=== PATIENT | female | born 1985 | race Caucasian/White ===

== ENCOUNTER 2019-12-20 06:33 | Day surgery (SDC) | payer MEDICARE, SELFPAY ==
[2019-12-19 08:55] LABS: OR HCG Qualitative Urine Negative (Negative)
--- NOTE | 2019-12-19 09:28 | ANES.PREANES ---
Pre-Anesthetic Assessment Pre-Anesthetic Assessment: Height/Weight: Height 1.63 m Weight 94.347 kg Preop Diagnosis: Menorrhagia Proposed Procedure: Operation Date: 12/20/19 08:00 Proposed Procedures p Hysteroscopy w/ Ablation w/ Novasure 31907 n92.1(Not Applicable) - Edward Rojo MD Familial anesthetic complications: No trouble Social: Social History: Tobacco and No alcohol Packs per day: 1 ppd Exam: Pre-Anes Outpt Exam: alert, oriented x 3, clear to auscultation bilaterally and regular rate & rhythm Airway: Cervical ROM: WNL MP: 2 Additional comments: multiple missing teeth Pulmonary: Pulmonary: None reported CV/HEM: CV/HEM: Angina (Stable) Comments: tachycardia (placed on metoprolol), syncope (last time several months ago), dizzy spells happen everyday. Has worn holter. : : None reported Hepatic: Hepatic: None reported GI: GI: GERD Metabolic: Metabolic: Morbid obesity Musc/skel: Musc/skel: Fibromyalgia, OA/DJD and Scoliosis Comments: spina bifida OCCULTA (LATEX allergy) - spondylolisthesis (can't lay completely flat without symptoms/severe pain). has done lithotomy positioning with her first born. Neuropsych: Neuropsych: Neuropathy Anesthetic Plan: ASA status: III Anesthesia: General PFSH Anesthesia PFSH: Social History (Updated 12/19/19 @ 08:30 by Esme Pastor RN) Smoking and tobacco status: current every day smoker cigarettes Packs smoked per day: 1 Years cigarettes smoked: 12 [ Other cigarette details: 1/2-1 ppd. Started smoking age 15 ] Alcohol intake: never Substance/Drug Use: never Additional social history: poorly balanced diet Female Reproductive History: Date of last menstrual period: 12/19/19 Data Anesthesia Other Labs: Laboratory Results - last 48 hr 12/19/19 08:23 Urine HCG, Qual Negative Cardiac Studies: No Data to Display
[2019-12-19 09:38] LABS: Basophils # 0.1 10^3/uL (0.0-0.1); Basophils % 0.6 %; Eosinophils # 0.3 10^3/uL (0.0-0.8); Eosinophils % 3.1 %; Hematocrit 43.3 % (37.0-47.0); Hemoglobin 14.3 g/dL (11.5-15.3); Lymphocytes # 2.6 10^3/uL (0.8-4.8); Lymphocytes % 31.1 %; Mean Corpuscular Hemoglobin 29.7 pg (28.0-34.0); Mean Platelet Volume 11.1 fL (7.4-10.4); Monocytes # 0.7 10^3/uL (0.2-0.9); Neutrophils # 4.8 10^3/uL (1.8-7.7); Nucleated Red Blood Cells % 0 %; Platelet Count 329 10^3/cmm (130-400); Red Blood Count 4.81 10^6/uL (4.1-5.3); Red Cell Distribution Width 13.2 % (12.1-15.1); White Blood Count 8.3 10^3/uL (4.0-10.0)
[2019-12-20 06:41] VITALS: BP 108/69; PULSE 70; RESP 18; O2SAT 98
--- NOTE | 2019-12-20 06:56 | P.HPUD_ITS ---
H&P update H&P Update: DATE OF SURGERY/PROCEDURE: 12/20/19 DATE H&P PERFORMED: H&P UPDATE INFORMATION: H&P completed within last 30 days, No changes to prior documentation and H&P is in [facility] on date indicated PREOP DIAGNOSIS: Menorrhagia with irregular cycles PLANNED PROCEDURE: Operation Date: 12/20/19 08:00 Proposed Procedures p Hysteroscopy w/ Ablation w/ Novasure 32635 n92.1(Not Applicable) - Edward Rojo MD Full H&P Perinent History: Medical/Surgical History: Medical History (Updated 12/18/19 @ 20:38 by Edward Rojo MD) Anxiety and depression (Acute) Dyspareunia, female (Acute) 08/23/2018: Patient is reporting pain with sex that has been present for years, but worsened since her section in 2016. Based upon her description, I am suspicious for adhesions from her possibly being a cause or at least contributing to some of her pain. Her fibromyalgia may also be contributing to her pain. She is being started on Elavil and an attempt to treat her fibromyalgia and we will see if this helps with her pain with sex. Fibromyalgia (Acute) Gastroesophageal reflux (Acute) Migraine headache (Acute) Worse with systemic hormonal control Palpitations (Acute) Controlled with metoprolol. Followed by Dr. Auguste at [facility] Pelvic pain in female (Acute) 08/23/2018: Patient is reporting having pain in her pelvic region similar to the pain she has when she has sex. This is unrelated to her menstrual cycles. Potential causes for pain in the pelvic area was discussed including gynecologic, urologic, gastrointestinal, musculoskeletal, and neurologic causes. Based upon description, I am suspicious for adhesions to be at least a part of her pain problems. The fibromyalgia may also be contributing to her pain. I am starting her on Elavil and attempt to treat her pain. She also wished proceed to a laparoscopic evaluation of her pain as well as to have her tubes tied at the same time. 09/23/2018: Reports overall improvement in her generalized pain with amitriptyline, but no significant improvement with the pelvic pain. 09/28/2018: Laparoscopy with lysis of adhesions and sterilization. Small area of omental adhesions found. No evidence of endometriosis seen. Family History: Family History (Updated 01/26/20 @ 20:25 by Edward Rojo MD) Father Hypertension Stroke Family/Other Colon cancer paternal aunt Grandfather Diabetes Maternal Grandmother Diabetes Paternal Stroke Paternal Social History: Social History Smoking and tobacco status: current every day smoker cigarettes Packs smoked per day: 1 Years cigarettes smoked: 12 [ Other cigarette details: 11/24- ppd. Started smoking age 15 ] Alcohol intake: never Substance/Drug Use: never Additional social history: poorly balanced diet
[2019-12-20] MEDS: ketorolac 30 mg/mL INJ IVP (07:25)
[2019-12-20] MEDS: sodium chloride 0.9% 1,000 ML 30 ML IV (07:26)
--- NOTE | 2019-12-20 09:10 | P.OP_ITS ---
Operative Report Date of procedure: 12/20/19 Pre-op Diagnosis: Menorrhagia with irregular cycles Post-op diagnosis: same Procedure Done: Hysteroscopy with endometrial ablation with NovaSure, Paracervical block Pathology: none sent Surgeon: Edward Rojo Anesthesia: MAC Estimated blood loss (mL): 1 IV fluids (mL): 250 Complications: None Condition: stable Disposition: other (Home) Brief History: Patient is a 34-year-old white female 2, para 2-0-0-2 with an LMP of 11/24/2019 with status post tubal ligation. She had presented to the office on 09/21/2019 with a complaint of approximately 1 year history of abnormal uterine bleeding. Her cycles have been heavy and lasting longer with more cramping. She would typically bleed for 7 to 8 days at the time with passage of up to golf ball size clots. She was having to change a pad about every 3-4 hours. Cramping would start 2 to 3 days before the onset of her menses and continue to approximately 1 to 2 days after the bleeding had stopped. She had been treated with hormonal control which did not help with the bleeding but did help with the cramping. However, she developed worsening migraines while on the control and has now decided proceed to an endometrial ablation. Procedure: The patient was taken to the operating room where IV sedation was obtained. She was prepped and draped in the usual sterile fashion in the dorsal supine position with legs in Emmanuel style stirrups. Sequential compression boots had been placed prior to starting the case. Patient had voided just before coming to the operating room. Exam under anesthesia was performed and the patient was noted to have first to second-degree uterine prolapse with first-degree cystocele and rectocele. A we ighted speculum was placed in the vagina and the cervix was grasped with a single-tooth tenaculum. A paracervical block was performed with a total of 11 mL of 2% lidocaine with epinephrine used. The uterus was sounded to a total length of 6-1/2 cm. The cervix was serially dilated until a operative hysteroscope could be passed. Crystalloid solution was used as a distention media. The endometrial cavity was inspected and appeared normal. No masses or polyps were noted. She did have a small endometrial cavity noted. Using the NovaSure sound, endometrial cavity length was measured at 4 cm. The NovaSure device was inserted and device was deployed. The device was moved up and down and left and right until no further with adjustment occurred. Uterine width was measured at 2.6 cm. Settings were entered in the NovaSure machine and wattage was set at 57 [place]. Cavity integrity check was performed and integrity confirmed. Device was then activated. Total treatment time was 52 seconds. Device was removed. The tenaculum was removed and there was minimal bleeding from the tenaculum site. Patient tolerated the procedure well. Sponge and needle counts were correct. FINDINGS: Small uterus with a first to second-degree prolapse and first-degree cystocele and rectocele. Normal-appearing endometrial cavity. POSTOPERATIVE STATUS: The patient was transferred to the recovery room in satisfactory condition DISPOSITION: Discharge to home when criteria was met. FOLLOWUP APPOINTMENT: Followup appointment had been scheduled on 01/05/2020 in my office. MEDICATIONS: She received prescriptions for: Ibuprofen 800 mg, 3 times a day as needed for pain, #30, 0 refills Tramadol 50 mg, 1 to 2 tablets every 6 hours as needed for pain, #10, 0 refills
[2019-12-20] MEDS: ondansetron 2 mg/ML SDV 2 mL 4 MG IVP (09:48)
[2019-12-20 11:11] VITALS: BP 110/68; PULSE 90; RESP 18; TEMP 36.2; O2SAT 98
[2019-12-20 11:25] VITALS: BP 105/67; PULSE 59; RESP 18; O2SAT 99
== END 2019-12-20 10:45 | disposition home or self-care (01) ==
PROVIDERS: Family Provider Family Medicine; PCP Family Medicine; Visit Provider Obstetrics & Gynecology
PROC: 0U598ZZ Destruction of Uterus, Via Natural or Artificial Opening Endoscopic (ICD-10-PCS; CPT 58563; principal; 2019-12-20 08:00)
DX: N92.0 Excessive and frequent menstruation with regular cycle (principal); M79.7 Fibromyalgia; K21.9 Gastro-esophageal reflux disease without esophagitis; Z82.49 Family history of ischemic heart disease and other diseases of the circulatory system; Z83.3 Family history of diabetes mellitus; F17.210 Nicotine dependence, cigarettes, uncomplicated; E66.01 Morbid (severe) obesity due to excess calories; Z68.35 Body mass index [BMI] 35.0-35.9, adult; M19.90 Unspecified osteoarthritis, unspecified site
CPT/HCPCS: 58563; 12345; 81025; 84703; 85025; 96365; 96374; J1885; J2001; J2250; J2405; J2704; J7030

== ENCOUNTER 2020-02-14 09:51 | Outpatient (CLI) | payer MEDICARE, SELFPAY ==
--- NOTE | 2020-02-14 09:57 | MM_ITS ---
WS: [id number] DIAGNOSTIC BILATERAL DIGITAL MAMMOGRAM WITH CAD Bilateral breast ultrasound, limited HISTORY: LT BREAST CONTOUR DIFFERENCE COMPARISON: None available. Technique: CC, MLO and ML views. Spot compression RIGHT and LEFT CC. Breast composition: The breasts are heterogeneously dense, which may obscure small masses. No signif icant change in the contour of the LEFT breast along the inferior aspect. Dense fibroglandular tissue upper outer quadrants with no mass or distortion. Bilateral breast ultrasound. RIGHT breast: No suspicious mass, cyst or distortion. LEFT breast: No suspicious mass or distortion. No cystic changes. No skin thickening in the area of d istortion. MM/[place] [id number] IMPRESSION: BI-RADS: 2-Benign FOLLOW UP: Age 42 LACK OF RADIOGRAPHIC EVIDENCE OF MALIGNANCY SHOULD NOT DELAY BIOPSY IF A CLINIC ALLY SUSPICIOUS MASS OR CONTOUR ABNORMALITY IS PRESENT.
== END 2020-02-14 09:52 | disposition home or self-care (01) ==
LOC: RADSHAW 09:51
PROVIDERS: Family Provider Family Medicine; PCP Family Medicine; Visit Provider Family Medicine
DX: N63.21 Unspecified lump in the left breast, upper outer quadrant (principal)
CPT/HCPCS: 76642; 77066

== ENCOUNTER 2020-07-12 21:21 | Emergency (ER) | payer MEDICARE, SELFPAY ==
[2020-07-12 21:26] VITALS: BP 120/68; PULSE 132; RESP 25; TEMP 37.4; O2SAT 97; BMI 37.2
--- NOTE | 2020-07-12 21:40 | XR_ITS ---
WS: [id number] EXAM: AP CHEST: PORTABLE UPRIGHT DATE OF EXAM: 07/12/2020, 2156 hour COMPARISON: Chest x-ray from 07/01/2019 HISTORY: Patient is 34 years old with fever and dizziness. Assess for viral pneumonia.. FINDINGS: The cardiac silhouette is normal in size. The mediastinal contours are normal. The pulmonary vas cularity is normal. The lungs are clear of infiltrate. There is no effusion or pneumothorax. No ac [place] bony abnormality is seen. Ornamental jewelry over both breasts. XR/XR chest 1V portable [id number] IMPRESSION: No acute pulmonary disease.
--- NOTE | 2020-07-12 21:44 | ED_ITS ---
HPI - General Adult General: Chief complaint: General Medical Stated complaint: covid symptoms Time Seen by Provider: 07/12/20 21:34 Source: patient Mode of arrival: ambulatory Limitations: no limitations History of Present Illness: HPI narrative: 34-year-old female states over the last 2 days she is been feeling ill. States she had generalized body aches along with abdominal pain vomiting and diarrhea. States she is also had some shortness of breath along with fevers. Patient denies any worsening or improving factors. She denies any blood in her stools. Associated symptoms: Reports nausea and vomiting; Deny chest pain, dyspnea, headache(s) or rash Review of Systems Const: Reports: fever(s) Eyes: Denies: blurry vision or eye discomfort ENMT: Denies: throat pain or dental pain Card: Denies: chest pain Resp: Denies: dyspnea GI: Reports: abdominal pain, nausea, vomiting and diarrhea : Denies: dysuria Musc: Denies: neck pain or back pain Skin/Breast: Denies: rash Neuro: Denies: headache(s) Psych: Denies: depression [place]/Lymph: Denies: easy bruising All/Imm: Denies: urticaria PFSH ED PFSH: Medical History Anxiety and depression Dyspareunia, female 08/23/2018: Patient is reporting pain with sex that has been present for years, but worsened since her section in 2017. Based upon her description, I am suspicious for adhesions from her possibly being a cause or at least contributing to some of her pain. Her fibromyalgia may also be contributing to her pain. She is being started on Elavil and an attempt to treat her fibromyalgia and we will see if this helps with her pain with sex. Fibromyalgia Gastroesophageal reflux Migraine headache Worse with systemic hormonal control Palpitations Controlled with metoprolol. Followed by Dr. Auguste at [facility] Pelvic pain in female 08/23/2018: Patient is reporting having pain in her pelvic region similar to the pain she has when she has sex. This is unrelated to her menstrual cycles. Potential causes for pain in the pelvic area was discussed including gynecologic, urologic, gastrointestinal, musculoskeletal, and neurologic causes. Based upon description, I am suspicious for adhesions to be at least a part of her pain problems. The fibromyalgia may also be contributing to her pain. I am starting her on Elavil and attempt to treat her pain. She also wished proceed to a laparoscopic evaluation of her pain as well as to have her tubes tied at the same time. 09/23/2018: Reports overall improvement in her generalized pain with amitriptyline, but no significant improvement with the pelvic pain. 09/28/2018: Laparoscopy with lysis of adhesions and sterilization. Small area of omental adhesions found. No evidence of endometriosis seen. Smoking Surgical History History of endometrial ablation (12/20/19) Hysteroscopy with NovaSure ablation. Performed by Dr. Rojo at [facility] [place]. S/P section (06/05/17) Low transverse section. Diagnosis: Cephalopelvic disproportion with normal size fetus. Performed by Dr. Edward Rojo at [facility] in [place], [place]. Patient had a low transverse incision with a 2 layer closure of the uterus. S/P cholecystectomy (~2006) Laparoscopic. Performed by Dr Kumar in [place], [place] S/P laparoscopic procedure (09/16/11) Diagnostic. Diag: Pelvic pain, Dyspareunia, Left lower quadrant pain. Performed by Dr. Edward Rojo at [facility] in [place], [place]. --- Operative report reviewed-no signs of endometriosis or adhesions identified. S/P tubal ligation (09/28/18) Laparoscopic complete salpingectomy for sterilization and lysis of adhesions. Diagnosis undesired fertility and chronic pelvic pain. Performed by Dr. Edward Rojo at [facility] in [place], [place]. Findings: Small area of omental adhesions. No evidence of endometriosis seen. Family History Father Hypertension Stroke Family/Other Colon cancer paternal aunt Grandfather Diabetes Maternal Grandmother Diabetes Paternal Stroke Paternal Social History Smoking and tobacco status: current every day smoker cigarettes Packs smoked per day: 1 Years cigarettes smoked: 12 [ Other cigarette details: /2-1 ppd. Started smoking age 15 ] Alcohol intake: never Additional social history: poorly balanced diet Female Reproductive History: Date of last menstrual period: 12/20/19 Physical Exam Const: COMMON NORMALS: patient oriented x3 and healthy appearing GENERAL APPEARANCE: ill appearing HENMT: COMMON NORMALS: normocephalic and atraumatic HEAD & SCALP: normocephalic and atraumatic Eye: COMMON NORMALS: Equal, round and reactive pupils present and EOMs intact bilaterally PUPIL: Yes Equal, round and reactive pupils present Neck/C-Spine: COMMON NORMALS: full ROM and supple Chest: COMMONS NORMALS: normal inspection of the chest and normal palpation of entire chest wall Resp: COMMON NORMALS: normal respiratory effort, No retractions, No use of accessory muscles and clear to auscultation bilaterally AUSCULTATION: clear to auscultation bilaterally Cardio: COMMON NORMALS: regular rhythm and No murmurs present (Cardio) RATE: bradycardic RHYTHM: regular rhythm GI: COMMON NORMALS: Normal to inspection, nondistended, normoactive bowel sounds present, Soft to palpation, non-tender and no masses PALPATION: Yes Soft to palpation Extremity: COMMON NORMALS: normal to inspection and full ROM Neuro: COMMON NORMALS: patient oriented x3, moves all extremities and no focal motor deficits Psych: COMMON NORMALS: mental status grossly normal, Normal thought process present and cooperative THOUGHT PROCESS: Normal thought process present Skin: COMMON NORMALS: no rashes or lesions noted and no wounds GENERAL SKIN EXAM: no rashes or lesions noted Course Vital Signs: Vital signs: Vital Signs Temperature 99.4 F 07/12/20 21:26 Pulse Rate 83 07/13/20 00:17 Respiratory Rate 16 07/13/20 00:17 Blood Pressure 123/87 07/13/20 00:17 Pulse Oximetry 97 07/13/20 00:17 MDM - General Adult MDM Narrative: Medical decision making narrative: Patient presents here with fever along diarrhea. Patient does have colitis. We will start her on Flagyl. Patient has no signs of septic shock. She feels much improved here. Patient is to follow-up PCP in 3 to 5 days return if worsening. She understands and agrees to plan. Lab Data: Labs: Lab Results 07/12/20 07/12/20 07/12/20 Range/Units 22:12 22:12 22:12 WBC 22.8 H (4.0-10.0) 10^3/ uL RBC 5.16 (4.1-5.3) 10^6/u L Hgb 15.9 H (11.5-15.3) g/dL Hct 46.8 (37.0-47.0) % MCV 90.7 (81-99) fL MCH 30.8 (28.0-34.0) pg MCHC 34.0 (30.0-36.0) g/dL RDW 14.5 (12.1-15.1) % Plt Count 366 (130-400) 10^3/c mm MPV 11.0 H (7.4-10.4) fL Neut % (Auto) 90.0 % Lymph % (Auto) 3.1 % [place] % (Auto) 6.0 % Eos % (Auto) 0.0 % Baso % (Auto) 0.3 % Neut # (Auto) 20.54 H (1.8-7.7) 10^3/u L Lymph # (Auto) 0.7 L (0.8-4.8) 10^3/u L [place] # (Auto) 1.4 H (0.2-0.9) 10^3/u L Eos # (Auto) 0.0 (0.0-0.8) 10^3/u L Baso # (Auto) 0.1 (0.0-0.1) 10^3/u L Nucleated RBC % (a uto) 0 % Nucleated RBCs # 0.0 /100WBC Sodium 131 L (136-145) mmol/L Potassium 3.3 L (3.5-5.1) mmol/L Chloride 97 L (98-107) mmol/L Carbon Dioxide 18 L (22-29) mmol/L Anion Gap 19.3 H (5-19) BUN 7 (6-20) mg/dL Creatinine 1.1 H (0.5-0.9) mg/dL GFR Calculation 57.6 L (90-130) mL/min Glucose 122 H (65-115) mg/dL Calculated Osmolal ity 269 L (285-295) mOsm/k g Lactate (0.5-2.2) mmol/L Calcium 9.5 (8.5-10.5) mg/dL Total Bilirubin 0.5 (0.15-1.2) mg/dL AST 46 H (0-32) U/L ALT 62 H (0-33) U/L Alkaline Phosphata se 105 (35-105) IU/L Total Protein 8.0 (6.6-8.7) g/dL Albumin 4.3 (3.5-5.2) g/dL Globulin 3.7 (1.3-4.6) g/dL Lipase 10 L (13-60) U/L HCG, Qual (Negative) Urine Color (Yellow) Urine Appearance (CLEAR) Urine pH (5-7) Ur Specific Gravit y (1.005-1.030) Urine Protein (Negative) Urine Glucose (UA) (Normal) Urine Ketones (Negative) Urine Blood (Negative) Urine Nitrate (Negative) Urine Bilirubin (NEGATIVE) Urine Urobilinogen (Negative) mg/dL Ur Leukocyte Tamara ase (Negative) Urine RBC (0-2) /hpf Urine WBC (0-5) /hpf Ur Squamous Epith Cells (0-5) Amorphous Sediment Urine Bacteria (NONE) Urine Mucus SARS-CoV-2 Ag (Rap id) Negative (Negative) 07/12/20 07/12/20 07/12/20 Range/Units 22:12 22:12 22:12 WBC (4.0-10.0) 10^3/ uL RBC (4.1-5.3) 10^6/u L Hgb (11.5-15.3) g/dL Hct (37.0-47.0) % MCV (81-99) fL MCH (28.0-34.0) pg MCHC (30.0-36.0) g/dL RDW (12.1-15.1) % Plt Count (130-400) 10^3/c mm MPV (7.4-10.4) fL Neut % (Auto) % Lymph % (Auto) % [place] % (Auto) % Eos % (Auto) % Baso % (Auto) % Neut # (Auto) (1.8-7.7) 10^3/u L Lymph # (Auto) (0.8-4.8) 10^3/u L [place] # (Auto) (0.2-0.9) 10^3/u L Eos # (Auto) (0.0-0.8) 10^3/u L Baso # (Auto) (0.0-0.1) 10^3/u L Nucleated RBC % (a uto) % Nucleated RBCs # /100WBC Sodium (136-145) mmol/L Potassium (3.5-5.1) mmol/L Chloride (98-107) mmol/L Carbon Dioxide (22-29) mmol/L Anion Gap (5-19) BUN (6-20) mg/dL Creatinine (0.5-0.9) mg/dL GFR Calculation (90-130) mL/min Glucose (65-115) mg/dL Calculated Osmolal ity (285-295) mOsm/k g Lactate 2.6 H (0.5-2.2) mmol/L Calcium (8.5-10.5) mg/dL Total Bilirubin (0.15-1.2) mg/dL AST (0-32) U/L ALT (0-33) U/L Alkaline Phosphata se (35-105) IU/L Total Protein (6.6-8.7) g/dL Albumin (3.5-5.2) g/dL Globulin (1.3-4.6) g/dL Lipase (13-60) U/L HCG, Qual Negative (Negative) Urine Color Dark yellow (Yellow) Urine Appearance Cloudy (CLEAR) Urine pH 5 (5-7) Ur Specific Gravit y 1.025 (1.005-1.030) Urine Protein 2+ H (Negative) Urine Glucose (UA) Norm (Normal) Urine Ketones 1+ H (Negative) Urine Blood Neg (Negative) Urine Nitrate Negative (Negative) Urine Bilirubin 1+ H (NEGATIVE) Urine Urobilinogen 1 H (Negative) mg/dL Ur Leukocyte Tamara ase Negative (Negative) Urine RBC 0-4 H (0-2) /hpf Urine WBC 10-15 H (0-5) /hpf Ur Squamous Epith Cells 10-15 H (0-5) Amorphous Sediment Not Reportable Urine Bacteria 1+ H (NONE) Urine Mucus 1+ SARS-CoV-2 Ag (Rap id) (Negative) Imaging Data^: CXR: My impression: no acute abnormality CT Abd/Pel: Radiologist's impression: [address] [address] [address] Scan Report Signed Patient: Caitlin Watkins Unit #: [id number] : 1985 Age/Sex: 34 / F ADM Date: 07/12/20 Loc: ER Room/Bed: Attending Dr: Ordering Provider/Ordering MD: Cruz Meyers MD Date of Service: 07/12/20 Procedure(s): CT angio chest w abd pel w con Accession Number(s): [id number] Report Number: [id number] PROCEDURE INFORMATION: Exam: CT Angiography Chest With Contrast Exam date and time: 07/12/2020 11:18 PM Age: 34 years old Clinical indication: Nausea and vomiting; Abdominal pain; Generalized; Cough and shortness of breath; Chest pain; Type not specified; Prior surgery; Surgery type: Gb, fallopian tubes, ; Additional info: SOB, abd pain TECHNIQUE: Imaging protocol: Computed tomographic angiography of the chest with intravenous contrast. 3D rendering (Not supervised by radiologist): MIP and/or 3D reconstructed images were created by the technologist. Radiation optimization: All CT scans at this facility use at least one of these dose optimization techniques: automated exposure control; mA and/or kV adjustment per patient size (includes targeted exams where dose is matched to clinical indication); or iterative reconstruction. Contrast material: VISI; Contrast volume: 95 ml; Contrast route: INTRAVENOUS (IV); Other contrast: Oral, redicat, 450 ml; COMPARISON: CTA Chest-Pulmonary Emb [id number] 07/01/2019 8:50 PM RADIATION DOSE METRICS: Total DLP (mGy-cm): 1869.01 FINDINGS: Pulmonary arteries: Normal. No pulmonary emboli. Aorta: Unremarkable. No aortic aneurysm. No aortic dissection. Lungs: Unremarkable. No consolidation. No masses. Pleural space: Unremarkable. No pneumothorax. No pleural effusion. Heart: Unremarkable. No cardiomegaly. No pericardial effusion. Lymph nodes: Unremarkable. No enlarged lymph nodes. Bones/joints: Unremarkable. No acute fracture. Soft tissues: Unremarkable. IMPRESSION: Negative for pulmonary embolus or airspace infiltrate. PROCEDURE INFORMATION: Exam: CT Abdomen And Pelvis With Contrast Exam date and time: 07/12/2020 11:18 PM Age: 34 years old Clinical indication: Nausea and vomiting; Abdominal pain; Generalized; Cough and shortness of breath; Chest pain; Type not specified; Prior surgery; Surgery type: Gb, fallopian tubes, ; Additional info: SOB, abd pain TECHNIQUE: Imaging protocol: Computed tomography of the abdomen and pelvis with intravenous contrast. Radiation optimization: All CT scans at this facility use at least one of these dose optimization techniques: automated exposure control; mA and/or kV adjustment per patient size (includes targeted exams where dose is matched to clinical indication); or iterative reconstruction. Contrast material: VISI; Contrast volume: 95 ml; Contrast route: INTRAVENOUS (IV); Other contrast: Oral, redicat, 450 ml; COMPARISON: CTA Chest-Pulmonary Emb [id number] 07/01/2019 8:50 PM RADIATION DOSE METRICS: Total DLP (mGy-cm): 1869.01 FINDINGS: Liver: Normal. No mass. Gallbladder and bile ducts: Cholecystectomy. Pancreas: Normal. No ductal dilation. Spleen: Normal. No splenomegaly. Adrenals: Normal. No mass. Kidneys and ureters: Normal. No hydronephrosis. Stomach and bowel: Prominent fluid in the small bowel and colon along with some suspected colonic wall thickening suggestive of an enterocolitis. Appendix: No evidence of appendicitis. Intraperitoneal space: Unremarkable. No free air. No significant fluid collection. Vasculature: Unremarkable. No abdominal aortic aneurysm. Lymph nodes: Unremarkable. No enlarged lymph nodes. Bladder: Unremarkable as visualized. Reproductive: Left ovary 14 mm peripherally enhancing structure suggestive of a partially collapsed follicle. Bones/joints: Unremarkable. No acute fracture. Soft tissues: Unremarkable. CT/CT angio chest w abd pel w con IMPRESSION: 1. Prominent fluid in the small bowel and colon along with some suspected colonic wall thickening suggestive of an enterocolitis. 2. Left ovary 14 mm peripherally enhancing structure suggestive of a partially collapsed follicle. 3. Cholecystectomy. Discharge Plan Discharge Patient Disposition: Home Clinical Impression: Colitis Condition: Stable Prescriptions: New ondansetron 4 mg tablet,disintegrating 4 mg PO Q6H PRN (Reason: nausea and vomiting) Qty: 14 RF: 0 Flagyl 500 mg tablet 500 mg PO Q8H 7 Days Qty: 21 RF: 0 No Action omeprazole 20 mg capsule,delayed release(DR/EC) 20 mg PO BID RF: 0 multivitamin Tablet 1 tab PO QDAY RF: 0 povidone-iodine [Betadine Swabsticks] 10 % swab 1 applic TOPICAL ONCE Qty: 1 RF: 0 escitalopram oxalate 20 mg tablet 20 mg PO DAILY RF: 0 buspirone 5 mg tablet 5 mg PO TID PRN (Reason: panic attacks) Qty: 90 RF: 0 trazodone 50 mg tablet See Rx Instructions PO DAILY Qty: 60 RF: 0 Referrals: Jose Pryor MD [Primary Care Provider] - Coding Level of Care Code ED Ems Coordinator for Chg Fwd Exam Comprehensive
[2020-07-12] MEDS: ondansetron 2 mg/ML SDV 2 mL 4 MG IVP (21:51)
[2020-07-12] MEDS: acetaminophen 325 mg Tablet 650 MG PO (21:51)
[2020-07-12] MEDS: sodium chloride 0.9% 1,000 ML 999 ML IV ×2 (21:51→22:36)
[2020-07-12 22:23] VITALS: BP 117/71; PULSE 103; RESP 20; O2SAT 95
[2020-07-12 22:38] LABS: Basophils # 0.1 10^3/uL (0.0-0.1); Basophils % 0.3 %; Hematocrit 46.8 % (37.0-47.0); Hemoglobin 15.9 g/dL (11.5-15.3); Lymphocytes # 0.7 10^3/uL (0.8-4.8); Lymphocytes % 3.1 %; Mean Corpuscular Hemoglobin 30.8 pg (28.0-34.0); Mean Corpuscular Volume 90.7 fL (81-99); Monocytes # 1.4 10^3/uL (0.2-0.9); Neutrophils # 20.54 10^3/uL (1.8-7.7); Nucleated Red Blood Cells % 0 %; Platelet Count 366 10^3/cmm (130-400); Red Blood Count 5.16 10^6/uL (4.1-5.3); Red Cell Distribution Width 14.5 % (12.1-15.1); White Blood Count 22.8 10^3/uL (4.0-10.0)
[2020-07-12 22:46] LABS: HCG, Serum Qual Negative (Negative)
[2020-07-12 22:49] VITALS: PULSE 88; RESP 16; O2SAT 99
[2020-07-12 22:50] LABS: Alanine Aminotransferase 62 U/L (0-33); Albumin Level 4.3 g/dL (3.5-5.2); Alkaline Phosphatase 105 IU/L (35-105); Anion Gap 19.3 (5-19); Aspartate Amino Transferase 46 U/L (0-32); Blood Urea Nitrogen 7 mg/dL (6-20); Calcium 9.5 mg/dL (8.5-10.5); Carbon Dioxide 18 mmol/L (22-29); Chloride 97 mmol/L (98-107); Globulin 3.7 g/dL (1.3-4.6); Glomerular Filtration Rate 57.6 mL/min (90-130); Glucose 122 mg/dL (65-115); Lipase 10 U/L (13-60); Osmolality Calculated 269 mOsm/kg (285-295); Potassium 3.3 mmol/L (3.5-5.1); Sodium 131 mmol/L (136-145); Total Bilirubin 0.5 mg/dL (0.15-1.2)
[2020-07-12 22:55] LABS: Add Urine Microscopic? YES; Bilirubin Urine 1+ (NEGATIVE); Blood Urine Neg (Negative); Glucose Urine UA Norm (Normal); Ketones Urine 1+ (Negative); Leukocyte Esterase Urine Negative (Negative); Nitrate Urine Negative (Negative); Protein Urine 2+ (Negative); Specific Gravity, Urine 1.025 (1.005-1.030); Urine Appearance Cloudy (CLEAR); Urine Color Dark Yellow (Yellow); Urobilinogen Urine 1 mg/dL (Negative); pH Urine 5 (5-7)
[2020-07-12 22:56] LABS: Bacteria Urine 1+; Mucus Urine 1+; RBC Urine 0-4 /hpf (0-2)
[2020-07-12 23:04] LABS: Lactate (Lactic Acid level) 2.6 mmol/L (0.5-2.2)
[2020-07-12 23:06] LABS: SARS Covid-2 Antigen Negative (Negative)
--- NOTE | 2020-07-12 23:16 | CTR_ITS ---
PROCEDURE INFORMATION: Exam: CT Angiography Chest With Contrast Exam date and time: 07/12/2020 11:18 PM Age: 34 years old Clinical indication: Nausea and vomiting; Abdominal pain; Generalized; Cough and shortness of breath; Chest pain; Type not specified; Prior surgery; Surgery type: Gb, fallopian tubes, ; Additional info: SOB, abd pain TECHNIQUE: Imaging protocol: Computed tomographic angiography of the chest with intravenous contrast. 3D rendering (Not supervised by radiologist): MIP and/or 3D reconstructed images were created by the technologist. Radiation optimization: All CT scans at this facility use at least one of these dose optimization techniques: automated exposure control; mA and/or kV adjustment per patient size (includes targeted exams where dose is matched to clinical indication); or iterative reconstruction. Contrast material: VISI; Contrast volume: 95 ml; Contrast route: INTRAVENOUS (IV); Other contrast: Oral, redicat, 450 ml; COMPARISON: CTA Chest-Pulmonary Emb [id number] 07/01/2019 8:50 PM RADIATION DOSE METRICS: Total DLP (mGy-cm): 1869.01 FINDINGS: Pulmonary arteries: Normal. No pulmonary emboli. Aorta: Unremarkable. No aortic aneurysm. No aortic dissection. Lungs: Unremarkable. No consolidation. No masses. Pleural space: Unremarkable. No pneumothorax. No pleural effusion. Heart: Unremarkable. No cardiomegaly. No pericardial effusion. Lymph nodes: Unremarkable. No enlarged lymph nodes. Bones/joints: Unremarkable. No acute fracture. Soft tissues: Unremarkable. IMPRESSION: Negative for pulmonary embolus or airspace infiltrate. PROCEDURE INFORMATION: Exam: CT Abdomen And Pelvis With Contrast Exam date and time: 07/12/2020 11:18 PM Age: 34 years old Clinical indication: Nausea and vomiting; Abdominal pain; Generalized; Cough and shortness of breath; Chest pain; Type not specified; Prior surgery; Surgery type: Gb, fallopian tubes, ; Additional info: SOB, abd pain TECHNIQUE: Imaging protocol: Computed tomography of the abdomen and pelvis with intravenous contrast. Radiation optimization: All CT scans at this facility use at least one of these dose optimization techniques: automated exposure control; mA and/or kV adjustment per patient size (includes targeted exams where dose is matched to clinical indication); or iterative reconstruction. Contrast material: VISI; Contrast volume: 95 ml; Contrast route: INTRAVENOUS (IV); Other contrast: Oral, redicat, 450 ml; COMPARISON: CTA Chest-Pulmonary Emb [id number] 07/01/2019 8:50 PM RADIATION DOSE METRICS: Total DLP (mGy-cm): 1869.01 FINDINGS: Liver: Normal. No mass. Gallbladder and bile ducts: Cholecystectomy. Pancreas: Normal. No ductal dilation. Spleen: Normal. No splenomegaly. Adrenals: Normal. No mass. Kidneys and ureters: Normal. No hydronephrosis. Stomach and bowel: Prominent fluid in the small bowel and colon along with some suspected colonic wall thickening suggestive of an enterocolitis. Appendix: No evidence of appendicitis. Intraperitoneal space: Unremarkable. No free air. No significant fluid collection. Vasculature: Unremarkable. No abdominal aortic aneurysm. Lymph nodes: Unremarkable. No enlarged lymph nodes. Bladder: Unremarkable as visualized. Reproductive: Left ovary 14 mm peripherally enhancing structure suggestive of a partially collapsed follicle. Bones/joints: Unremarkable. No acute fracture. Soft tissues: Unremarkable. CT/CT angio chest w abd pel w con IMPRESSION: 1. Prominent fluid in the small bowel and colon along with some suspected colonic wall thickening suggestive of an enterocolitis. 2. Left ovary 14 mm peripherally enhancing structure suggestive of a partially collapsed follicle. 3. Cholecystectomy. Radiation Dose CTDIVOL = (mGy): DLP = 1869.01~1869.01 (mGy-cm)
[2020-07-12] MEDS: iodixanol 320 mg/mL 100mL Btl IV (23:45)
[2020-07-12 23:54] VITALS: BP 118/87; PULSE 83; RESP 17; O2SAT 96
[2020-07-13 00:17] VITALS: BP 123/87; PULSE 83; RESP 16; O2SAT 97
[2020-07-13] MEDS: ondansetron 4 MG Tablet PO (00:27)
== END 2020-07-13 00:27 | disposition home or self-care (01) ==
PROVIDERS: Emergency Provider Emergency Medicine; PCP Family Medicine
DX: K52.9 Noninfective gastroenteritis and colitis, unspecified (principal); F17.210 Nicotine dependence, cigarettes, uncomplicated
CPT/HCPCS: 12345; 71045; 71275; 74177; 80053; 81001; 83605; 83690; 84703; 85025; 87040; 87205; 87426; 96361; 96374; 99282; 99284; J2405; J7030; Q0162; Q9967

== ENCOUNTER 2020-07-13 21:23 | Inpatient (IN) | payer MEDICARE, SELFPAY ==
[2020-07-13 21:35] VITALS: BP 110/93; PULSE 128; RESP 30; TEMP 37.5; O2SAT 98; BMI 37.2
--- NOTE | 2020-07-13 21:58 | XR_ITS ---
WS: [id number] EXAM: AP CHEST: PORTABLE UPRIGHT DATE OF EXAM: 07/13/2020, 2209 hours COMPARISON: Chest x-ray from 07/12/2020 HISTORY: Patient is 34 years old with cough and vomiting. FINDINGS: The cardiac silhouette is normal in size. The mediastinal contours are normal. The pulmonary vas cularity is congested. There are slight granular infiltrate changes demonstrated bilaterally. Whethe r this represents slight pulmonary edema or slight interstitial pneumonitis is uncertain. No consolid ating pneumonia. There is no effusion or pneumothorax. No acute bony abnormality is seen. Ornament al jewelry over both nipples. XR/XR chest 1V portable [id number] IMPRESSION: Slight granular interstitial infiltrate overlying both lungs suggesting a subtl e pneumonitis.
--- NOTE | 2020-07-13 21:58 | ECG_ITS ---
[facility] Test Date: 2020-07-13 Pat Name: Caitlin Watkins Department: Room: Gender: Female Hand Edger: : 1985 Requested By: Emily Milligan Order Number: [id number] Brown MD: Jesús Barkley M.D. Measurements Intervals Anderson Rate: 98 P: 140 MT: 144 QRS: 149 QRSD: 92 T: 195 QT: 305 QTc: 390 Interpretive Statements SINUS RHYTHM ARM LEADS REVERSED [INVERTED P AND QRS IN I] Compared to ECG 07/01/2019 21:22:52 No significant changes Electronically Signed On 07-14-2020 19:25:16 CDT by Jesús Barkley M.D. [id number]
[2020-07-13 22:25] LABS: ABG PH Result 7.55 (7.35-7.45); Alveolar-Arterial Oxygen Gradi 5.5 mmHg (5-10); Arterial Blood Gas Hematocrit 47.9 % (37-47); Blood Gas Allen Test Pos; Blood Gas Sample Site Brachial, right; Blood Gas Sample Type Arterial; Carboxyhemoglobin 1.4 %THgb (0.4-20.1); HCO3 ABG 17.6 mmol/L (22-26); HGB O2 Sat 95.7 % (95-100); Ionized Calcium Level - ABG 1.2 mmol/L (1.1-1.4); Methemoglobin 0.9 % (0.4-1.5); PO2 ABG 80.1 mmHg (80.0-100.0); Total Hemoglobin 15.6 g/dL (12-16)
[2020-07-13] MEDS: promethazine-cod syrup 6.25-10mg/5 mL UDC 10 ML PO (22:59)
[2020-07-13 23:19] VITALS: BP 107/58; PULSE 94; RESP 18; O2SAT 98
[2020-07-13] MEDS: dexamethasone 4 mg/mL INJ 8 MG IVP (23:27)
[2020-07-13 23:28] LABS: Basophils # 0.1 10^3/uL (0.0-0.1); Basophils % 0.5 %; Eosinophils % 0.2 %; Hematocrit 45.2 % (37.0-47.0); Hemoglobin 15.2 g/dL (11.5-15.3); Lymphocytes # 0.7 10^3/uL (0.8-4.8); Lymphocytes % 5.8 %; Mean Corpuscular HGB Conc 33.6 g/dL (30.0-36.0); Mean Corpuscular Hemoglobin 29.7 pg (28.0-34.0); Mean Corpuscular Volume 88.3 fL (81-99); Mean Platelet Volume 10.9 fL (7.4-10.4); Monocytes # 0.6 10^3/uL (0.2-0.9); Monocytes % 4.8 %; Neutrophils # 11.32 10^3/uL (1.8-7.7); Neutrophils % 88.5 %; Nucleated Red Blood Cells % 0 %; Platelet Count 307 10^3/cmm (130-400); Red Blood Count 5.12 10^6/uL (4.1-5.3); Red Cell Distribution Width 14.3 % (12.1-15.1); White Blood Count 12.8 10^3/uL (4.0-10.0)
--- NOTE | 2020-07-13 23:29 | W.ED.SOB ---
HPI - SOB/Dyspnea General: Chief Complaint: Shortness of Breath/Dyspnea Stated Complaint: was here last night/ feels worse Time Seen by Provider: 07/13/20 21:57 Source: patient Mode of arrival: ambulatory Limitations: no limitations History of Present Illness: HPI Narrative: Caitlin is a 34-year-old female who comes a complaint of cough, shortness of breath and posttussive emesis. States she is been sick for 2 to 3 days with the symptoms. Status fever as high as 102.8 at home. Patient's been tested for COVID twice and been negative twice. She states she just cannot seem to get over the symptoms. She denies any urinary symptoms. She denies any abdominal pain or flank pain. History is limited at this time as the patient is coughing forcefully and feels like she cannot stop. I will order some medicine for her cough. Associated symptoms: Reports fever(s); Deny abdominal pain, chest congestion, chest pain, diaphoresis, dizziness, extremity pain, hemoptysis, lightheadedness, nausea, orthopnea, palpitations, syncope or vomiting Review of Systems Const: Reports: fever(s), chills, body aches, fatigue and malaise; Denies: diaphoresis Eyes: Denies: change in vision, blurry vision, photophobia, eye discomfort, eye discharge or eye redness ENMT: Denies: throat pain, odynophagia, hoarseness, swelling of lips/tongue, ear or mastoid pain, ear discharge, change in hearing or nasal discharge Card: Denies: chest pain, palpitations, irregular heart rhythm, edema, lightheadedness, syncope, pre-syncope, dyspnea on exertion or orthopnea Resp: Reports: dyspnea and non-productive cough; Denies: wheezing, hemoptysis or chest congestion GI: Denies: abdominal pain, nausea, vomiting, hematemesis, coffee ground emesis, heartburn, diarrhea, constipation, GI cramping, hematochezia or melena : Denies: flank pain, dysuria, urinary frequency, urinary urgency or hematuria Musc: Denies: neck pain, back pain, extremity pain, extremity swelling, joint pain, joint swelling, joint redness, joint warmth or joint stiffness Skin/Breast: Denies: rash, pruritus, erythema or skin tenderness Neuro: Denies: headache(s), numbness in extremities, weakness in extremities, sensory changes, lack of coordination, difficulty walking, dizziness, vertigo, confusion, Slurred speech present or seizure-like activity Destin/Lymph: Denies: easy bruising, easy bleeding, petechiae, purpura or enlarged lymph nodes All/Imm: Denies: urticaria, throat swelling, tongue swelling, facial swelling or acute wheezing PFSH ED PFSH: Medical History Anxiety and depression Dyspareunia, female 08/23/2018: Patient is reporting pain with sex that has been present for years, but worsened since her section in 2016. Based upon her description, I am suspicious for adhesions from her possibly being a cause or at least contributing to some of her pain. Her fibromyalgia may also be contributing to her pain. She is being started on Elavil and an attempt to treat her fibromyalgia and we will see if this helps with her pain with sex. Fibromyalgia Gastroesophageal reflux Migraine headache Worse with systemic hormonal control Palpitations Controlled with metoprolol. Followed by Dr. Auguste at [facility] Pelvic pain in female 08/23/2018: Patient is reporting having pain in her pelvic region similar to the pain she has when she has sex. This is unrelated to her menstrual cycles. Potential causes for pain in the pelvic area was discussed including gynecologic, urologic, gastrointestinal, musculoskeletal, and neurologic causes. Based upon description, I am suspicious for adhesions to be at least a part of her pain problems. The fibromyalgia may also be contributing to her pain. I am starting her on Elavil and attempt to treat her pain. She also wished proceed to a laparoscopic evaluation of her pain as well as to have her tubes tied at the same time. 09/23/2018: Reports overall improvement in her generalized pain with amitriptyline, but no significant improvement with the pelvic pain. 09/28/2018: Laparoscopy with lysis of adhesions and sterilization. Small area of omental adhesions found. No evidence of endometriosis seen. Smoking Surgical History History of endometrial ablation (12/20/19) Hysteroscopy with NovaSure ablation. Performed by Dr. Rojo at [facility] [place]. S/P section (06/05/17) Low transverse section. Diagnosis: Cephalopelvic disproportion with normal size fetus. Performed by Dr. Edward Rojo at [facility] in [place], [place]. Patient had a low transverse incision with a 2 layer closure of the uterus. S/P cholecystectomy (~2006) Laparoscopic. Performed by Dr Kumar in [place], [place] S/P laparoscopic procedure (09/16/11) Diagnostic. Diag: Pelvic pain, Dyspareunia, Left lower quadrant pain. Performed by Dr. Edward Rojo at [facility] in [place], [place]. --- Operative report reviewed-no signs of endometriosis or adhesions identified. S/P tubal ligation (09/28/18) Laparoscopic complete salpingectomy for sterilization and lysis of adhesions. Diagnosis undesired fertility and chronic pelvic pain. Performed by Dr. Edward Rojo at [facility] in [place], [place]. Findings: Small area of omental adhesions. No evidence of endometriosis seen. Family History Father Hypertension Stroke Family/Other Colon cancer paternal aunt Grandfather Diabetes Maternal Grandmother Diabetes Paternal Stroke Paternal Social History Smoking and tobacco status: current every day smoker cigarettes Packs smoked per day: 1 Years cigarettes smoked: 12 [ Other cigarette details: 2-1 ppd. Started smoking age 15 ] Alcohol intake: never Additional social history: poorly balanced diet Female Reproductive History: Date of last menstrual period: 12/20/19 Physical Exam Const: COMMON NORMALS: no acute distress, patient oriented x3, no limitations, healthy appearing and well nourished GENERAL APPEARANCE: cooperative, well kempt and well developed HENMT: COMMON NORMALS: normocephalic, atraumatic, external ears normal, EAC's normal and Normal external nose present HEAD & SCALP: normal to inspection, normocephalic and atraumatic FACE & SINUS: normal facial exam and face symmetric NOSE: Normal external nose present and Normal nares present EXTERNAL EAR: Yes external ears normal EXTERNAL AUDITORY CANAL: EAC's normal MOUTH: Normal oral and palatal mucosa present, lip normal and tongue normal Eye: COMMON NORMALS: Equal, round and reactive pupils present and conjunctivae normal GENERAL EYE: appearance normal, both eyes and all related structures ALIGNMENT: Yes alignment normal PERIORBITAL: periorbital findings normal EYELID: eyelids normal CONJUNCTIVA: Yes conjunctivae normal SCLERA: sclerae normal PUPIL: Yes Equal, round and reactive pupils present Neck/C-Spine: COMMON NORMALS: full ROM, no lymphadenopathy, supple, no meningeal signs and no JVD GENERAL: Yes normal visual inspection and Yes trachea midline Chest: COMMONS NORMALS: normal inspection of the chest and normal palpation of entire chest wall Resp: COMMON NORMALS: normal respiratory effort, No retractions, No use of accessory muscles and clear to auscultation bilaterally EFFORT & INSPECTION: Yes able to speak in complete sentences and Yes symmetric chest movement AUSCULTATION: clear to auscultation bilaterally, no crackles, no rales, no rhonchi and no wheezes Cardio: COMMON NORMALS: no JVD, regular rate, regular rhythm, S1 normal heart sound present and S2 normal heart sound present RATE: regular rate RHYTHM: regular rhythm HEART SOUNDS: S1 normal heart sound present, S2 normal heart sound present, no click, no gallops, no murmurs, no rubs and abnormal split S2 GI: COMMON NORMALS: Soft to palpation and No hepatosplenomegaly present PALPATION: Yes Soft to palpation, No Tenderness to palpation present (GI), No Guarding due to palpation present (GI), No Rigid due to palpation, Yes No hepatosplenomegaly present, No Hernia present, No Palpable mass present and No Pulsatile mass present : COMMON NORMALS: Yes no CVA tenderness BLADDER/KIDNEY EXAM: Yes no CVA tenderness EXTERNAL FEMALE EXAM: No Hernia present Back/Pelvis: COMMON NORMALS: no CVA tenderness, thoracic and lumbar spine normal to inspection, no thoracic nor lumbar tenderness and thoraco-lumbar ROM normal Extremity: COMMON NORMALS: normal to inspection, full ROM, capillary refill normal, no joint enlargement, no clubbing, cyanosis or edema and no calf tenderness Neuro: COMMON NORMALS: patient oriented x3, CN's II-XII intact bilaterally, moves all extremities, no focal motor deficits and no sensory deficits noted MENINGEAL SIGNS: Yes no meningeal signs SPEECH: speech normal Psych: COMMON NORMALS: mental status grossly normal, Normal thought process present, cooperative, normal affect, speech normal and activity/motor behavior normal APPEARANCE: Yes well kempt SPEECH: Yes normal speech THOUGHT PROCESS: Normal thought process present Skin: COMMON NORMALS: no rashes or lesions noted, turgor normal, no jaundice, no petechiae and no mottling GENERAL SKIN EXAM: no rashes or lesions noted and turgor normal Course Vital Signs: Vital signs: Vital Signs Temperature 99.5 F 07/13/20 21:35 Pulse Rate 94 07/13/20 23:19 Respiratory Rate 18 07/13/20 23:19 Blood Pressure 107/58 07/13/20 23:19 Pulse Oximetry 98 07/13/20 23:19 MDM - SOB/Dyspnea Lab Data: Labs: Lab Results 07/13/20 07/13/20 Range/Units 22:18 23:18 WBC 12.8 H (4.0-10.0) 10^3/ uL RBC 5.12 (4.1-5.3) 10^6/u L Hgb 15.2 (11.5-15.3) g/dL Hct 45.2 (37.0-47.0) % MCV 88.3 (81-99) fL MCH 29.7 (28.0-34.0) pg MCHC 33.6 (30.0-36.0) g/dL RDW 14.3 (12.1-15.1) % Plt Count 307 (130-400) 10^3/c mm MPV 10.9 H (7.4-10.4) fL Neut % (Auto) 88.5 % Lymph % (Auto) 5.8 % [place] % (Auto) 4.8 % Eos % (Auto) 0.2 % Baso % (Auto) 0.5 % Neut # (Auto) 11.32 H (1.8-7.7) 10^3/u L Lymph # (Auto) 0.7 L (0.8-4.8) 10^3/u L [place] # (Auto) 0.6 (0.2-0.9) 10^3/u L Eos # (Auto) 0.0 (0.0-0.8) 10^3/u L Baso # (Auto) 0.1 (0.0-0.1) 10^3/u L Nucleated RBC % (a uto) 0 % Nucleated RBCs # 0.0 /100WBC Specimen Type Arterial Sample Site Brachial, right ABG pH 7.55 H (7.35-7.45) ABG pCO2 20.0 L (35-45) mmHg ABG pO2 80.1 (80.0-100.0) mmH g ABG HCO3 17.6 L (22-26) mmol/L ABG O2 Saturation 98.0 ABG Base Excess -2.0 (-2.0-2.0) mmol/ L Emmanuel Test Pos A-a O2 Gradient 5.5 (5-10) mmHg Hematocrit 47.9 H (37-47) % Hgb O2 Saturation 95.7 (95-100) % Carboxyhemoglobin 1.4 (0.4-20.1) %THgb Methemoglobin 0.9 (0.4-1.5) % Total Hemoglobin 15.6 (12-16) g/dL Sodium 132.0 (131-143) mmol/L Potassium 3.0 L (3.5-5.0) mmol/L Glucose 92.0 (70-115) mg/dL Ionized Calcium 1.2 (1.1-1.4) mmol/L O2 Delivery Device None FiO2 21.0 % Senior Vice President & General Counsel ID [id number] Imaging Data^: CXR: Attestation: I personally reviewed and interpreted this imaging study as follows: My impression: Possible interstitial infiltrates Discharge Plan Discharge Prescriptions: No Action omeprazole 20 mg capsule,delayed release(DR/EC) 20 mg PO BID RF: 0 multivitamin Tablet 1 tab PO QDAY RF: 0 povidone-iodine [Betadine Swabsticks] 10 % swab 1 applic TOPICAL ONCE Qty: 1 RF: 0 escitalopram oxalate 20 mg tablet 20 mg PO DAILY RF: 0 buspirone 5 mg tablet 5 mg PO TID PRN (Reason: panic attacks) Qty: 90 RF: 0 trazodone 50 mg tablet See Rx Instructions PO DAILY Qty: 60 RF: 0 ondansetron 4 mg tablet,disintegrating 4 mg PO Q6H PRN (Reason: nausea and vomiting) Qty: 14 RF: 0 Coding Level of Care Code ED Bereavement Counselor for Chg Fwd Exam Comprehensive
[2020-07-13 23:34] VITALS: BP 107/58; PULSE 102; RESP 22; TEMP 39.3; O2SAT 97
[2020-07-13 23:41] LABS: HCG, Serum Qual Negative (Negative)
[2020-07-13 23:43] LABS: INR 1.08 (0.8-1.2)
[2020-07-13 23:51] LABS: Lactic Sepsis W/Reflex 1.9 mmol/L (0.5-2.2)
[2020-07-13 23:52] LABS: Alanine Aminotransferase 48 U/L (0-33); Albumin Level 3.9 g/dL (3.5-5.2); Alkaline Phosphatase 112 IU/L (35-105); Aspartate Amino Transferase 37 U/L (0-32); Blood Urea Nitrogen 6 mg/dL (6-20); Calcium 9.6 mg/dL (8.5-10.5); Carbon Dioxide 18 mmol/L (22-29); Chloride 99 mmol/L (98-107); Creatine Phosphokinase 193 U/L (26-192); D Dimer 5.04 ug/mIFEU (0-0.59); Globulin 3.3 g/dL (1.3-4.6); Glomerular Filtration Rate 57.6 mL/min (90-130); Glucose 101 mg/dL (65-115); Magnesium 1.7 mg/dL (1.7-2.3); Osmolality Calculated 268 mOsm/kg (285-295); Sodium 131 mmol/L (136-145); Total Bilirubin 0.4 mg/dL (0.15-1.2); Total Protein 7.2 g/dL (6.6-8.7)
--- NOTE | 2020-07-13 23:57 | PC.NURSE ---
EKG done at 2355 and shown to ER doctor
[2020-07-13 23:59] LABS: Bilirubin Urine 1+ (NEGATIVE); Blood Urine Trace (Negative); Glucose Urine UA Norm (Normal); Ketones Urine 2+ (Negative); Leukocyte Esterase Urine 1+ (Negative); Nitrate Urine Positive (Negative); Protein Urine 1+ (Negative); Urine Color Yellow (Yellow); Urobilinogen Urine 1 mg/dL (Negative); pH Urine 5 (5-7)
[2020-07-14] VITALS (14 sets, daily range): BP systolic 100–112; BP diastolic 48–71; PULSE 49–108; RESP 16–22; TEMP 36.1–38.8; O2SAT 92–99
[2020-07-14] LABS: Add Urine Culture? No; Amorphous Sediment Urine 1+; Bacteria Urine 1+; Calcium Oxalate Crystals Urine 0-4 /hpf; Mucus Urine 2+; RBC Urine 0-4 /hpf (0-2); Squamous Epithelial Cell Urine 55-80 (0-5); WBC Urine 0-4 /hpf (0-5)
[2020-07-14 00:05] LABS: SARS Covid-2 Antigen Negative (Negative)
[2020-07-14 00:06] LABS: Influenza A by IFA Negative (Negative); Influenza B by IFA Negative (Negative)
[2020-07-14] MEDS: sodium chloride 0.9% 1,000 ML 999 ML IV (00:50)
[2020-07-14] MEDS: potassium chloride ER 10 mEq Tablet 40 MEQ PO (00:50)
[2020-07-14] MEDS: acetaminophen 500 mg Tablet 1000 MG PO (00:51)
[2020-07-14] MEDS: fentaNYL 50 mcg/mL INJ 2mL 100 MCG IVP (00:51)
--- NOTE | 2020-07-14 01:29 | PM.HP ---
Providers/Chief Complaint Primary Care Provider: Jose Pryor MD Chief Complaint: was here last night/ feels worse History of Present Illness Caitlin Watkins is a 34 year old female who came in for chief complaint abdominal pain. Patient is stating that her symptoms started on Thursday after she went to [facility]. Symptoms started with abdominal pain that she is describing as diffuse cramping pain which gradually got worse, she subsequently suffered from diarrhea (clear watery loose stools), has had more than 10 episodes so far, recurrent episodes of emesis. She is endorsing subjective fevers, denying recent use of antibiotics, blood in stool. She is stating that her children are suffering from similar symptoms as well, they have fever and diarrhea with abdominal pain. She has been tested for COVID which is negative. She is feeling very lethargic. She was seen in the ER yesterday and was discharged home with antibiotics for enterocolitis, came back today for worsening of her symptoms, her blood culture 1 out of 4 bottles is growing gram-positive cocci in clusters and chains, abnormal UA without symptoms of UTI She has been given fluid and broad-spectrum antibiotics Primaxin along vancomycin in the ER for sepsis In the ER she is febrile temperature 102, tachypneic, tachycardic, very lethargic, saturating well on room air. CTA was done yesterday which ruled out PE for high d-dimer. COVID antigen negative Patient is endorsing that she went to [facility] with her friends, her friend's is positive for COVID. Review of Systems Const: Reports: fever(s), chills, body aches, change in appetite and fatigue Eyes: Denies: change in vision ENMT: Denies: throat pain Card: Denies: chest pain Resp: Reports: dyspnea; Denies: productive cough or non-productive cough GI: Reports: abdominal pain, nausea, vomiting and diarrhea : Denies: flank pain Musc: Denies: neck pain Skin/Breast: Denies: rash Neuro: Denies: headache(s) Psych: Denies: anxiety Endo: Denies: polyuria Destin/Lymph: Denies: easy bruising All/Imm: Denies: urticaria Medications/Allergies Home Medications Medication Instructions Recorded Confirmed Last Taken Type multivitamin 1 tab PO QDAY 12/12/19 07/13/20 12/19/19 History omeprazole 20 mg capsule,delayed 20 mg PO BID 12/12/19 07/13/20 12/19/19 History release escitalopram oxalate 20 mg tablet 20 mg PO DAILY 05/28/20 07/13/20 Unknown History buspirone 5 mg tablet 5 mg PO TID PRN #90 tab 07/05/20 07/13/20 Unknown Rx trazodone 50 mg tablet See Rx Instructions PO DAILY #60 07/05/20 07/13/20 Unknown Rx tab ondansetron 4 mg PO Q6H PRN #14 tab 07/13/20 07/13/20 Unknown Rx Allergies Allergy/AdvReac Type Severity Reaction Status Date / Time cephalexin [From Keflex] Allergy Swelling, Verified 07/13/20 10:06 bright red face and felt like she was on fire hydrocodone Allergy Rash Verified 07/13/20 10:06 [From Panlor (hydrocodone-acetamin)] ibuprofen Allergy Rash, Verified 07/13/20 10:06 swelling, difficulty breathing latex Allergy Rash, Verified 07/13/20 10:06 bleeding levofloxacin [From Levaquin] Allergy Rash Verified 07/13/20 10:06 liraglutide [From Victoza] Allergy Dizziness, Verified 07/13/20 10:06 stomach pain metformin Allergy Stomach Verified 07/13/20 10:06 pain Penicillins Allergy Difficulty Verified 07/13/20 10:06 breathing band-aid Allergy Morgan skin Uncoded 07/13/20 10:06 PFSH Acute PFSH: Medical History Anxiety and depression Dyspareunia, female Fibromyalgia Gastroesophageal reflux Migraine headache Worse with systemic hormonal control Palpitations Controlled with metoprolol. Followed by Dr. Auguste at [facility] Pelvic pain in female 08/23/2018: Patient is reporting having pain in her pelvic region similar to the pain she has when she has sex. This is unrelated to her menstrual cycles. Potential causes for pain in the pelvic area was discussed including gynecologic, urologic, gastrointestinal, musculoskeletal, and neurologic causes. Based upon description, I am suspicious for adhesions to be at least a part of her pain problems. The fibromyalgia may also be contributing to her pain. I am starting her on Elavil and attempt to treat her pain. She also wished proceed to a laparoscopic evaluation of her pain as well as to have her tubes tied at the same time. 09/23/2018: Reports overall improvement in her generalized pain with amitriptyline, but no significant improvement with the pelvic pain. 09/28/2018: Laparoscopy with lysis of adhesions and sterilization. Small area of omental adhesions found. No evidence of endometriosis seen. Smoking Surgical History History of endometrial ablation (12/20/19) Hysteroscopy with NovaSure ablation. Performed by Dr. Rojo at [facility] [place]. S/P section (06/05/17) Low transverse section. Diagnosis: Cephalopelvic disproportion with normal size fetus. Performed by Dr. Edward Rojo at [facility] in [place], [place]. Patient had a low transverse incision with a 2 layer closure of the uterus. S/P cholecystectomy (~2006) Laparoscopic. Performed by Dr Kumar in [place], [place] S/P laparoscopic procedure (09/16/11) Diagnostic. Diag: Pelvic pain, Dyspareunia, Left lower quadrant pain. Performed by Dr. Edward Rojo at [facility] in [place], [place]. --- Operative report reviewed-no signs of endometriosis or adhesions identified. S/P tubal ligation (09/28/18) Laparoscopic complete salpingectomy for sterilization and lysis of adhesions. Diagnosis undesired fertility and chronic pelvic pain. Performed by Dr. Edward Rojo at [facility] in [place], [place]. Findings: Small area of omental adhesions. No evidence of endometriosis seen. Family History Father Hypertension Stroke Family/Other Colon cancer paternal aunt Grandfather Diabetes Maternal Grandmother Diabetes Paternal Stroke Paternal Social History Smoking and tobacco status: current every day smoker cigarettes Packs smoked per day: 1 Years cigarettes smoked: 12 [ Other cigarette details: /2-1 ppd. Started smoking age 15 ] Alcohol intake: never Additional social history: poorly balanced diet Female Reproductive History: Date of last menstrual period: 12/20/19 Vitals/I&O/Wt Last Vital Signs Temp 102 F H 07/14/20 00:56 Pulse 108 H 07/14/20 00:56 Resp 22 H 07/14/20 00:56 BP 102/48 07/14/20 00:56 Pulse Ox 97 07/14/20 00:56 Weight last 48 hrs Weight 95.254 kg Physical Exam Narrative: EXAM NARRATIVE: Patient sitting in her bed and very lethargic posture Able to give above-mentioned detail GCS 15 neurologically no neurological deficit S1, S2 no active sign of heart failure, Clinically dehydrated Abdomen soft, distended, tenderness on deep palpation periumbilical and hypogastric region Bowel sounds sluggish Lungs are clear to auscultation No skin rash Lethargic and tired No lower extremity edema gangrene ulcer Data : 07/13/20 23:18 07/13/20 23:18 Micro: Microbiology 07/13/20 23:10 Blood Culture - Preliminary Blood SPECIMEN COLLECTED 07/13/20 23:18 Blood Culture - Preliminary Blood SPECIMEN COLLECTED A&P Assessment and plan (1) Enterocolitis: Status: Acute (2) Sepsis: Status: Acute (3) Dehydration: Status: Acute (4) Hypokalemia: Status: Acute (5) Fever: Status: Acute (6) Vomiting: Status: Acute (7) Acute hyponatremia: Status: Acute Additional A&P Information Sepsis secondary to entercolitis Sepsis criteria met with leukocytosis, febrile, positive cultures, tachypnea Blood culture 1/4+ for gram-positive cocci in clusters and chains Abnormal UA without active symptoms Currently on broad-spectrum antibiotics, vancomycin, aztreonam and anaerobic coverage with metronidazole Blood culture obtained in the ER CTA negative for PE No other source of infection identified COVID antigen negative, her children are suffering from fever and diarrhea as well, considering her sepsis criteria and high fever antibiotics have been initiated Dehydration with hypokalemia IV fluid resuscitation and potassium supplementation High d-dimer: This is probably due to severe sepsis CTA rule out PE COVID antigen negative However there is an exposure to the person who was positive for COVID in her [facility] 2 tests have been done in last 48 hours which are negative Hyponatremia Hypokalemia secondary to dehydration Anticipating improvement with fluid resuscitation Abnormal UA with not a good sample squamous epithelial cells 55-80, patient denying symptoms Full code DVT prophylaxis Lovenox N.p.o. dIet Attestations Medical Necessity Statement*: Anticipating stay in the hospital cross more than 2 midnights continued IV antibiotics for sepsis secondary to enterocolitis Time Spent in Patient Care: (>than 50% of time spent in counselling and/or direct pt care on unit). 40-minute Coding Level of Care Code Acute Stud Master/Mistress for Chg Fwd Diagnoses Enterocolitis K52.9 Sepsis A41.9 Dehydration E86.0 Hypokalemia E87.6 Fever R50.9 Vomiting R11.10 Acute hyponatremia E87.1
[2020-07-14] MEDS: vancomycin 1,000 MG in sodium chloride 0.9% 250 ML 250 MG IV (02:05)
[2020-07-14] MEDS: benzonatate 100 mg Capsule PO (03:17)
[2020-07-14] MEDS: sodium chlor 0.9% + KCl 20 mEq 20 MEQ/1,000 ML BAG 75 MEQ IV ×2 (03:20→18:53)
[2020-07-14] MEDS: enoxaparin 40 mg/0.4 mL Syringe SUBCUT (03:20)
--- NOTE | 2020-07-14 03:24 | PC.PHAR ---
Vancomycin is dosed at 1500mg IVPB every 18 hours to produce a predicted trough level of 13.70. A trough level has been ordered from the lab to be obtained before the fourth dose to confirm and adjust if needed.
[2020-07-14] MEDS: morphine 4 mg/mL SDV 1 mL 2 MG IVP ×4 (03:38→22:39)
[2020-07-14] MEDS: aztreonam 1,000 MG in sodium chloride 0.9% (plus) 50 ML 100 MG IV (03:40)
[2020-07-14] MEDS: metroNIDAZOLE IV 500 MG/100 ML PREMIX 100 MG IV (05:29)
[2020-07-14 05:49] LABS: Basophils % 0.3 %; Hematocrit 43.6 % (37.0-47.0); Hemoglobin 14.4 g/dL (11.5-15.3); Lymphocytes # 0.6 10^3/uL (0.8-4.8); Lymphocytes % 5.4 %; Mean Corpuscular Hemoglobin 29.9 pg (28.0-34.0); Mean Corpuscular Volume 90.5 fL (81-99); Mean Platelet Volume 10.8 fL (7.4-10.4); Monocytes # 0.2 10^3/uL (0.2-0.9); Monocytes % 1.6 %; Neutrophils # 10.82 10^3/uL (1.8-7.7); Neutrophils % 92.4 %; Nucleated Red Blood Cells % 0 %; Platelet Count 281 10^3/cmm (130-400); Red Blood Count 4.82 10^6/uL (4.1-5.3); Red Cell Distribution Width 14.4 % (12.1-15.1); White Blood Count 11.7 10^3/uL (4.0-10.0)
[2020-07-14 06:10] LABS: Alanine Aminotransferase 41 U/L (0-33); Albumin Level 3.8 g/dL (3.5-5.2); Alkaline Phosphatase 95 IU/L (35-105); Anion Gap 16.8 (5-19); Aspartate Amino Transferase 28 U/L (0-32); Blood Urea Nitrogen 7 mg/dL (6-20); Calcium 8.4 mg/dL (8.5-10.5); Carbon Dioxide 19 mmol/L (22-29); Chloride 106 mmol/L (98-107); Globulin 3.4 g/dL (1.3-4.6); Glomerular Filtration Rate 64.3 mL/min (90-130); Glucose 147 mg/dL (65-115); Osmolality Calculated 285 mOsm/kg (285-295); Potassium 3.8 mmol/L (3.5-5.1); Sodium 138 mmol/L (136-145); Total Bilirubin 0.2 mg/dL (0.15-1.2); Total Protein 7.2 g/dL (6.6-8.7)
[2020-07-14] MEDS: ondansetron 2 mg/ML SDV 2 mL 4 MG IVP (13:41)
[2020-07-14] MEDS: azithromycin 250 mg Tablet 500 MG PO (15:27)
--- NOTE | 2020-07-14 15:28 | PC.CHAP ---
Pastoral Care Encounter/Spiritual Assessment Type of Contact [] Declined hot metal car operator visit [] Patient/Family/Request visit [] Outpatient visit [] Follow-up visit [] Physician referral [] Code/Alert [X] Routine visit [] Staff referral [] Actively dying [] Patient sleeping [] Family support [] [] Out of room [] Palliative care [] [] Receiving care in room [] Pre-surgical visit [] Trauma [] Long length of stay [] ICU visit [] Other: Relational/Emotional Strength [X] Patient feels connected with others/family/visitors/staff [] Distress [] Loneliness/isolation [] Abandonment Spirituality of Patient [X] Person of Dagmar [X] Attends Adventist of their [place] [X] Believes in Prayer [X] Reads Bible or Church materials [] There are Spiritual issues to be addressed Distance Education Director Interventions [X] Prayer [X] Active listening [X] Non-anxious presence [] Spiritual/emotional support [] Crisis/trauma care [] Spiritual counseling [] Bereavement support [] Provided bereavement packet [X] Provided Bible/devotional materials [] Provided toy/stuffed animal, coloring book to patient or family member [] Provided Communion [] Anointing/[place] [] Salvation [X] Completed spiritual assessment [] Other: Impact on Illness or Injury [] Angry [] Fearful [] Anxious [] Often cries [] Exhaustion [] Unable to work [] Unable to attend spiritism [] Unable to walk/stand [] Unable to read [] Unable to drive [] Unable to eat/drink [] Unable to sleep [] Unable to be with family [] Patient intubated [] Other: Summary: Mother of 5 children with youngest being 3 years old. She is concerned that two kids are exhibiting similar symptoms that she has. Her children and family bring her jaime, and she is connected to her yazidism family. She wants to be home but is appreciating the respite here, as well. Provided her with an issue of Daily Bread. Time spent with patient: 30 mins
--- NOTE | 2020-07-14 16:24 | P.PN_ITS ---
Subjective Subjective: Interval history: Patient presents with signs and symptoms of acute gastroenteritis. Reports that her both children similarly ill but less severe. Reports that she is drinking well water and it has not been checked for long period of time. Her stool studies came back with Salmonella. She denies shortness of breath or chest pain. Reports that her diarrheal bowel movements improved compared to yesterday and she only had 10 compared to 25- 30/day couple days before Vitals/I&O/Wt Last Vital Signs Temp 96.9 F L 07/14/20 15:00 Pulse 50 L 07/14/20 15:00 Resp 16 07/14/20 15:36 BP 105/71 07/14/20 15:00 Pulse Ox 99 07/14/20 15:00 07/14/20 07/14/20 07/14/20 06:59 14:59 22:59 Intake Total 300 / 300 Output Total 700 / 700 3300 / 3300 Balance -400 / -400 -3300 / -3300 Weight last 48 hrs Weight 95.254 kg Physical Exam Const: COMMON NORMALS: no acute distress and patient oriented x3 Resp: COMMON NORMALS: normal respiratory effort and clear to auscultation bilaterally AUSCULTATION: clear to auscultation bilaterally Cardio: COMMON NORMALS: regular rate, regular rhythm and S2 normal heart sound present RATE: regular rate RHYTHM: regular rhythm HEART SOUNDS: S2 no rmal heart sound present OTHER: No lower extremity edema GI: COMMON NORMALS: Normal to inspection, nondistended, normoactive bowel sounds present, Soft to palpation and non-tender PALPATION: Yes Soft to palpation Neuro: COMMON NORMALS: patient oriented x3 and no focal motor deficits Data : 07/14/20 05:38 07/14/20 05:38 Micro: Microbiology 07/14/20 03:15 Enteric Pathogens (PCR) - Preliminary Stool Routine Collection C.difficile Toxin B Gene (PCR) - Final 07/13/20 23:10 Blood Culture - Preliminary Blood SPECIMEN COLLECTED 07/13/20 23:18 Blood Culture - Preliminary Blood SPECIMEN COLLECTED A&P Assessment and plan (1) Enterocolitis: Secondary to Salmonella Status: Acute (2) Sepsis: Status: Acute (3) Dehydration: Status: Acute (4) Hypokalemia: Status: Acute (5) Fever: Status: Acute (6) Vomiting: Status: Acute (7) Acute hyponatremia: Status: Acute Additional A&P Information Sepsis secondary to entercolitis Sepsis criteria met with leukocytosis, febrile, positive cultures, tachypnea Blood culture 1/4+ for gram-positive cocci in clusters and chains Abnormal UA without active symptoms Currently on broad-spectrum antibiotics, vancomycin, aztreonam and anaerobic coverage with metronidazole Blood culture obtained in the ER CTA negative for PE No other source of infection identified COVID antigen negative, her children are suffering from fever and diarrhea as well, considering her sepsis criteria and high fever antibiotics have been initiated Dehydration with hypokalemia IV fluid resuscitation and potassium supplementation High d-dimer: This is probably due to severe sepsis CTA rule out PE COVID antigen negative However there is an exposure to the person who was positive for COVID in her anglican 2 tests have been done in last 48 hours which are negative Hyponatremia Hypokalemia secondary to dehydration Anticipating improvement with fluid resuscitation Abnormal UA with not a good sample squamous epithelial cells 55-80, patient denying symptoms PLAN: Will transition patient's antibiotics to azithromycin since she is allergic to Levaquin, penicillin and second generation cephalosporin. Discussed with patient to make sure she checks her well water. If continues to improve we will likely be able to dismiss patient home tomorrow or next day. Full code DVT prophylaxis Lovenox N.p.o. dIet Attestations Medical Necessity Statement*: Patient with severe enterocolitis requires close inpatient monitoring and treatment. Time Spent in Patient Care: 16 - 35 minutes Coding Level of Care Code Acute [place] As[employer] for [facility] Fwd Diagnoses Enterocolitis K52.9 Sepsis A41.9 Dehydration E86.0 Hypokalemia E87.6 Fever R50.9 Vomiting R11.10 Acute hyponatremia E87.1
[2020-07-14] MEDS: acetaminophen 325 mg Tablet 650 MG PO (21:56)
[2020-07-15] MEDS: BuSPIRONE 5 mg Tablet PO (02:41)
[2020-07-15] MEDS: enoxaparin 40 mg/0.4 mL Syringe SUBCUT (02:41)
[2020-07-15 03:00] VITALS: BP 130/78; PULSE 74; RESP 20; TEMP 37.1
[2020-07-15] MEDS: sodium chlor 0.9% + KCl 20 mEq 20 MEQ/1,000 ML BAG 75 MEQ IV (05:48)
[2020-07-15 05:49] VITALS: RESP 16
[2020-07-15] MEDS: ondansetron 2 mg/ML SDV 2 mL 4 MG IVP (05:49)
[2020-07-15] MEDS: morphine 4 mg/mL SDV 1 mL 2 MG IVP (05:49)
[2020-07-15 07:00] VITALS: BP 95/60; PULSE 56; RESP 20; TEMP 36.4; O2SAT 96
[2020-07-15] MEDS: azithromycin 250 mg Tablet 500 MG PO (08:36)
[2020-07-15] MEDS: acetaminophen 325 mg Tablet 650 MG PO (08:36)
[2020-07-15 11:00] VITALS: BP 106/69; PULSE 56; RESP 20; TEMP 36.4; O2SAT 99
--- NOTE | 2020-07-15 11:02 | PM.DCS ---
Discharge Providers Date of Admission: 07/14/20 01:38 Date of Discharge: July 15, 2020 Attending Provider at Admission: Madiha Adkins MD Attending Provider at Discharge: Brian Urrutia MD Primary Care Provider: Jose Pryor MD Diagnoses at Discharge Discharge Diagnosis (1) Enterocolitis: Status: Acute (2) Sepsis: Status: Acute (3) Dehydration: Status: Acute (4) Hypokalemia: Status: Acute (5) Fever: Status: Acute (6) Vomiting: Status: Acute (7) Acute hyponatremia: Status: Acute Reason for Visit Reason for Visit: was here last night/ feels worse Hospital Course Discharge Summary: Patient presented with nausea vomiting and diarrhea secondary to acute Salmonella enterocolitis. Patient was treated with antibiotics and gradually improved and this morning reports feeling much better. Reports that she continues to have some abdominal discomfort but she has very minimal amount of diarrhea compared to when she presented. She denies being nauseous and reports tolerating oral intake. She thinks she can appropriately self hydrate and feel strong enough to be dismissed home. We have discussed regarding importance of checking well water. This morning she denies shortness of breath or chest pain. Patient will be continued on azithromycin for 5 more days to complete 1 week of therapy. Physical Exam Const: COMMON NORMALS: no acute distress and patient oriented x3 Resp: COMMON NORMALS: normal respiratory effort and clear to auscultation bilaterally AUSCULTATION: clear to auscultation bilaterally Cardio: COMMON NORMALS: regular rate, regular rhythm and S2 normal heart sound present RATE: regular rate RHYTHM: regular rhythm HEART SOUNDS: S2 normal heart sound present OTHER: No lower extremity edema GI: COMMON NORMALS: Normal to inspection, nondistended, normoactive bowel sounds present and Soft to palpation PALPATION: Yes Soft to palpation OTHER: Slightly tender throughout on exam. Neuro: COMMON NORMALS: patient oriented x3 and no focal motor deficits Discharge Data Data Completed and Pending: Completed Studies During Hospitalization Category Date Time Status XR chest 1V robin ble [id number] Stat Exams 07/13/20 21:58 Completed Pending at discharge Category Date Time Status Blood Culture Sta t Lab 07/13/20 23:10 Results Clostridioides Di fficile PCR Routin e Lab 07/14/20 03:15 Results Enteric Bacterial Panel by PCR Stat Lab 07/14/20 03:15 Results Enteric Parasite Panel by PCR Routi ne Lab 07/14/20 10:10 Received Vancomycin Trough Timed Lab 07/17/20 01:00 Ordered Vitals: Last Vital Signs Temp 97.5 F L 07/15/20 07:00 Pulse 56 L 07/15/20 07:00 Resp 20 H 07/15/20 07:00 BP 95/60 07/15/20 07:00 Pulse Ox 96 07/15/20 07:00 Discharge Plan Discharge Patient Disposition: Home Condition: Stable Prescriptions: New azithromycin 250 mg Tablet 500 mg PO DAILY Qty: 5 RF: 0 Continued omeprazole 20 mg capsule,delayed release(DR/EC) 20 mg PO BID RF: 0 multivitamin Tablet 1 tab PO QDAY RF: 0 povidone-iodine [Betadine Swabsticks] 10 % swab 1 applic TOPICAL ONCE Qty: 1 RF: 0 escitalopram oxalate 20 mg tablet 20 mg PO DAILY RF: 0 buspirone 5 mg tablet 5 mg PO TID PRN (Reason: panic attacks) Qty: 90 RF: 0 trazodone 50 mg tablet See Rx Instructions PO DAILY Qty: 60 RF: 0 Tylenol 325 mg Tablet 325 - 650 mg PO Q4H PRN (Reason: Pain) RF: 0 ondansetron 4 mg tablet,disintegrating 4 mg PO Q6H PRN (Reason: nausea and vomiting) Qty: 14 RF: 0 Discontinued metronidazole 500 mg tablet 500 mg PO TID RF: 0 Discharge Orders: Discharge Order (Routine); Ordered 07/15/20 Ordered By: Brian Urrutia Referrals: Jose Pryor MD [Primary Care Provider] - 4-7 days Discharge Diet: Advance as tolerated Discharge Activity: Increase activity as tolerated Activity Restrictions/Additional Instructions: Please call your doctor or present to emergency department if your condition worsens including diarrhea or see blood in your stool or black stool. Please consider checking your well water as we have discussed. Discharge Attestations Time Spent in Discharge Care*: less than 30 min Quality Metrics Clinical Quality Measures During this hospital stay, did patient experience: None Coding Level of Care Code Acute [employer] [facility] Fwd Diagnoses Enterocolitis K52.9 Sepsis A41.9 Dehydration E86.0 Hypokalemia E87.6 Fever R50.9 Vomiting R11.10 Acute hyponatremia E87.1
[2020-07-15 11:15] VITALS: BP 95/60; PULSE 56; RESP 20; TEMP 36.4; O2SAT 96
--- NOTE | 2020-07-15 12:21 | PC.CHAP ---
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 [] Patient/Family/Request visit [] Outpatient visit [X] Follow-up visit [] Physician referral [] Code/Alert [] Routine visit [] Staff referral [] Actively dying [] Patient sleeping [] Family support [] [] Out of room [] Palliative care [] [] Receiving care in room [] Pre-surgical visit [] Trauma [] Long length of stay [] ICU visit [] Other: Relational/Emotional Strength [X] Patient feels connected with others/family/visitors/staff [] Distress [] Loneliness/isolation [] Abandonment Spirituality of Patient [X] Person of Dagmar [X] Attends Zoroastrian of their [place] [X] Believes in Prayer [] Reads Bible or Christian materials [] There are Spiritual issues to be addressed 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 [] Prayer [X] Active listening [X] Non-anxious presence [] Spiritual/emotional support [] Crisis/trauma care [] Spiritual counseling [] Bereavement support [] Provided bereavement packet [] Provided Bible/devotional materials [] Provided toy/stuffed animal, coloring book to patient or family member [] Provided Communion [] Anointing/[place] [] Salvation [] Completed spiritual assessment [] Other: Impact on Illness or Injury [] Angry [] Fearful [] Anxious [] Often cries [] Exhaustion [] Unable to work [] Unable to attend samaritan [] Unable to walk/stand [] Unable to read [] Unable to drive [] Unable to eat/drink [] Unable to sleep [] Unable to be with family [] Patient intubated [] Other: Summary: Checking back with the patient as we had visited and prayed together yesterday. She is being discharged, and reports that God answered our prayer from yesterday. (YAY, GOD!!!). Time spent with patient: <5 mins
--- NOTE | 2020-07-16 16:55 | PC.RESP ---
SMOKING CESSATION INFORMATION SENT TO PATIENT.
== END 2020-07-15 12:42 | disposition home or self-care (01) | DRG 872 ==
LOC: ER 07-14 01:19 → MEDSURG 07-14 02:11
PROVIDERS: Emergency Medicine; Admitting Provider Internal Medicine; PCP Family Medicine; Visit Provider Internal Medicine
DX: A41.9 Sepsis, unspecified organism (principal); A02.0 Salmonella enteritis; E87.1 Hypo-osmolality and hyponatremia; F41.8 Other specified anxiety disorders; M79.7 Fibromyalgia; K21.9 Gastro-esophageal reflux disease without esophagitis; F17.210 Nicotine dependence, cigarettes, uncomplicated; E86.0 Dehydration; E87.6 Hypokalemia
CPT/HCPCS: 12345; 36415; 36600; 71045; 71275; 74177; 80051; 80053; 81001; 82550; 82810; 83605; 83690; 83735; 83986; 84703; 85025; 85378; 85610; 87040; 87186; 87205; 87426; 87493; 87506; 87635; 87804; 93005; 96361; 96372; 96374; 96375; 99282; 99284; J0743; J1100; J1650; J2270; J2405; J3010; J3370; J3490; J7030; J7050; Q0144; Q0162; Q9967; S0030

== ENCOUNTER 2020-07-19 15:24 | Emergency (ER) | payer MEDICARE, SELFPAY ==
[2020-07-19 15:35] VITALS: BP 118/73; PULSE 84; RESP 14; TEMP 37; O2SAT 100; BMI 37.2
--- NOTE | 2020-07-19 15:52 | CTR_ITS ---
PROCEDURE INFORMATION: Exam: CT Abdomen And Pelvis Without Contrast Exam date and time: 07/19/2020 4:11 PM Age: 34 years old Clinical indication: Abdominal pain; Flank; Right; Prior surgery; Surgery type: Tubal, endometrial ablation, gb; Additional info: Pain right kidney TECHNIQUE: Imaging protocol: Computed tomography of the abdomen and pelvis without contrast. Radiation optimization: All CT scans at this facility use at least one of these dose optimization techniques: automated exposure control; mA and/or kV adjustment per patient size (includes targeted exams where dose is matched to clinical indication); or iterative reconstruction. COMPARISON: CTA Chest-Pulmonary Emb [id number] 02/20/2014 8:54 PM RADIATION DOSE METRICS: Total DLP (mGy-cm): 1546.98 FINDINGS: Liver: Unremarkable.No mass. Gallbladder and bile ducts: There has been a cholecystectomy. There is no common bile duct dilation. Pancreas: Normal. No ductal dilation. Spleen: Normal. No splenomegaly. Adrenals: Normal. No mass. Kidneys and ureters: There is no evidence of hydronephrosis. The right ureter is slightly more dilated than the left in this appearance may reflect recent passage of a stone or urinary tract infection. There is no evidence of renal calcifications. Stomach and bowel: There is no evidence of colitis/diverticulitis. There is no evidence of intestinal perforation or obstruction. Appendix: No evidence of appendicitis. Intraperitoneal space: Unremarkable. No free air. No significant fluid collection. Vasculature: Unremarkable.No abdominal aortic aneurysm. Lymph nodes: Unremarkable.No enlarged lymph nodes. Bladder: Unremarkable as visualized. Reproductive: Unremarkable as visualized. Bones/joints: Unremarkable. No acute fracture. Soft tissues: There is a fat-containing umbilical hernia. CT/CT kidney stone [id number] IMPRESSION: 1. The right ureter is slightly more dilated than the left in this appearance may reflect recent passage of a stone or urinary tract infection. 2. No bowel thickening or inflammatory changes. Unremarkable appendix. Radiation Dose CTDIVOL = (mGy): DLP = 1546.98 (mGy-cm)
--- NOTE | 2020-07-19 15:52 | ED_ITS ---
Documented by User: PEYTON Bustos 07/19/20 15:54 HPI - Abdominal Pain General: Chief Complaint: Abdominal Pain Stated Complaint: kidney pain Time Seen by Provider: 07/19/20 15:48 History of Present Illness: HPI narrative: Patient complains of pain right kidney area times the last few days then some aches came better she says he peed blood originally with her Salmonella infection that is gone but she has history of chronic low back problems to but she says this feels different MD elicited complaint: flank pain Onset (ago): day(s) Pain Consistency: constant Location: R flank Severity: moderate Quality: cramping and aching Relieving factors: nothing Associated Symptoms: Reports no associated symptoms; Denies chills, fever(s), nausea and vomiting Related Data: Date of Last Menstrual Period: 12/20/19 Review of Systems Const: Denies: fever(s), chills or body aches Eyes: Denies: change in vision or blurry vision ENMT: Denies: throat pain or nasal congestion Card: Denies: chest pain or dyspnea on exertion Resp: Denies: dyspnea, productive cough or non-productive cough GI: Denies: abdominal pain, nausea or vomiting Musc: Reports: other (Right flank pain); Denies: extremity pain Skin/Breast: Denies: rash Neuro: Denies: headache(s) Psych: Denies: anxiety or depression Destin/Lymph: Denies: easy bruising PFSH ED PFSH: Medical History Anxiety and depression Dyspareunia, female Fibromyalgia Gastroesophageal reflux Migraine headache Worse with systemic hormonal control Palpitations Controlled with metoprolol. Followed by Dr. Auguste at [facility] Pelvic pain in female 08/23/2018: Patient is reporting having pain in her pelvic region similar to the pain she has when she has sex. This is unrelated to her menstrual cycles. Potential causes for pain in the pelvic area was discussed including gynecologic, urologic, gastrointestinal, musculoskeletal, and neurologic causes. Based upon description, I am suspicious for adhesions to be at least a part of her pain problems. The fibromyalgia may also be contributing to her pain. I am starting her on Elavil and attempt to treat her pain. She a lso wished proceed to a laparoscopic evaluation of her pain as well as to have her tubes tied at the same time. 09/23/2018: Reports overall improvement in her generalized pain with amitriptyline, but no significant improvement with the pelvic pain. 09/28/2018: Laparoscopy with lysis of adhesions and sterilization. Small area of omental adhesions found. No evidence of endometriosis seen. Smoking Surgical History History of endometrial ablation (12/20/19) Hysteroscopy with NovaSure ablation. Performed by Dr. Rojo at [facility]. S/P section (06/05/17) Low transverse section. Diagnosis: Cephalopelvic disproportion with normal size fetus. Performed by Dr. Edward Rojo at [facility] in [place], [place]. Patient had a low transverse incision with a 2 layer closure of the uterus. S/P cholecystectomy (~2006) Laparoscopic. Performed by Dr Kumar in [place], [place] S/P laparoscopic procedure (09/16/11) Diagnostic. Diag: Pelvic pain, Dyspareunia, Left lower quadrant pain. Performed by Dr. Edward Rojo at [facility] in [place], [place]. --- Operative report reviewed-no signs of endometriosis or adhesions identified. S/P tubal ligation (09/28/18) Laparoscopic complete salpingectomy for sterilization and lysis of adhesions. Diagnosis undesired fertility and chronic pelvic pain. Performed by Dr. Edward Rojo at [facility] in [place], [place]. Findings: Small area of omental adhesions. No evidence of endometriosis seen. Family History Father Hypertension Stroke Family/Other Colon cancer paternal aunt Grandfather Diabetes Maternal Grandmother Diabetes Paternal Stroke Paternal Social History Smoking and tobacco status: current every day smoker cigarettes Packs smoked per day: 1 Years cigarettes smoked: 12 [ Other cigarette details: /2-1 ppd. Started smoking age 15 ] Alcohol intake: never Additional social history: poorly balanced diet Female Reproductive History: Date of last menstrual period: 12/20/19 Physical Exam Const: COMMON NORMALS: no acute distress, average body habitus and patient oriented x3 HENMT: COMMON NORMALS: normocephalic HEAD & SCALP: normal to inspection and normocephalic FACE & SINUS: normal facial exam Eye: COMMON NORMALS: conjunctivae normal GENERAL EYE: appearance normal, both eyes and all related structures CONJUNCTIVA: Yes conjunctivae normal Neck/C-Spine: COMMON NORMALS: no JVD Chest: COMMONS NORMALS: normal inspection of the chest Resp: COMMON NORMALS: normal respiratory effort and clear to auscultation bilaterally AUSCULTATION: clear to auscultation bilaterally Cardio: COMMON NORMALS: no JVD, regular rate and regular rhythm RATE: regular rate RHYTHM: regular rhythm GI: COMMON NORMALS: Normal to inspection, nondistended, normoactive bowel sounds present : BLADDER/KIDNEY EXAM: Yes CVA tenderness Back/Pelvis: GENERAL BACK: Yes CVA tenderness CVA tenderness: right Extremity: COMMON NORMALS: normal to inspection and full ROM Neuro: COMMON NORMALS: patient oriented x3 Course Vital Signs: Vital signs: Vital Signs Temperature 98.6 F 07/19/20 15:35 Pulse Rate 67 07/19/20 18:52 Respiratory Rate 17 07/19/20 18:52 Blood Pressure 123/78 07/19/20 18:52 Pulse Oximetry 98 07/19/20 18:52 MDM - Abdominal Pain Lab Data: Labs: Lab Results 07/19/20 07/19/20 07/19/20 Range/Units 16:45 16:45 17:40 WBC 14.5 H (4.0-10.0) 10^3/ uL RBC 4.70 (4.1-5.3) 10^6/u L Hgb 14.2 (11.5-15.3) g/dL Hct 42.7 (37.0-47.0) % MCV 90.9 (81-99) fL MCH 30.2 (28.0-34.0) pg MCHC 33.3 (30.0-36.0) g/dL RDW 14.6 (12.1-15.1) % Plt Count 438 H (130-400) 10^3/c mm MPV 10.3 (7.4-10.4) fL Neut % (Auto) 69.4 % Lymph % (Auto) 21.1 % Mccracken % (Auto) 5.6 % Eos % (Auto) 2.7 % Baso % (Auto) 0.4 % Neut # (Auto) 10.09 H (1.8-7.7) 10^3/u L Lymph # (Auto) 3.1 (0.8-4.8) 10^3/u L Mccracken # (Auto) 0.8 (0.2-0.9) 10^3/u L Eos # (Auto) 0.4 (0.0-0.8) 10^3/u L Baso # (Auto) 0.1 (0.0-0.1) 10^3/u L Nucleated RBC % (a uto) 0 % Nucleated RBCs # 0.0 /100WBC Sodium 136 (136-145) mmol/L Potassium 4.0 (3.5-5.1) mmol/L Chloride 103 (98-107) mmol/L Carbon Dioxide 24 (22-29) mmol/L Anion Gap 13.0 (5-19) BUN 5 L (6-20) mg/dL Creatinine 0.8 (0.5-0.9) mg/dL GFR Calculation 83.1 L (90-130) mL/min Glucose 81 (65-115) mg/dL Calculated Osmolal ity 277 L (285-295) mOsm/k g Calcium 9.3 (8.5-10.5) mg/dL Total Bilirubin 0.2 (0.15-1.2) mg/dL AST 37 H (0-32) U/L ALT 59 H (0-33) U/L Alkaline Phosphata se 75 (35-105) IU/L Total Protein 6.8 (6.6-8.7) g/dL Albumin 3.8 (3.5-5.2) g/dL Globulin 3.0 (1.3-4.6) g/dL Lipase 60 (13-60) U/L HCG, Qual Negative (Negative) Urine Color (Yellow) Urine Appearance (CLEAR) Urine pH (5-7) Ur Specific Gravit y (1.005-1.030) Urine Protein (Negative) Urine Glucose (UA) (Normal) Urine Ketones (Negative) Urine Blood (Negative) Urine Nitrate (Negative) Urine Bilirubin (NEGATIVE) Prot Sulfosalicyli c Acd (Negative) Urine Urobilinogen (Negative) mg/dL Ur Leukocyte Tamara ase (Negative) Urine RBC (0-2) /hpf Urine WBC (0-5) /hpf Ur Squamous Epith Cells (0-5) Amorphous Sediment Urine Bacteria (NONE) Urine Yeast 07/19/20 Range/Units 17:40 WBC (4.0-10.0) 10^3/ uL RBC (4.1-5.3) 10^6/u L Hgb (11.5-15.3) g/dL Hct (37.0-47.0) % MCV (81-99) fL MCH (28.0-34.0) pg MCHC (30.0-36.0) g/dL RDW (12.1-15.1) % Plt Count (130-400) 10^3/c mm MPV (7.4-10.4) fL Neut % (Auto) % Lymph % (Auto) % Mccracken % (Auto) % Eos % (Auto) % Baso % (Auto) % Neut # (Auto) (1.8-7.7) 10^3/u L Lymph # (Auto) (0.8-4.8) 10^3/u L Mccracken # (Auto) (0.2-0.9) 10^3/u L Eos # (Auto) (0.0-0.8) 10^3/u L Baso # (Auto) (0.0-0.1) 10^3/u L Nucleated RBC % (a uto) % Nucleated RBCs # /100WBC Sodium (136-145) mmol/L Potassium (3.5-5.1) mmol/L Chloride (98-107) mmol/L Carbon Dioxide (22-29) mmol/L Anion Gap (5-19) BUN (6-20) mg/dL Creatinine (0.5-0.9) mg/dL GFR Calculation (90-130) mL/min Glucose (65-115) mg/dL Calculated Osmolal ity (285-295) mOsm/k g Calcium (8.5-10.5) mg/dL Total Bilirubin (0.15-1.2) mg/dL AST (0-32) U/L ALT (0-33) U/L Alkaline Phosphata se (35-105) IU/L Total Protein (6.6-8.7) g/dL Albumin (3.5-5.2) g/dL Globulin (1.3-4.6) g/dL Lipase (13-60) U/L HCG, Qual (Negative) Urine Color Yellow (Yellow) Urine Appearance Hazy A (CLEAR) Urine pH 8 H (5-7) Ur Specific Gravit y 1.020 (1.005-1.030) Urine Protein Neg (Negative) Urine Glucose (UA) Norm (Normal) Urine Ketones Negative (Negative) Urine Blood Neg (Negative) Urine Nitrate Negative (Negative) Urine Bilirubin Neg (NEGATIVE) Prot Sulfosalicyli c Acd Negative (Negative) Urine Urobilinogen Norm (Negative) mg/dL Ur Leukocyte Tamara ase Negative (Negative) Urine RBC None (0-2) /hpf Urine WBC None (0-5) /hpf Ur Squamous Epith Cells 25-40 H (0-5) Amorphous Sediment Not Reportable Urine Bacteria Trace (NONE) Urine Yeast 1+ H Discharge Plan Discharge Patient Disposition: Home Clinical Impression: Acute flank pain Condition: Stable Prescriptions: No Action omeprazole 20 mg capsule,delayed release(DR/EC) 20 mg PO BID RF: 0 escitalopram oxalate 20 mg tablet 20 mg PO DAILY RF: 0 buspirone 5 mg tablet 5 mg PO TID PRN (Reason: panic attacks) Qty: 90 RF: 0 trazodone 50 mg tablet See Rx Instructions PO DAILY Qty: 60 RF: 0 acetaminophen [Tylenol] 325 mg Tablet 325 - 650 mg PO Q4H PRN (Reason: Pain) RF: 0 azithromycin 250 mg Tablet 500 mg PO DAILY Qty: 5 RF: 0 ondansetron 4 mg tablet,disintegrating 4 mg PO Q6H PRN (Reason: nausea and vomiting) Qty: 14 RF: 0 Probiotic 15 billion cell Capsule 1 cap PO DAILY RF: 0 Discharge Orders: Discharge Order (Routine); Ordered 07/19/20 Ordered By: Emily Vazquez Referrals: Jose Pryor MD [Primary Care Provider] - 1-3 days Discharge Diet: Advance as tolerated Discharge Activity: Increase activity as tolerated Patient Instructions: Abdominal Pain (ED) Activity Restrictions/Additional Instructions: Please return to the ER immediately for any of the signs or symptoms listed on your discharge instruction sheets, worsening/changing of your symptoms, you are not getting better as quickly as expected, or for ANY other cause or concerns. Please return to the ER for fever, vomiting, return of your pain, or for any other cause for concern. Certain to follow-up with your doctor in the next 1 to 2 days for recheck. Discharge Date/Time: 07/19/20 18:52 Sign Out Sign Out Data: Patient Sign Out occurred on 07/19/20 at 16:46. Patient's care was discussed, and care was transferred from to Emily Vazquez. Coding Level of Care Code ED Licensed Mental Health Counselor for Chg Fwd Exam Comprehensive Documented by User: Emily Vazquez 07/19/20 18:57 HPI - Abdominal Pain General: Chief Complaint: Abdominal Pain Stated Complaint: kidney pain Time Seen by Provider: 07/19/20 15:48 PFSH ED PFSH: Medical History Anxiety and depression Dyspareunia, female Fibromyalgia Gastroesophageal reflux Migraine headache Worse with systemic hormonal control Palpitations Controlled with metoprolol. Followed by Dr. Auguste at [facility] Pelvic pain in female 08/23/2018: Patient is reporting having pain in her pelvic region similar to the pain she has when she has sex. This is unrelated to her menstrual cycles. Potential causes for pain in the pelvic area was discussed including gynecologic, urologic, gastrointestinal, musculoskeletal, and neurologic ca uses. Based upon description, I am suspicious for adhesions to be at least a part of her pain problems. The fibromyalgia may also be contributing to her pain. I am starting her on Elavil and attempt to treat her pain. She also wished proceed to a laparoscopic evaluation of her pain as well as to have her tubes tied at the same time. 09/23/2018: Reports overall improvement in her generalized pain with amitriptyline, but no significant improvement with the pelvic pain. 09/28/2018: Laparoscopy with lysis of adhesions and sterilization. Small area of omental adhesions found. No evidence of endometriosis seen. Smoking Surgical History History of endometrial ablation (12/20/19) Hysteroscopy with NovaSure ablation. Performed by Dr. Rojo at [facility]. S/P section (06/05/17) Low transverse section. Diagnosis: Cephalopelvic disproportion with normal size fetus. Performed by Dr. Edward Rojo at [facility] in [place], [place]. Patient had a low transverse incision with a 2 layer closure of the uterus. S/P cholecystectomy (~2006) Laparoscopic. Performed by Dr Kumar in [place], [place] S/P laparoscopic procedure (09/16/11) Diagnostic. Diag: Pelvic pain, Dyspareunia, Left lower quadrant pain. Performed by Dr. Edward Rojo at [facility] in [place], [place]. --- Operative report reviewed-no signs of endometriosis or adhesions identified. S/P tubal ligation (09/28/18) Laparoscopic complete salpingectomy for sterilization and lysis of adhesions. Diagnosis undesired fertility and chronic pelvic pain. Performed by Dr. Edward Rojo at [facility] in [place], [place]. Findings: Small area of omental adhesions. No evidence of endometriosis seen. Family History Father Hypertension Stroke Family/Other Colon cancer paternal aunt Grandfather Diabetes Maternal Grandmother Diabetes Paternal Stroke Paternal Social History Smoking and tobacco status: current every day smoker cigarettes Packs smoked per day: 1 Years cigarettes smoked: 12 [ Other cigarette details: /2-1 ppd. Started smoking age 15 ] Alcohol intake: never Additional social history: poorly balanced diet Course ED course: 1744 -patient has extensive allergies to antibiotics. Her allergy to Keflex was that of just her face feeling like it was swollen and burning. He does not believe she ever did develop true hives or difficulty breathing or throat swelling with this. She is agreeable to try the Rocephin here IV. Vital Signs: Vital signs: Vital Signs Temperature 98.6 F 07/19/20 15:35 Pulse Rate 67 07/19/20 18:52 Respiratory Rate 17 07/19/20 18:52 Blood Pressure 123/78 07/19/20 18:52 Pulse Oximetry 98 07/19/20 18:52 MDM - Abdominal Pain MDM Narrative: Medical decision making narrative: Discharge -care assumed by me, Dr. Vazquez from [facility], [employer] WAITER/WAITRESS at change of shift. Here the patient has no right lower quadrant tenderness to palpation. She had denies any vaginal discharge or bleeding. CT shows what appears to be a recently passed stone but her urinalysis is negative there is no sign of infection. Patient is afebrile. She declines going on any antibiotics at this time without a fever I do not think it is absolutely necessary. She does have a slightly elevated white count but she is allergic to multiple antibiotics and does not want to risk having an exposure or having a reaction to 1 if it is not necessary. She states this is been going on for several days now and she is starting to feel better. She is asking for something for pain before discharge. She does agree to return if her symptoms change or worsen but at this time she is feeling better and would like to be discharged. Lab Data: Attestation: I reviewed the patient's lab results. Labs: Lab Results 07/19/20 07/19/20 07/19/20 Range/Units 16:45 16:45 17:40 WBC 14.5 H (4.0-10.0) 10^3/ uL RBC 4.70 (4.1-5.3) 10^6/u L Hgb 14.2 (11.5-15.3) g/dL Hct 42.7 (37.0-47.0) % MCV 90.9 (81-99) fL MCH 30.2 (28.0-34.0) pg MCHC 33.3 (30.0-36.0) g/dL RDW 14.6 (12.1-15.1) % Plt Count 438 H (130-400) 10^3/c mm MPV 10.3 (7.4-10.4) fL Neut % (Auto) 69.4 % Lymph % (Auto) 21.1 % Mccracken % (Auto) 5.6 % Eos % (Auto) 2.7 % Baso % (Auto) 0.4 % Neut # (Auto) 10.09 H (1.8-7.7) 10^3/u L Lymph # (Auto) 3.1 (0.8-4.8) 10^3/u L Mccracken # (Auto) 0.8 (0.2-0.9) 10^3/u L Eos # (Auto) 0.4 (0.0-0.8) 10^3/u L Baso # (Auto) 0.1 (0.0-0.1) 10^3/u L Nucleated RBC % (a uto) 0 % Nucleated RBCs # 0.0 /100WBC Sodium 136 (136-145) mmol/L Potassium 4.0 (3.5-5.1) mmol/L Chloride 103 (98-107) mmol/L Carbon Dioxide 24 (22-29) mmol/L Anion Gap 13.0 (5-19) BUN 5 L (6-20) mg/dL Creatinine 0.8 (0.5-0.9) mg/dL GFR Calculation 83.1 L (90-130) mL/min Glucose 81 (65-115) mg/dL Calculated Osmolal ity 277 L (285-295) mOsm/k g Calcium 9.3 (8.5-10.5) mg/dL Total Bilirubin 0.2 (0.15-1.2) mg/dL AST 37 H (0-32) U/L ALT 59 H (0-33) U/L Alkaline Phosphata se 75 (35-105) IU/L Total Protein 6.8 (6.6-8.7) g/dL Albumin 3.8 (3.5-5.2) g/dL Globulin 3.0 (1.3-4.6) g/dL Lipase 60 (13-60) U/L HCG, Qual Negative (Negative) Urine Color (Yellow) Urine Appearance (CLEAR) Urine pH (5-7) Ur Specific Gravit y (1.005-1.030) Urine Protein (Negative) Urine Glucose (UA) (Normal) Urine Ketones (Negative) Urine Blood (Negative) Urine Nitrate (Negative) Urine Bilirubin (NEGATIVE) Prot Sulfosalicyli c Acd (Negative) Urine Urobilinogen (Negative) mg/dL Ur Leukocyte Tamara ase (Negative) Urine RBC (0-2) /hpf Urine WBC (0-5) /hpf Ur Squamous Epith Cells (0-5) Amorphous Sediment Urine Bacteria (NONE) Urine Yeast 07/19/20 Range/Units 17:40 WBC (4.0-10.0) 10^3/ uL RBC (4.1-5.3) 10^6/u L Hgb (11.5-15.3) g/dL Hct (37.0-47.0) % MCV (81-99) fL MCH (28.0-34.0) pg MCHC (30.0-36.0) g/dL RDW (12.1-15.1) % Plt Count (130-400) 10^3/c mm MPV (7.4-10.4) fL Neut % (Auto) % Lymph % (Auto) % Mccracken % (Auto) % Eos % (Auto) % Baso % (Auto) % Neut # (Auto) (1.8-7.7) 10^3/u L Lymph # (Auto) (0.8-4.8) 10^3/u L Mccracken # (Auto) (0.2-0.9) 10^3/u L Eos # (Auto) (0.0-0.8) 10^3/u L Baso # (Auto) (0.0-0.1) 10^3/u L Nucleated RBC % (a uto) % Nucleated RBCs # /100WBC Sodium (136-145) mmol/L Potassium (3.5-5.1) mmol/L Chloride (98-107) mmol/L Carbon Dioxide (22-29) mmol/L Anion Gap (5-19) BUN (6-20) mg/dL Creatinine (0.5-0.9) mg/dL GFR Calculation (90-130) mL/min Glucose (65-115) mg/dL Calculated Osmolal ity (285-295) mOsm/k g Calcium (8.5-10.5) mg/dL Total Bilirubin (0.15-1.2) mg/dL AST (0-32) U/L ALT (0-33) U/L Alkaline Phosphata se (35-105) IU/L Total Protein (6.6-8.7) g/dL Albumin (3.5-5.2) g/dL Globulin (1.3-4.6) g/dL Lipase (13-60) U/L HCG, Qual (Negative) Urine Color Yellow (Yellow) Urine Appearance Hazy A (CLEAR) Urine pH 8 H (5-7) Ur Specific Gravit y 1.020 (1.005-1.030) Urine Protein Neg (Negative) Urine Glucose (UA) Norm (Normal) Urine Ketones Negative (Negative) Urine Blood Neg (Negative) Urine Nitrate Negative (Negative) Urine Bilirubin Neg (NEGATIVE) Prot Sulfosalicyli c Acd Negative (Negative) Urine Urobilinogen Norm (Negative) mg/dL Ur Leukocyte Tamara ase Negative (Negative) Urine RBC None (0-2) /hpf Urine WBC None (0-5) /hpf Ur Squamous Epith Cells 25-40 H (0-5) Amorphous Sediment Not Reportable Urine Bacteria Trace (NONE) Urine Yeast 1+ H Discharge Plan Discharge Patient Disposition: Home Clinical Impression: Acute flank pain Condition: Stable Prescriptions: No Action omeprazole 20 mg capsule,delayed release(DR/EC) 20 mg PO BID RF: 0 escitalopram oxalate 20 mg tablet 20 mg PO DAILY RF: 0 buspirone 5 mg tablet 5 mg PO TID PRN (Reason: panic attacks) Qty: 90 RF: 0 trazodone 50 mg tablet See Rx Instructions PO DAILY Qty: 60 RF: 0 acetaminophen [Tylenol] 325 mg Tablet 325 - 650 mg PO Q4H PRN (Reason: Pain) RF: 0 azithromycin 250 mg Tablet 500 mg PO DAILY Qty: 5 RF: 0 ondansetron 4 mg tablet,disintegrating 4 mg PO Q6H PRN (Reason: nausea and vomiting) Qty: 14 RF: 0 Probiotic 15 billion cell Capsule 1 cap PO DAILY RF: 0 Discharge Orders: Discharge Order (Routine); Ordered 07/19/20 Ordered By: Emily Vazquez Referrals: Jose Pryor MD [Primary Care Provider] - 1-3 days Discharge Diet: Advance as tolerated Discharge Activity: Increase activity as tolerated Patient Instructions: Abdominal Pain (ED) Activity Restrictions/Additional Instructions: Please return to the ER immediately for any of the signs or symptoms listed on your discharge instruction sheets, worsening/changing of your symptoms, you are not getting better as quickly as expected, or for ANY other cause or concerns. Please return to the ER for fever, vomiting, return of your pain, or for any other cause for concern. Certain to follow-up with your doctor in the next 1 to 2 days for recheck. Discharge Date/Time: 07/19/20 18:52 Sign Out Sign Out Data: Patient Sign Out occurred on 07/19/20 at 16:46. Patient's care was discussed, and care was transferred from to Emily Vazquez. Coding Level of Care Code ED Licensed Mental Health Counselor for Chg Fwd Exam Comprehensive
[2020-07-19 17:06] LABS: Basophils # 0.1 10^3/uL (0.0-0.1); Basophils % 0.4 %; Eosinophils # 0.4 10^3/uL (0.0-0.8); Eosinophils % 2.7 %; Hematocrit 42.7 % (37.0-47.0); Hemoglobin 14.2 g/dL (11.5-15.3); Lymphocytes # 3.1 10^3/uL (0.8-4.8); Lymphocytes % 21.1 %; Mean Corpuscular HGB Conc 33.3 g/dL (30.0-36.0); Mean Corpuscular Hemoglobin 30.2 pg (28.0-34.0); Mean Corpuscular Volume 90.9 fL (81-99); Mean Platelet Volume 10.3 fL (7.4-10.4); Monocytes # 0.8 10^3/uL (0.2-0.9); Monocytes % 5.6 %; Neutrophils # 10.09 10^3/uL (1.8-7.7); Neutrophils % 69.4 %; Nucleated Red Blood Cells % 0 %; Platelet Count 438 10^3/cmm (130-400); Red Cell Distribution Width 14.6 % (12.1-15.1); White Blood Count 14.5 10^3/uL (4.0-10.0)
[2020-07-19 17:33] LABS: Alanine Aminotransferase 59 U/L (0-33); Albumin Level 3.8 g/dL (3.5-5.2); Alkaline Phosphatase 75 IU/L (35-105); Aspartate Amino Transferase 37 U/L (0-32); Blood Urea Nitrogen 5 mg/dL (6-20); Calcium 9.3 mg/dL (8.5-10.5); Carbon Dioxide 24 mmol/L (22-29); Chloride 103 mmol/L (98-107); Glomerular Filtration Rate 83.1 mL/min (90-130); Glucose 81 mg/dL (65-115); Lipase 60 U/L (13-60); Osmolality Calculated 277 mOsm/kg (285-295); Sodium 136 mmol/L (136-145); Total Bilirubin 0.2 mg/dL (0.15-1.2); Total Protein 6.8 g/dL (6.6-8.7)
[2020-07-19 17:47] LABS: HCG Qualitative Urine. Negative (Negative)
--- NOTE | 2020-07-19 17:49 | PC.NURSE ---
Rocephin discontinued per Dr. Harvey
[2020-07-19 18:01] VITALS: RESP 18; O2SAT 100
[2020-07-19] MEDS: oxyCODONE-APAP 5-325 mg Tablet 1 TAB PO (18:01)
[2020-07-19 18:05] VITALS: BP 130/79; PULSE 67; O2SAT 100
[2020-07-19 18:23] LABS: Sulfosalicylic Acid Urine Negative (Negative); Urine Appearance Hazy (CLEAR); Urine Color Yellow (Yellow); pH Urine 8 (5-7)
[2020-07-19 18:24] LABS: Add Urine Microscopic? YES; Bilirubin Urine Neg (NEGATIVE); Blood Urine Neg (Negative); Glucose Urine UA Norm (Normal); Ketones Urine Negative (Negative); Leukocyte Esterase Urine Negative (Negative); Nitrate Urine Negative (Negative); Protein Urine Neg (Negative); Urobilinogen Urine Norm (Negative)
[2020-07-19 18:31] LABS: Add Urine Culture? No; Bacteria Urine TRACE; Squamous Epithelial Cell Urine 25-40 (0-5)
[2020-07-19 18:52] VITALS: BP 123/78; PULSE 67; RESP 17; O2SAT 98
== END 2020-07-19 18:52 | disposition home or self-care (01) ==
PROVIDERS: Nurse Practitioner Family; Emergency Provider Emergency Medicine; PCP Family Medicine
DX: R10.9 Unspecified abdominal pain (principal); F17.210 Nicotine dependence, cigarettes, uncomplicated
CPT/HCPCS: 12345; 36415; 74176; 80053; 81001; 81025; 83690; 85025; 96365; 99282; 99283

== ENCOUNTER 2020-07-28 16:17 | Emergency (ER) | payer MEDICARE, SELFPAY ==
[2020-07-28 16:55] VITALS: BP 128/83; PULSE 75; RESP 18; TEMP 36.8; O2SAT 98; BMI 26.5
--- NOTE | 2020-07-28 17:26 | W.ED.ABDPA2 ---
HPI - Abdominal Pain General: Chief Complaint: Abdominal Pain Stated Complaint: POSSIBLE KIDNEY STONE Time Seen by Provider: 07/28/20 17:04 Source: patient Mode of arrival: ambulatory Limitations: no limitations History of Present Illness: HPI narrative: Was seen in the emergency department about a week ago for the same thing. At that time a CT scan done showed she likely just passed a kidney stone. She states that her pain is however not improved. Pain is worse on urination. She has associated nausea from the pain but no vomiting. She denies any fever. MD elicited complaint: flank pain Location: R flank Severity: similar to previous episodes Quality: cramping Radiation: RLQ Exacerbating factors: nothing Relieving factors: nothing Associated Symptoms: Reports GI cramping, dysuria and nausea; Denies anorexia, belching, bloating, change in bowel habits, change in stool character, chills, coffee ground emesis, constipation, diarrhea, dyspepsia, excessive flatus, fever(s), heartburn, hematochezia, hematuria, hematemesis, fecal incontinence, loose stools, melena, poor appetite, syncope and vomiting Related Data: Date of Last Menstrual Period: 12/20/19 Review of Systems General: Reports: 10 or more systems reviewed and unremarkable except in HPI and below Const: Denies: fever(s) or chills Eyes: Denies: change in vision or blurry vision ENMT: Denies: throat pain, enlarged tonsils, odynophagia, hoarseness, mouth pain or swelling of lips/tongue Card: Denies: syncope Resp: Denies: dyspnea, productive cough or non-productive cough GI: Reports: nausea and GI cramping; Denies: vomiting, hematemesis, coffee ground emesis, heartburn, diarrhea, constipation, bloating, belching, excessive flatus, fecal incontinence, change in bowel habits, change in stool character, hematochezia or melena : Reports: dysuria; Denies: hematuria Musc: Denies: neck pain, back pain or extremity swelling Skin/Breast: Denies: rash, pruritus or erythema Neuro: Denies: headache(s), numbness in extremities or weakness in extremities Endo: Denies: polyuria, polydipsia or tired all the time PFSH ED PFSH: Medical History Anxiety and depression Dyspareunia, female Fibromyalgia Gastroesophageal reflux Migraine headache Worse with systemic hormonal control Palpitations Controlled with metoprolol. Followed by Dr. Auguste at [facility] Pelvic pain in female 08/23/2018: Patient is reporting having pain in her pelvic region similar to the pain she has when she has sex. This is unrelated to her menstrual cycles. Potential causes for pain in the pelvic area was discussed including gynecologic, urologic, gastrointestinal, musculoskeletal, and neurologic causes. Based upon description, I am suspicious for adhesions to be at least a part of her pain problems. The fibromyalgia may also be contributing to her pain. I am starting her on Elavil and attempt to treat her pain. She also wished proceed to a laparoscopic evaluation of her pain as well as to have her tubes tied at the same time. 09/23/2018: Reports overall improvement in her generalized pain with amitriptyline, but no significant improvement with the pelvic pain. 09/28/2018: Laparoscopy with lysis of adhesions and sterilization. Small area of omental adhesions found. No evidence of endometriosis seen. Smoking Surgical History (Reviewed 07/28/20 @ 17:31 by Jennifer Gross MD, [facility] [place]) History of endometrial ablation (12/20/19) Hysteroscopy with NovaSure ablation. [place] [facility] [place] section (06/05/17) Low transverse section. Diagnosis: Cephalopelvic disproportion with normal size fetus. Performed by Dr. Edward Rojo at [facility] in [place], [place]. Patient had a low transverse incision with a 2 layer closure of the uterus. S/P cholecystectomy (~2006) Laparoscopic. Performed by Dr Kumar in [place], [place] S/P laparoscopic procedure (09/16/11) Diagnostic. Diag: Pelvic pain, Dyspareunia, Left lower quadrant pain. Performed by Dr. Edawrd Rojo at [facility] in [place], [place]. --- Operative report reviewed-no signs of endometriosis or adhesions identified. S/P tubal ligation (09/28/18) Laparoscopic complete salpingectomy for sterilization and lysis of adhesions. Diagnosis undesired fertility and chronic pelvic pain. Performed by Dr. Edward Rojo at [facility] in [place], [place]. Findings: Small area of omental adhesions. No evidence of endometriosis seen. Family History (Reviewed 07/28/20 @ 17:31 by Jennifer Gross MD, [facility] [place]) Father Hypertension Stroke Family/Other Colon cancer paternal aunt Grandfather Diabetes Maternal Grandmother Diabetes Paternal Stroke Paternal Social History (Reviewed 07/28/20 @ 17:31 by Jennifer Gross MD, [facility] [place]) Smoking and tobacco status: current every day smoker cigarettes Packs smoked per day: 1 Years cigarettes smoked: 12 [ Other cigarette details: 1 ppd. Started smoking age 15 ] Alcohol intake: never Additional social history: poorly balanced diet Female Reproductive History: Date of last menstrual period: 12/20/19 Physical Exam Const: COMMON NORMALS: average body habitus, patient oriented x3, no limitations, healthy appearing, alert and well nourished GENERAL APPEARANCE: in distress (Painful distress) HENMT: COMMON NORMALS: normocephalic, atraumatic and moist oral mucous membranes HEAD & SCALP: normocephalic and atraumatic Neck/C-Spine: COMMON NORMALS: no meningeal signs and no JVD Resp: COMMON NORMALS: normal respiratory effort, No retractions, No use of accessory muscles, clear to auscultation bilaterally and percussion normal AUSCULTATION: clear to auscultation bilaterally PERCUSSION: percussion normal Cardio: COMMON NORMALS: no JVD, regular rate, regular rhythm, S1 normal heart sound present, S2 normal heart sound present, No gallops present (Cardio), No clicks present (Cardio), No murmurs present (Cardio), No rub (Cardio) and Peripheral pulses 2+ throughout RATE: regular rate RHYTHM: regular rhythm HEART SOUNDS: S1 normal heart sound present and S2 normal heart sound present PERIPHERAL PULSES: Peripheral pulses 2+ throughout GI: COMMON NORMALS: Normal to inspection, nondistended, normoactive bowel sounds present, Soft to palpation, non-tender, No hepatosplenomegaly present, no masses and no bruits PALPATION: Yes Soft to palpation and Yes No hepatosplenomegaly present : BLADDER/KIDNEY EXAM: Yes CVA tenderness Back/Pelvis: GENERAL BACK: Yes CVA tenderness CVA tenderness: bilateral (but R>>L) Extremity: COMMON NORMALS: normal to inspection, full ROM, capillary refill normal, no calf tenderness and no pedal edema Neuro: COMMON NORMALS: patient oriented x3 SENSORIUM/ORIENTATION: Yes alert MENINGEAL SIGNS: Yes no meningeal signs Skin: COMMON NORMALS: no rashes or lesions noted, no wounds, turgor normal, no jaundice, no petechiae and no mottling GENERAL SKIN EXAM: no rashes or lesions noted and turgor normal Course Reevaluation(s): Reevaluation #1: Discussed her lab and imaging findings with her. Negative for acute findings. Mild elevation of her liver function tests which is a little higher than last time he was. She does have an enlarged liver. I cannot identify the cause of her symptoms. I advised that since she hurts every time she urinates she might need to see a urologist for further evaluation. She voiced understanding and is in agreement with the plan. She does have yeast in her urine which is likely from vaginal candidiasis. She just completed antibiotics and she does have occasional vaginal itching. Time: 21:29 Vital Signs: Vital signs: Vital Signs Temperature 98.3 F 07/28/20 16:55 Pulse Rate 61 07/28/20 21:54 Respiratory Rate 18 07/28/20 21:54 Blood Pressure 118/77 07/28/20 21:54 Pulse Oximetry 98 07/28/20 21:54 MDM - Abdominal Pain MDM Narrative: Medical decision making narrative: 34-year-old female with undifferentiated right flank pain. She has been seen in the emergency department for this. She has been diagnosed with possible kidney stones in the past but evaluation in the emergency department today was unremarkable. Urinalysis was negative other than yeast infection which is likely vulvovaginal candidiasis. She has recently been on antibiotics. She is discharged home with pain medication, muscle relaxant, and a dose of fluconazole 150 mg x 1. She is to follow-up with her primary care provider for possible referral to urology for evaluation of her dysuria. Medical Records: Attestation: I reviewed the patient's medical records. Lab Data: Attestation: I reviewed the patient's lab results. Labs: Lab Results 07/28/20 07/28/20 07/28/20 Range/Units 17:06 17:25 17:25 WBC 8.8 (4.0-10.0) 10^3/ uL RBC 4.87 (4.1-5.3) 10^6/u L Hgb 14.6 (11.5-15.3) g/dL Hct 44.7 (37.0-47.0) % MCV 91.8 (81-99) fL MCH 30.0 (28.0-34.0) pg MCHC 32.7 (30.0-36.0) g/dL RDW 14.4 (12.1-15.1) % Plt Count 316 (130-400) 10^3/c mm MPV 10.7 H (7.4-10.4) fL Neut % (Auto) 67.0 % Lymph % (Auto) 24.1 % [place] % (Auto) 6.9 % Eos % (Auto) 0.9 % Baso % (Auto) 0.9 % Neut # (Auto) 5.87 (1.8-7.7) 10^3/u L Lymph # (Auto) 2.1 (0.8-4.8) 10^3/u L [place] # (Auto) 0.6 (0.2-0.9) 10^3/u L Eos # (Auto) 0.1 (0.0-0.8) 10^3/u L Baso # (Auto) 0.1 (0.0-0.1) 10^3/u L Nucleated RBC % (a uto) 0 % Nucleated RBCs # 0.0 /100WBC Sodium 138 (136-145) mmol/L Potassium 4.0 (3.5-5.1) mmol/L Chloride 103 (98-107) mmol/L Carbon Dioxide 26 (22-29) mmol/L Anion Gap 13.0 (5-19) BUN 8 (6-20) mg/dL Creatinine 0.8 (0.5-0.9) mg/dL GFR Calculation 83.1 L (90-130) mL/min Glucose 88 (65-115) mg/dL Calculated Osmolal ity 281 L (285-295) mOsm/k g Calcium 9.2 (8.5-10.5) mg/dL Total Bilirubin 0.4 (0.15-1.2) mg/dL AST 62 H (0-32) U/L ALT 130 H (0-33) U/L Alkaline Phosphata se 97 (35-105) IU/L C-Reactive Protein 10.2 H (0.0-4.9) mg/L Total Protein 7.8 (6.6-8.7) g/dL Albumin 4.3 (3.5-5.2) g/dL Globulin 3.5 (1.3-4.6) g/dL Lipase 26 (13-60) U/L HCG, Qual (Negative) Urine Color Dark yellow (Yellow) Urine Appearance Clear (CLEAR) Urine pH 8 H (5-7) Ur Specific Gravit y 1.015 (1.005-1.030) Urine Protein Neg (Negative) Urine Glucose (UA) Norm (Normal) Urine Ketones Negative (Negative) Urine Blood Neg (Negative) Urine Nitrate Negative (Negative) Urine Bilirubin Neg (NEGATIVE) Prot Sulfosalicyli c Acd Negative (Negative) Urine Urobilinogen 1 H (Negative) mg/dL Ur Leukocyte Tamara ase Negative (Negative) Urine RBC None (0-2) /hpf Urine WBC Rare (0-5) /hpf Ur Squamous Epith Cells 10-15 H (0-5) Amorphous Sediment Not Reportable Urine Bacteria Trace (NONE) Urine Yeast 1+ H 07/28/20 Range/Units 17:25 WBC (4.0-10.0) 10^3/ uL RBC (4.1-5.3) 10^6/u L Hgb (11.5-15.3) g/dL Hct (37.0-47.0) % MCV (81-99) fL MCH (28.0-34.0) pg MCHC (30.0-36.0) g/dL RDW (12.1-15.1) % Plt Count (130-400) 10^3/c mm MPV (7.4-10.4) fL Neut % (Auto) % Lymph % (Auto) % [place] % (Auto) % Eos % (Auto) % Baso % (Auto) % Neut # (Auto) (1.8-7.7) 10^3/u L Lymph # (Auto) (0.8-4.8) 10^3/u L [place] # (Auto) (0.2-0.9) 10^3/u L Eos # (Auto) (0.0-0.8) 10^3/u L Baso # (Auto) (0.0-0.1) 10^3/u L Nucleated RBC % (a uto) % Nucleated RBCs # /100WBC Sodium (136-145) mmol/L Potassium (3.5-5.1) mmol/L Chloride (98-107) mmol/L Carbon Dioxide (22-29) mmol/L Anion Gap (5-19) BUN (6-20) mg/dL Creatinine (0.5-0.9) mg/dL GFR Calculation (90-130) mL/min Glucose (65-115) mg/dL Calculated Osmolal ity (285-295) mOsm/k g Calcium (8.5-10.5) mg/dL Total Bilirubin (0.15-1.2) mg/dL AST (0-32) U/L ALT (0-33) U/L Alkaline Phosphata se (35-105) IU/L C-Reactive Protein (0.0-4.9) mg/L Total Protein (6.6-8.7) g/dL Albumin (3.5-5.2) g/dL Globulin (1.3-4.6) g/dL Lipase (13-60) U/L HCG, Qual Negative (Negative) Urine Color (Yellow) Urine Appearance (CLEAR) Urine pH (5-7) Ur Specific Gravit y (1.005-1.030) Urine Protein (Negative) Urine Glucose (UA) (Normal) Urine Ketones (Negative) Urine Blood (Negative) Urine Nitrate (Negative) Urine Bilirubin (NEGATIVE) Prot Sulfosalicyli c Acd (Negative) Urine Urobilinogen (Negative) mg/dL Ur Leukocyte Tamara ase (Negative) Urine RBC (0-2) /hpf Urine WBC (0-5) /hpf Ur Squamous Epith Cells (0-5) Amorphous Sediment Urine Bacteria (NONE) Urine Yeast Imaging Data ^: US: Radiologist's impression: [address] [address] Ultrasound Report Signed Patient: Caitlin Watkinst #: [id number] : 1985Acct#:[id number] Age/Sex: 34 / FADM Date: 07/28/20 Loc: ERRoom/Bed: Attending Dr: Ordering Provider/Ordering MD: Jennifer Gross MD, [facility] [place] Date of Service: 07/28/20 Procedure(s): US abdomen limited [id number] Accession Number(s): [id number] Report Number: [id number] PROCEDURE INFORMATION: Exam: US Abdomen, Limited; Right Upper Quadrant Exam date and time: 07/28/2020 6:56 PM Age: 34 years old Clinical indication: Abdominal pain; Prior surgery; Surgery date: 6+ months; Surgery type: Gb removed TECHNIQUE: Imaging protocol: US abdomen. Real time ultrasound with image documentation. Limited exam focused on the right upper quadrant. COMPARISON: US Abdomen* [id number] 12/16/2016 9:29 AM FINDINGS: Liver: No focal abnormality is seen within the liver. Liver is normal size with normal uniform echogenicity. Gallbladder: Patient is post cholecystectomy. Common bile duct: Common bile duct measures 5 mm. Pancreas: Pancreas is unremarkable. Right kidney: Right kidney is unremarkable, there is no hydronephrosis. Aorta: Abdominal aorta has a normal appearance and diameter. Portal venous: Flow in the portal vein is in the normal direction. Inferior vena cava: IVC is patent. US/US abdomen limited [id number] IMPRESSION: 1. Status post cholecystectomy. 2. No acute finding. Dictated By:Juwan Wiley Signed By:Chris Wileyigned Date/Time:07/28/202016 DD/ 15 CT Abd/Pel: Radiologist's impression: [place] [address] CT Scan Report Signed Patient: Caitlin Watkins #: [id number] : 1985Acct#:[id number] Age/Sex: 34 / FADM Date: 07/28/20 Loc: ERRoom/Bed: Attending Dr: Ordering Provider/Ordering MD: Jennifer Gross MD, [facility] [place] Date of Service: 07/28/20 Procedure(s): CT kidney stone [id number] Accession Number(s): [id number] Report Number: [id number] PROCEDURE INFORMATION: Exam: CT Abdomen And Pelvis Without Contrast Exam date and time: 07/28/2020 8:17 PM Age: 34 years old Clinical indication: Abdominal pain; Right; Prior surgery; Surgery type: Gb, tubal; Patient HX: C/O worsening R flank pain; Additional info: Right flank pain TECHNIQUE: Imaging protocol: Computed tomography of the abdomen and pelvis without contrast. Radiation optimization: All CT scans at this facility use at least one of these dose optimization techniques: automated exposure control; mA and/or kV adjustment per patient size (includes targeted exams where dose is matched to clinical indication); or iterative reconstruction. COMPARISON: CT kidney stone [id number] 07/19/2020 4:49 PM RADIATION DOSE METRICS: Total DLP (mGy-cm): 1648.85 FINDINGS: Limitations: The absence of intravenous contrast lessens the sensitivity of this study for solid organ abnormalities. Liver: There is no focal abnormality within the liver. There is mild enlargement of the liver. Liver measures 20 cm in height. Gallbladder and bile ducts: There has been a cholecystectomy. Pancreas: The pancreas is normal. Spleen: The spleen is normal. Adrenals: The adrenal glands are normal. Kidneys and ureters: The kidneys are normal. There is no evidence of renal or ureteral calcifications. There is no evidence of hydronephrosis. Stomach and bowel: There is no evidence of colitis/diverticulitis. Appendix: A normal appendix is identified. Intraperitoneal space: There is no evidence of free intraperitoneal fluid. Vasculature: Unremarkable. No abdominal aortic aneurysm. Lymph nodes: Unremarkable. No enlarged lymph nodes. Bladder: Unremarkable as visualized. Reproductive: Unremarkable as visualized. Bones/joints: Unremarkable. No acute fracture. Soft tissues: Incidental note is made of a metallic foreign body in the soft tissues of the right flank not changed from previous. CT/CT kidney stone [id number] IMPRESSION: 1. No acute findings. 2. Mild hepatomegaly. 3. No evidence of urinary tract calculi. Radiation Dose CTDIVOL = (mGy): DLP = 1648.85 (mGy-cm) Dictated By:Juwan Wiley Signed By:Chris Wileyigned Date/Time:07/28/202039 DD/ 37 Discharge Plan Discharge Patient Disposition: Home Clinical Impression: Acute flank pain, Candidiasis of vagina, Dysuria Condition: Stable Prescriptions: New oxycodone-acetaminophen 5-325 mg tablet 1 tab PO Q8H PRN (Reason: pain) Qty: 12 RF: 0 cyclobenzaprine 10 mg tablet 10 mg PO TID PRN (Reason: muscle spasm) Qty: 30 RF: 0 fluconazole 150 mg tablet 150 mg PO DAILY Qty: 1 RF: 0 Continued omeprazole 20 mg capsule,delayed release(DR/EC) 20 mg PO BID RF: 0 buspirone 10 mg tablet 10 mg PO TID PRN (Reason: panic attacks) Qty: 90 RF: 0 trazodone 150 mg tablet 150 mg PO DAILY Qty: 30 RF: 0 escitalopram oxalate 20 mg tablet 20 mg PO DAILY RF: 0 acetaminophen [Tylenol] 325 mg Tablet 325 - 650 mg PO Q4H PRN (Reason: Pain) RF: 0 ondansetron 4 mg tablet,disintegrating 4 mg PO Q6H PRN (Reason: nausea and vomiting) Qty: 14 RF: 0 Probiotic 15 billion cell Capsule 1 cap PO DAILY RF: 0 Discharge Orders: Discharge Order (Routine); Ordered 07/28/20 Ordered By: Jennifer rGoss Referrals: Jose Pryor MD [Primary Care Provider] - 1-3 days Patient Instructions: Vulvovaginal Candidiasis (ED), Flank Pain (ED) Activity Restrictions/Additional Instructions: Return for any new or worsening symptoms. Follow-up with your primary care provider within 3 days. You may need to be referred to a urologist for further evaluation of the pain when you urinate. Talk to your primary care provider about this. Take the pain medicine as needed. Take the antifungal medicine as prescribed. Discharge Date/Time: 07/28/20 21:58 Coding Level of Care Code ED Eyelet Maker for Kimmie Fwd Exam Comprehensive
[2020-07-28 17:38] LABS: Basophils # 0.1 10^3/uL (0.0-0.1); Basophils % 0.9 %; Eosinophils # 0.1 10^3/uL (0.0-0.8); Eosinophils % 0.9 %; Hematocrit 44.7 % (37.0-47.0); Hemoglobin 14.6 g/dL (11.5-15.3); Lymphocytes # 2.1 10^3/uL (0.8-4.8); Lymphocytes % 24.1 %; Mean Corpuscular HGB Conc 32.7 g/dL (30.0-36.0); Mean Corpuscular Volume 91.8 fL (81-99); Mean Platelet Volume 10.7 fL (7.4-10.4); Monocytes # 0.6 10^3/uL (0.2-0.9); Monocytes % 6.9 %; Neutrophils # 5.87 10^3/uL (1.8-7.7); Nucleated Red Blood Cells % 0 %; Platelet Count 316 10^3/cmm (130-400); Red Blood Count 4.87 10^6/uL (4.1-5.3); Red Cell Distribution Width 14.4 % (12.1-15.1); White Blood Count 8.8 10^3/uL (4.0-10.0)
[2020-07-28 17:48] LABS: Bilirubin Urine Neg (NEGATIVE); Blood Urine Neg (Negative); Glucose Urine UA Norm (Normal); Ketones Urine Negative (Negative); Leukocyte Esterase Urine Negative (Negative); Nitrate Urine Negative (Negative); Protein Urine Neg (Negative); Specific Gravity, Urine 1.015 (1.005-1.030); Sulfosalicylic Acid Urine Negative (Negative); Urine Appearance Clear (CLEAR); Urine Color Dark Yellow (Yellow); Urobilinogen Urine 1 mg/dL (Negative); pH Urine 8 (5-7)
[2020-07-28 17:49] LABS: Add Urine Culture? No; Bacteria Urine TRACE; WBC Urine RARE /hpf (0-5)
[2020-07-28 17:53] LABS: HCG, Serum Qual Negative (Negative)
[2020-07-28 18:00] LABS: Alanine Aminotransferase 130 U/L (0-33); Albumin Level 4.3 g/dL (3.5-5.2); Alkaline Phosphatase 97 IU/L (35-105); Aspartate Amino Transferase 62 U/L (0-32); Blood Urea Nitrogen 8 mg/dL (6-20); C Reactive Protein 10.2 mg/L (0.0-4.9); Calcium 9.2 mg/dL (8.5-10.5); Carbon Dioxide 26 mmol/L (22-29); Chloride 103 mmol/L (98-107); Globulin 3.5 g/dL (1.3-4.6); Glomerular Filtration Rate 83.1 mL/min (90-130); Glucose 88 mg/dL (65-115); Lipase 26 U/L (13-60); Osmolality Calculated 281 mOsm/kg (285-295); Sodium 138 mmol/L (136-145); Total Bilirubin 0.4 mg/dL (0.15-1.2); Total Protein 7.8 g/dL (6.6-8.7)
[2020-07-28] MEDS: fentaNYL 50 mcg/mL INJ 2mL IVP ×2 (18:26→20:47)
--- NOTE | 2020-07-28 18:37 | USR_ITS ---
PROCEDURE INFORMATION: Exam: US Abdomen, Limited; Right Upper Quadrant Exam date and time: 07/28/2020 6:56 PM Age: 34 years old Clinical indication: Abdominal pain; Prior surgery; Surgery date: 6+ months; Surgery type: Gb removed TECHNIQUE: Imaging protocol: US abdomen. Real time ultrasound with image documentation. Limited exam focused on the right upper quadrant. COMPARISON: US Abdomen* [id number] 12/16/2016 9:29 AM FINDINGS: Liver: No focal abnormality is seen within the liver. Liver is normal size with normal uniform echogenicity. Gallbladder: Patient is post cholecystectomy. Common bile duct: Common bile duct measures 5 mm. Pancreas: Pancreas is unremarkable. Right kidney: Right kidney is unremarkable, there is no hydronephrosis. Aorta: Abdominal aorta has a normal appearance and diameter. Portal venous: Flow in the portal vein is in the normal direction. Inferior vena cava: IVC is patent. US/US abdomen limited [id number] IMPRESSION: 1. Status post cholecystectomy. 2. No acute finding.
--- NOTE | 2020-07-28 19:51 | CTR_ITS ---
PROCEDURE INFORMATION: Exam: CT Abdomen And Pelvis Without Contrast Exam date and time: 07/28/2020 8:17 PM Age: 34 years old Clinical indication: Abdominal pain; Right; Prior surgery; Surgery type: Gb, tubal; Patient HX: C/O worsening R flank pain; Additional info: Right flank pain TECHNIQUE: Imaging protocol: Computed tomography of the abdomen and pelvis without contrast. Radiation optimization: All CT scans at this facility use at least one of these dose optimization techniques: automated exposure control; mA and/or kV adjustment per patient size (includes targeted exams where dose is matched to clinical indication); or iterative reconstruction. COMPARISON: CT kidney stone [id number] 07/19/2020 4:49 PM RADIATION DOSE METRICS: Total DLP (mGy-cm): 1648.85 FINDINGS: Limitations: The absence of intravenous contrast lessens the sensitivity of this study for solid organ abnormalities. Liver: There is no focal abnormality within the liver. There is mild enlargement of the liver. Liver measures 20 cm in height. Gallbladder and bile ducts: There has been a cholecystectomy. Pancreas: The pancreas is normal. Spleen: The spleen is normal. Adrenals: The adrenal glands are normal. Kidneys and ureters: The kidneys are normal. There is no evidence of renal or ureteral calcifications. There is no evidence of hydronephrosis. Stomach and bowel: There is no evidence of colitis/diverticulitis. Appendix: A normal appendix is identified. Intraperitoneal space: There is no evidence of free intraperitoneal fluid. Vasculature: Unremarkable. No abdominal aortic aneurysm. Lymph nodes: Unremarkable. No enlarged lymph nodes. Bladder: Unremarkable as visualized. Reproductive: Unremarkable as visualized. Bones/joints: Unremarkable. No acute fracture. Soft tissues: Incidental note is made of a metallic foreign body in the soft tissues of the right flank not changed from previous. CT/CT kidney stone [id number] IMPRESSION: 1. No acute findings. 2. Mild hepatomegaly. 3. No evidence of urinary tract calculi. Radiation Dose CTDIVOL = (mGy): DLP = 1648.85 (mGy-cm)
[2020-07-28 20:12] VITALS: BP 116/55; PULSE 58; RESP 18; O2SAT 100
[2020-07-28 20:47] VITALS: RESP 19; O2SAT 96
[2020-07-28 21:54] VITALS: BP 118/77; PULSE 61; RESP 18; O2SAT 98
== END 2020-07-28 21:58 | disposition home or self-care (01) ==
PROVIDERS: Emergency Medicine; Emergency Provider Family Medicine; PCP Family Medicine
DX: R10.9 Unspecified abdominal pain (principal); R30.0 Dysuria; B37.3 Candidiasis of vulva and vagina; F17.210 Nicotine dependence, cigarettes, uncomplicated
CPT/HCPCS: 12345; 74176; 76705; 80053; 81001; 83690; 84703; 85025; 86140; 96374; 96375; 96376; 99282; 99283; J3010

== ENCOUNTER 2020-08-01 19:16 | Emergency (ER) | payer MEDICARE, SELFPAY ==
[2020-08-01 19:37] LABS: Basophils # 0.1 10^3/uL (0.0-0.1); Basophils % 0.6 %; Eosinophils # 0.2 10^3/uL (0.0-0.8); Eosinophils % 1.7 %; Hematocrit 44.6 % (37.0-47.0); Hemoglobin 14.2 g/dL (11.5-15.3); Lymphocytes # 2.8 10^3/uL (0.8-4.8); Mean Corpuscular HGB Conc 31.8 g/dL (30.0-36.0); Mean Corpuscular Hemoglobin 30.2 pg (28.0-34.0); Mean Corpuscular Volume 94.9 fL (81-99); Mean Platelet Volume 10.3 fL (7.4-10.4); Monocytes # 0.5 10^3/uL (0.2-0.9); Monocytes % 5.7 %; Neutrophils # 5.31 10^3/uL (1.8-7.7); Neutrophils % 59.8 %; Nucleated Red Blood Cells % 0 %; Platelet Count 383 10^3/cmm (130-400); Red Cell Distribution Width 14.6 % (12.1-15.1); White Blood Count 8.9 10^3/uL (4.0-10.0)
[2020-08-01 19:49] VITALS: BP 105/12; PULSE 105; RESP 16; TEMP 36.6; O2SAT 98; BMI 37.2
[2020-08-01 19:52] LABS: Alanine Aminotransferase 54 U/L (0-33); Alkaline Phosphatase 89 IU/L (35-105); Anion Gap 14.8 (5-19); Aspartate Amino Transferase 30 U/L (0-32); Blood Urea Nitrogen 6 mg/dL (6-20); Calcium 8.7 mg/dL (8.5-10.5); Carbon Dioxide 23 mmol/L (22-29); Chloride 101 mmol/L (98-107); Globulin 3.3 g/dL (1.3-4.6); Glomerular Filtration Rate 83.1 mL/min (90-130); Glucose 108 mg/dL (65-115); Lipase 15 U/L (13-60); Osmolality Calculated 276 mOsm/kg (285-295); Potassium 3.8 mmol/L (3.5-5.1); Sodium 135 mmol/L (136-145); Total Bilirubin 0.3 mg/dL (0.15-1.2); Total Protein 7.3 g/dL (6.6-8.7)
[2020-08-01 19:56] LABS: HCG, Serum Qual Negative (Negative)
--- NOTE | 2020-08-01 20:06 | ED_ITS ---
HPI - Abdominal Pain General: Chief Complaint: Abdominal Pain Stated Complaint: abd pain Time Seen by Provider: 08/01/20 19:59 Source: patient Mode of arrival: ambulatory Limitations: no limitations History of Present Illness: HPI narrative: 34-year-old female who states she has been having right-sided flank pain and right side abdominal pain for last 2 weeks. She has been seen here 3 times for this and had a CT scan a week ago showed a possible stone. States her pain is not gotten any better and her pain is now a 8 out of 10. She denies any fever. Denies any vomiting. She denies any worsening or improving factors. MD elicited complaint: abdominal pain Associated Symptoms: Denies chills, dysuria and fever(s) Related Data: Date of Last Menstrual Period: 12/20/19 Review of Systems Const: Denies: fever(s), chills, body aches or change in appetite Eyes: Denies: blurry vision or eye discomfort ENMT: Denies: throat pain or dental pain Card: Denies: chest pain Resp: Denies: dyspnea GI: Reports: abdominal pain : Denies: dysuria Musc: Denies: neck pain or back pain Skin/Breast: Denies: rash Neuro: Denies: headache(s) Psych: Denies: depression [place]/Lymph: Denies: easy bruising All/Imm: Denies: urticaria PFSH ED PFSH: Medical History Anxiety and depression Dyspareunia, female Fibromyalgia Gastroesophageal reflux Migraine headache Worse with systemic hormonal control Palpitations Controlled with metoprolol. Followed by Dr. Auguste at [facility] Pelvic pain in female 08/23/2018: Patient is reporting having pain in her pelvic region similar to the pain she has when she has sex. This is unrelated to her menstrual cycles. Potential causes for pain in the pelvic area was discussed including gynecologic, urologic, gastrointestinal, musculoskeletal, and neurologic causes. Based upon description, I am suspicious for adhesions to be at least a part of her pain problems. The fibromyalgia may also be contributing to her pain. I am starting her on Elavil and attempt to treat her pain. She also wished proceed to a laparoscopic evaluation of her pain as well as to have her tubes tied at the same time. 09/23/2018: Reports overall improvement in her generalized pain with amitriptyline, but no significant improvement with the pelvic pain. 09/28/2018: Laparoscopy with lysis of adhesions and sterilization. Small area of omental adhesions found. No evidence of endometriosis seen. Smoking Surgical History History of endometrial ablation (12/20/19) Hysteroscopy with NovaSure ablation. Performed by Dr. Rojo at [facility] [place]. S/P section (06/05/17) Low transverse section. Diagnosis: Cephalopelvic disproportion with normal size fetus. Performed by Dr. Edward Rojo at [facility] in [place], [place]. Patient had a low transverse incision with a 2 layer closure of the uterus. S/P cholecystectomy (~2006) Laparoscopic. Performed by Dr Kumar in [place], [place] S/P laparoscopic procedure (09/16/11) Diagnostic. Diag: Pelvic pain, Dyspareunia, Left lower quadrant pain. Performed by Dr. Edward Rojo at [facility] in [place], [place]. --- Operative report reviewed-no signs of endometriosis or adhesions identified. S/P tubal ligation (09/28/18) Laparoscopic complete salpingectomy for sterilization and lysis of adhesions. Diagnosis undesired fertility and chronic pelvic pain. Performed by Dr. Edward Rojo at [facility] in [place], [place]. Findings: Small area of omental adhesions. No evidence of endometriosis seen. Family History Father Hypertension Stroke Family/Other Colon cancer paternal aunt Grandfather Diabetes Maternal Grandmother Diabetes Paternal Stroke Paternal Social History Smoking and tobacco status: current every day smoker cigarettes Packs smoked per day: 1 Years cigarettes smoked: 12 [ Other cigarette details: 1 ppd. Started smoking age 15 ] Alcohol intake: never Additional social history: poorly balanced diet Female Reproductive History: Date of last menstrual period: 12/20/19 Physical Exam Const: COMMON NORMALS: no acute distress, patient oriented x3 and healthy appearing HENMT: COMMON NORMALS: normocephalic and atraumatic HEAD & SCALP: normocephalic and atraumatic Eye: COMMON NORMALS: Equal, round and reactive pupils present and EOMs intact bilaterally PUPIL: Yes Equal, round and reactive pupils present Neck/C-Spine: COMMON NORMALS: full ROM and supple Chest: COMMONS NORMALS: normal inspection of the chest and normal palpation of entire chest wall Resp: COMMON NORMALS: normal respiratory effort, No retractions, No use of accessory muscles and clear to auscultation bilaterally AUSCULTATION: clear to auscultation bilaterally Cardio: COMMON NORMALS: regular rate, regular rhythm and No murmurs present (Cardio) RATE: regular rate RHYTHM: regular rhythm GI: COMMON NORMALS: Normal to inspection, nondistended, normoactive bowel sounds present, Soft to palpation, non-tender and no masses PALPATION: Yes Soft to palpation Extremity: COMMON NORMALS: normal to inspection and full ROM Neuro: COMMON NORMALS: patient oriented x3, moves all extremities and no focal motor deficits Psych: COMMON NORMALS: mental status grossly normal, Normal thought process present and cooperative THOUGHT PROCESS: Normal thought process present Skin: COMMON NORMALS: no rashes or lesions noted and no wounds GENERAL SKIN EXAM: no rashes or lesions noted Course Vital Signs: Vital signs: Vital Signs Temperature 97.8 F 08/01/20 19:49 Pulse Rate 76 08/01/20 20:46 Respiratory Rate 16 08/01/20 20:46 Blood Pressure 143/87 08/01/20 20:46 Pulse Oximetry 98 08/01/20 20:46 MDM - Abdominal Pain MDM Narrative: Medical decision making narrative: Patient presents with a bdominal pain that is cramping in nature. Patient CT scan and blood work here is all normal. Patient is stable for discharge and is to follow-up with PCP in 3 to 5 days and return to the ER if worsening. She understands and agrees to plan. Lab Data: Labs: Lab Results 08/01/20 08/01/20 08/01/20 Range/Units 19:27 19:27 19:27 WBC 8.9 (4.0-10.0) 10^3/ uL RBC 4.70 (4.1-5.3) 10^6/u L Hgb 14.2 (11.5-15.3) g/dL Hct 44.6 (37.0-47.0) % MCV 94.9 (81-99) fL MCH 30.2 (28.0-34.0) pg MCHC 31.8 (30.0-36.0) g/dL RDW 14.6 (12.1-15.1) % Plt Count 383 (130-400) 10^3/c mm MPV 10.3 (7.4-10.4) fL Neut % (Auto) 59.8 % Lymph % (Auto) 32.0 % [place] % (Auto) 5.7 % Eos % (Auto) 1.7 % Baso % (Auto) 0.6 % Neut # (Auto) 5.31 (1.8-7.7) 10^3/u L Lymph # (Auto) 2.8 (0.8-4.8) 10^3/u L [place] # (Auto) 0.5 (0.2-0.9) 10^3/u L Eos # (Auto) 0.2 (0.0-0.8) 10^3/u L Baso # (Auto) 0.1 (0.0-0.1) 10^3/u L Nucleated RBC % (a uto) 0 % Nucleated RBCs # 0.0 /100WBC Sodium 135 L (136-145) mmol/L Potassium 3.8 (3.5-5.1) mmol/L Chloride 101 (98-107) mmol/L Carbon Dioxide 23 (22-29) mmol/L Anion Gap 14.8 (5-19) BUN 6 (6-20) mg/dL Creatinine 0.8 (0.5-0.9) mg/dL GFR Calculation 83.1 L (90-130) mL/min Glucose 108 (65-115) mg/dL Calculated Osmolal ity 276 L (285-295) mOsm/k g Calcium 8.7 (8.5-10.5) mg/dL Total Bilirubin 0.3 (0.15-1.2) mg/dL AST 30 (0-32) U/L ALT 54 H (0-33) U/L Alkaline Phosphata se 89 (35-105) IU/L Total Protein 7.3 (6.6-8.7) g/dL Albumin 4.0 (3.5-5.2) g/dL Globulin 3.3 (1.3-4.6) g/dL Lipase 15 (13-60) U/L HCG, Qual Negative (Negative) Urine Color (Yellow) Urine Appearance (CLEAR) Urine pH (5-7) Ur Specific Gravit y (1.005-1.030) Urine Protein (Negative) Urine Glucose (UA) (Normal) Urine Ketones (Negative) Urine Blood (Negative) Urine Nitrate (Negative) Urine Bilirubin (Negative) Urine Urobilinogen (Negative) mg/dL Ur Leukocyte Tamara ase (Negative) 08/01/20 Range/Units 20:37 WBC (4.0-10.0) 10^3/ uL RBC (4.1-5.3) 10^6/u L Hgb (11.5-15.3) g/dL Hct (37.0-47.0) % MCV (81-99) fL MCH (28.0-34.0) pg MCHC (30.0-36.0) g/dL RDW (12.1-15.1) % Plt Count (130-400) 10^3/c mm MPV (7.4-10.4) fL Neut % (Auto) % Lymph % (Auto) % [place] % (Auto) % Eos % (Auto) % Baso % (Auto) % Neut # (Auto) (1.8-7.7) 10^3/u L Lymph # (Auto) (0.8-4.8) 10^3/u L [place] # (Auto) (0.2-0.9) 10^3/u L Eos # (Auto) (0.0-0.8) 10^3/u L Baso # (Auto) (0.0-0.1) 10^3/u L Nucleated RBC % (a uto) % Nucleated RBCs # /100WBC Sodium (136-145) mmol/L Potassium (3.5-5.1) mmol/L Chloride (98-107) mmol/L Carbon Dioxide (22-29) mmol/L Anion Gap (5-19) BUN (6-20) mg/dL Creatinine (0.5-0.9) mg/dL GFR Calculation (90-130) mL/min Glucose (65-115) mg/dL Calculated Osmolal ity (285-295) mOsm/k g Calcium (8.5-10.5) mg/dL Total Bilirubin (0.15-1.2) mg/dL AST (0-32) U/L ALT (0-33) U/L Alkaline Phosphata se (35-105) IU/L Total Protein (6.6-8.7) g/dL Albumin (3.5-5.2) g/dL Globulin (1.3-4.6) g/dL Lipase (13-60) U/L HCG, Qual (Negative) Urine Color Yellow (Yellow) Urine Appearance Clear (CLEAR) Urine pH 7 (5-7) Ur Specific Gravit y 1.010 (1.005-1.030) Urine Protein Neg (Negative) Urine Glucose (UA) Norm (Normal) Urine Ketones Negative (Negative) Urine Blood Neg (Negative) Urine Nitrate Negative (Negative) Urine Bilirubin Neg (Negative) Urine Urobilinogen Norm (Negative) mg/dL Ur Leukocyte Tamara ase Negative (Negative) Imaging Data ^: CT Abd/Pel: Radiologist's impression: [place] [address] CT Scan Report Signed Patient: Caitlin Watkins Unit #: [id number] : 1985 Age/Sex: 34 / F ADM Date: 08/01/20 Loc: ER Room/Bed: Attending Dr: Ordering Provider/Ordering MD: Cruz Meyers MD Date of Service: 08/01/20 Procedure(s): CT abdomen pelvis w con* [id number] Accession Number(s): [id number] Report Number: [id number] PROCEDURE INFORMATION: Exam: CT Abdomen And Pelvis With Contrast Exam date and time: 08/01/2020 8:25 PM Age: 34 years old Clinical indication: Abdominal pain; Prior surgery; Additional info: Abd pain TECHNIQUE: Imaging protocol: Computed tomography of the abdomen and pelvis with intravenous contrast. Radiation optimization: All CT scans at this facility use at least one of these dose optimization techniques: automated exposure control; mA and/or kV adjustment per patient size (includes targeted exams where dose is matched to clinical indication); or iterative reconstruction. Contrast material: OMNI 300; Contrast volume: 95 ml; Contrast route: INTRAVENOUS (IV); COMPARISON: CT kidney stone [id number] 07/28/2020 8:11 PM RADIATION DOSE METRICS: Total DLP (mGy-cm): 1193.12 FINDINGS: Liver: Normal. No mass. Gallbladder and bile ducts: The gallbladder has been removed. No biliary ductal dilatation. Pancreas: Normal. No ductal dilation. Spleen: Normal. No splenomegaly. Adrenals: Normal. No mass. Kidneys and ureters: Normal. No hydronephrosis. Stomach and bowel: Unremarkable. No obstruction. No mucosal thickening. Appendix: The appendix is normal. Intraperitoneal space: Unremarkable. No free air. No significant fluid collection. Vasculature: Unremarkable. No abdominal aortic aneurysm. Lymph nodes: Unremarkable. No enlarged lymph nodes. Bladder: Unremarkable as visualized. Reproductive: The uterus appears normal. Bones/joints: Bilateral L5 spondylolysis is noted. No acute fracture. Soft tissues: Unremarkable. CT/CT abdomen pelvis w con* [id number] IMPRESSION: No acute abnormality is seen in the abdomen or pelvis. Discharge Plan Discharge Patient Disposition: Home Clinical Impression: Abdominal pain Qualifiers: Abdominal location: generalized Qualified Code(s): R10.84 - Generalized abdominal pain Condition: Stable Prescriptions: New Reglan 10 mg tablet 10 mg PO Q6H PRN (Reason: nausea and vomiting) Qty: 20 RF: 0 No Action omeprazole 20 mg capsule,delayed release(DR/EC) 20 mg PO BID RF: 0 buspirone 10 mg tablet 10 mg PO TID PRN (Reason: panic attacks) Qty: 90 RF: 0 trazodone 150 mg tablet 150 mg PO DAILY Qty: 30 RF: 0 escitalopram oxalate 20 mg tablet 20 mg PO DAILY RF: 0 acetaminophen [Tylenol] 325 mg Tablet 325 - 650 mg PO Q4H PRN (Reason: Pain) RF: 0 ondansetron 4 mg tablet,disintegrating 4 mg PO Q6H PRN (Reason: nausea and vomiting) Qty: 14 RF: 0 Probiotic 15 billion cell Capsule 1 cap PO DAILY RF: 0 oxycodone-acetaminophen 5-325 mg tablet 1 tab PO Q8H PRN (Reason: pain) Qty: 12 RF: 0 cyclobenzaprine 10 mg tablet 10 mg PO TID PRN (Reason: muscle spasm) Qty: 30 RF: 0 Discharge Orders: Discharge Order (Routine); Ordered 08/01/20 Ordered By: Cruz Meyers Referrals: Jose Pryor MD [Primary Care Provider] - 1-3 days Discharge Diet: Advance as tolerated Discharge Activity: Resume usual activity Patient Instructions: Abdominal Pain (ED) Coding Level of Care Code ED Labor And Delivery Nurse for Chg Fwd Exam Comprehensive
[2020-08-01] MEDS: metoclopramide 5 mg/mL SDV 2 mL 10 MG IVP (20:40)
[2020-08-01] MEDS: iohexol 300 mg/mL 100 mL Btl IV (20:40)
[2020-08-01] MEDS: diphenhydrAMINE 50 mg/mL SDV 1mL IVP (20:40)
[2020-08-01] MEDS: sodium chloride 0.9% 1,000 ML 999 ML IV (20:41)
[2020-08-01] MEDS: morphine 4 mg/mL SDV 1 mL IVP (20:41)
[2020-08-01 20:42] LABS: Add Urine Microscopic? NO
[2020-08-01 20:46] VITALS: BP 143/87; PULSE 76; RESP 16; O2SAT 98
[2020-08-01 20:51] LABS: Bilirubin Urine Neg (Negative); Blood Urine Neg (Negative); Glucose Urine UA Norm (Normal); Ketones Urine Negative (Negative); Nitrate Urine Negative (Negative); Protein Urine Neg (Negative); Urine Appearance Clear (CLEAR); Urine Color Yellow (Yellow); Urobilinogen Urine Norm (Negative); pH Urine 7 (5-7)
[2020-08-01 20:52] LABS: Leukocyte Esterase Urine Negative (Negative)
[2020-08-01 22:08] VITALS: BP 101/73; PULSE 90; RESP 18; TEMP 36.9; O2SAT 98
== END 2020-08-01 22:09 | disposition home or self-care (01) ==
PROVIDERS: Emergency Provider Emergency Medicine; PCP Family Medicine
DX: R10.84 Generalized abdominal pain (principal); F17.210 Nicotine dependence, cigarettes, uncomplicated
CPT/HCPCS: 12345; 36415; 74177; 80053; 81003; 83690; 84703; 85025; 96361; 96374; 96375; 99282; 99283; J1200; J2270; J2765; J7030; Q9967

== ENCOUNTER → 2020-08-08 11:11 | Outpatient (BNVA) | payer MEDICARE, SELFPAY | PROVIDERS: PCP Family Medicine; Visit Provider Family Medicine | DX: R30.0 Dysuria (principal) | CPT/HCPCS: 81003; 87086 ==

== ENCOUNTER 2020-08-12 16:07 | Emergency (ER) | payer MEDICARE, SELFPAY ==
[2020-08-12 16:09] VITALS: BP 119/74; PULSE 113; RESP 18; TEMP 36.6; O2SAT 98; BMI 37.2
[2020-08-12 16:56] LABS: Basophils # 0.1 10^3/uL (0.0-0.1); Basophils % 0.8 %; Eosinophils # 0.2 10^3/uL (0.0-0.8); Eosinophils % 1.8 %; Hematocrit 44.5 % (37.0-47.0); Hemoglobin 14.8 g/dL (11.5-15.3); Lymphocytes # 2.5 10^3/uL (0.8-4.8); Lymphocytes % 28.4 %; Mean Corpuscular HGB Conc 33.3 g/dL (30.0-36.0); Mean Corpuscular Hemoglobin 30.6 pg (28.0-34.0); Mean Corpuscular Volume 91.9 fL (81-99); Mean Platelet Volume 10.3 fL (7.4-10.4); Monocytes # 0.5 10^3/uL (0.2-0.9); Monocytes % 6.2 %; Neutrophils # 5.47 10^3/uL (1.8-7.7); Neutrophils % 62.5 %; Nucleated Red Blood Cells % 0 %; Platelet Count 369 10^3/cmm (130-400); Red Blood Count 4.84 10^6/uL (4.1-5.3); Red Cell Distribution Width 13.8 % (12.1-15.1); White Blood Count 8.8 10^3/uL (4.0-10.0)
--- NOTE | 2020-08-12 17:06 | ED_ITS ---
Documented by User: Jayleen Lemus MD 08/13/20 13:29 HPI - Back Pain/Injury General: Chief Complaint: Back Pain/Injury Stated Complaint: KIDNEY PAIN Time Seen by Provider: 08/12/20 16:18 History of Present Illness: HPI Narrative: This patient is a 34-year-old female who presents with right flank pain. She is been having this for the last month or 2. She has had multiple visits to the ER and to her primary care doctor. She is had multiple CT scans and an ultrasound. She has not had any explanation for the pain found on these work-ups. She comes in today with constant pain that started during the night. Not relieved by Tylenol, muscle relaxers, heating pad. It is constant and nothing makes it better or worse. She has been able to eat with a normal appetite. She has urinary symptoms with intermittent dysuria and feeling like she either cannot urinate or does not urinate completely. These are the same symptoms that she is presented with before. She has a referral to urology but has not had an appointment scheduled yet. She has a history of some chronic back pain but that is in the lower back and she said this is totally different. She also has a history of fibromyalgia. She has anxiety and depression. She takes omeprazole daily. She has been having normal bowel movements. She denies fever cough. MD elicited complaint: back pain Pertinent past history: prior back pain Onset (ago): month(s) Timing: constant Severity: severe Similar Symptoms Previously: Yes Quality: sharp and aching Location: right flank Radiation: abdomen Exacerbating factors: none Relieving factors: none Associated symptoms: Reports dysuria and nausea; Deny abdominal pain, chills, fatigue, fever(s) or vomiting Review of Systems General: Reports: 10 or more systems reviewed and unremarkable except in HPI and below Const: Denies: fever(s), chills, fatigue or malaise Eyes: Denies: change in vision ENMT: Denies: odynophagia Card: Denies: chest pain or swelling of feet/ankles Resp: Denies: dyspnea, productive cough or non-productive cough GI: Reports: nausea; Denies: abdominal pain or vomiting : Reports: dysuria Musc: Denies: neck pain or back pain Skin/Breast: Denies: rash Neuro: Denies: headache(s), numbness in extremities or weakness in extremities Destin/Lymph: Denies: easy bruising or easy bleeding PFSH ED PFSH: Medical History Anxiety and depression Dyspareunia, female Fibromyalgia Gastroesophageal reflux Migraine headache Worse with systemic hormonal control Palpitations Controlled with metoprolol. Followed by Dr. Auguste at [facility] Pelvic pain in female 08/23/2018: Patient is reporting having pain in her pelvic region similar to the pain she has when she has sex. This is unrelated to her menstrual cycles. Potential causes for pain in the pelvic area was discussed including gynecologic, urologic, gastrointestinal, musculoskeletal, and neurologic causes. Based upon description, I am suspicious for adhesions to be at least a part of her pain problems. The fibromyalgia may also be contributing to her pain. I am starting her on Elavil and attempt to treat her pain. She also wished proceed to a laparoscopic evaluation of her pain as well as to have her tubes tied at the same time. 09/23/2018: Reports overall improvement in her generalized pain with amitriptyline, but no significant improvement with the pelvic pain. 09/28/2018: Laparoscopy with lysis of adhesions and sterilization. Small area of omental adhesions found. No evidence of endometriosis seen. Smoking Surgical History History of endometrial ablation (12/20/19) Hysteroscopy with NovaSure ablation. [place]formed [place] Dr. Rojo [place] [facility] [place] S/P section (06/05/17) Low transverse section. Diagnosis: Cephalopelvic disproportion with normal size fetus. Performed by Dr. Edward Rojo at [facility] in [place], [place]. Patient had a low transverse incision with a 2 layer closure of the uterus. S/P cholecystectomy (~2006) Laparoscopic. Performed by Dr Kumar in [place], [place] S/P laparoscopic procedure (09/16/11) Diagnostic. Diag: Pelvic pain, Dyspareunia, Left lower quadrant pain. Performed by Dr. Edward Rojo at [facility] in [place], [place]. --- Operative report reviewed-no signs of endometriosis or adhesions identified. S/P tubal ligation (09/28/18) Laparoscopic complete salpingectomy for sterilization and lysis of adhesions. Diagnosis undesired fertility and chronic pelvic pain. Performed by Dr. Edward Rojo at [facility] in [place], [place]. Findings: Small area of omental adhesions. No evidence of endometriosis seen. Family History Father Hypertension Stroke Family/Other Colon cancer paternal aunt Grandfather Diabetes Maternal Grandmother Diabetes Paternal Stroke Paternal Social History Smoking and tobacco status: current every day smoker cigarettes Packs smoked per day: 1 Years cigarettes smoked: 12 [ Other cigarette details: 1 ppd. Started smoking age 15 ] Alcohol intake: never Additional social history: poorly balanced diet Female Reproductive History: Date of last menstrual period: 12/20/19 Physical Exam Const: COMMON NORMALS: no acute distress, patient oriented x3, no limitations and alert GENERAL APPEARANCE: cooperative and comfortable HENMT: HEAD & SCALP: normal to inspection FACE & SINUS: normal facial exam Eye: GENERAL EYE: appearance normal, both eyes and all related structures Neck/C-Spine: COMMON NORMALS: supple, no meningeal signs and no JVD Chest: COMMONS NORMALS: normal inspection of the chest Resp: COMMON NORMALS: normal respiratory effort, No use of accessory muscles and clear to auscultation bilaterally AUSCULTATION: clear to auscultation bilaterally Cardio: COMMON NORMALS: no JVD, regular rate, regular rhythm and No murmurs present (Cardio) RATE: regular rate RHYTHM: regular rhythm GI: COMMON NORMALS: Normal to inspection, nondistended, normoactive bowel sounds present, Soft to palpation and non-tender INSPECTION: Yes normal to inspection AUSCULTATION: Yes normoactive bowel sounds PALPATION: Yes Soft to palpation : BLADDER/KIDNEY EXAM: Yes CVA tenderness on the right Back/Pelvis: COMMON NORMALS: thoracic and lumbar spine normal to inspection GENERAL BACK: Yes CVA tenderness Extremity: COMMON NORMALS: normal to inspection Neuro: COMMON NORMALS: patient oriented x3, moves all extremities, no focal motor deficits and no sensory deficits noted SENSORIUM/ORIENTATION: Yes alert MENINGEAL SIGNS: Yes no meningeal signs Psych: COMMON NORMALS: mental status grossly normal, cooperative and normal affect Skin: COMMON NORMALS: no rashes or lesions noted and turgor normal GENERAL SKIN EXAM: no rashes or lesions noted and turgor normal Course ED course: This patient is had 3 CTs over the past few months without any explanation for her pain. She also had an ultrasound. She has a referral to urology but is pending an appointment. She said 1 of the ER visit she had, the doctor gave her some pain medicine that did help. Tylenol and naproxen do not help. I will review her prior records and may prescribe a small number of pain pills and reiterate the referral to urology. Vital Signs: Vital signs: Vital Signs Temperature 97.8 F 08/12/20 16:09 Pulse Rate 83 08/12/20 19:17 Respiratory Rate 18 08/12/20 19:17 Blood Pressure 123/76 08/12/20 19:17 Pulse Oximetry 99 08/12/20 19:17 MDM - Back Pain/Injury Lab Data: Labs: Lab Results 08/12/20 08/12/20 08/12/20 Range/Units 16:50 16:50 18:34 WBC 8.8 (4.0-10.0) 10^3/ uL RBC 4.84 (4.1-5.3) 10^6/u L Hgb 14.8 (11.5-15.3) g/dL Hct 44.5 (37.0-47.0) % MCV 91.9 (81-99) fL MCH 30.6 (28.0-34.0) pg MCHC 33.3 (30.0-36.0) g/dL RDW 13.8 (12.1-15.1) % Plt Count 369 (130-400) 10^3/c mm MPV 10.3 (7.4-10.4) fL Neut % (Auto) 62.5 % Lymph % (Auto) 28.4 % Durham % (Auto) 6.2 % Eos % (Auto) 1.8 % Baso % (Auto) 0.8 % Neut # (Auto) 5.47 (1.8-7.7) 10^3/u L Lymph # (Auto) 2.5 (0.8-4.8) 10^3/u L Durham # (Auto) 0.5 (0.2-0.9) 10^3/u L Eos # (Auto) 0.2 (0.0-0.8) 10^3/u L Baso # (Auto) 0.1 (0.0-0.1) 10^3/u L Nucleated RBC % (a uto) 0 % Nucleated RBCs # 0.0 /100WBC Sodium 136 (136-145) mmol/L Potassium 3.9 (3.5-5.1) mmol/L Chloride 102 (98-107) mmol/L Carbon Dioxide 22 (22-29) mmol/L Anion Gap 15.9 (5-19) BUN 7 (6-20) mg/dL Creatinine 0.8 (0.5-0.9) mg/dL GFR Calculation 83.1 L (90-130) mL/min Glucose 84 (65-115) mg/dL Calculated Osmolal ity 279 L (285-295) mOsm/k g Calcium 9.2 (8.5-10.5) mg/dL Total Bilirubin 0.4 (0.15-1.2) mg/dL AST 20 (0-32) U/L ALT 24 (0-33) U/L Alkaline Phosphata se 84 (35-105) IU/L C-Reactive Protein 5.4 H (0.0-4.9) mg/L Total Protein 7.7 (6.6-8.7) g/dL Albumin 4.4 (3.5-5.2) g/dL Globulin 3.3 (1.3-4.6) g/dL Lipase 18 (13-60) U/L Urine Color Yellow (Yellow) Urine Appearance Clear (CLEAR) Urine pH 5 (5-7) Ur Specific Gravit y 1.005 (1.005-1.030) Urine Protein Neg (Negative) Urine Glucose (UA) Norm (Normal) Urine Ketones Negative (Negative) Urine Blood Neg (Negative) Urine Nitrate Negative (Negative) Urine Bilirubin Neg (Negative) Urine Urobilinogen Norm (Negative) mg/dL Ur Leukocyte Tamara ase Negative (Negative) Discharge Plan Discharge Patient Disposition: Home Clinical Impression: Thoracic back pain Qualifiers: Chronicity: unspecified Back pain laterality: right Qualified Code(s): M54.6 - Pain in thoracic spine Condition: Stable Prescriptions: New oxycodone-acetaminophen 5-325 mg tablet 1 tab PO Q6H PRN (Reason: pain) Qty: 10 RF: 0 No Action omeprazole 20 mg capsule,delayed release(DR/EC) 20 mg PO BID RF: 0 buspirone 10 mg tablet 10 mg PO TID PRN (Reason: panic attacks) Qty: 90 RF: 0 trazodone 150 mg tablet 150 mg PO DAILY Qty: 30 RF: 0 escitalopram oxalate 20 mg tablet 20 mg PO DAILY RF: 0 acetaminophen [Tylenol] 325 mg Tablet 325 - 650 mg PO Q4H PRN (Reason: Pain) RF: 0 Probiotic 15 billion cell Capsule 1 cap PO DAILY RF: 0 cyclobenzaprine 10 mg tablet 10 mg PO TID PRN (Reason: muscle spasm) Qty: 30 RF: 0 Discharge Orders: Discharge Order (Routine); Ordered 08/12/20 Ordered By: Cruz Meyers Referrals: Rosendo Urbina MD [Physician] - Jagruti Mancera DO [Primary Care Provider] - Discharge Diet: Usual diet Discharge Activity: Resume usual activity Patient Instructions: Flank Pain (ED) Activity Restrictions/Additional Instructions: Follow-up with urology as scheduled. Use the pain medication as needed. You may also continue using Naprosyn. Return to the ED if fever, uncontrollable pain or any other new symptoms. Discharge Date/Time: 08/12/20 19:18 Coding Level of Care Code ED Customer Complaint Service Supervisor for Chg Fwd Exam Comprehensive Documented by User: Cruz Meyers MD 08/12/20 19:50 HPI - Back Pain/Injury General: Chief Complaint: Back Pain/Injury Stated Complaint: KIDNEY PAIN Time Seen by Provider: 08/12/20 16:18 PFSH ED PFSH: Medical History Anxiety and depression Dyspareunia, female Fibromyalgia Gastroesophageal reflux Migraine headache Worse with systemic hormonal control Palpitations Controlled with metoprolol. Followed by Dr. Auguste at [facility] Pelvic pain in female 08/23/2018: Patient is reporting having pain in her pelvic region similar to the pain she has when she has sex. This is unrelated to her menstrual cycles. Potential causes for pain in the pelvic area was discussed including gynecologic, urologic, gastrointestinal, musculoskeletal, and neurologic causes. Based upon description, I am suspicious for adhesions to be at least a part of her pain problems. The fibromyalgia may also be contributing to her pain. I am starting her on Elavil and attempt to treat her pain. She also wished proceed to a laparoscopic evaluation of her pain as well as to have her tubes tied at the same time. 09/23/2018: Reports overall improvement in her generalized pain with amitriptyline, but no significant improvement with the pelvic pain. 09/28/2018: Laparoscopy with lysis of adhesions and sterilization. Small area of omental adhesions found. No evidence of endometriosis seen. Smoking Surgical History History of endometrial ablation (12/20/19) Hysteroscopy with NovaSure ablation. Performed by Dr. Rojo at [facility] [place]. S/P section (06/05/17) Low transverse section. Diagnosis: Cephalopelvic disproportion with normal size fetus. Performed by Dr. Edward Rojo at [facility] in [place], [place]. Patient had a low transverse incision with a 2 layer closure of the uterus. S/P cholecystectomy (~2006) Laparoscopic. Performed by Dr Kumar in [place], [place] S/P laparoscopic procedure (09/16/11) Diagnostic. Diag: Pelvic pain, Dyspareunia, Left lower quadrant pain. Performed by Dr. Edward Rojo at [facility] in [place], [place]. --- Operative report reviewed-no signs of endometriosis or adhesions identified. S/P tubal ligation (09/28/18) Laparoscopic complete salpingectomy for sterilization and lysis of adhesions. Diagnosis undesired fertility and chronic pelvic pain. Performed by Dr. Edward Rojo at [facility] in [place], [place]. Findings: Small area of omental adhesions. No evidence of endometriosis seen. Family History Father Hypertension Stroke Family/Other Colon cancer paternal aunt Grandfather Diabetes Maternal Grandmother Diabetes Paternal Stroke Paternal Social History Smoking and tobacco status: current every day smoker cigarettes Packs smoked per day: 1 Years cigarettes smoked: 12 [ Other cigarette details: 1 ppd. Started smoking age 15 ] Alcohol intake: never Additional social history: poorly balanced diet Course Vital Signs: Vital signs: Vital Signs Temperature 97.8 F 08/12/20 16:09 Pulse Rate 83 08/12/20 19:17 Respiratory Rate 18 08/12/20 19:17 Blood Pressure 123/76 08/12/20 19:17 Pulse Oximetry 99 08/12/20 19:17 MDM - Back Pain/Injury MDM Narrative: Medical decision making narrative: Caitlin presents here with flank pain. Patient's lab work and urinalysis here is normal. Her pain is improved. She is stable for discharge is to follow-up with PCP and return if worsening. Lab Data: Labs: Lab Results 08/12/20 08/12/20 08/12/20 Range/Units 16:50 16:50 18:34 WBC 8.8 (4.0-10.0) 10^3/ uL RBC 4.84 (4.1-5.3) 10^6/u L Hgb 14.8 (11.5-15.3) g/dL Hct 44.5 (37.0-47.0) % MCV 91.9 (81-99) fL MCH 30.6 (28.0-34.0) pg MCHC 33.3 (30.0-36.0) g/dL RDW 13.8 (12.1-15.1) % Plt Count 369 (130-400) 10^3/c mm MPV 10.3 (7.4-10.4) fL Neut % (Auto) 62.5 % Lymph % (Auto) 28.4 % Durham % (Auto) 6.2 % Eos % (Auto) 1.8 % Baso % (Auto) 0.8 % Neut # (Auto) 5.47 (1.8-7.7) 10^3/u L Lymph # (Auto) 2.5 (0.8-4.8) 10^3/u L Durham # (Auto) 0.5 (0.2-0.9) 10^3/u L Eos # (Auto) 0.2 (0.0-0.8) 10^3/u L Baso # (Auto) 0.1 (0.0-0.1) 10^3/u L Nucleated RBC % (a uto) 0 % Nucleated RBCs # 0.0 /100WBC Sodium 136 (136-145) mmol/L Potassium 3.9 (3.5-5.1) mmol/L Chloride 102 (98-107) mmol/L Carbon Dioxide 22 (22-29) mmol/L Anion Gap 15.9 (5-19) BUN 7 (6-20) mg/dL Creatinine 0.8 (0.5-0.9) mg/dL GFR Calculation 83.1 L (90-130) mL/min Glucose 84 (65-115) mg/dL Calculated Osmolal ity 279 L (285-295) mOsm/k g Calcium 9.2 (8.5-10.5) mg/dL Total Bilirubin 0.4 (0.15-1.2) mg/dL AST 20 (0-32) U/L ALT 24 (0-33) U/L Alkaline Phosphata se 84 (35-105) IU/L C-Reactive Protein 5.4 H (0.0-4.9) mg/L Total Protein 7.7 (6.6-8.7) g/dL Albumin 4.4 (3.5-5.2) g/dL Globulin 3.3 (1.3-4.6) g/dL Lipase 18 (13-60) U/L Urine Color Yellow (Yellow) Urine Appearance Clear (CLEAR) Urine pH 5 (5-7) Ur Specific Gravit y 1.005 (1.005-1.030) Urine Protein Neg (Negative) Urine Glucose (UA) Norm (Normal) Urine Ketones Negative (Negative) Urine Blood Neg (Negative) Urine Nitrate Negative (Negative) Urine Bilirubin Neg (Negative) Urine Urobilinogen Norm (Negative) mg/dL Ur Leukocyte Tamara ase Negative (Negative) Discharge Plan Discharge Patient Disposition: Home Clinical Impression: Thoracic back pain Qualifiers: Chronicity: unspecified Back pain laterality: right Qualified Code(s): M54.6 - Pain in thoracic spine Condition: Stable Prescriptions: New oxycodone-acetaminophen 5-325 mg tablet 1 tab PO Q6H PRN (Reason: pain) Qty: 10 RF: 0 No Action omeprazole 20 mg capsule,delayed release(DR/EC) 20 mg PO BID RF: 0 buspirone 10 mg tablet 10 mg PO TID PRN (Reason: panic attacks) Qty: 90 RF: 0 trazodone 150 mg tablet 150 mg PO DAILY Qty: 30 RF: 0 escitalopram oxalate 20 mg tablet 20 mg PO DAILY RF: 0 acetaminophen [Tylenol] 325 mg Tablet 325 - 650 mg PO Q4H PRN (Reason: Pain) RF: 0 Probiotic 15 billion cell Capsule 1 cap PO DAILY RF: 0 cyclobenzaprine 10 mg tablet 10 mg PO TID PRN (Reason: muscle spasm) Qty: 30 RF: 0 Discharge Orders: Discharge Order (Routine); Ordered 08/12/20 Ordered By: Cruz Meyers Referrals: Rosendo Urbina MD [Physician] - Jagruti Mancera DO [Primary Care Provider] - Discharge Diet: Usual diet Discharge Activity: Resume usual activity Patient Instructions: Flank Pain (ED) Activity Restrictions/Additional Instructions: Follow-up with urology as scheduled. Use the pain medication as needed. You may also continue using Naprosyn. Return to the ED if fever, uncontrollable pain or any other new symptoms. Discharge Date/Time: 08/12/20 19:18 Coding Level of Care Code ED Customer Complaint Service Supervisor for Chg Fwd Exam Comprehensive
[2020-08-12 17:19] LABS: Alanine Aminotransferase 24 U/L (0-33); Albumin Level 4.4 g/dL (3.5-5.2); Alkaline Phosphatase 84 IU/L (35-105); Anion Gap 15.9 (5-19); Aspartate Amino Transferase 20 U/L (0-32); Blood Urea Nitrogen 7 mg/dL (6-20); C Reactive Protein 5.4 mg/L (0.0-4.9); Calcium 9.2 mg/dL (8.5-10.5); Carbon Dioxide 22 mmol/L (22-29); Chloride 102 mmol/L (98-107); Globulin 3.3 g/dL (1.3-4.6); Glomerular Filtration Rate 83.1 mL/min (90-130); Glucose 84 mg/dL (65-115); Lipase 18 U/L (13-60); Osmolality Calculated 279 mOsm/kg (285-295); Potassium 3.9 mmol/L (3.5-5.1); Sodium 136 mmol/L (136-145); Total Bilirubin 0.4 mg/dL (0.15-1.2); Total Protein 7.7 g/dL (6.6-8.7)
[2020-08-12 18:31] VITALS: RESP 18
[2020-08-12] MEDS: oxyCODONE-APAP 5-325 mg Tablet 1 TAB PO (18:31)
[2020-08-12 18:46] LABS: Add Urine Microscopic? NO
[2020-08-12 18:50] LABS: Bilirubin Urine Neg (Negative); Blood Urine Neg (Negative); Glucose Urine UA Norm (Normal); Ketones Urine Negative (Negative); Leukocyte Esterase Urine Negative (Negative); Nitrate Urine Negative (Negative); Protein Urine Neg (Negative); Specific Gravity, Urine 1.005 (1.005-1.030); Urine Appearance Clear (CLEAR); Urine Color Yellow (Yellow); Urobilinogen Urine Norm (Negative); pH Urine 5 (5-7)
[2020-08-12 19:17] VITALS: BP 123/76; PULSE 83; RESP 18; O2SAT 99
== END 2020-08-12 19:18 | disposition home or self-care (01) ==
PROVIDERS: Emergency Medicine; Emergency Provider Emergency Medicine; PCP Family Medicine
DX: M54.6 Pain in thoracic spine (principal); F17.210 Nicotine dependence, cigarettes, uncomplicated
CPT/HCPCS: 12345; 80053; 81003; 83690; 85025; 86140; 99283

== ENCOUNTER 2020-08-21 20:32 | Emergency (ER) | payer MEDICARE, SELFPAY ==
[2020-08-21 20:39] VITALS: BP 121/73; PULSE 102; RESP 14; TEMP 36.8; O2SAT 99; BMI 31.9
--- NOTE | 2020-08-21 20:53 | ED_ITS ---
HPI - Female Genitourinary General: Chief complaint: Urogenital-Female Stated complaint: unable to urinate Time Seen by Provider: 08/21/20 20:51 Source: patient Mode of arrival: ambulatory Limitations: no limitations History of Present Illness: HPI Narrative: Patient comes in today with complaints of bladder spasms and dysuria. Patient states she pees good 2-3 times a day but she has many times that she goes in to go pee and is unable to urinate even though she feels she has to. Patient appears well. Patient appears no acute distress. Patient has been here several times in the last 2 months. She has had 4 CT scans of the abdomen and pelvis with the first 1 noting a probable passage of a urinary stone but since then has had negative scans each. Laboratory values were insignificant, except 2 urines that did show positive nitrates. Patient appears in mild pain at rest. Patient reports that the pain started at the start of her episode in June. Patient denied any injury or incident that would have elicited the pain. It is noted patient may have had the passage of a stone at that time. Date of Last Menstrual Period: 12/20/19 Review of Systems General: Reports: 10 or more systems reviewed and unremarkable except in HPI and below : Reports: dysuria and urinary frequency PFSH ED PFSH: Medical History Anxiety and depression Dyspareunia, female Fibromyalgia Gastroesophageal reflux Migraine headache Worse with systemic hormonal control Palpitations Controlled with metoprolol. Followed by Dr. Auguste at [facility] Pelvic pain in female 08/23/2018: Patient is reporting having pain in her pelvic region similar to the pain she has when she has sex. This is unrelated to her menstrual cycles. Potential causes for pain in the pelvic area was discussed including gynecologic, urologic, gastrointestinal, musculoskeletal, and neurologic causes. Based upon description, I am suspicious for adhesions to be at least a part of her pain problems. The fibromyalgia may also be contributing to her pain. I am starting her on Elavil and attempt to treat her pain. She also wished proceed to a laparoscopic evaluation of her pain as well as to have her tubes tied at the same time. 09/23/2018: Reports overall improvement in her generalized pain with a mitriptyline, but no significant improvement with the pelvic pain. 09/28/2018: Laparoscopy with lysis of adhesions and sterilization. Small area of omental adhesions found. No evidence of endometriosis seen. Smoking Surgical History History of endometrial ablation (12/20/19) Hysteroscopy with NovaSure ablation. Performed by Dr. Rojo at [facility]. S/P section (06/05/17) Low transverse section. Diagnosis: Cephalopelvic disproportion with normal size fetus. Performed by Dr. Edward Rojo at [facility] in [place], [place]. Patient had a low transverse incision with a 2 layer closure of the uterus. S/P cholecystectomy (~2006) Laparoscopic. Performed by Dr Kumar in [place], [place] S/P laparoscopic procedure (09/16/11) Diagnostic. Diag: Pelvic pain, Dyspareunia, Left lower quadrant pain. Performed by Dr. Edward Rojo at [facility] in [place], [place]. --- Operative report reviewed-no signs of endometriosis or adhesions identified. S/P tubal ligation (09/28/18) Laparoscopic complete salpingectomy for sterilization and lysis of adhesions. Diagnosis undesired fertility and chronic pelvic pain. Performed by Dr. Edward Rojo at [facility] in [place], [place]. Findings: Small area of omental adhesions. No evidence of endometriosis seen. Family History Father Hypertension Stroke Family/Other Colon cancer paternal aunt Grandfather Diabetes Maternal Grandmother Diabetes Paternal Stroke Paternal Social History Smoking and tobacco status: current every day smoker cigarettes Packs smoked per day: 1 Years cigarettes smoked: 12 [ Other cigarette details: 1 ppd. Started smoking age 15 ] Alcohol intake: never Additional social history: poorly balanced diet Female Reproductive History: Date of last menstrual period: 12/20/19 Physical Exam Const: COMMON NORMALS: no acute distress and patient oriented x3 GENERAL APPEARANCE: cooperative HENMT: COMMON NORMALS: normocephalic and Normal external nose present HEAD & SCALP: normal to inspection and normocephalic NOSE: Normal external nose present Eye: GENERAL EYE: appearance normal, both eyes and all related structures Neck/C-Spine: COMMON NORMALS: full ROM Chest: COMMONS NORMALS: normal inspection of the chest Resp: COMMON NORMALS: normal respiratory effort EFFORT & INSPECTION: Yes able to speak in complete sentences Cardio: COMMON NORMALS: regular rate and regular rhythm RATE: regular rate RHYTHM: regular rhythm GI: PALPATION: Yes Tenderness to palpation present (GI) (suprapubic) : COMMON NORMALS: Yes no CVA tenderness BLADDER/KIDNEY EXAM: Yes no CVA tenderness Back/Pelvis: COMMON NORMALS: no CVA tenderness and thoracic and lumbar spine normal to inspection Extremity: COMMON NORMALS: normal to inspection Neuro: COMMON NORMALS: patient oriented x3 and moves all extremities Psych: COMMON NORMALS: mental status grossly normal and cooperative Skin: COMMON NORMALS: no rashes or lesions noted GENERAL SKIN EXAM: no rashes or lesions noted Course ED course: 2199, Marks catheter was inserted with 400 return. Patient reported relief of discomfort. We will leave the catheter in place and have the patient follow-up with urology. Patient was agreed to plan. Vital Signs: Vital signs: Vital Signs Temperature 98.2 F 08/21/20 20:39 Pulse Rate 102 H 08/21/20 20:39 Respiratory Rate 14 08/21/20 20:39 Blood Pressure 121/73 08/21/20 20:39 Pulse Oximetry 99 08/21/20 20:39 MDM - Female MDM Narrative: Medical decision making narrative: Patient is having recurrent dysuria and urinary frequency. Patient states she does not void a lot when she thinks she has to pee. Does not get relief with her voiding. Patient appears well. Patient appears in no acute distress. Differential diagnosis includes but not limited to urinary retention, UTI, malingering. Patient's bladder was scanned and noted that patient had greater than 400 mL's in her bladder. Shefali siu had a Marks catheter inserted with relief of pain and discomfort. Plan to leave Marks in place and have patient follow-up with urology for further consideration of treatment and evaluation. No signs of infection was noted in the urine. Patient was agreeable to plan and the understands the need for follow-up. Lab Data: Labs: Lab Results 08/21/20 Range/Units 21:20 Urine Color Yellow (Yellow) Urine Appearance Cloudy (CLEAR) Urine pH 6.5 (5-7) Ur Specific Gravit y 1.020 (1.005-1.030) Urine Protein Neg (Negative) Urine Glucose (UA) Norm (Normal) Urine Ketones Negative (Negative) Urine Blood Neg (Negative) Urine Nitrate Negative (Negative) Urine Bilirubin Neg (Negative) Urine Urobilinogen Norm (Negative) mg/dL Ur Leukocyte Tamara ase Negative (Negative) Urine RBC None (0-2) /hpf Urine WBC None (0-5) /hpf Ur Squamous Epith Cells 5-10 H (0-5) /hpf Amorphous Sediment Not Reportable Urine Bacteria None (NONE) /hpf Discharge Plan Discharge Patient Disposition: Home Clinical Impression: Urinary retention with incomplete bladder emptying Condition: Stable Prescriptions: No Action omeprazole 20 mg capsule,delayed release(DR/EC) 20 mg PO BID RF: 0 buspirone 10 mg tablet 10 mg PO TID PRN (Reason: panic attacks) Qty: 90 RF: 0 trazodone 150 mg tablet 150 mg PO DAILY Qty: 30 RF: 0 escitalopram oxalate 20 mg tablet 20 mg PO DAILY RF: 0 acetaminophen [Tylenol] 325 mg Tablet 325 - 650 mg PO Q4H PRN (Reason: Pain) RF: 0 oxycodone-acetaminophen 5-325 mg tablet 1 tab PO Q6H PRN (Reason: pain) Qty: 10 RF: 0 apple cider vinegar 500 mg Tablet 500 mg PO DAILY RF: 0 cranberry 450 mg Tablet 450 mg PO DAILY RF: 0 Probiotic 15 billion cell Capsule 1 cap PO DAILY RF: 0 cyclobenzaprine 10 mg tablet 10 mg PO TID PRN (Reason: muscle spasm) Qty: 30 RF: 0 Discharge Orders: Discharge Order (Routine); Ordered 08/21/20 Ordered By: Shahriar Velez Referrals: Jagruti Mancera DO [Primary Care Provider] - Discharge Diet: Usual diet Discharge Activity: Increase activity as tolerated Patient Instructions: Marks Catheter Placement and Care (ED), Acute Urinary Retention in Women (ED) Activity Restrictions/Additional Instructions: Drink plenty of water. Healthy diet and exercise. Continue with routine medications as directed. Follow-up with primary care. Case management will contact you regarding your appointment for urology. Return to the emergency department for high fever or new concerns. 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
[2020-08-21 21:57] LABS: Add Urine Microscopic? YES; Bilirubin Urine Neg (Negative); Blood Urine Neg (Negative); Glucose Urine UA Norm (Normal); Ketones Urine Negative (Negative); Leukocyte Esterase Urine Negative (Negative); Nitrate Urine Negative (Negative); Protein Urine Neg (Negative); Urine Appearance Cloudy (CLEAR); Urine Color Yellow (Yellow); Urobilinogen Urine Norm (Negative); pH Urine 6.5 (5-7)
[2020-08-21 22:22] VITALS: BP 133/84; PULSE 87; RESP 16; O2SAT 97
--- NOTE | 2020-08-22 09:43 | DCPLANNER ---
chiropractic practice manager had message to schedule a follow up appointment for patient with Dr. Urbina. chiropractic practice manager called the office of Dr. Snow, spoke with Lynsey, gave clinic patients information. chiropractic practice manager was told that patients information would be printed and given to Allegra for review. Clinic will call patient with appointment information.
--- NOTE | 2020-08-23 11:26 | DCPLANNER ---
Patient has a follow up appointment scheduled for August at 4:[address] Urbina. Clinic will call patient with appointment information.
--- NOTE | 2020-09-14 17:45 | DCPLANNER ---
Patient had a follow up appointment scheduled for 08.30.[address] Urbina - patient did attend appointment.
== END 2020-08-21 22:24 | disposition home or self-care (01) ==
PROVIDERS: Emergency Provider Nurse Practitioner Family; PCP Family Medicine
DX: R33.9 Retention of urine, unspecified (principal); F17.210 Nicotine dependence, cigarettes, uncomplicated
CPT/HCPCS: 12345; 51798; 81001; 99282

== ENCOUNTER 2020-08-26 15:31 | Emergency (ER) | payer MEDICARE, SELFPAY ==
[2020-08-26 15:47] VITALS: PULSE 139; RESP 14; TEMP 37.1; O2SAT 94; BMI 37.2
--- NOTE | 2020-08-26 16:11 | CTR_ITS ---
PROCEDURE INFORMATION: Exam: CT Abdomen And Pelvis Without Contrast Exam date and time: 08/26/2020 4:12 PM Age: 34 years old Clinical indication: Abdominal pain; Other: Vagina; Prior surgery; Surgery date: 6+ months; Surgery type: Hyst, tubal, uterine ablation, gallbladder; Patient HX: Patient had hutchinson catheter placed on Thursday and removed yesterday, has had pain since placement, sharp burning pain with removal. ; Additional info: Abd pain TECHNIQUE: Imaging protocol: Computed tomography of the abdomen and pelvis without contrast. Radiation optimization: All CT scans at this facility use at least one of these dose optimization techniques: automated exposure control; mA and/or kV adjustment per patient size (includes targeted exams where dose is matched to clinical indication); or iterative reconstruction. COMPARISON: CT abdomen pelvis w con* [id number] 08/01/2020 8:35 PM RADIATION DOSE METRICS: Total DLP (mGy-cm): 1303.38 FINDINGS: Lungs: Limited assessment of the lung bases fails to reveal evidence for active cardiopulmonary process. Liver: Hepatomegaly. Liver otherwise unremarkable. No visible hepatic mass or cystic structure. Gallbladder and bile ducts: Status post cholecystectomy. Pancreas: Normal. No ductal dilation. Spleen: Normal. No splenomegaly. Adrenals: Normal. No mass. Kidneys and ureters: Normal. No hydronephrosis. Stomach and bowel: Unremarkable. No obstruction. No mucosal thickening. Appendix: The appendix is visualized and appears noninflamed. Intraperitoneal space: Unremarkable. No free air. No significant fluid collection. Vasculature: Unremarkable. No abdominal aortic aneurysm. Lymph nodes: Unremarkable. No enlarged lymph nodes. Urinary bladder: Urinary bladder unremarkable. No asymmetrical bladder wall thickening. Reproductive: Unremarkable as visualized. Bones/joints: Spina bifida S1. 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 No visible active or acute osseous abnormality. Soft tissues: Unremarkable. CT/CT abdomen pelvis wo con [id number] IMPRESSION: No visible evidence of acute abdominal or pelvic pathologic process. Radiation Dose CTDIVOL = (mGy): DLP = 1303.38 (mGy-cm)
--- NOTE | 2020-08-26 16:16 | ED_ITS ---
Documented by User: Cathy Melendrezvandana 08/26/20 16:55 HPI - Female Genitourinary General: Chief complaint: Urogenital-Female Stated complaint: CATH ISSUES/PAIN Time Seen by Provider: 08/26/20 16:07 Source: patient Mode of arrival: ambulatory Limitations: no limitations History of Present Illness: HPI Narrative: 34-year-old female patient presents to the emergency department complaining of catheter pain. Patient states she had a catheter plug placed a few days ago and it was draining fine yesterday she started noticing blood in her catheter and today it stopped draining patient stating she is having some left-sided flank pain that radiates around into her groin area. Patient states she has had a history of kidney stones in the past. Patient rates pain 10 out of 10. Patient denies any fever. Patient denies any pelvic pain. Patient's abdomen is soft and nontender. Patient denies any chest pain or shortness of breath. MD elicited complaint: difficulty urinating and other (Left-sided flank pain) Pertinent past history: other (Kidney stones) Onset (ago): day(s) (1) Location of symptoms: flank Severity: severe Severity scale (1-10): 10 Quality of pain: sharp and stabbing Consistency: constant Vaginal discharge: none Vaginal bleeding: none Urinary symptoms: Difficulty Urinating and Flank Pain Exacerbating factors: none Relieving factors: none Associated symptoms: Deny abdominal pain, short of breath, fevers/chills, headache(s), nausea, rash, seizures, syncope, vaginal bleeding, vaginal discharge or weakness Treatment prior to arrival: other (Marks cath in place that is currently not draining) Date of Last Menstrual Period: 12/20/19 Review of Systems General: Reports: 10 or more systems reviewed and unremarkable except in HPI and below Const: Denies: fever(s) or chills ENMT: Denies: throat pain, dental pain or ear or mastoid pain Card: Denies: chest pain, palpitations, irregular heart rhythm or syncope Resp: Denies: dyspnea, productive cough, non-productive cough or wheezing GI: Denies: abdominal pain, nausea, vomiting, diarrhea or constipation : Reports: flank pain and difficulty voiding; Denies: vaginal discharge Musc: Denies: neck pain, back pain or extremity pain Skin/Breast: Denies: rash Neuro: Denies: headache(s) PFSH ED PFSH: Medical History Anxiety and depression Dyspareunia, female Fibromyalgia Gastroesophageal reflux Migraine headache Worse with systemic hormonal control Palpitations Controlled with metoprolol. Followed by Dr. Auguste at [facility] Pelvic pain in female 08/23/2018: Patient is reporting having pain in her pelvic region similar to the pain she has when she has sex. This is unrelated to her menstrual cycles. Potential causes for pain in the pelvic area was discussed including gynecologic, urologic, gastrointestinal, musculoskeletal, and neurologic causes. Based upon description, I am suspicious for adhesions to be at least a part of her pain problems. The fibromyalgia may also be contributing to her pain. I am starting her on Elavil and attempt to treat her pain. She also wished proceed to a laparoscopic evaluation of her pain as well as to have her tubes tied at the same time. 09/23/2018: Reports overall improvement in her generalized pain with amitriptyline, but no significant improvement with the pelvic pain. 09/28/2018: Laparoscopy with lysis of adhesions and sterilization. Small area of omental adhesions found. No evidence of endometriosis seen. Smoking Surgical History History of endometrial ablation (12/20/19) Hysteroscopy with NovaSure ablation. [place]. Rojo [place] [facility] [place] S/P section (06/05/17) Low transverse section. Diagnosis: Cephalopelvic disproportion with normal size fetus. Performed by Dr. Edward Rojo at [facility] in [place], [place]. Patient had a low transverse incision with a 2 layer closure of the uterus. S/P cholecystectomy (~2006) Laparoscopic. Performed by Dr Kumar in [place], [place] S/P laparoscopic procedure (09/16/11) Diagnostic. Diag: Pelvic pain, Dyspareunia, Left lower quadrant pain. Performed by Dr. Edward Rojo at [facility] in [place], [place]. --- Operative report reviewed-no signs of endometriosis or adhesions identified. S/P tubal ligation (09/28/18) Laparoscopic complete salpingectomy for sterilization and lysis of adhesions. Diagnosis undesired fertility and chronic pelvic pain. Performed by Dr. Edward Rojo at [facility] in [place], [place]. Findings: Small area of omental adhesions. No evidence of endometriosis seen. Family History Father Hypertension Stroke Family/Other Colon cancer paternal aunt Grandfather Diabetes Maternal Grandmother Diabetes Paternal Stroke Paternal Social History Smoking and tobacco status: current every day smoker cigarettes Packs smoked per day: 1 Years cigarettes smoked: 12 [ Other cigarette details: 1 ppd. Started smoking age 15 ] Alcohol intake: never Additional social history: poorly balanced diet Female Reproductive History: Date of last menstrual period: 12/20/19 Physical Exam Const: COMMON NORMALS: no acute distress, average body habitus, patient oriented x3, no limitations, healthy appearing, alert and well nourished Chest: COMMONS NORMALS: normal inspection of the chest, normal palpation of entire chest wall, normal inspection of the breasts and normal palpation of the breasts Resp: COMMON NORMALS: normal respiratory effort, No retractions, No use of accessory muscles, clear to auscultation bilaterally and percussion normal AUSCULTATION: clear to auscultation bilaterally PERCUSSION: percussion normal Cardio: COMMON NORMALS: regular rate and regular rhythm RATE: regular rate RHYTHM: regular rhythm GI: COMMON NORMALS: Normal to inspection, nondistended, normoactive bowel sounds present, Soft to palpation, non-tender, No hepatosplenomegaly present, no masses and no bruits PALPATION: Yes Soft to palpation and Yes No hepatosplenomegaly present : COMMON NORMALS: Yes no CVA tenderness BLADDER/KIDNEY EXAM: Yes catheter in place Catheter type (Female): urethral, Yes no CVA tenderness and Yes CVA tenderness SPECULUM EXAM - VAGINA: No vaginal bleeding OB/EXTERNAL & SPECULUM: No vaginal bleeding Back/Pelvis: COMMON NORMALS: no CVA tenderness, thoracic and lumbar spine normal to inspection, no thoracic nor lumbar tenderness, thoraco-lumbar ROM normal and straight leg raise negative bilaterally GENERAL BACK: Yes CVA tenderness Extremity: COMMON NORMALS: normal to inspection, full ROM, capillary refill normal, no joint enlargement, no clubbing, cyanosis or edema, no calf tenderness and no pedal edema Neuro: COMMON NORMALS: patient oriented x3 SENSORIUM/ORIENTATION: Yes alert Psych: COMMON NORMALS: mental status grossly normal, Normal thought process present, cooperative, normal affect, speech normal, activity/motor behavior normal, denies hallucinations, denies homicidal ideation and denies suicidal ideation SPEECH: Yes normal speech THOUGHT PROCESS: Normal thought process present Skin: COMMON NORMALS: no rashes or lesions noted, no wounds, turgor normal, no jaundice, no petechiae and no mottling GENERAL SKIN EXAM: no rashes or lesions noted and turgor normal Course ED course: Report given to wallace khan assumed care at this time Vital Signs: Vital signs: Vital Signs Temperature 98.8 F 08/26/20 15:47 Pulse Rate 88 08/26/20 18:31 Respiratory Rate 18 08/26/20 18:31 Pulse Oximetry 98 08/26/20 18:31 MDM - Female MDM Narrative: Medical decision making narrative: Patient is found in the triage room on all fours due to her pain. Nurse DC'd Marks catheter as patient was screaming for it to come out. Patient has been unable to urinate since the Marks cath was removed. Given patient's physical exam findings as well as chief complaint I will go ahead and CT her abdomen and pelvis for kidney stone protocol at this time we will also order basic labs. I will also treat patient's pain with Dilaudid at this time and Zofran for her nausea Lab Data: Labs: Lab Results 08/26/20 08/26/20 08/26/20 Range/Units 16:18 16:18 16:18 WBC 14.7 H (4.0-10.0) 10^3/ uL RBC 4.52 (4.1-5.3) 10^6/u L Hgb 13.7 (11.5-15.3) g/dL Hct 41.7 (37.0-47.0) % MCV 92.3 (81-99) fL MCH 30.3 (28.0-34.0) pg MCHC 32.9 (30.0-36.0) g/dL RDW 14.0 (12.1-15.1) % Plt Count 368 (130-400) 10^3/c mm MPV 10.5 H (7.4-10.4) fL Neut % (Auto) 76.8 % Lymph % (Auto) 16.9 % [place] % (Auto) 4.6 % Eos % (Auto) 1.0 % Baso % (Auto) 0.4 % Neut # (Auto) 11.29 H (1.8-7.7) 10^3/u L Lymph # (Auto) 2.5 (0.8-4.8) 10^3/u L [place] # (Auto) 0.7 (0.2-0.9) 10^3/u L Eos # (Auto) 0.1 (0.0-0.8) 10^3/u L Baso # (Auto) 0.1 (0.0-0.1) 10^3/u L Nucleated RBC % (a uto) 0 % Nucleated RBCs # 0.0 /100WBC Sodium 140 (136-145) mmol/L Potassium 3.7 (3.5-5.1) mmol/L Chloride 105 (98-107) mmol/L Carbon Dioxide 20 L (22-29) mmol/L Anion Gap 18.7 (5-19) BUN 9 (6-20) mg/dL Creatinine 1.0 H (0.5-0.9) mg/dL GFR Calculation 64.3 L (90-130) mL/min Glucose 101 (65-115) mg/dL Calculated Osmolal ity 289 (285-295) mOsm/k g Calcium 9.6 (8.5-10.5) mg/dL Total Bilirubin 0.2 (0.15-1.2) mg/dL AST 26 (0-32) U/L ALT 34 H (0-33) U/L Alkaline Phosphata se 103 (35-105) IU/L Total Protein 7.2 (6.6-8.7) g/dL Albumin 4.2 (3.5-5.2) g/dL Globulin 3.0 (1.3-4.6) g/dL Lipase 16 (13-60) U/L HCG, Qual Negative (Negative) Urine Color (Yellow) Urine Appearance (CLEAR) Urine pH (5-7) Ur Specific Gravit y (1.005-1.030) Urine Protein (Negative) Urine Glucose (UA) (Normal) Urine Ketones (Negative) Urine Blood (Negative) Urine Nitrate (Negative) Urine Bilirubin (Negative) Urine Urobilinogen (Negative) mg/dL Ur Leukocyte Tamara ase (Negative) Urine RBC (0-2) /hpf Urine WBC (0-5) /hpf Ur Squamous Epith Cells (0-5) /hpf Amorphous Sediment Urine Bacteria (NONE) /hpf 08/26/20 Range/Units 16:18 WBC (4.0-10.0) 10^3/ uL RBC (4.1-5.3) 10^6/u L Hgb (11.5-15.3) g/dL Hct (37.0-47.0) % MCV (81-99) fL MCH (28.0-34.0) pg MCHC (30.0-36.0) g/dL RDW (12.1-15.1) % Plt Count (130-400) 10^3/c mm MPV (7.4-10.4) fL Neut % (Auto) % Lymph % (Auto) % [place] % (Auto) % Eos % (Auto) % Baso % (Auto) % Neut # (Auto) (1.8-7.7) 10^3/u L Lymph # (Auto) (0.8-4.8) 10^3/u L [place] # (Auto) (0.2-0.9) 10^3/u L Eos # (Auto) (0.0-0.8) 10^3/u L Baso # (Auto) (0.0-0.1) 10^3/u L Nucleated RBC % (a uto) % Nucleated RBCs # /100WBC Sodium (136-145) mmol/L Potassium (3.5-5.1) mmol/L Chloride (98-107) mmol/L Carbon Dioxide (22-29) mmol/L Anion Gap (5-19) BUN (6-20) mg/dL Creatinine (0.5-0.9) mg/dL GFR Calculation (90-130) mL/min Glucose (65-115) mg/dL Calculated Osmolal ity (285-295) mOsm/k g Calcium (8.5-10.5) mg/dL Total Bilirubin (0.15-1.2) mg/dL AST (0-32) U/L ALT (0-33) U/L Alkaline Phosphata se (35-105) IU/L Total Protein (6.6-8.7) g/dL Albumin (3.5-5.2) g/dL Globulin (1.3-4.6) g/dL Lipase (13-60) U/L HCG, Qual (Negative) Urine Color Dark yellow (Yellow) Urine Appearance Cloudy (CLEAR) Urine pH 5 (5-7) Ur Specific Gravit y 1.030 (1.005-1.030) Urine Protein 1+ H (Negative) Urine Glucose (UA) Norm (Normal) Urine Ketones Negative (Negative) Urine Blood 3+ H (Negative) Urine Nitrate Negative (Negative) Urine Bilirubin Neg (Negative) Urine Urobilinogen 1 H (Negative) mg/dL Ur Leukocyte Tamara ase Negative (Negative) Urine RBC >100 H (0-2) /hpf Urine WBC 10-15 H (0-5) /hpf Ur Squamous Epith Cells 0-4 H (0-5) /hpf Amorphous Sediment Not Reportable Urine Bacteria 1+ H (NONE) /hpf Discharge Plan Discharge Patient Disposition: Home Clinical Impression: Urinary tract infection Qualifiers: Urinary tract infection type: acute cystitis Hematuria presence: with hematuria Qualified Code(s): N30.01 - Acute cystitis with hematuria Condition: Stable Prescriptions: New Macrobid 100 mg capsule 100 mg PO BID 7 Days Qty: 14 RF: 0 methen-sod phos-meth blue-hyos 81.6-40.8-0.12 mg tablet 1 tab PO QID Qty: 20 RF: 0 Diflucan 150 mg tablet 150 mg PO DAILY Qty: 1 RF: 0 No Action omeprazole 20 mg capsule,delayed release(DR/EC) 20 mg PO BID RF: 0 buspirone 10 mg tablet 10 mg PO TID PRN (Reason: panic attacks) Qty: 90 RF: 0 trazodone 150 mg tablet 150 mg PO DAILY Qty: 30 RF: 0 escitalopram oxalate 20 mg tablet 20 mg PO DAILY RF: 0 acetaminophen [Tylenol] 325 mg Tablet 325 - 650 mg PO Q4H PRN (Reason: Pain) RF: 0 oxycodone-acetaminophen 5-325 mg tablet 1 tab PO Q6H PRN (Reason: pain) Qty: 10 RF: 0 apple cider vinegar 500 mg Tablet 500 mg PO DAILY RF: 0 cranberry 450 mg Tablet 450 mg PO DAILY RF: 0 Probiotic 15 billion cell Capsule 1 cap PO DAILY RF: 0 cyclobenzaprine 10 mg tablet 10 mg PO TID PRN (Reason: muscle spasm) Qty: 30 RF: 0 Discharge Orders: Discharge Order (Routine); Ordered 08/26/20 Ordered By: Wallace Khan Referrals: Jagruti Mancera DO [Primary Care Provider] - Discharge Diet: Usual diet Discharge Activity: Increase activity as tolerated Patient Instructions: Urinary Tract Infection in Women (ED), Dysuria (ED) Activity Restrictions/Additional Instructions: Follow-up with medical provider as directed. Take medications as prescribed. Return to the ER or your medical provider if condition worsens. Please read and understand discharge instructions. If any questions ask please. Discharge Date/Time: 08/26/20 18:31 Coding Level of Care Code ED Clerk Specialist for Chg Fwd Exam Comprehensive Documented by User: PEYTON Bustos 08/26/20 21:28 HPI - Female Genitourinary General: Chief complaint: Urogenital-Female Stated complaint: CATH ISSUES/PAIN Time Seen by Provider: 08/26/20 16:07 [facility] ED PFSH: Medical History Anxiety and depression Dyspareunia, female Fibromyalgia Gastroesophageal reflux Migraine headache Worse with systemic hormonal control Palpitations Controlled with metoprolol. Followed by Dr. Auguste at [facility] Pelvic pain in female 08/23/2018: Patient is reporting having pain in her pelvic region similar to the pain she has when she has sex. This is unrelated to her menstrual cycles. Potential causes for pain in the pelvic area was discussed including gynecologic, urologic, gastrointestinal, musculoskeletal, and neurologic causes. Based upon description, I am suspicious for adhesions to be at least a part of her pain problems. The fibromyalgia may also be contributing to her pain. I am starting her on Elavil and attempt to treat her pain. She also wished proceed to a laparoscopic evaluation of her pain as well as to have her tubes tied at the same time. 09/23/2018: Reports overall improvement in her generalized pain with amitriptyline, but no significant improvement with the pelvic pain. 09/28/2018: Laparoscopy with lysis of adhesions and sterilization. Small area of omental adhesions found. No evidence of endometriosis seen. Smoking Surgical History History of endometrial ablation (12/20/19) Hysteroscopy with NovaSure ablation. Per[place] Dr. Rojo [place] [facility] [place]. S/P section (06/05/17) Low transverse section. Diagnosis: Cephalopelvic disproportion with normal size fetus. Performed by Dr. Edward Rojo at [facility] in [place], [place]. Patient had a low transverse incision with a 2 layer closure of the uterus. S/P cholecystectomy (~2006) Laparoscopic. Performed by Dr Kumar in [place], [place] S/P laparoscopic procedure (09/16/11) Diagnostic. Diag: Pelvic pain, Dyspareunia, Left lower quadrant pain. Performed by Dr. Edward Rojo at [facility] in [place], [place]. --- Operative report reviewed-no signs of endometriosis or adhesions identified. S/P tubal ligation (09/28/18) Laparoscopic complete salpingectomy for sterilization and lysis of adhesions. Diagnosis undesired fertility and chronic pelvic pain. Performed by Dr. Edward Rojo at [facility] in [place], [place]. Findings: Small area of omental adhesions. No evidence of endometriosis seen. Family History Father Hypertension Stroke Family/Other Colon cancer paternal aunt Grandfather Diabetes Maternal Grandmother Diabetes Paternal Stroke Paternal Social History Smoking and tobacco status: current every day smoker cigarettes Packs smoked p er day: 1 Years cigarettes smoked: 12 [ Other cigarette details: 1 ppd. Started smoking age 15 ] Alcohol intake: never Additional social history: poorly balanced diet Course Vital Signs: Vital signs: Vital Signs Temperature 98.8 F 08/26/20 15:47 Pulse Rate 88 08/26/20 18:31 Respiratory Rate 18 08/26/20 18:31 Pulse Oximetry 98 08/26/20 18:31 MDM - Female Lab Data: Labs: Lab Results 08/26/20 08/26/20 08/26/20 Range/Units 16:18 16:18 16:18 WBC 14.7 H (4.0-10.0) 10^3/ uL RBC 4.52 (4.1-5.3) 10^6/u L Hgb 13.7 (11.5-15.3) g/dL Hct 41.7 (37.0-47.0) % MCV 92.3 (81-99) fL MCH 30.3 (28.0-34.0) pg MCHC 32.9 (30.0-36.0) g/dL RDW 14.0 (12.1-15.1) % Plt Count 368 (130-400) 10^3/c mm MPV 10.5 H (7.4-10.4) fL Neut % (Auto) 76.8 % Lymph % (Auto) 16.9 % [place] % (Auto) 4.6 % Eos % (Auto) 1.0 % Baso % (Auto) 0.4 % Neut # (Auto) 11.29 H (1.8-7.7) 10^3/u L Lymph # (Auto) 2.5 (0.8-4.8) 10^3/u L [place] # (Auto) 0.7 (0.2-0.9) 10^3/u L Eos # (Auto) 0.1 (0.0-0.8) 10^3/u L Baso # (Auto) 0.1 (0.0-0.1) 10^3/u L Nucleated RBC % (a uto) 0 % Nucleated RBCs # 0.0 /100WBC Sodium 140 (136-145) mmol/L Potassium 3.7 (3.5-5.1) mmol/L Chloride 105 (98-107) mmol/L Carbon Dioxide 20 L (22-29) mmol/L Anion Gap 18.7 (5-19) BUN 9 (6-20) mg/dL Creatinine 1.0 H (0.5-0.9) mg/dL GFR Calculation 64.3 L (90-130) mL/min Glucose 101 (65-115) mg/dL Calculated Osmolal ity 289 (285-295) mOsm/k g Calcium 9.6 (8.5-10.5) mg/dL Total Bilirubin 0.2 (0.15-1.2) mg/dL AST 26 (0-32) U/L ALT 34 H (0-33) U/L Alkaline Phosphata se 103 (35-105) IU/L Total Protein 7.2 (6.6-8.7) g/dL Albumin 4.2 (3.5-5.2) g/dL Globulin 3.0 (1.3-4.6) g/dL Lipase 16 (13-60) U/L HCG, Qual Negative (Negative) Urine Color (Yellow) Urine Appearance (CLEAR) Urine pH (5-7) Ur Specific Gravit y (1.005-1.030) Urine Protein (Negative) Urine Glucose (UA) (Normal) Urine Ketones (Negative) Urine Blood (Negative) Urine Nitrate (Negative) Urine Bilirubin (Negative) Urine Urobilinogen (Negative) mg/dL Ur Leukocyte Tamara ase (Negative) Urine RBC (0-2) /hpf Urine WBC (0-5) /hpf Ur Squamous Epith Cells (0-5) /hpf Amorphous Sediment Urine Bacteria (NONE) /hpf 08/26/20 Range/Units 16:18 WBC (4.0-10.0) 10^3/ uL RBC (4.1-5.3) 10^6/u L Hgb (11.5-15.3) g/dL Hct (37.0-47.0) % MCV (81-99) fL MCH (28.0-34.0) pg MCHC (30.0-36.0) g/dL RDW (12.1-15.1) % Plt Count (130-400) 10^3/c mm MPV (7.4-10.4) fL Neut % (Auto) % Lymph % (Auto) % [place] % (Auto) % Eos % (Auto) % Baso % (Auto) % Neut # (Auto) (1.8-7.7) 10^3/u L Lymph # (Auto) (0.8-4.8) 10^3/u L [place] # (Auto) (0.2-0.9) 10^3/u L Eos # (Auto) (0.0-0.8) 10^3/u L Baso # (Auto) (0.0-0.1) 10^3/u L Nucleated RBC % (a uto) % Nucleated RBCs # /100WBC Sodium (136-145) mmol/L Potassium (3.5-5.1) mmol/L Chloride (98-107) mmol/L Carbon Dioxide (22-29) mmol/L Anion Gap (5-19) BUN (6-20) mg/dL Creatinine (0.5-0.9) mg/dL GFR Calculation (90-130) mL/min Glucose (65-115) mg/dL Calculated Osmolal ity (285-295) mOsm/k g Calcium (8.5-10.5) mg/dL Total Bilirubin (0.15-1.2) mg/dL AST (0-32) U/L ALT (0-33) U/L Alkaline Phosphata se (35-105) IU/L Total Protein (6.6-8.7) g/dL Albumin (3.5-5.2) g/dL Globulin (1.3-4.6) g/dL Lipase (13-60) U/L HCG, Qual (Negative) Urine Color Dark yellow (Yellow) Urine Appearance Cloudy (CLEAR) Urine pH 5 (5-7) Ur Specific Gravit y 1.030 (1.005-1.030) Urine Protein 1+ H (Negative) Urine Glucose (UA) Norm (Normal) Urine Ketones Negative (Negative) Urine Blood 3+ H (Negative) Urine Nitrate Negative (Negative) Urine Bilirubin Neg (Negative) Urine Urobilinogen 1 H (Negative) mg/dL Ur Leukocyte Tamara ase Negative (Negative) Urine RBC >100 H (0-2) /hpf Urine WBC 10-15 H (0-5) /hpf Ur Squamous Epith Cells 0-4 H (0-5) /hpf Amorphous Sediment Not Reportable Urine Bacteria 1+ H (NONE) /hpf Discharge Plan Discharge Patient Disposition: Home Clinical Impression: Urinary tract infection Qualifiers: Urinary tract infection type: acute cystitis Hematuria presence: with hematuria Qualified Code(s): N30.01 - Acute cystitis with hematuria Condition: Stable Prescriptions: New Macrobid 100 mg capsule 100 mg PO BID 7 Days Qty: 14 RF: 0 methen-sod phos-meth blue-hyos 81.6-40.8-0.12 mg tablet 1 tab PO QID Qty: 20 RF: 0 Diflucan 150 mg tablet 150 mg PO DAILY Qty: 1 RF: 0 No Action omeprazole 20 mg capsule,delayed release(DR/EC) 20 mg PO BID RF: 0 buspirone 10 mg tablet 10 mg PO TID PRN (Reason: panic attacks) Qty: 90 RF: 0 trazodone 150 mg tablet 150 mg PO DAILY Qty: 30 RF: 0 escitalopram oxalate 20 mg tablet 20 mg PO DAILY RF: 0 acetaminophen [Tylenol] 325 mg Tablet 325 - 650 mg PO Q4H PRN (Reason: Pain) RF: 0 oxycodone-acetaminophen 5-325 mg tablet 1 tab PO Q6H PRN (Reason: pain) Qty: 10 RF: 0 apple cider vinegar 500 mg Tablet 500 mg PO DAILY RF: 0 cranberry 450 mg Tablet 450 mg PO DAILY RF: 0 Probiotic 15 billion cell Capsule 1 cap PO DAILY RF: 0 cyclobenzaprine 10 mg tablet 10 mg PO TID PRN (Reason: muscle spasm) Qty: 30 RF: 0 Discharge Orders: Discharge Order (Routine); Ordered 08/26/20 Ordered By: Wallace Khan Referrals: Jagruti Mancera DO [Primary Care Provider] - Discharge Diet: Usual diet Discharge Activity: Increase activity as tolerated Patient Instructions: Urinary Tract Infection in Women (ED), Dysuria (ED) Activity Restrictions/Additional Instructions: Follow-up with medical provider as directed. Take medications as prescribed. Return to the ER or your medical provider if condition worsens. Please read and understand discharge instructions. If any questions ask please. Discharge Date/Time: 08/26/20 18:31 Coding Level of Care Code ED Clerk Specialist for Kimmie Fwd Exam Comprehensive
[2020-08-26] MEDS: sodium chloride 0.9% 1,000 ML 999 ML IV (16:20)
[2020-08-26] MEDS: ondansetron 2 mg/ML SDV 2 mL 4 MG IVP (16:20)
[2020-08-26] MEDS: HYDROmorphone 1 mg/mL INJ 1 mL IVP (16:20)
[2020-08-26 16:31] LABS: Basophils # 0.1 10^3/uL (0.0-0.1); Basophils % 0.4 %; Eosinophils # 0.1 10^3/uL (0.0-0.8); Hematocrit 41.7 % (37.0-47.0); Hemoglobin 13.7 g/dL (11.5-15.3); Lymphocytes # 2.5 10^3/uL (0.8-4.8); Lymphocytes % 16.9 %; Mean Corpuscular HGB Conc 32.9 g/dL (30.0-36.0); Mean Corpuscular Hemoglobin 30.3 pg (28.0-34.0); Mean Corpuscular Volume 92.3 fL (81-99); Mean Platelet Volume 10.5 fL (7.4-10.4); Monocytes # 0.7 10^3/uL (0.2-0.9); Monocytes % 4.6 %; Neutrophils # 11.29 10^3/uL (1.8-7.7); Neutrophils % 76.8 %; Nucleated Red Blood Cells % 0 %; Platelet Count 368 10^3/cmm (130-400); Red Blood Count 4.52 10^6/uL (4.1-5.3); White Blood Count 14.7 10^3/uL (4.0-10.0)
[2020-08-26 16:47] LABS: Add Urine Culture? Yes; Add Urine Microscopic? YES; Bacteria Urine 1+ /hpf; Bilirubin Urine Neg (Negative); Blood Urine 3+ (Negative); Glucose Urine UA Norm (Normal); HCG Qualitative Urine. Negative (Negative); Ketones Urine Negative (Negative); Leukocyte Esterase Urine Negative (Negative); Nitrate Urine Negative (Negative); Protein Urine 1+ (Negative); RBC Urine >100 /hpf (0-2); Squamous Epithelial Cell Urine 0-4 /hpf (0-5); Urine Appearance Cloudy (CLEAR); Urine Color Dark Yellow (Yellow); Urobilinogen Urine 1 mg/dL (Negative); pH Urine 5 (5-7)
[2020-08-26 16:52] LABS: Alanine Aminotransferase 34 U/L (0-33); Albumin Level 4.2 g/dL (3.5-5.2); Alkaline Phosphatase 103 IU/L (35-105); Anion Gap 18.7 (5-19); Aspartate Amino Transferase 26 U/L (0-32); Blood Urea Nitrogen 9 mg/dL (6-20); Calcium 9.6 mg/dL (8.5-10.5); Carbon Dioxide 20 mmol/L (22-29); Chloride 105 mmol/L (98-107); Glomerular Filtration Rate 64.3 mL/min (90-130); Glucose 101 mg/dL (65-115); Lipase 16 U/L (13-60); Osmolality Calculated 289 mOsm/kg (285-295); Potassium 3.7 mmol/L (3.5-5.1); Sodium 140 mmol/L (136-145); Total Bilirubin 0.2 mg/dL (0.15-1.2); Total Protein 7.2 g/dL (6.6-8.7)
[2020-08-26 18:27] VITALS: RESP 20
[2020-08-26] MEDS: HYDROmorphone 1 mg/mL INJ 1 mL 0.5 MG IVP (18:27)
--- NOTE | 2020-08-26 18:28 | PC.NURSE ---
pt given 2mg dilaudid tablet per MD orders. pt education provided.
[2020-08-26 18:31] VITALS: PULSE 88; RESP 18; O2SAT 98
== END 2020-08-26 18:31 | disposition home or self-care (01) ==
PROVIDERS: Emergency Medicine; Emergency Provider Nurse Practitioner Family; PCP Family Medicine
DX: N30.01 Acute cystitis with hematuria (principal); F17.210 Nicotine dependence, cigarettes, uncomplicated
CPT/HCPCS: 12345; 74176; 80053; 81001; 81025; 83690; 85025; 87086; 96361; 96374; 96375; 96376; 99283; J1170; J2405; J7030

== ENCOUNTER → 2020-08-30 16:27 | Outpatient (BNVA) | payer MEDICARE, SELFPAY | PROVIDERS: PCP Family Medicine; Referring Provider Family Medicine; Visit Provider Nurse Practitioner Family | DX: N30.01 Acute cystitis with hematuria (principal) | CPT/HCPCS: 80053; 81001 ==

== ENCOUNTER → 2020-10-09 16:20 | Outpatient (BNVA) | payer MEDICARE, SELFPAY | PROVIDERS: PCP Family Medicine; Visit Provider Urology | DX: N30.90 Cystitis, unspecified without hematuria (principal) | CPT/HCPCS: 81003 ==

== ENCOUNTER → 2020-10-16 11:03 | Outpatient (BNVA) | payer MEDICARE, SELFPAY | PROVIDERS: PCP Family Medicine; Visit Provider Urology | DX: N30.90 Cystitis, unspecified without hematuria (principal); R39.89 Other symptoms and signs involving the genitourinary system | CPT/HCPCS: 81003 ==

== ENCOUNTER → 2020-11-08 07:48 | Outpatient (BNVA) | payer MEDICARE, SELFPAY | PROVIDERS: PCP Family Medicine; Visit Provider Nurse Practitioner Family | DX: N30.90 Cystitis, unspecified without hematuria (principal); R39.89 Other symptoms and signs involving the genitourinary system | CPT/HCPCS: 81003 ==

== ENCOUNTER → 2020-11-10 13:47 | Outpatient (BNVA) | payer MEDICARE, SELFPAY | PROVIDERS: PCP Family Medicine; Visit Provider Nurse Practitioner | DX: Z20.828 Contact with and (suspected) exposure to other viral communicable diseases (principal) | CPT/HCPCS: 87635 ==

== ENCOUNTER 2020-11-18 16:08 | Emergency (ER) | payer MEDICARE, SELFPAY ==
[2020-11-18 16:28] VITALS: BP 133/104; PULSE 84; RESP 14; TEMP 36.5; O2SAT 97; BMI 36.8
--- NOTE | 2020-11-18 16:34 | ECG_ITS ---
[facility] Test Date: 2020-11-18 Pat Name: Caitlin Watkins Department: Room: Gender: Female Dolly Driver: : 1985 Requested By: Cruz Meyers Order Number: [id number] Brown MD: Jesús Barkley M.D. Measurements Intervals [place] Rate: 72 P: 31 [place]: 145 QRS: 29 QRSD: 83 T: 26 QT: 384 QTc: 421 Interpretive Statements SINUS RHYTHM Compared to ECG 07/13/2020 23:54:35 No significant changes Electronically Signed On 11-19-2020 16:51:32 LUNCHROOM OPERATOR by Jesús Barkley M.D. [id number]
--- NOTE | 2020-11-18 16:38 | W.ED.COVID ---
Documented by User: LOTTIE Tolliver 11/18/20 16:44 HPI - COVID General: Chief Complaint: Syncope Stated Complaint: COVID+ Time Seen by Provider: 11/18/20 16:22 Triage information: Has fever, cough or shortness of breath. Exposure to COVID + person last 14 days History of Present Illness: HPI Narrative: 35-year-old female patient presents to the emergency department with Covid symptoms. She reports headache, sore throat, cough, diarrhea and fatigue with on and off sensory changes regarding smell and taste. Previous Covid negative result 11/09/2020; reports spouse tested positive; she is requesting to be tested again as she has experienced Covid symptoms x7 days. History of syncope in the past and is followed by busboy Dr. Sahu. She reports increase syncopal episodes, for that has occurred this week. She denies injury with each episode. She reports not feeling well, complaining of nausea. States her daughter today has lost her sense of taste. MD complaint: reported COVID exposure and has COVID symptoms Prior covid testing: yes, results known Prior testing date: 11/10/20 COVID 19 common symptoms: positive fever(s), chills, cough, non-productive cough, dyspnea, fatigue, body aches, headache(s), loss of sense of smell and/or taste, throat pain, nasal congestion, nausea and diarrhea; negative vomiting COVID 19 other sytmptoms: negative chest pain or confusion Onset (ago): day(s) (7) Severity: moderate Pertinent comorbid conditions: diabetes and recent ED visit for same complaint (Urgent care) Treatment prior to arrival: acetaminophen COVID Results: SARS-CoV-2 Antigen (Rapid) Negative (Negative) 07/13/20 23:31 07/13/20 SARS-CoV-2 RNA (RT-PCR) Not detected (NOT DETECTED) 11/10/20 13:47 11/10/20 Review of Systems General: Reports: 10 or more systems reviewed and unremarkable except in HPI and below Const: Reports: fever(s), chills, body aches, change in appetite, fatigue and malaise Eyes: Denies: blurry vision, eye discomfort, eye redness or yellow eyes ENMT: Reports: throat pain, ear or mastoid pain, nasal discharge, nasal congestion and post nasal drip; Denies: odynophagia or swelling of lips/tongue Card: Reports: lightheadedness and syncope; Denies: chest pain, palpitations, irregular heart rhythm, swelling of feet/ankles or leg pain with exertion Resp: Reports: dyspnea and non-productive cough GI: Reports: nausea, heartburn and diarrhea; Denies: vomiting, dysphagia, constipation or bloating : Denies: difficulty voiding, dysuria, urinary urgency or urinary incontinence Musc: Reports: muscle weakness (Due to fatigue); Denies: neck pain, back pain, joint pain, joint swelling or muscle cramps Skin/Breast: Denies: rash or pruritus Neuro: Reports: headache(s) and dizziness; Denies: sensory changes, difficulty walking or confusion Psych: Reports: anxiety and depression; Denies: hopelessness Destin/Lymph: Denies: easy bruising PFSH ED PFSH: Medical History Anxiety and depression Cystitis Dyspareunia, female Fibromyalgia Gastroesophageal reflux Migraine headache Worse with systemic hormonal control Palpitations Controlled with metoprolol. Followed by Dr. Auguste at [facility] Pelvic pain in female 08/23/2018: Patient is reporting having pain in her pelvic region similar to the pain she has when she has sex. This is unrelated to her menstrual cycles. Potential causes for pain in the pelvic area was discussed including gynecologic, urologic, gastrointestinal, musculoskeletal, and neurologic causes. Based upon description, I am suspicious for adhesions to be at least a part of her pain problems. The fibromyalgia may also be contributing to her pain. I am starting her on Elavil and attempt to treat her pain. She also wished proceed to a laparoscopic evaluation of her pain as well as to have her tubes tied at the same time. 09/23/2018: Reports overall improvement in her generalized pain with amitriptyline, but no significant improvement with the pelvic pain. 09/28/2018: Laparoscopy with lysis of adhesions and sterilization. Small area of omental adhesions found. No evidence of endometriosis seen. Smoking Surgical History History of endometrial ablation (12/20/19) Hysteroscopy with NovaSure ablation. Performed by Dr. Rojo at [facility] [place]. S/P section (06/05/17) Low transverse section. Diagnosis: Cephalopelvic disproportion with normal size fetus. Performed by Dr. Edward Rojo at [facility] in [place], [place]. Patient had a low transverse incision with a 2 layer closure of the uterus. S/P cholecystectomy (~2006) Laparoscopic. Performed by Dr Kumar in [place], [place] S/P laparoscopic procedure (09/16/11) Diagnostic. Diag: Pelvic pain, Dyspareunia, Left lower quadrant pain. Performed by Dr. Edward Rojo at [facility] in [place], [place]. --- Operative report reviewed-no signs of endometriosis or adhesions identified. S/P tubal ligation (09/28/18) Laparoscopic complete salpingectomy for sterilization and lysis of adhesions. Diagnosis undesired fertility and chronic pelvic pain. Performed by Dr. Edward Rojo at [facility] in [place], [place]. Findings: Small area of omental adhesions. No evidence of endometriosis seen. Family History Father Hypertension Stroke Family/Other Colon cancer paternal aunt Grandfather Diabetes Maternal Grandmother Diabetes Paternal Stroke Paternal Social History Smoking and tobacco status: current every day smoker cigarettes Packs smoked per day: 1 Years cigarettes smoked: 12 [ Other cigarette details: /2-1 ppd. Started smoking age 15 ] Alcohol intake: never Adopted: No Caregiver/support person: No Lives independently: No Household members: spouse Marital status: Current occupational status: unemployed Additional social history: poorly balanced diet Female Reproductive History: Date of last menstrual period: 12/20/19 Physical Exam Const: COMMON NORMALS: no acute distress, average body habitus, patient oriented x3, healthy appearing, alert and well nourished EXAM LIMITATIONS: no altered mental status and no physical limitations GENERAL APPEARANCE: cooperative, comfortable, well kempt, well developed and well hydrated; not anxious and not ill appearing NUTRITIONAL APPEARANCE: obese ORIENTATION/CONSCIOUSNESS: Yes awake, Yes oriented to person, Yes oriented to place and Yes oriented to time HENMT: COMMON NORMALS: normocephalic, atraumatic, external ears normal, EAC's normal, TM's normal bilaterally, Normal external nose present and moist oral mucous membranes HEAD & SCALP: normal to inspection, normocephalic and atraumatic; no contusion FACE & SINUS: normal facial exam, sinuses nontender and face symmetric NOSE: Normal external nose present and No nasal polyps present EXTERNAL EAR: Yes external ears normal EXTERNAL AUDITORY CANAL: EAC's normal TYMPANIC MEMBRANE: TM's normal bilaterally MOUTH: Normal oral and palatal mucosa present and Abnormal oral and palatal mucosa present THROAT: posterior oropharynx abnormal (posterior pharynx) Eye: COMMON NORMALS: Equal, round and reactive pupils present and EOMs intact bilaterally GENERAL EYE: appearance normal, both eyes and all related structures PUPIL: Yes Equal, round and reactive pupils present Neck/C-Spine: COMMON NORMALS: full ROM and no lymphadenopathy GENERAL: Yes normal visual inspection and Yes trachea midline CERVICAL SPINE: Yes cervical ROM normal Lymph: LYMPHATIC: no lymphadenopathy noted Chest: COMMONS NORMALS: normal inspection of the chest and normal palpation of entire chest wall Resp: COMMON NORMALS: normal respiratory effort, No retractions, No use of accessory muscles and clear to auscultation bilaterally EFFORT & INSPECTION: Yes able to speak in complete sentences AUSCULTATION: clear to auscultation bilaterally Cardio: COMMON NORMALS: regular rate, regular rhythm, S1 normal heart sound present, S2 normal heart sound present and Peripheral pulses 2+ throughout RATE: regular rate RHYTHM: regular rhythm HEART SOUNDS: S1 normal heart sound present and S2 normal heart sound present PERIPHERAL PULSES: Peripheral pulses 2+ throughout GI: COMMON NORMALS: Normal to inspection, nondistended, normoactive bowel sounds present, Soft to palpation and non-tender INSPECTION: Yes normal to inspection PALPATION: Yes Soft to palpation : COMMON NORMALS: Yes no CVA tenderness BLADDER/KIDNEY EXAM: Yes no CVA tenderness Back/Pelvis: COMMON NORMALS: no CVA tenderness and thoracic and lumbar spine normal to inspection Extremity: COMMON NORMALS: normal to inspection and capillary refill normal Neuro: COMMON NORMALS: patient oriented x3 and no focal motor deficits SENSORIUM/ORIENTATION: Yes alert, Yes oriented to person, Yes oriented to place and Yes oriented to time Psych: COMMON NORMALS: mental status grossly normal, Normal thought process present and cooperative APPEARANCE: Yes well kempt ACTIVITY/MOTOR BEHAVIOR: Yes appropriate eye contact THOUGHT PROCESS: Normal thought process present Skin: COMMON NORMALS: no rashes or lesions noted and turgor normal GENERAL SKIN EXAM: no rashes or lesions noted and turgor normal Course Vital Signs: Vital signs: Vital Signs Temperature 97.7 F 11/18/20 16:28 Pulse Rate 84 11/18/20 16:28 Respiratory Rate 14 11/18/20 16:28 Blood Pressure 133/104 11/18/20 16:28 Pulse Oximetry 97 11/18/20 16:28 MDM - COVID Lab Data: Labs: Lab Results 11/18/20 11/18/20 11/18/20 Range/Units 16:51 16:51 16:51 WBC 7.2 (4.0-10.0) 10^3/ uL RBC 5.09 (4.1-5.3) 10^6/u L Hgb 15.2 (11.5-15.3) g/dL Hct 45.6 (37.0-47.0) % MCV 89.6 (81-99) fL MCH 29.9 (28.0-34.0) pg MCHC 33.3 (30.0-36.0) g/dL RDW 13.2 (12.1-15.1) % Plt Count 361 (130-400) 10^3/c mm MPV 10.3 (7.4-10.4) fL Neut % (Auto) 68.0 % Lymph % (Auto) 22.9 % Edmunds % (Auto) 6.7 % Eos % (Auto) 1.7 % Baso % (Auto) 0.6 % Neut # (Auto) 4.90 (1.8-7.7) 10^3/u L Lymph # (Auto) 1.7 (0.8-4.8) 10^3/u L Edmunds # (Auto) 0.5 (0.2-0.9) 10^3/u L Eos # (Auto) 0.1 (0.0-0.8) 10^3/u L Baso # (Auto) 0.0 (0.0-0.1) 10^3/u L Nucleated RBC % (a uto) 0 % Nucleated RBCs # 0.0 /100WBC Sodium 140 (136-145) mmol/L Potassium 4.0 (3.5-5.1) mmol/L Chloride 105 (98-107) mmol/L Carbon Dioxide 23 (22-29) mmol/L Anion Gap 16.0 (5-19) BUN 7 (6-20) mg/dL Creatinine 0.9 (0.5-0.9) mg/dL GFR Calculation 72.1 L (90-130) mL/min Glucose 91 (65-115) mg/dL Calculated Osmolal ity 288 (285-295) mOsm/k g Calcium 9.4 (8.5-10.5) mg/dL Total Bilirubin 0.5 (0.15-1.2) mg/dL AST 23 (0-32) U/L ALT 21 (0-33) U/L Alkaline Phosphata se 100 (35-105) IU/L Total Protein 7.4 (6.6-8.7) g/dL Albumin 4.1 (3.5-5.2) g/dL Globulin 3.3 (1.3-4.6) g/dL HCG, Qual Negative (Negative) COVID Results: SARS-CoV-2 Antigen (Rapid) Negative (Negative) 07/13/20 23:31 07/13/20 SARS-CoV-2 RNA (RT-PCR) Not detected (NOT DETECTED) 11/10/20 13:47 11/10/20 Discharge Plan Discharge Patient Disposition: Home Clinical Impression: Syncope, Upper respiratory infection Condition: Stable Prescriptions: No Action omeprazole 20 mg capsule,delayed release(DR/EC) 20 mg PO BID RF: 0 escitalopram oxalate 20 mg tablet 20 mg PO DAILY RF: 0 phenazopyridine 100 mg tablet 100 mg PO TID PRNRF: 0 sulfamethoxazole-trimethoprim 800-160 mg tablet 1 tab PO BID Qty: 60 RF: 1 tramadol 50 mg tablet 50 mg PO Q8H PRN (Reason: pain) Qty: 6 RF: 0 trazodone 150 mg tablet 150 mg PO DAILY Qty: 90 RF: 0 buspirone 10 mg tablet 10 mg PO TID PRN (Reason: panic attacks) Qty: 52 RF: 0 acetaminophen [Tylenol] 325 mg Tablet 325 - 650 mg PO Q4H PRN (Reason: Pain) RF: 0 Probiotic 15 billion cell Capsule 1 cap PO DAILY RF: 0 Diflucan 150 mg tablet 150 mg PO DAILY Qty: 1 RF: 0 Discharge Orders: Discharge ED (Routine); Ordered 11/18/20 Ordered By: Cruz Meyers Referrals: Jagruti Mancera DO [Primary Care Provider] - 1-3 days Discharge Diet: Advance as tolerated Discharge Activity: Resume usual activity Patient Instructions: Syncope (ED) Coding Level of Care Code 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 Followed by Dr. Auguste at [facility] Pelvic pain in female 08/23/2018: Patient is reporting having pain in her pelvic region similar to the pain she has when she has sex. This is unrelated to her menstrual cycles. Potential causes for pain in the pelvic area was discussed including gynecologic, urologic, gastrointestinal, musculoskeletal, and neurologic causes. Based upon description, I am suspicious for adhesions to be at least a part of her pain problems. The fibromyalgia may also be contributing to her pain. I am starting her on Elavil and attempt to treat her pain. She also wished proceed to a laparoscopic evaluation of her pain as well as to have her tubes tied at the same time. 09/23/2018: Reports overall improvement in her generalized pain with amitriptyline, but no significant improvement with the pelvic pain. 09/28/2018: Laparoscopy with lysis of adhesions and sterilization. Small area of omental adhesions found. No evidence of endometriosis seen. Smoking Surgical History History of endometrial ablation (12/20/19) Hysteroscopy with NovaSure ablation. Performed by Dr. Rojo at [facility] [place]. S/P section (06/05/17) Low transverse section. Diagnosis: Cephalopelvic disproportion with normal size fetus. Performed by Dr. Edward Rojo at [facility] in [place], [place]. Patient had a low transverse incision with a 2 layer closure of the uterus. S/P cholecystectomy (~2006) Laparoscopic. Performed by Dr Kumar in [place], [place] S/P laparoscopic procedure (09/16/11) Diagnostic. Diag: Pelvic pain, Dyspareunia, Left lower quadrant pain. Performed by Dr. Edward Rojo at [facility] in [place], [place]. --- Operative report reviewed-no signs of endometriosis or adhesions identified. S/P tubal ligation (09/28/18) Laparoscopic complete salpingectomy for sterilization and lysis of adhesions. Diagnosis undesired fertility and chronic pelvic pain. Performed by Dr. Edward Rojo at [facility] in [place], [place]. Findings: Small area of omental adhesions. No evidence of endometriosis seen. Family History Father Hypertension Stroke Family/Other Colon cancer paternal aunt Grandfather Diabetes Maternal Grandmother Diabetes Paternal Stroke Paternal Social History Smoking and tobacco status: current every day smoker cigarettes Packs smoked per day: 1 Years cigarettes smoked: 12 [ Other cigarette details: 1/2-1 ppd. Started smoking age 15 ] Alcohol intake: never Adopted: No Caregiver/support person: No Lives independently: No Household members: spouse Marital status: Current occupational status: unemployed Additional social history: poorly balanced diet Course Vital Signs: Vital signs: Vital Signs Temperature 97.7 F 11/18/20 16:28 Pulse Rate 84 11/18/20 16:28 Respiratory Rate 14 11/18/20 16:28 Blood Pressure 133/104 11/18/20 16:28 Pulse Oximetry 97 11/18/20 16:28 MDM - COVID MDM Narrative: Medical decision making narrative: I saw patient with midlevel and agree with her history and physical. Patient is well-appearing here and lab work is normal. Patient will get tested for Covid and is stable for discharge. She is to follow-up with her PCP in 3 to 5 days return if worsening. She understands agrees to plan. Lab Data: Labs: Lab Results 11/18/20 11/18/20 11/18/20 Range/Units 16:51 16:51 16:51 WBC 7.2 (4.0-10.0) 10^3/ uL RBC 5.09 (4.1-5.3) 10^6/u L Hgb 15.2 (11.5-15.3) g/dL Hct 45.6 (37.0-47.0) % MCV 89.6 (81-99) fL MCH 29.9 (28.0-34.0) pg MCHC 33.3 (30.0-36.0) g/dL RDW 13.2 (12.1-15.1) % Plt Count 361 (130-400) 10^3/c mm MPV 10.3 (7.4-10.4) fL Neut % (Auto) 68.0 % Lymph % (Auto) 22.9 % Edmunds % (Auto) 6.7 % Eos % (Auto) 1.7 % Baso % (Auto) 0.6 % Neut # (Auto) 4.90 (1.8-7.7) 10^3/u L Lymph # (Auto) 1.7 (0.8-4.8) 10^3/u L Edmunds # (Auto) 0.5 (0.2-0.9) 10^3/u L Eos # (Auto) 0.1 (0.0-0.8) 10^3/u L Baso # (Auto) 0.0 (0.0-0.1) 10^3/u L Nucleated RBC % (a uto) 0 % Nucleated RBCs # 0.0 /100WBC Sodium 140 (136-145) mmol/L Potassium 4.0 (3.5-5.1) mmol/L Chloride 105 (98-107) mmol/L Carbon Dioxide 23 (22-29) mmol/L Anion Gap 16.0 (5-19) BUN 7 (6-20) mg/dL Creatinine 0.9 (0.5-0.9) mg/dL GFR Calculation 72.1 L (90-130) mL/min Glucose 91 (65-115) mg/dL Calculated Osmolal ity 288 (285-295) mOsm/k g Calcium 9.4 (8.5-10.5) mg/dL Total Bilirubin 0.5 (0.15-1.2) mg/dL AST 23 (0-32) U/L ALT 21 (0-33) U/L Alkaline Phosphata se 100 (35-105) IU/L Total Protein 7.4 (6.6-8.7) g/dL Albumin 4.1 (3.5-5.2) g/dL Globulin 3.3 (1.3-4.6) g/dL HCG, Qual Negative (Negative) EKG Data: EKG 1: Attestation: I personally reviewed and interpreted this EKG as follows: EKG interpretation date: 11/18/20 EKG interpretation time: 16:44 Interpretation: nsr hr [address] or t wave abnormalities qrs 83 qtc 408 COVID Results: SARS-CoV-2 Antigen (Rapid) Negative (Negative) 07/13/20 23:31 07/13/20 SARS-CoV-2 RNA (RT-PCR) Not detected (NOT DETECTED) 11/10/20 13:47 11/10/20 Discharge Plan Discharge Patient Disposition: Home Clinical Impression: Syncope, Upper respiratory infection Condition: Stable Prescriptions: No Action omeprazole 20 mg capsule,delayed release(DR/EC) 20 mg PO BID RF: 0 escitalopram oxalate 20 mg tablet 20 mg PO DAILY RF: 0 phenazopyridine 100 mg tablet 100 mg PO TID PRNRF: 0 sulfamethoxazole-trimethoprim 800-160 mg tablet 1 tab PO BID Qty: 60 RF: 1 tramadol 50 mg tablet 50 mg PO Q8H PRN (Reason: pain) Qty: 6 RF: 0 trazodone 150 mg tablet 150 mg PO DAILY Qty: 90 RF: 0 buspirone 10 mg tablet 10 mg PO TID PRN (Reason: panic attacks) Qty: 52 RF: 0 acetaminophen [Tylenol] 325 mg Tablet 325 - 650 mg PO Q4H PRN (Reason: Pain) RF: 0 Probiotic 15 billion cell Capsule 1 cap PO DAILY RF: 0 Diflucan 150 mg tablet 150 mg PO DAILY Qty: 1 RF: 0 Discharge Orders: Discharge ED (Routine); Ordered 11/18/20 Ordered By: Cruz Meyers Referrals: Jagruti Mancera DO [Primary Care Provider] - 1-3 days Discharge Diet: Advance as tolerated Discharge Activity: Resume usual activity Patient Instructions: Syncope (ED) Coding Level of Care Code 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
[2020-11-18] MEDS: sodium chloride 0.9% 1,000 ML 999 ML IV (17:02)
[2020-11-18 17:03] LABS: Basophils % 0.6 %; Eosinophils # 0.1 10^3/uL (0.0-0.8); Eosinophils % 1.7 %; Hematocrit 45.6 % (37.0-47.0); Hemoglobin 15.2 g/dL (11.5-15.3); Lymphocytes # 1.7 10^3/uL (0.8-4.8); Lymphocytes % 22.9 %; Mean Corpuscular HGB Conc 33.3 g/dL (30.0-36.0); Mean Corpuscular Hemoglobin 29.9 pg (28.0-34.0); Mean Corpuscular Volume 89.6 fL (81-99); Mean Platelet Volume 10.3 fL (7.4-10.4); Monocytes # 0.5 10^3/uL (0.2-0.9); Monocytes % 6.7 %; Nucleated Red Blood Cells % 0 %; Platelet Count 361 10^3/cmm (130-400); Red Blood Count 5.09 10^6/uL (4.1-5.3); Red Cell Distribution Width 13.2 % (12.1-15.1); White Blood Count 7.2 10^3/uL (4.0-10.0)
[2020-11-18 17:24] LABS: Alanine Aminotransferase 21 U/L (0-33); Albumin Level 4.1 g/dL (3.5-5.2); Alkaline Phosphatase 100 IU/L (35-105); Aspartate Amino Transferase 23 U/L (0-32); Blood Urea Nitrogen 7 mg/dL (6-20); Calcium 9.4 mg/dL (8.5-10.5); Carbon Dioxide 23 mmol/L (22-29); Chloride 105 mmol/L (98-107); Globulin 3.3 g/dL (1.3-4.6); Glomerular Filtration Rate 72.1 mL/min (90-130); Glucose 91 mg/dL (65-115); Osmolality Calculated 288 mOsm/kg (285-295); Sodium 140 mmol/L (136-145); Total Bilirubin 0.5 mg/dL (0.15-1.2); Total Protein 7.4 g/dL (6.6-8.7)
[2020-11-18 18:12] LABS: HCG, Serum Qual Negative (Negative)
[2020-11-20 06:18] LABS: Coronavirus Test Green County Not Detected
== END 2020-11-18 18:52 | disposition home or self-care (01) ==
PROVIDERS: Emergency Provider Emergency Medicine; PCP Family Medicine
DX: R55 Syncope and collapse (principal); J06.9 Acute upper respiratory infection, unspecified; F17.210 Nicotine dependence, cigarettes, uncomplicated
CPT/HCPCS: 12345; 80053; 84703; 85025; 87635; 93005; 96360; 99282; 99283; J7030

== ENCOUNTER → 2021-01-01 09:16 | Outpatient (BNVA) | payer MEDICARE, SELFPAY | PROVIDERS: PCP Family Medicine; Visit Provider Urology | DX: N30.10 Interstitial cystitis (chronic) without hematuria (principal); R39.89 Other symptoms and signs involving the genitourinary system; M79.7 Fibromyalgia | CPT/HCPCS: 81003 ==

== ENCOUNTER → 2021-01-16 15:39 | Outpatient (BNVA) | payer MEDICARE, SELFPAY | PROVIDERS: PCP Family Medicine; Visit Provider Nurse Practitioner Family | DX: R30.0 Dysuria (principal); R39.89 Other symptoms and signs involving the genitourinary system; N30.10 Interstitial cystitis (chronic) without hematuria | CPT/HCPCS: 81003 ==

== ENCOUNTER → 2021-02-21 10:47 | Outpatient (BNVA) | payer MEDICARE, SELFPAY | PROVIDERS: PCP Family Medicine; Visit Provider Nurse Practitioner Family | DX: N30.10 Interstitial cystitis (chronic) without hematuria (principal) | CPT/HCPCS: 81003 ==

== ENCOUNTER → 2021-11-18 10:29 | Outpatient (BNVA) | payer MEDICARE, SELFPAY | PROVIDERS: PCP Family Medicine; Visit Provider Nurse Practitioner Family | DX: N30.10 Interstitial cystitis (chronic) without hematuria (principal); N39.3 Stress incontinence (female) (male) | CPT/HCPCS: 81003 ==

== ENCOUNTER 2021-12-15 13:23 | Emergency (ER) | payer MEDICARE, SELFPAY ==
[2021-12-15 14:22] VITALS: BP 136/84; PULSE 121; RESP 28; TEMP 37.5; O2SAT 97; BMI 34.3
--- NOTE | 2021-12-15 15:17 | ED_ITS ---
HPI - COVID General: Chief Complaint: COVID symptoms Stated Complaint: n/v, covid positive Triage information: Has fever, cough or shortness of breath . Exposure to COVID + person last 14 days History of Present Illness: HPI Narrative: Patient with positive COVID test at home x2 gait is ago. Symptoms are worsening. Patient says she has chills cannot hold anything down as his diarrhea and feels very lightheaded when she stands up. COVID Results: SARS-CoV-2 Antigen (Rapid) Negative (Negative) 07/13/20 23:31 07/13/20 SARS-CoV-2 RNA (RT-PCR) Not detected (NOT DETECTED) 11/10/20 13:47 11/10/20 Nasal/Oral Coronavirus 2019 PCR Not detected 11/18/20 18:51 11/18/20 [facility] ED PFS: Medical History Anxiety and depression Chronic interstitial cystitis Dyspareunia, female Fibromyalgia Gastroesophageal reflux Migraine headache Worse with systemic hormonal control Palpitations Controlled with metoprolol. Followed by Dr. Auguste at [facility] Pelvic pain in female 08/23/2018: Patient is reporting having pain in her pelvic region similar to the pain she has when she has sex. This is unrelated to her menstrual cycles. Potential causes for pain in the pelvic area was discussed including gynecologic, urologic, gastrointestinal, musculoskeletal, and neurologic causes. Based upon description, I am suspicious for adhesions to be at least a part of her pain problems. The fibromyalgia may also be contributing to her pain. I am starting her on Elavil and attempt to treat her pain. She also wished proceed to a laparoscopic evaluation of her pain as well as to have her tubes tied at the same time. 09/23/2018: Reports overall improvement in her generalized pain with amitriptyline, but no significant improvement with the pelvic pain. 09/28/2018: Laparoscopy with lysis of adhesions and sterilization. Small area of omental adhesions found. No evidence of endometriosis seen. Smoking Stress incontinence Surgical History History of endometrial ablation (12/20/19) Hysteroscopy with NovaSure ablation. Performed by Dr. Rojo at [facility]. S/P section (06/05/17) Low transverse section. Diagnosis: Cephalopelvic disproportion with normal size fetus. Performed by Dr. Edward Rojo at [facility] in [place], [place]. Patient had a low transverse incision with a 2 layer closure of the uterus. S/P cholecystectomy (~2006) Laparoscopic. Performed by Dr Kumar in [place], [place] S/P laparoscopic procedure (09/16/11) Diagnostic. Diag: Pelvic pain, Dyspareunia, Left lower quadrant pain. Performed by Dr. Edward Rojo at [facility] in [place], [place]. --- Operative report reviewed-no signs of endometriosis or adhesions identified. S/P tubal ligation (09/28/18) Laparoscopic complete salpingectomy for sterilization and lysis of adhesions. Diagnosis undesired fertility and chronic pelvic pain. Performed by Dr. Edward Rojo at [facility] in [place], [place]. Findings: Small area of omental adhesions. No evidence of endometriosis seen. Family History Father Hypertension Stroke Family/Other Colon cancer paternal aunt Grandfather Diabetes Maternal Grandmother Diabetes Paternal Stroke Paternal Social History Smoking and tobacco status: current every day smoker cigarettes Packs smoked per day: 1 Years cigarettes smoked: 12 [ Other cigarette details: /2-1 ppd. Started smoking age 15 ] Alcohol intake: never Adopted: No Caregiver/support person: No Lives independently: No Household members: spouse Marital status: Current occupational status: unemployed Additional social history: poorly balanced diet Female Reproductive History: Date of last menstrual period: 12/20/19 Course Vital Signs: Vital signs: Vital Signs Temperature 99.5 F 12/15/21 14:22 Pulse Rate 121 H 12/15/21 14:22 Respiratory Rate 28 H 12/15/21 14:22 Blood Pressure 136/84 12/15/21 14:22 Pulse Oximetry 97 12/15/21 14:22 MDM - COVID MDM Narrative: Medical decision making narrative: Brief history and physical exam was performed as part of the triage process. Due to current ED wait time patient will be placed in waiting room until a room becomes available. Explained to patient he/she will be seen in order of severity. Patient is currently safe to wait in the waiting room until we can get them placed. Patient informed that if condition worsens at any time to please let the vest front presser know. Patient was provided blanket and a pillow. COVID Results: SARS-CoV-2 Antigen (Rapid) Negative (Negative) 07/13/20 23:31 07/13/20 SARS-CoV-2 RNA (RT-PCR) Not detected (NOT DETECTED) 11/10/20 13:47 11/10/20 Nasal/Oral Coronavirus 2019 PCR Not detected 11/18/20 18:51 11/18/20 Discharge Plan Discharge Prescriptions: No Action bupivacaine HCl 0.5 % (5 mg/mL) solution 10 ml intravesical ONCE Qty: 10 RF: 0 Solu-Cortef 100 mg recon soln 100 mg intravesical ONCE Qty: 1 RF: 0 gentamicin 40 mg/mL solution 80 mg intravesical ONCE Qty: 2 RF: 0 heparin (porcine) 5,000 unit/mL solution 10,000 unit intravesical ONCE Qty: 2 RF: 0 lidocaine (PF) 10 mg/mL (1 %) solution 10 ml intravesical ONCE Qty: 10 RF: 0 nitrofurantoin monohyd/m-cryst [Macrobid] 100 mg capsule 100 mg PO BID Qty: 20 RF: 0 omeprazole 20 mg capsule,delayed release(DR/EC) 40 mg PO DAILY RF: 0 buspirone 10 mg tablet 10 mg PO TID PRN (Reason: panic attacks) Qty: 52 RF: 0 acetaminophen [Tylenol] 325 mg Tablet 325 - 650 mg PO Q4H PRN (Reason: Pain) RF: 0 Coding Level of Care Code ED 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
[2021-12-15 16:14] LABS: Basophils # 0.1 10^3/uL (0.0-0.1); Basophils % 0.8 %; Eosinophils % 0.2 %; Hemoglobin 15.5 g/dL (11.5-15.3); Lymphocytes # 0.4 10^3/uL (0.8-4.8); Lymphocytes % 4.6 %; Mean Corpuscular HGB Conc 33.7 g/dL (30.0-36.0); Mean Corpuscular Hemoglobin 29.9 pg (28.0-34.0); Mean Corpuscular Volume 88.8 fl (81-99); Mean Platelet Volume 11.5 fL (7.4-10.4); Monocytes # 1.1 10^3/uL (0.2-0.9); Monocytes % 12.3 %; Neutrophils # 7.51 10^3/uL (1.8-7.7); Neutrophils % 81.9 %; Nucleated Red Blood Cells % 0 %; Platelet Count 314 10^3/cmm (130-400); Red Blood Count 5.18 10^6/uL (4.1-5.3); Red Cell Distribution Width 13.6 % (12.1-15.1); White Blood Count 9.2 10^3/uL (4.0-10.0)
[2021-12-15 16:34] LABS: Anion Gap 17.5 (5-19); Blood Urea Nitrogen 6 mg/dL (6-20); Carbon Dioxide 20 mmol/L (22-29); Chloride 102 mmol/L (98-107); Creatinine Clr Calc Pharmacy 123.5428; Glomerular Filtration Rate 95.8 mL/min (90-130); Glucose 85 mg/dL (65-115); Osmolality Calculated 279 mOsm/kg (285-295); Potassium 3.5 mmol/L (3.5-5.1); Sodium 136 mmol/L (136-145)
[2021-12-15] MEDS: sodium chloride 0.9% 1,000 ML 999 ML IV ×2 (17:02→18:30)
[2021-12-15] MEDS: ondansetron 2 mg/ML SDV 2 mL 4 MG IVP (17:02)
--- NOTE | 2021-12-15 17:48 | ED_ITS ---
HPI - General Adult General: Chief complaint: COVID symptoms Stated complaint: n/v, covid positive Time Seen by Provider: 12/15/21 17:11 History of Present Illness: HPI narrative: CC: Shortness of breath, fever and generalized weakness HPI: This is a [36] yo patient w/ hx of covid diagnosis from earlier today presenting to the ED with malaise, generalized weakness, cough sputum production, and fever at home x 4days. Since onset of symptoms, has had some s hortness of breath and decreased PO intake. Denies chest pain, diaphoresis, exertional shortness of breath, or symptoms. Patient reports nausea/vomiting, inability to tolerate p.o., and diarrhea. Denies any pleuritic chest pain, recent surgery/immobilization/travel, or hematemesis or hx of VTE in the past. Onset: 4 days ago Duration: ongoing for the last 4 days Location: home Severity: moderate Associated symptoms: Reports dyspnea, malaise, nausea and vomiting; Deny chest pain, rash or palpitations Review of Systems Const: Reports: fever(s), chills, body aches, fatigue and malaise Eyes: Denies: change in vision ENMT: Denies: mouth pain Card: Denies: chest pain or palpitations Resp: Reports: dyspnea and non-productive cough GI: Reports: abdominal pain, nausea, vomiting and diarrhea : Denies: dysuria Musc: Denies: extremity pain Skin/Breast: Denies: rash or new lesions Neuro: Denies: weakness in extremities Psych: Reports: other (Normal mood) [place]/Lymph: Denies: easy bruising PFS ED PFSH: Medical History Anxiety and depression Chronic interstitial cystitis Dyspareunia, female Fibromyalgia Gastroesophageal reflux Migraine headache Worse with systemic hormonal control Palpitations Controlled with metoprolol. Followed by Dr. Auguste at [facility] Pelvic pain in female 08/23/2018: Patient is reporting having pain in her pelvic region similar to the pain she has when she has sex. This is unrelated to her menstrual cycles. Potential causes for pain in the pelvic area was discussed including gynecologic, urologic, gastrointestinal, musculoskeletal, and neurologic causes. Based upon description, I am suspicious for adhesions to be at least a part of her pain problems. The fibromyalgia may also be contributing to her pain. I am starting her on Elavil and attempt to treat her pain. She also wished proceed to a laparoscopic evaluation of her pain as well as to have her tubes tied at the same time. 09/23/2018: Reports overall improvement in her generalized pain with amitriptyline, but no significant improvement with the pelvic pain. 09/28/2018: Laparoscopy with lysis of adhesions and sterilization. Small area of omental adhesions found. No evidence of endometriosis seen. Smoking Stress incontinence Surgical History History of endometrial ablation (12/20/19) Hysteroscopy with NovaSure ablation. Performed by Dr. Rojo at [facility]. S/P section (06/05/17) Low transverse section. Diagnosis: Cephalopelvic disproportion with normal size fetus. Performed by Dr. Edward Rojo at [facility] in [place], [place]. Patient had a low transverse incision with a 2 layer closure of the uterus. S/P cholecystectomy (~2006) Laparoscopic. Performed by Dr Kumar in [place], [place] S/P laparoscopic procedure (09/16/11) Diagnostic. Diag: Pelvic pain, Dyspareunia, Left lower quadrant pain. Performed by Dr. Edward Rojo at [facility] in [place], [place]. --- Operative report reviewed-no signs of endometriosis or adhesions identified. S/P tubal ligation (09/28/18) Laparoscopic complete salpingectomy for sterilization and lysis of adhesions. Diagnosis undesired fertility and chronic pelvic pain. Performed by Dr. Edward Rojo at [facility] in [place], [place]. Findings: Small area of omental adhesions. No evidence of endometriosis seen. Family History Father Hypertension Stroke Family/Other Colon cancer paternal aunt Grandfather Diabetes Maternal Grandmother Diabetes Paternal Stroke Paternal Social History Smoking and tobacco status: current every day smoker cigarettes Packs smoked per day: 1 Years cigarettes smoked: 12 [ Other cigarette details: 1/2-1 ppd. Started smoking age 15 ] Alcohol intake: never Adopted: No Caregiver/support person: No Lives independently: No Household members: spouse Marital status: Current occupational status: unemployed Additional social history: poorly balanced diet Female Reproductive History: Date of last menstrual period: 12/20/19 Physical Exam Const: COMMON NORMALS: alert HENMT: COMMON NORMALS: atraumatic HEAD & SCALP: atraumatic MOUTH: moist mucous membranes abnormal Eye: COMMON NORMALS: EOMs intact bilaterally and conjunctivae normal CONJUNCTIVA: Yes conjunctivae normal Neck/C-Spine: COMMON NORMALS: full ROM and supple Resp: COMMON NORMALS: normal respiratory effort and clear to auscultation bilaterally AUSCULTATION: clear to auscultation bilaterally Cardio: RHYTHM: other (sinus tachycardia) GI: COMMON NORMALS: Soft to palpation PALPATION: Yes Soft to palpation OTHER: +mild diffuse abd TTP. NO guarding rebound, guarding, rigidity. No CVA tenderness to percussion. Neg Grider/Neg McBurney's point tenderness, no suprabupic tenderness to palpation. Extremity: COMMON NORMALS: full ROM Neuro: SENSORIUM/ORIENTATION: Yes alert MOTOR EXAM: No Abnormal motor strength present and Other motor observations present (no focal motor deficits) Psych: COMMON NORMALS: speech normal SPEECH: Yes normal speech MOOD & AFFECT: Yes euthymic mood Course Vital Signs: Vital signs: Vital Signs Temperature 99.5 F 12/15/21 14:22 Pulse Rate 98 12/15/21 18:49 Respiratory Rate 18 12/15/21 18:49 Blood Pressure 103/78 12/15/21 18:49 Pulse Oximetry 98 12/15/21 18:49 MDM - General Adult MDM Narrative: Medical decision making narrative: [36]yo patient presenting to the ED with shortness of breath, cough, and malaise concerning for COVID. On exam, patient appears to have dry mucous membrane and is in sinus tachycardia. Given History, Exam, and Workup presentation most consistent with pneumonia.Presentation not consistent with PE, COPD exacerbation, Pneumothorax, TB, Atypical ACS, Esophageal Rupture, Toxic Exposure, Foreign Body Airway Obstruction. Workup:CBC, CMP, Lipase XR Chest, COVID PCR Intervention: Tylenol 1gram, IVF, GI cocktail challenge, serial reassessment [7:00pm] On reassessment, XR without any focal consolidations. Findings consistent with viral pneumonia, suspected COVIDl. Patient is no longer in respiratory distress, tolerating PO, and able to ambulate. The patient continues to be hemodynamically stable while observed in the ED, in no acute respiratory distress. O2 sats > 95% while observed in the ER. No significant comorbidities today which indicate that the patient is a candidate for outpatient care. Plan discussed with the patient who agrees with outpatient evaluation. Patient's tachycardia improved in the ED with IVF and is able to tolerate PO without any dififculties. No suspicion for other acute intra-abdominal pathology including SBO, biliary pathology, appendicitis, diverticulitis, or other emergent condition requiring surgery. Rx: Tylenol 500mg Q6HRs PRN fever/pain, zofran prn nauesa/vomiting, maalox/pepc id PRN dyspepsia Disposition: Discharge. Strict return instructions discussed at bedside including any signs of respiratory distress, dehydration, persistent fever, or any new or concerning symptoms. Patient in agreement with the plan and reassures me that the patient will follow up a primary care provider in 24-48 hrs for revaluation. Lab Data: Labs: Lab Results 12/15/21 12/15/21 16:08 16:08 WBC 9.2 10^3/uL 10^3/ uL (4.0-10.0) RBC 5.18 10^6/uL 10^6 /uL (4.1-5.3) Hgb 15.5 g/dL H g/dL (11.5-15.3) Hct 46.0 % % (37.0-47.0) MCV 88.8 fl fl (81-99) MCH 29.9 pg pg (28.0-34.0) MCHC 33.7 g/dL g/dL (30.0-36.0) RDW 13.6 % % (12.1-15.1) Plt Count 314 10^3/cmm 10^3 /cmm (130-400) MPV 11.5 fL H fL (7.4-10.4) Neut % (Auto) 81.9 % % Lymph % (Auto) 4.6 % % Marin % (Auto) 12.3 % % Eos % (Auto) 0.2 % % Baso % (Auto) 0.8 % % Neut # (Auto) 7.51 10^3/uL 10^3 /uL (1.8-7.7) Lymph # (Auto) 0.4 10^3/uL L 10^ 3/uL (0.8-4.8) Marin # (Auto) 1.1 10^3/uL H 10^ 3/uL (0.2-0.9) Eos # (Auto) 0.0 10^3/uL 10^3/ uL (0.0-0.8) Baso # (Auto) 0.1 10^3/uL 10^3/ uL (0.0-0.1) Nucleated RBC % (a uto) 0 % % Nucleated RBCs # 0.0 /100WBC /100W BC Sodium 136 mmol/L mmol/L (136-145) Potassium 3.5 mmol/L mmol/L (3.5-5.1) Chloride 102 mmol/L mmol/L (98-107) Carbon Dioxide 20 mmol/L L mmol/ L (22-29) Anion Gap 17.5 (5-19) BUN 6 mg/dL mg/dL (6-20) Creatinine 0.7 mg/dL mg/dL (0.5-0.9) GFR Calculation 95.8 mL/min mL/mi n (90-130) Glucose 85 mg/dL mg/dL (65-115) Calculated Osmolal ity 279 mOsm/kg L mOs m/kg (285-295) Calcium 10.0 mg/dL mg/dL (8.5-10.5) Discharge Plan Discharge Patient Disposition: Home Clinical Impression: Generalized weakness, Diarrhea, Nausea & vomiting, COVID Condition: Stable Prescriptions: New acetaminophen 500 mg tablet 500 mg PO Q6H PRN (Reason: pain) 5 Days Qty: 20 RF: 0 Pepcid 20 mg tablet 20 mg PO BID PRN (Reason: abdominal pain) 10 Days Qty: 20 RF: 0 Maalox Advanced 1,000-60 mg tablet,chewable 1 tab PO TID PRN (Reason: abdominal pain) 7 Days Qty: 21 RF: 0 Zofran 4 mg tablet 4 mg PO TID PRN (Reason: nausea and vomiting) 4 Days Qty: 12 RF: 0 No Action bupivacaine HCl 0.5 % (5 mg/mL) solution 10 ml intravesical ONCE Qty: 10 RF: 0 Solu-Cortef 100 mg recon soln 100 mg intravesical ONCE Qty: 1 RF: 0 gentamicin 40 mg/mL solution 80 mg intravesical ONCE Qty: 2 RF: 0 heparin (porcine) 5,000 unit/mL solution 10,000 unit intravesical ONCE Qty: 2 RF: 0 lidocaine (PF) 10 mg/mL (1 %) solution 10 ml intravesical ONCE Qty: 10 RF: 0 nitrofurantoin monohyd/m-cryst [Macrobid] 100 mg capsule 100 mg PO BID Qty: 20 RF: 0 omeprazole 20 mg capsule,delayed release(DR/EC) 40 mg PO DAILY RF: 0 buspirone 10 mg tablet 10 mg PO TID PRN (Reason: panic attacks) Qty: 52 RF: 0 acetaminophen [Tylenol] 325 mg Tablet 325 - 650 mg PO Q4H PRN (Reason: Pain) RF: 0 Discharge Orders: Discharge ED (Routine); Ordered 12/15/21 Ordered By: Anita Somers Referrals: Jagruti Mancera DO [Primary Care Provider] - Discharge Diet: Advance as tolerated Discharge Activity: Increase activity as tolerated Patient Instructions: COVID-19 (Coronavirus Disease 2019) (ED) Activity Restrictions/Additional Instructions: Come back to the emergency room if your symptoms worsen, have any shortness of breath, fever/chills, dehydration, inability tolerate p.o., any difficulty breathing, or any new or concerning complaints. Please return the emergency room if your pulse ox reads less than 88%. Coding Level of Care Code ED Fruit Picker Machine Operator for Kimmie Fwd Exam Comprehensive
[2021-12-15 17:54] VITALS: BP 135/90; PULSE 84; RESP 18; O2SAT 100
[2021-12-15 17:57] VITALS: O2SAT 100
[2021-12-15] MEDS: famotidine 20 mg/2 mL INJ IVP (18:13)
[2021-12-15] MEDS: acetaminophen 500 mg Tablet 1000 MG PO (18:13)
[2021-12-15] MEDS: lidocaine 2% viscous 15 ML, aluminum-mag hydrox-simethicon 30 ML, sucralfate oral liq 1 GM PO (18:30)
--- NOTE | 2021-12-15 18:42 | PC.NURSE ---
Pt provided water and crackers at this time.
[2021-12-15 18:49] VITALS: BP 103/78; PULSE 98; RESP 18; O2SAT 98
--- NOTE | 2021-12-17 16:00 | DCPLANNER ---
manager employee relations had message to schedule a follow up appointment for patient with primary care. manager employee relations called phone number [phone], unable to speak with patient at this time. manager employee relations left a voicemail for patient to return director of casework department phone call.
[2021-12-17 18:28] LABS: Quest SARS-CoV-2 RNA DETECTED (NOT DETECTED)
--- NOTE | 2021-12-18 15:45 | PC.NURSE ---
Left voicemail to return call to the ER .
--- NOTE | 2021-12-18 16:50 | PC.NURSE ---
Notified at [id number] of positive COVID test
== END 2021-12-15 18:55 | disposition home or self-care (01) ==
PROVIDERS: Nurse Practitioner Family; Emergency Provider Emergency Medicine; PCP Family Medicine
DX: U07.1 COVID-19 (principal); F17.210 Nicotine dependence, cigarettes, uncomplicated
CPT/HCPCS: 36415; 80048; 85025; 87635; 96361; 96374; 96375; 99284; J2405; J3490; J7030

== ENCOUNTER 2022-02-07 10:32 | Outpatient (CLI) | payer MEDICARE, SELFPAY ==
--- NOTE | 2022-02-07 10:46 | XR_ITS ---
WS: [id number] XR lumbar spine 2-3V* [id number] REASON FOR EXAM: Lumbar spine pain FINDINGS: Normal lumbar curvature in AP and lateral views. No significant compression deformity or other focal abnormality of the lumbar vertebrae. Intervertebral disc spaces are relatively well-preserved. There has been no significant interval change compared to the previous examination of 01/22/2016. XR/XR lumbar spine 2-3V* [id number] IMPRESSION: No significant abnormality.
== END 2022-02-07 10:33 | disposition home or self-care (01) ==
PROVIDERS: PCP Family Medicine; Visit Provider Nurse Practitioner Family
DX: M54.16 Radiculopathy, lumbar region (principal)
CPT/HCPCS: 72100

== ENCOUNTER 2022-03-15 19:23 | Emergency (ER) | payer MEDICARE, SELFPAY ==
[2022-03-15 19:30] VITALS: BP 115/73; PULSE 77; RESP 16; TEMP 36.9; O2SAT 98
[2022-03-15] MEDS: methylPREDNISolone (DEPO) 80 MG/ML INJ 1 mL IM (20:24)
[2022-03-15] MEDS: orphenadrine 30 mg/mL Inj 2 mL 60 MG IM (20:25)
--- NOTE | 2022-03-15 22:56 | ED_ITS ---
HPI - Back Pain/Injury General: Stated Complaint: lft leg pain/tingling from fall Time Seen by Provider: 03/15/22 19:36 History of Present Illness: Patient states that her sciatica has been aggravated from a fall that happened about a week or so ago. States she has pain that radiates to the left buttock down her leg. Denies any numbness or neurodeficits. Denies any bladder or bowel numbness. Is able to ambulate. Associated symptoms: Deny abdominal pain, chills, fever(s), nausea or vomiting Review of Systems Const: Denies: fever(s), chills or body aches Eyes: Denies: eye discomfort ENMT: Denies: throat pain Card: Denies: chest pain Resp: Denies: dyspnea GI: Denies: abdominal pain, nausea or vomiting Musc: Reports: back pain (Left leg sciatica suspect was worsened after fall recently. Denies joint p) Skin/Breast: Denies: rash Neuro: Denies: headache(s) Psych: Denies: depression or suicidal ideation PFS ED PFSH: Medical History Anxiety and depression Chronic interstitial cystitis Dyspareunia, female Fibromyalgia Gastroesophageal reflux Controlled with Prilosec Migraine headache Worse with systemic hormonal control Palpitations Followed by Dr. Auguste at [facility] Pelvic pain in female 08/23/2018: Patient is reporting having pain in her pelvic region similar to the pain she has when she has sex. This is unrelated to her menstrual cycles. Potential causes for pain in the pelvic area was discussed including gynecologic, urologic, gastrointestinal, musculoskeletal, and neurologic causes. Based upon description, I am suspicious for adhesions to be at least a part of her pain problems. The fibromyalgia may also be contributing to her pain. I am starting her on Elavil and attempt to treat her pain. She also wished proceed to a laparoscopic evaluation of her pain as well as to have her tubes tied at the same time. 09/23/2018: Reports overall improvement in her generalized pain with amitriptyline, but no significant improvement with the pelvic pain. 09/28/2018: Laparoscopy with lysis of adhesions and sterilization. Small area of omental adhesions found. No evidence of endometriosis seen. Smoking Stress incontinence Surgical History History of endometrial ablation (12/20/19) Hysteroscopy with NovaSure ablation. Performed by Dr. Rojo at [facility] [place]. S/P section (06/05/17) Low transverse section. Diagnosis: Cephalopelvic disproportion with normal size fetus. Performed by Dr. Edward Rojo at [facility] in [place], [place]. Patient had a low transverse incision with a 2 layer closure of the uterus. S/P cholecystectomy (~2006) Laparoscopic. Performed by Dr Kumar in [place], [place] S/P laparoscopic procedure (09/16/11) Diagnostic. Diag: Pelvic pain, Dyspareunia, Left lower quadrant pain. Performed by Dr. Edward Rojo at [facility] in [place], [place]. --- Operative report reviewed-no signs of endometriosis or adhesions identified. S/P tubal ligation (09/28/18) Laparoscopic complete salpingectomy for sterilization and lysis of adhesions. Diagnosis undesired fertility and chronic pelvic pain. Performed by Dr. Edward Rojo at [facility] in [place], [place]. Findings: Small area of omental adhesions. No evidence of endometriosis seen. Family History Father Hypertension Stroke Family/Other Colon cancer paternal aunt Grandfather Diabetes Maternal Grandmother Diabetes Paternal Stroke Paternal Social History Smoking and tobacco status: current every day smoker cigarettes Packs smoked per day: 1 Years cigarettes smoked: 12 [ Other cigarette details: /2-1 ppd. Started smoking age 15] Quit status (tobacco): has tried quititng Second hand smoke exposure: No Smoking risk assessment/counseling performed?: Yes Tobacco counseling given: provider counseling, support medications, support program and counseling >3 minutes Alcohol intake: never Desire information about substance/drug rehabilitation?: No Counseling given: Yes Type of substance drug use counseling provided: provider counseling and support program information Other substance/drug use counseling details: Medical marijuana use. Adopted: No Caregiver/support person: No Lives independently: No Household members: spouse Marital status: Current occupational status: unemployed Additional social history: poorly balanced diet Female Reproductive History: Date of last menstrual period: 12/20/19 Physical Exam Const: COMMON NORMALS: no acute distress, patient oriented x3 and alert HENMT: COMMON NORMALS: normocephalic and external ears normal HEAD & SCALP: normocephalic EXTERNAL EAR: Yes external ears normal Eye: COMMON NORMALS: EOMs intact bilaterally Neck/C-Spine: COMMON NORMALS: no JVD Resp: COMMON NORMALS: normal respiratory effort and No use of accessory muscles Cardio: COMMON NORMALS: no JVD GI: INSPECTION: Yes normal to inspection Back/Pelvis: OTHER: Tenderness left side low back along sciatic nerve notch down through thigh. Able to move foot and flex and extend without any difficulty. Extremity: COMMON NORMALS: normal to inspection and full ROM Neuro: COMMON NORMALS: patient oriented x3 SENSORIUM/ORIENTATION: Yes alert Psych: COMMON NORMALS: mental status grossly normal Skin: COMMON NORMALS: no rashes or lesions noted GENERAL SKIN EXAM: no rashes or lesions noted Course Vital Signs: Vital signs: Vital Signs Temperature 98.5 F 03/15/22 19:30 Pulse Rate 77 03/15/22 19:30 Respiratory Rate 16 03/15/22 19:30 Blood Pressure 115/73 03/15/22 19:30 Pulse Oximetry 98 03/15/22 19:30 MDM - Back Pain/Injury Medical Decision Making Left leg sciatica related and worsened by fall recently patient does not have any joint pain. Discharge Plan Discharge Patient Disposition: Home Clinical Impression: Sciatic pain Condition: Stable Prescriptions: New prednisone 20 mg tablet 20 mg PO DAILY Qty: 7 0RF No Action bupivacaine HCl 0.5 % (5 mg/mL) solution 10 ml intravesical ONCE Qty: 10 0RF Solu-Cortef 100 mg recon soln 100 mg intravesical ONCE Qty: 1 0RF gentamicin 40 mg/mL solution 80 mg intravesical ONCE Qty: 2 0RF heparin (porcine) 5,000 unit/mL solution 10,000 unit intravesical ONCE Qty: 2 0RF lidocaine (PF) 10 mg/mL (1 %) solution 10 ml intravesical ONCE Qty: 10 0RF Medical Marijuana PO 0RF albuterol sulfate 2.5 mg /3 mL (0.083 %) solution for nebulization 2.5 mg inhalation QID PRN (Reason: shortness of breath or wheezing) Qty: 75 0RF azithromycin 250 mg tablet See Rx Instructions PO .COMPLEX Qty: 6 0RF Rx Instructions: For 250 mg dose pack: take 500 mg today (day 1), then 250 mg for 4 days (days 2-5) PO pantoprazole [Protonix] 40 mg tablet,delayed release (DR/EC) 40 mg PO DAILY Qty: 30 0RF topiramate [Topamax] 50 mg tablet 25 mg PO DAILY Qty: 30 0RF Rx Instructions: Take 1/2 tablet for 1 week then increase to full tablet buspirone 10 mg tablet 10 mg PO TID PRN (Reason: panic attacks) 90 Days Qty: 156 0RF escitalopram oxalate [Lexapro] 10 mg tablet 10 mg PO DAILY Qty: 90 0RF Rx Instructions: 1/2 tablet daily for 1 week then whole tablet daily. acetaminophen [Tylenol] 325 mg Tablet 325 - 650 mg PO Q4H PRN (Reason: Pain) 0RF Discharge Orders: Discharge ED (Routine); Ordered 03/15/22 Ordered By: Andreas Thomas Referrals: Jagruti Mancera DO [Primary Care Provider] - Discharge Diet: Usual diet Discharge Activity: Increase activity as tolerated Patient Instructions: Sciatica (ED) Activity Restrictions/Additional Instructions: No heavy lifting. Keep appointment Thursday with your primary care provider. Apply ice and moist heat to low back as needed. Medication as prescribed. Coding Level of Care Code ED Rush Seater for Kimmie Fwbillie Exam Comprehensive
== END 2022-03-15 20:33 | disposition home or self-care (01) ==
PROVIDERS: Emergency Provider Nurse Practitioner Family; PCP Family Medicine
DX: M54.32 Sciatica, left side (principal); F17.210 Nicotine dependence, cigarettes, uncomplicated
CPT/HCPCS: 96372; 99283; J1040; J2360

== ENCOUNTER → 2022-03-18 00:01 | Outpatient (BNVA) | payer MEDICARE, SELFPAY | PROVIDERS: PCP Family Medicine; Visit Provider Nurse Practitioner Family | DX: M54.50 Low back pain, unspecified (principal); M79.606 Pain in leg, unspecified; N92.0 Excessive and frequent menstruation with regular cycle; L68.0 Hirsutism; R53.83 Other fatigue; Z13.1 Encounter for screening for diabetes mellitus; Z13.6 Encounter for screening for cardiovascular disorders; M79.7 Fibromyalgia | CPT/HCPCS: 80053; 80061; 82607; 82728; 82746; 83001; 83002; 83550; 84146; 84403; 84443 ==

== ENCOUNTER 2022-04-08 06:00 | Outpatient (RCR) | payer MEDICARE, SELFPAY | END 2022-04-22 23:59 | disposition home or self-care (01) | LOC: SPT 06:00 | PROVIDERS: PCP Family Medicine; Referring Provider Nurse Practitioner Family; Visit Provider Nurse Practitioner Family | DX: M54.50 Low back pain, unspecified (principal); M79.606 Pain in leg, unspecified | CPT/HCPCS: 97161 ==

== ENCOUNTER 2022-04-10 07:06 | Outpatient (CLI) | payer MEDICARE, SELFPAY ==
--- NOTE | 2022-04-10 07:18 | MR_ITS ---
WS: [id number] MRI BRAIN WITH AND WITHOUT CONTRAST HISTORY: G43.109 - Migraine with aura, not intractable COMPARISON: 02/28/2015 TECHNIQUE: Multiplanar imaging performed through the brain with MultiHance 15 ml's IV. No acute infarcts are seen. Askew-white matter differentiation is well preserved. No susceptibility artifacts or prior lacunar infarcts. Ventricles and extra-axial spaces are normal. Clivus and pituitary gland are normal. Visualized posterior fossa and brainstem are also normal. Postcontrast images are negative for masses or vascular malformations. Dural venous sinuses are normal. Paranasal sinuses: Well aerated with no significant disease. Mastoid air cells: Normal. Calvarium and scalp: Normal. MR/MR head wo/w con [id number] IMPRESSION: 1. Normal MRI brain with contrast. 2. No enhancing masses or prior infarcts.
== END 2022-04-10 07:07 | disposition home or self-care (01) ==
PROVIDERS: PCP Family Medicine; Visit Provider Nurse Practitioner Family
DX: G43.109 Migraine with aura, not intractable, without status migrainosus (principal)
CPT/HCPCS: 70553

== ENCOUNTER 2022-04-23 06:00 | Outpatient (RCR) | payer MEDICARE, SELFPAY | END 2022-05-22 23:59 | disposition home or self-care (01) | LOC: SPT 06:00 | PROVIDERS: PCP Family Medicine; Referring Provider Nurse Practitioner Family; Visit Provider Nurse Practitioner Family | DX: M54.50 Low back pain, unspecified (principal); M79.606 Pain in leg, unspecified | CPT/HCPCS: 97110 ==

== ENCOUNTER 2022-05-26 14:03 | Emergency (ER) | payer MEDICARE, SELFPAY ==
[2022-05-26 14:19] VITALS: BP 110/73; PULSE 80; RESP 16; TEMP 36.9; O2SAT 97; BMI 25.7
[2022-05-26 14:49] LABS: Basophils # 0.1 10^3/uL (0.0-0.1); Basophils % 0.7 %; Eosinophils # 0.2 10^3/uL (0.0-0.8); Eosinophils % 1.9 %; Hemoglobin 14.1 g/dL (11.5-15.3); Lymphocytes # 2.1 10^3/uL (0.8-4.8); Lymphocytes % 23.5 %; Mean Corpuscular HGB Conc 34.4 g/dL (30.0-36.0); Mean Corpuscular Hemoglobin 31.3 pg (28.0-34.0); Mean Corpuscular Volume 91.1 fl (81-99); Mean Platelet Volume 11.5 fL (7.4-10.4); Monocytes # 0.5 10^3/uL (0.2-0.9); Monocytes % 5.4 %; Neutrophils # 6.07 10^3/uL (1.8-7.7); Neutrophils % 68.1 %; Nucleated Red Blood Cells % 0 %; Platelet Count 287 10^3/cmm (130-400); Red Cell Distribution Width 13.5 % (12.1-15.1); White Blood Count 8.9 10^3/uL (4.0-10.0)
[2022-05-26 15:08] LABS: Alanine Aminotransferase 13 U/L (0-33); Albumin Level 4.1 g/dL (3.5-5.2); Alkaline Phosphatase 81 IU/L (35-105); Anion Gap 16.8 (5-19); Aspartate Amino Transferase 15 U/L (0-32); Blood Urea Nitrogen 7 mg/dL (6-20); Calcium 9.4 mg/dL (8.5-10.5); Carbon Dioxide 20 mmol/L (22-29); Chloride 104 mmol/L (98-107); Globulin 3.1 g/dL (1.3-4.6); Glomerular Filtration Rate 71.7 mL/min (90-130); Glucose 82 mg/dL (65-115); Osmolality Calculated 281 mOsm/kg (285-295); Potassium 3.8 mmol/L (3.5-5.1); Sodium 137 mmol/L (136-145); Total Bilirubin 0.2 mg/dL (0.15-1.2); Total Protein 7.2 g/dL (6.6-8.7)
[2022-05-26] MEDS: ketorolac 30 mg/mL INJ IVP (15:14)
[2022-05-26] MEDS: promethazine 25 mg/mL SDV 1 mL IM (15:15)
[2022-05-26] MEDS: valproic acid inj 500 MG in sodium chloride 0.9% 50 ML 55 MG IV (15:16)
[2022-05-26] MEDS: sodium chloride 0.9% 1,000 ML 999 ML IV (15:16)
--- NOTE | 2022-05-26 15:19 | ED_ITS ---
HPI - Headache General: Chief Complaint: Headache Stated Complaint: headache Time Seen by Provider: 05/26/22 14:34 Source: patient Mode of arrival: ambulatory Limitations: no limitations History of Present Illness: 36-year-old female presents emergency room complaining of migraine headache. States typical which she had in the past photophobia and autophobia straits [id number] Excedrin and Benadryl with no relief of pain. No recent head trauma. She does use triptans but she only gets so many per month and is already used a couple of her most recent prescription. She cannot really identify precipitating event. MD elicited complaint: headache Severity: mild Quality & Timing: throbbing Exacerbating factors: light and noise Relieving factors: nothing Associated symptoms: Reports malaise, nausea, photophobia and sound sensitivity; Deny chest pain, confusion, cough, diaphoresis, eye pain, eye redness, fever(s), lightheadedness, loss of vision, neck stiffness, numbness, paresthesias, pre- syncope, rash, seizures, short of breath, syncope or vomiting Treatments prior to arrival: acetaminophen, ibuprofen, prescription analgesic and migraine medication Review of Systems Const: Reports: malaise; Denies: fever(s), chills, fatigue or diaphoresis ENMT: Denies: throat pain, ear or mastoid pain, nasal discharge or nasal congestion Card: Denies: chest pain, lightheadedness, syncope or pre-syncope Resp: Denies: dyspnea, productive cough, non-productive cough or wheezing GI: Reports: nausea; Denies: abdominal pain, vomiting, hematemesis or coffee ground emesis : Denies: flank pain, difficulty voiding, dysuria, urinary frequency or urinary urgency Musc: Denies: neck pain Skin/Breast: Denies: rash Neuro: Reports: headache(s) and dizziness; Denies: confusion PFSH ED PFSH: Medical History Anxiety and depression Chronic interstitial cystitis Dyspareunia, female Fibromyalgia Gastroesophageal reflux Controlled with Prilosec Migraine headache Worse with systemic hormonal control Palpitations Followed by Dr. Auguste at [facility] Pelvic pain in female 08/23/2018: Patient is reporting having pain in her pelvic region similar to the pain she has when she has sex. This is unrelated to her menstrual cycles. Potential causes for pain in the pelvic area was discussed including gynecologic, urologic, gastrointestinal, musculoskeletal, and neurologic causes. Based upon description, I am suspicious for adhesions to be at least a part of her pain problems. The fibromyalgia may also be contributing to her pain. I am starting her on Elavil and attempt to treat her pain. She also wished proceed to a laparoscopic evaluation of her pain as well as to have her tubes tied at the same time. 09/23/2018: Reports overall improvement in her generalized pain with amitriptyline, but no significant improvement with the pelvic pain. 09/28/2018: Laparoscopy with lysis of adhesions and sterilization. Small area of omental adhesions found. No evidence of endometriosis seen. Smoking Stress incontinence Surgical History History of endometrial ablation (12/20/19) Hysteroscopy with NovaSure ablation. Performed by Dr. Rojo at [facility] [place]. S/P section (06/05/17) Low transverse section. Diagnosis: Cephalopelvic disproportion with normal size fetus. Performed by Dr. Edward Rojo at [facility] in [place], [place]. Patient had a low transverse incision with a 2 layer closure of the uterus. S/P cholecystectomy (~2006) Laparoscopic. Performed by Dr Kumar in [place], [place] S/P laparoscopic procedure (09/16/11) Diagnostic. Diag: Pelvic pain, Dyspareunia, Left lower quadrant pain. Performed by Dr. Edward Rojo at [facility] in [place], [place]. - -- Operative report reviewed-no signs of endometriosis or adhesions identified. S/P tubal ligation (09/28/18) Laparoscopic complete salpingectomy for sterilization and lysis of adhesions. Diagnosis undesired fertility and chronic pelvic pain. Performed by Dr. Edward Rojo at [facility] in [place], [place]. Findings: Small area of omental adhesions. No evidence of endometriosis seen. Family History Father Hypertension Stroke Family/Other Colon cancer paternal aunt Grandfather Diabetes Maternal Grandmother Diabetes Paternal Stroke Paternal Social History Smoking and tobacco status: current every day smoker cigarettes Packs smoked pe r day: 1 Years cigarettes smoked: 12 [ Other cigarette details: 1/2-1 ppd. Started smoking age 15] Quit status (tobacco): has tried quititng Second hand smoke exposure: No Smoking risk assessment/counseling performed?: Yes Tobacco counseling given: provider counseling, support medications, support program and counseling >3 minutes Alcohol intake: never Desire information about substance/drug rehabilitation?: No Counseling given: Yes Type of substance drug use counseling provided: provider counseling and support program information Other substance/drug use counseling details: Medical marijuana use. Adopted: No Caregiver/support person: No Lives independently: No Household members: spouse Marital status: Current occupational status: unemployed Additional social history: poorly balanced diet Female Reproductive History: Date of last menstrual period: 12/20/19 Physical Exam Const: GENERAL APPEARANCE: cooperative and comfortable ORIENTATION/CONSCI OUSNESS: Yes awake, Yes oriented to person, Yes oriented to place and Yes oriented to time HENMT: COMMON NORMALS: normocephalic, atraumatic and hearing grossly normal bilaterally HEAD & SCALP: normocephalic and atraumatic Eye: DIRECT OPHTHALMOSCOPY: Yes photophobia Neck/C-Spine: COMMON NORMALS: no JVD Resp: COMMON NORMALS: normal respiratory effort, No retractions, No use of accessory muscles and clear to auscultation bilaterally AUSCULTATION: clear to auscultation bilaterally Cardio: COMMON NORMALS: no JVD, regular rate, regular rhythm and No murmurs present (Cardio) RATE: regular rate RHYTHM: regular rhythm GI: COMMON NORMALS: Soft to palpation and No hepatosplenomegaly present AUSCULTATION: Yes normoactive bowel sounds PALPATION: Yes Soft to palpation, No Tenderness to palpation present (GI), No Guarding due to palpation present (GI) and Yes No hepatosplenomegaly present Extremity: COMMON NORMALS: normal to inspection, capillary refill normal, no clubbing, cyanosis or edema, no calf tenderness and no pedal edema Neuro: SENSORIUM/ORIENTATION: Yes oriented to person, Yes oriented to place and Yes oriented to time Skin: COMMON NORMALS: no rashes or lesions noted GENERAL SKIN EXAM: no rashes or lesions noted Course Vital Signs: Vital signs: Vital Signs Temperature 98.4 F 05/26/22 14:19 Pulse Rate 80 05/26/22 14:19 Respiratory Rate 16 05/26/22 14:19 Blood Pressure 110/73 05/26/22 14:19 Pulse Oximetry 97 05/26/22 14:19 MDM - Headache Medical Decision Making Headache improved with medicines and fluids given. Discharge patient home. She can use promethazine to treat prescribed today in addition to the Relpax for as needed for headache cessation. She has follow-up with neurology scheduled encouraged her to keep that. Medical Records I reviewed the patient's medical records. Lab Data I reviewed the patient's lab results. : 05/26/22 14:45 05/26/22 14:45 Laboratory Results WBC 8.9 10^3/uL (4.0-10.0) 05/26/22 14:45 RBC 4.50 10^6/uL (4.1-5.3) 05/26/22 14:45 Hgb 14.1 g/dL (11.5-15.3) 05/26/22 14:45 Hct 41.0 % (37.0-47.0) 05/26/22 14:45 MCV 91.1 fl (81-99) 05/26/22 14:45 MCH 31.3 pg (28.0-34.0) 05/26/22 14:45 MCHC 34.4 g/dL (30.0-36.0) 05/26/22 14:45 RDW 13.5 % (12.1-15.1) 05/26/22 14:45 Plt Count 287 10^3/cmm (130-400) 05/26/22 14:45 MPV 11.5 fL (7.4-10.4) H 05/26/22 14:45 Neut % (Auto) 68.1 % 05/26/22 14:45 Lymph % (Auto) 23.5 % 05/26/22 14:45 Hudspeth % (Auto) 5.4 % 05/26/22 14:45 Eos % (Auto) 1.9 % 05/26/22 14:45 Baso % (Auto) 0.7 % 05/26/22 14:45 Neut # (Auto) 6.07 10^3/uL (1.8-7.7) 05/26/22 14:45 Lymph # (Auto) 2.1 10^3/uL (0.8-4.8) 05/26/22 14:45 Hudspeth # (Auto) 0.5 10^3/uL (0.2-0.9) 05/26/22 14:45 Eos # (Auto) 0.2 10^3/uL (0.0-0.8) 05/26/22 14:45 Baso # (Auto) 0.1 10^3/uL (0.0-0.1) 05/26/22 14:45 Nucleated RBC % (auto) 0 % 05/26/22 14:45 Nucleated RBCs # 0.0 /100WBC 05/26/22 14:45 Sodium 137 mmol/L (136-145) 05/26/22 14:45 Potassium 3.8 mmol/L (3.5-5.1) 05/26/22 14:45 Chloride 104 mmol/L (98-107) 05/26/22 14:45 Carbon Dioxide 20 mmol/L (22-29) L 05/26/22 14:45 Anion Gap 16.8 (5-19) 05/26/22 14:45 BUN 7 mg/dL (6-20) 05/26/22 14:45 Creatinine 0.9 mg/dL (0.5-0.9) 05/26/22 14:45 GFR Calculation 71.7 mL/min (90-130) L 05/26/22 14:45 Glucose 82 mg/dL (65-115) 05/26/22 14:45 Calculated Osmolality 281 mOsm/kg (285-295) L 05/26/22 14:45 Calcium 9.4 mg/dL (8.5-10.5) 05/26/22 14:45 Total Bilirubin 0.2 mg/dL (0.15-1.2) 05/26/22 14:45 AST 15 U/L (0-32) 05/26/22 14:45 ALT 13 U/L (0-33) 05/26/22 14:45 Alkaline Phosphatase 81 IU/L (35-105) 05/26/22 14:45 Total Protein 7.2 g/dL (6.6-8.7) 05/26/22 14:45 Albumin 4.1 g/dL (3.5-5.2) 05/26/22 14:45 Globulin 3.1 g/dL (1.3-4.6) 05/26/22 14:45 Discharge Plan Discharge Patient Disposition: Home Clinical Impression: Migraine with aura Condition: Stable Prescriptions: New promethazine 25 mg tablet 25 mg PO Q6H PRN (Reason: nausea/headache) Qty: 20 0RF No Action bupivacaine HCl 0.5 % (5 mg/mL) solution 10 ml intravesical ONCE Qty: 10 0RF Solu-Cortef 100 mg recon soln 100 mg intravesical ONCE Qty: 1 0RF heparin (porcine) 5,000 unit/mL solution 10,000 unit intravesical ONCE Qty: 2 0RF lidocaine (PF) 10 mg/mL (1 %) solution 10 ml intravesical ONCE Qty: 10 0RF Medical Marijuana PO 0RF rosuvastatin [Crestor] 20 mg tablet 20 mg PO DAILY Qty: 90 3RF escitalopram oxalate 20 mg tablet 20 mg PO DAILY Qty: 90 3RF topiramate [Topamax] 50 mg tablet 25 mg PO DAILY Qty: 30 1RF Rx Instructions: 1 tablet at bedtime. rizatriptan 10 mg tablet See Rx Instructions PO .COMPLEX Qty: 10 0RF Rx Instructions: take 1 tab at onset of headache; if no relief may repeat 1 tab after at least 2 hrs; max = 3 tabs/24 hr PO buspirone 15 mg tablet 15 mg PO TID Qty: 90 0RF lactulose 10 gram/15 mL (15 mL) solution 20 g PO TID PRN (Reason: constipation) Qty: 600 0RF Rx Instructions: Take every 8 hours until stooling regularly then as needed. cyclobenzaprine 5 mg tablet 5 mg PO Q8H 5 Days Qty: 15 0RF pantoprazole [Protonix] 40 mg tablet,delayed release (DR/EC) 40 mg PO DAILY Qty: 30 3RF cannabidiol 100 mg/mL solution PO 0RF acetaminophen [Tylenol] 325 mg Tablet 325 - 650 mg PO Q4H PRN (Reason: Pain) 0RF Discharge Orders: Discharge ED (Routine); Ordered 05/26/22 Ordered By: Vipin Tinoco Referrals: Jazmyne Pastor FNP-C [Primary Care Provider] - Discharge Diet: Usual diet Discharge Activity: Increase activity as tolerated Patient Instructions: Opioid Safety Activity Restrictions/Additional Instructions: Follow-up with your primary care doctor as needed. Coding Level of Care Code ED Domestic Helper for Chg Fwd Exam Comprehensive
== END 2022-05-26 17:08 | disposition home or self-care (01) ==
PROVIDERS: Emergency Provider Family Medicine; PCP Nurse Practitioner Family
DX: G43.109 Migraine with aura, not intractable, without status migrainosus (principal); F17.210 Nicotine dependence, cigarettes, uncomplicated
CPT/HCPCS: 80053; 85025; 96372; 96374; 96375; 99284; J1885; J2550; J7030

== ENCOUNTER 2022-06-01 08:33 | Emergency (ER) | payer MEDICARE, SELFPAY ==
[2022-06-01] VITALS (9 sets, daily range): BP systolic 97–135; BP diastolic 61–87; PULSE 60–79; RESP 14–24; TEMP 36.3; O2SAT 97–100; BMI 27.4
--- NOTE | 2022-06-01 09:05 | W.ED.ABDPA2 ---
HPI - Abdominal Pain General: Chief Complaint: Abdominal Pain Stated Complaint: n/v Time Seen by Provider: 06/01/22 08:40 History of Present Illness: Ms. Watkins is a 36-year-old lady with complex past medical history presents to the emergency department due to nausea, vomiting, diarrhea and abdominal pain. Patient reports few week history of constipation for which she tried [id number] medications. Started last night she began having severe epigastric abdominal pain associated with greater than 10 episodes of nonbilious and nonbloody emesis associated with near constant liquid bowel movements. Sharp and aching in quality. Moderate to severe in intensity. Overall course of symptoms has persisted. No other specific changes in health, exacerbating, or alleviating factors identified. Onset (ago): day(s) Pain Consistency: constant Location: Epigastric Severity: moderate Exacerbating factors: eating Associated Symptoms: Reports diarrhea, nausea and vomiting Related Data: Date of Last Menstrual Period: 12/20/19 Review of Systems General: Reports: 10 or more systems reviewed and unremarkable except in HPI and below GI: Reports: nausea, vomiting and diarrhea [facility] PFSH: Medical History Anxiety and depression Chronic interstitial cystitis Dyspareunia, female Fibromyalgia Gastroesophageal reflux Controlled with Prilosec Migraine headache Worse with systemic hormonal control Palpitations Followed by Dr. Auguste at [facility] [place] [facility] Pelvic pain in female 08/23/2018: Patient is reporting having pain in her pelvic region similar to the pain she has when she has sex. This is unrelated to her menstrual cycles. Potential causes for pain in the pelvic area was discussed including gynecologic, urologic, gastrointestinal, musculoskeletal, and neurologic causes. Based upon description, I am suspicious for adhesions to be at least a part of her pain problems. The fibromyalgia may also be contributing to her pain. I am starting her on Elavil and attempt to treat her pain. She also wished proceed to a laparoscopic evaluation of her pain as well as to have her tubes tied at the same time. 09/23/2018: Reports overall improvement in her generalized pain with amitriptyline, but no significant improvement with the pelvic pain. 09/28/2018: Laparoscopy with lysis of adhesions and sterilization. Small area of omental adhesions found. No evidence of endometriosis seen. Salmonella Smoking Stress incontinence Surgical History History of endometrial ablation (12/20/19) Hysteroscopy with NovaSure ablation. Performed by Dr. Rojo at [facility]. S/P section (06/05/17) Low transverse section. Diagnosis: Cephalopelvic disproportion with normal size fetus. Performed by Dr. Edward Rojo at [facility] [place] [facility] in [place], [place]. Patient had a low transverse incision with a 2 layer closure of the uterus. S/P cholecystectomy (~2006) Laparoscopic. Performed by Dr Kumar in [place], [place] S/P laparoscopic procedure (09/16/11) Diagnostic. Diag: Pelvic pain, Dyspareunia, Left lower quadrant pain. Performed by Dr. Edward Rojo at [facility] [place] [facility] in [place], [place]. --- Operative report reviewed-no signs of endometriosis or adhesions identified. S/P tubal ligation (09/28/18) Laparoscopic complete salpingectomy for sterilization and lysis of adhesions. Diagnosis undesired fertility and chronic pelvic pain. Performed by Dr. Edward Rojo at [facility] [place] [facility] in [place], [place]. Findings: Small area of omental adhesions. No evidence of endometriosis seen. Family History Father Hypertension Stroke Family/Other Colon cancer paternal aunt Grandfather Diabetes Maternal Grandmother Diabetes Paternal Stroke Paternal Social History Smoking and tobacco status: current every day smoker cigarettes Packs smoked per day: 1 Years cigarettes smoked: 12 [ Other cigarette details: /2-1 ppd. Started smoking age 15] Quit status (tobacco): has tried quititng Second hand smoke exposure: No Smoking risk assessment/counseling performed?: Yes Tobacco counseling given: provider counseling, support medications, support program and counseling >3 minutes Alcohol intake: never Desire information about substance/drug rehabilitation?: No Counseling given: Yes Type of substance drug use counseling provided: provider counseling and support program information Other substance/drug use counseling details: Medical marijuana use. Adopted: No Caregiver/support person: No Lives independently: No Household members: spouse Marital status: Current occupational status: unemployed Additional social history: poorly balanced diet Female Reproductive History: Date of last menstrual period: 12/20/19 Physical Exam Const: COMMON NORMALS: alert GENERAL APPEARANCE: cooperative and well developed HENMT: COMMON NORMALS: normocephalic and atraumatic HEAD & SCALP: normocephalic and atraumatic THROAT: posterior oropharynx normal Eye: COMMON NORMALS: conjunctivae normal CONJUNCTIVA: Yes conjunctivae normal SCLERA: sclerae normal Neck/C-Spine: COMMON NORMALS: supple GENERAL: Yes trachea midline Resp: COMMON NORMALS: normal respiratory effort and clear to auscultation bilaterally EFFORT & INSPECTION: Yes able to speak in complete sentences AUSCULTATION: clear to auscultation bilaterally Cardio: COMMON NORMALS: regular rate and regular rhythm RATE: regular rate RHYTHM: regular rhythm GI: COMMON NORMALS: Soft to palpation PALPATION: Yes Soft to palpation, Yes Tenderness to palpation present (GI), No Guarding due to palpation present (GI) and No Rigid due to palpation PERCUSSION: normal to percussion Extremity: GENERAL: Yes normal exam except as noted and No edema Neuro: COMMON NORMALS: moves all extremities SENSORIUM/ORIENTATION: Yes alert and No Orientation impaired Psych: COMMON NORMALS: mental status grossly normal and Normal thought process present THOUGHT PROCESS: Normal thought process present Course ED course: - Patient was seen and evaluated by me at bedside - Patient placed on cardiac monitors, IV access obtained - Initial evaluation notable for exam as above - Labs personally interpreted by me - Fluids, analgesia, and antiemeticgiven - Labs notable for leukocytosis, mild hemoconcentration. Metabolic panel with evidence of dehydration. Urinalysis without evidence of urinary tract infection. - Imaging notable for mild dilated, fluid-filled loops of small bowel with liquid stool in the colon. - Upon serial reexamination after treatment the patient was improved - Based on patient history, evaluation, and testing as interpreted the most likely cause of the patient's condition is nonspecific enteritis - The results of ED evaluation were discussed with the patient including prescriptions and/or symptomatic cares (if applicable) including appropriate and responsible use, followup plan, and return precautions. The patient verbalized understanding and felt safe for discharge. - Patient discharged in satisfactory condition. Note: Click bubbles or prepopulated ag in note writing are used for assistance with data collection and billing and are inherently more limited than narrative and other text portions of this note. Please use narrative for additional clinical history and defer to narrative/free test for any case of contradictory information. If information appears in only free text or click bubble it should be considered present or absent as reported. Please contact note telegraphic typewriter installer for clarifications of clinical information or contradictory information. MDM is a brief summary, contradictory or erroneous seeming information should be clarified and full note should be reviewed. Vital Signs: Vital signs: Vital Signs Temperature 97.3 F L 06/01/22 09:00 Pulse Rate 76 06/01/22 14:17 Respiratory Rate 14 06/01/22 14:17 Blood Pressure 101/71 06/01/22 14:17 Pulse Oximetry 98 06/01/22 14:17 MDM - Abdominal Pain Medical Decision Making 36-year-old lady presenting with abdominal pain. Labs notable for likely dehydration. CT with nonspecific enteritis. Improved with treatment and able to tolerate p.o. intake. Satisfactory for outpatient management. Medical Records I reviewed the patient's medical records. Lab Data I reviewed the patient's lab results. : 06/01/22 09:10 06/01/22 10:08 Labs/Radiology: Radiology Impressions Abdomen/Pelvis CT 06/01/22 09:32 IMPRESSION: 1. Nondilated, fluid-filled loops of small bowel with liquefied stool in the colon. Gastroenteritis could produce this appearance. 2. Additional findings, as above. Laboratory Results WBC 26.8 10^3/uL (4.0-10.0) H 06/01/22 09:10 RBC 5.37 10^6/uL (4.1-5.3) H 06/01/22 09:10 Hgb 16.8 g/dL (11.5-15.3) H 06/01/22 09:10 Hct 49.9 % (37.0-47.0) H 06/01/22 09:10 MCV 92.9 fl (81-99) 06/01/22 09:10 MCH 31.3 pg (28.0-34.0) 06/01/22 09:10 MCHC 33.7 g/dL (30.0-36.0) 06/01/22 09:10 RDW 13.6 % (12.1-15.1) 06/01/22 09:10 Plt Count 391 10^3/cmm (130-400) 06/01/22 09:10 MPV 11.5 fL (7.4-10.4) H 06/01/22 09:10 Neut % (Auto) 91.5 % 06/01/22 09:10 Lymph % (Auto) 3.5 % 06/01/22 09:10 [place] % (Auto) 3.6 % 06/01/22 09:10 Eos % (Auto) 0.2 % 06/01/22 09:10 Baso % (Auto) 0.4 % 06/01/22 09:10 Neut # (Auto) 24.49 10^3/uL (1.8-7.7) H 06/01/22 09:10 Lymph # (Auto) 0.9 10^3/uL (0.8-4.8) 06/01/22 09:10 [place] # (Auto) 1.0 10^3/uL (0.2-0.9) H 06/01/22 09:10 Eos # (Auto) 0.1 10^3/uL (0.0-0.8) 06/01/22 09:10 Baso # (Auto) 0.1 10^3/uL (0.0-0.1) 06/01/22 09:10 Nucleated RBC % (auto) 0 % 06/01/22 09:10 Nucleated RBCs # 0.0 /100WBC 06/01/22 09:10 Sodium 137 mmol/L (136-145) 06/01/22 10:08 Potassium 4.0 mmol/L (3.5-5.1) 06/01/22 10:08 Chloride 104 mmol/L (98-107) 06/01/22 10:08 Carbon Dioxide 21 mmol/L (22-29) L 06/01/22 10:08 Anion Gap 16.0 (5-19) 06/01/22 10:08 BUN 11 mg/dL (6-20) 06/01/22 10:08 Creatinine 0.8 mg/dL (0.5-0.9) 06/01/22 10:08 GFR Calculation 82.1 mL/min (90-130) L 06/01/22 10:08 Glucose 140 mg/dL (65-115) H 06/01/22 10:08 Calculated Osmolality 286 mOsm/kg (285-295) 06/01/22 10:08 Lactate 2.1 mmol/L (0.5-2.2) 06/01/22 09:10 Calcium 9.1 mg/dL (8.5-10.5) 06/01/22 10:08 Total Bilirubin 0.6 mg/dL (0.15-1.2) 06/01/22 10:08 AST 15 U/L (0-32) 06/01/22 10:08 ALT 17 U/L (0-33) 06/01/22 10:08 Alkaline Phosphatase 86 IU/L (35-105) 06/01/22 10:08 Total Protein 7.4 g/dL (6.6-8.7) 06/01/22 10:08 Albumin 4.4 g/dL (3.5-5.2) 06/01/22 10:08 Globulin 3.0 g/dL (1.3-4.6) 06/01/22 10:08 Lipase 10 U/L (13-60) L 06/01/22 10:08 HCG, Qual Negative (Negative) 06/01/22 10:50 Urine Color Dark yellow (Yellow) 06/01/22 10:50 Urine Appearance Clear (CLEAR) 06/01/22 10:50 Urine pH 8 (5-7) H 06/01/22 10:50 Ur Specific Dennis 1.015 (1.005-1.030) 06/01/22 10:50 Urine Protein Neg (Negative) 06/01/22 10:50 Urine Glucose (UA) Norm (Normal) 06/01/22 10:50 Urine Ketones 3+ (Negative) H 06/01/22 10:50 Urine Blood Neg (Negative) 06/01/22 10:50 Urine Nitrate Negative (Negative) 06/01/22 10:50 Urine Bilirubin Neg (Negative) 06/01/22 10:50 Prot Sulfosalicylic Acd Negative (Negative) 06/01/22 10:50 Urine Urobilinogen Norm mg/dL (Negative) 06/01/22 10:50 Ur Leukocyte Esterase Trace (Negative) H 06/01/22 10:50 Urine RBC None /hpf (0-2) 06/01/22 10:50 Urine WBC 0-4 /hpf (0-5) H 06/01/22 10:50 Ur Squamous Epith Cells 0-4 /hpf (0-5) H 06/01/22 10:50 Amorphous Sediment Not Reportable 06/01/22 10:50 Urine Bacteria Trace /hpf (NONE) 06/01/22 10:50 Discharge Plan Discharge Patient Disposition: Home Clinical Impression: Abdominal pain, Enteritis, Dehydration Condition: Stable Prescriptions: New ondansetron 4 mg tablet,disintegrating 4 mg PO Q8H PRN (Reason: nausea and vomiting) Qty: 15 0RF No Action Medical Marijuana See Rx Instructions .ROUTE .COMPLEX 0RF Rx Instructions: as directed as needed promethazine 25 mg tablet 25 mg PO Q6H PRN (Reason: nausea/headache) Qty: 20 0RF rizatriptan 10 mg tablet See Rx Instructions PO .COMPLEX PRN (Reason: Headache) 0RF Rx Instructions: take 1 tab at onset of headache; if no relief may repeat 1 tab after at least 2 hrs; max = 3 tabs/24 hr PO buspirone 15 mg tablet 15 mg PO TID PRN (Reason: Anxiety) 0RF topiramate [Topamax] 50 mg tablet 50 mg PO BEDTIME 0RF amitriptyline 25 mg tablet 25 mg PO BEDTIME 0RF escitalopram oxalate [Lexapro] 20 mg Tablet 40 mg PO BEDTIME 0RF rosuvastatin 20 mg tablet 20 mg PO QAM 0RF Protonix 40 mg tablet,delayed release (DR/EC) 40 mg PO QAM 0RF Discharge Orders: Discharge ED (Routine); Ordered 06/01/22 Ordered By: Jaron Carney Referrals: Jazmyne Pastor FNP-C [Primary Care Provider] - Discharge Diet: Advance as tolerated and Clear Liquid Patient Instructions: Dehydration (ED), Acute Nausea and Vomiting (ED), Acute Diarrhea (ED), Abdominal Pain (ED), Opioid Safety Activity Restrictions/Additional Instructions: Thank you for visiting the emergency department. You were seen and evaluated for nausea, vomiting, and diarrhea as well as abdominal pain. The exact cause of your symptoms is unclear however as discussed most likely viral in nature. We are pleased that you had improvement in symptoms. Laboratory studies did show dehydration and significant elevation in white blood cell count. I recommend repeat laboratory studies in 1 week to ensure that values have normalized. Please follow-up with your primary care provider. Return to the emergency department for worsening symptoms or anything else that you are concerned about and feel needs emergency department evaluation. Coding Level of Care Code ED Backup Engineer for Kimmie White
[2022-06-01 09:17] LABS: Basophils # 0.1 10^3/uL (0.0-0.1); Basophils % 0.4 %; Eosinophils # 0.1 10^3/uL (0.0-0.8); Eosinophils % 0.2 %; Hematocrit 49.9 % (37.0-47.0); Hemoglobin 16.8 g/dL (11.5-15.3); Lymphocytes # 0.9 10^3/uL (0.8-4.8); Lymphocytes % 3.5 %; Mean Corpuscular HGB Conc 33.7 g/dL (30.0-36.0); Mean Corpuscular Hemoglobin 31.3 pg (28.0-34.0); Mean Corpuscular Volume 92.9 fl (81-99); Mean Platelet Volume 11.5 fL (7.4-10.4); Monocytes % 3.6 %; Neutrophils # 24.49 10^3/uL (1.8-7.7); Neutrophils % 91.5 %; Nucleated Red Blood Cells % 0 %; Platelet Count 391 10^3/cmm (130-400); Red Blood Count 5.37 10^6/uL (4.1-5.3); Red Cell Distribution Width 13.6 % (12.1-15.1); White Blood Count 26.8 10^3/uL (4.0-10.0)
[2022-06-01] MEDS: ondansetron 2 mg/ML SDV 2 mL 4 MG IVP ×2 (09:17→10:36)
[2022-06-01] MEDS: lactated ringers 1,000 ML 999 ML IV (09:17)
--- NOTE | 2022-06-01 09:32 | CTR_ITS ---
PROCEDURE INFORMATION: Exam: CT Abdomen And Pelvis With Contrast Exam date and time: 06/01/2022 11:51 AM Age: 36 years old Clinical indication: Nausea and vomiting; Abdominal pain; Epigastric; Prior surgery; Surgery type: Gb; Additional info: N/v/d, epigastric pain TECHNIQUE: Imaging protocol: Computed tomography of the abdomen and pelvis with contrast. Axial, coronal and sagittal reformatted images were created and reviewed. Radiation optimization: All CT scans at this facility use at least one of these dose optimization techniques: automated exposure control; mA and/or kV adjustment per patient size (includes targeted exams where dose is matched to clinical indication); or iterative reconstruction. Contrast material: OMNI 350; Contrast volume: 95 ml; Contrast route: INTRAVENOUS (IV); COMPARISON: CT abdomen pelvis wo con [id number] 08/26/2020 4:47 PM RADIATION DOSE METRICS: Total DLP (mGy-cm): 980.63 FINDINGS: Diaphragm: Small hiatal hernia. Liver: Unremarkable. Gallbladder and bile ducts: Status post cholecystectomy. No biliary ductal dilatation. Pancreas: Unremarkable. Spleen: Unremarkable. Adrenal glands: Normal. No mass. Kidneys and ureters: No mass. No radiodense calculi. No hydronephrosis. Stomach and bowel: Nondilated, fluid-filled loops of small bowel with liquefied stool in the colon. No definite bowel wall thickening. No obstruction. No pneumatosis. Appendix: Normal. Intraperitoneal space: No free fluid. No organized fluid collection. No free air. Vasculature: Unremarkable. No aneurysm. Lymph nodes: No pathologically enlarged lymph nodes. Urinary bladder: Unremarkable as visualized. Reproductive: Unremarkable. Bones/joints: No acute osseous abnormality. Soft tissues: Unremarkable. CT/CT abdomen pelvis w con* [id number] IMPRESSION: 1. Nondilated, fluid-filled loops of small bowel with liquefied stool in the colon. Gastroenteritis could produce this appearance. 2. Additional findings, as above.
[2022-06-01 09:37] LABS: Lactate (Lactic Acid level) 2.1 mmol/L (0.5-2.2)
[2022-06-01] MEDS: fentaNYL 50 mcg/mL INJ 2mL IVP ×2 (10:01→11:41)
[2022-06-01 10:36] LABS: Alanine Aminotransferase 17 U/L (0-33); Albumin Level 4.4 g/dL (3.5-5.2); Alkaline Phosphatase 86 IU/L (35-105); Aspartate Amino Transferase 15 U/L (0-32); Blood Urea Nitrogen 11 mg/dL (6-20); Calcium 9.1 mg/dL (8.5-10.5); Carbon Dioxide 21 mmol/L (22-29); Chloride 104 mmol/L (98-107); Glomerular Filtration Rate 82.1 mL/min (90-130); Glucose 140 mg/dL (65-115); Lipase 10 U/L (13-60); Osmolality Calculated 286 mOsm/kg (285-295); Sodium 137 mmol/L (136-145); Total Bilirubin 0.6 mg/dL (0.15-1.2); Total Protein 7.4 g/dL (6.6-8.7)
[2022-06-01 11:26] LABS: Urine Appearance Clear (CLEAR); Urine Color Dark Yellow (Yellow)
[2022-06-01 11:27] LABS: Specific Gravity, Urine 1.015 (1.005-1.030); pH Urine 8 (5-7)
[2022-06-01 11:28] LABS: Add Urine Microscopic? YES; Bilirubin Urine Neg (Negative); Blood Urine Neg (Negative); Glucose Urine UA Norm (Normal); Ketones Urine 3+ (Negative); Leukocyte Esterase Urine Trace (Negative); Nitrate Urine Negative (Negative); Protein Urine Neg (Negative); Urobilinogen Urine Norm (Negative); WBC Urine 0-4 /hpf (0-5)
[2022-06-01 11:29] LABS: Add Urine Culture? No; Bacteria Urine TRACE /hpf; HCG Qualitative Urine. Negative (Negative); Squamous Epithelial Cell Urine 0-4 /hpf (0-5); Sulfosalicylic Acid Urine Negative (Negative)
[2022-06-01] MEDS: sodium chloride 0.9% 1,000 ML 999 ML IV (11:40)
[2022-06-01] MEDS: metoclopramide 5 mg/mL SDV 2 mL 10 MG IVP (11:41)
[2022-06-01] MEDS: iohexol 350 mg/mL 100 mL Btl IV (12:02)
== END 2022-06-01 14:20 | disposition home or self-care (01) ==
PROVIDERS: Emergency Provider Emergency Medicine; PCP Nurse Practitioner Family
DX: K52.9 Noninfective gastroenteritis and colitis, unspecified (principal); E86.0 Dehydration; F17.210 Nicotine dependence, cigarettes, uncomplicated
CPT/HCPCS: 74177; 80053; 81001; 81025; 83605; 83690; 85025; 96361; 96374; 96375; 96376; 99285; J2405; J2765; J3010; J7030; Q9967

== ENCOUNTER 2022-06-01 17:44 | Observation (INO) | payer MEDICARE, SELFPAY ==
[2022-06-01 18:09] VITALS: BP 105/65; PULSE 70; RESP 15; TEMP 37.5; O2SAT 98; BMI 27.4
--- NOTE | 2022-06-01 18:25 | ED_ITS ---
HPI - Abdominal Pain General: Chief Complaint: Abdominal Pain Stated Complaint: ABD PAIN Time Seen by Provider: 06/01/22 17:52 Source: patient History of Present Illness: 36-year-old female who was seen here at 9:00 this morning. She presented with abdominal pain, vomiting and diarrhea. She evidently was given the choice of admission, due to her gastroenteritis, but decided to go home instead. Upon coming home, she had 5 more episodes of emesis and several more episodes of diarrhea. She presents with continued left upper quadrant pain vomiting and diarrhea. No fever. MD elicited complaint: abdominal pain Pertinent past history: other Onset (ago): hour(s) Location: Epigastric and LUQ Severity: moderate Quality: stabbing and aching Radiation: none Migration to: no migration Exacerbating factors: eating, bowel movement and vomiting Associated Symptoms: Reports anorexia, diarrhea, loose stools, nausea and vomiting; Denies dysuria, fever(s), hematochezia and hematemesis Related Data: Date of Last Menstrual Period: 12/20/19 Review of Systems Const: Denies: fever(s) Card: Denies: chest pain Resp: Denies: dyspnea, productive cough or non-productive cough GI: Reports: nausea, vomiting and diarrhea; Denies: hematemesis or hematochezia : Denies: dysuria Skin/Breast: Denies: rash PFSH ED PFSH: Medical History Anxiety and depression Chronic interstitial cystitis Dyspareunia, female Fibromyalgia Gastroesophageal reflux Controlled with Prilosec Migraine headache Worse with systemic hormonal control Palpitations Followed by Dr. Auguste at [facility] Pelvic pain in female 08/23/2018: Patient is reporting having pain in her pelvic region similar to the pain she has when she has sex. This is unrelated to her menstrual cycles. Potential causes for pain in the pelvic area was discussed including gynecologic, urologic, gastrointestinal, musculoskeletal, and neurologic causes. Based upon description, I am suspicious for adhesions to be at least a part of her pain problems. The fibromyalgia may also be contributing to her pain. I am starting her on Elavil and attempt to treat her pain. She al so wished proceed to a laparoscopic evaluation of her pain as well as to have her tubes tied at the same time. 09/23/2018: Reports overall improvement in her generalized pain with amitriptyline, but no significant improvement with the pelvic pain. 09/28/2018: Laparoscopy with lysis of adhesions and sterilization. Small area of omental adhesions found. No evidence of endometriosis seen. Smoking Stress incontinence Surgical History History of endometrial ablation (12/20/19) Hysteroscopy with NovaSure ablation. [place]jo [place] [facility] S/P section (06/05/17) Low transverse section. Diagnosis: Cephalopelvic disproportion with normal size fetus. Performed by Dr. Edward Rojo at [facility] in [place], [place]. Patient had a low transverse incision with a 2 layer closure of the uterus. S/P cholecystectomy (~2006) Laparoscopic. Performed by Dr Kumar in [place], [place] S/P laparoscopic procedure (09/16/11) Diagnostic. Diag: Pelvic pain, Dyspareunia, Left lower quadrant pain. Performed by Dr. Edward Rojo at [facility] in [place], [place]. --- Operative report reviewed-no signs of endometriosis or adhesions identified. S/P tubal ligation (09/28/18) Laparoscopic complete salpingectomy for sterilization and lysis of adhesions. Diagnosis undesired fertility and chronic pelvic pain. Performed by Dr. Edward Rojo at [facility] in [place], [place]. Findings: Small area of omental adhesions. No evidence of endometriosis seen. Family History Father Hypertension Stroke Family/Other Colon cancer paternal aunt Grandfather Diabetes Maternal Grandmother Diabetes Paternal Stroke Paternal Social History Smoking and tobacco status: current every day smoker cigarettes Packs smoked per day: 1 Years cigarettes smoked: 12 [ Other cigarette details: /2-1 ppd. Started smoking age 15] Quit status (tobacco): has tried quititng Second hand smoke exposure: No Smoking risk assessment/counseling performed?: Yes Tobacco counseling given: provider counseling, support medications, support program and counseling >3 minutes Alcohol intake: never Desire information about substance/drug rehabilitation?: No Counseling given: Yes Type of substance drug use counseling provided: provider counseling and support program information Other substance/drug use counseling details: Medical marijuana use. Adopted: No Caregiver/support person: No Lives independently: No Household members: spouse Marital status: Current occupational status: unemployed Additional social history: poorly balanced diet Female Reproductive History: Date of last menstrual period: 12/20/19 Physical Exam Const: GENERAL APPEARANCE: cooperative and ill appearing HENMT: COMMON NORMALS: normocephalic and atraumatic HEAD & SCALP: normocephalic and atraumatic FACE & SINUS: normal facial exam and face symmetric Eye: COMMON NORMALS: Equal, round and reactive pupils present and EOMs intact bilaterally PUPIL: Yes Equal, round and reactive pupils present Resp: COMMON NORMALS: normal respiratory effort, No use of accessory muscles and clear to auscultation bilaterally AUSCULTATION: clear to auscultation bilaterally Cardio: COMMON NORMALS: regular rate and regular rhythm RATE: regular rate RHYTHM: regular rhythm GI: COMMON NORMALS: Normal to inspection, nondistended, normoactive bowel sounds present and Soft to palpation PALPATION: Yes Soft to palpation and Yes Tenderness to palpation present (GI) (Positive bed shake tenderness) Details: LUQ Extremity: COMMON NORMALS: normal to inspection and no pedal edema Neuro: BRIANDA COMA SCALE: document GCS findings Hamlet coma scale eye opening: Spontaneous Ham[place] coma scale verbal response: Orientated Ham[place] coma scale motor response: Obey commands Brianda coma scale total score: 15 Course Consultations: Consultation #1: Bj Vital Signs: Vital signs: Vital Signs Temperature 99.5 F 06/01/22 18:09 Pulse Rate 70 06/01/22 18:09 Respiratory Rate 15 06/01/22 18:09 Blood Pressure 105/65 06/01/22 18:09 Pulse Oximetry 98 06/01/22 18:09 MDM - Abdominal Pain Medical Decision Making 36-year-old female here earlier with abdominal pain vomiting and diarrhea. Pre sents again with the same symptoms. She failed treatment as an outpatient at home. Labs are pending. She is receiving 2 L bolus here Pressures are 90s over 40s. This is despite 2 L bolus. She will be observed for rehydration, correction of hypotension. Hospitalist seeing patient in the ER. Lab Data : 06/01/22 17:28 06/01/22 17:28 Labs/Radiology: Laboratory Results WBC 18.2 10^3/uL (4.0-10.0) H 06/01/22: RBC 4.81 10^6/uL (4.1-5.3) 06/01/22: Hgb 15.0 g/dL (11.5-15.3) 06/01/22: Hct 43.0 % (37.0-47.0) 06/01/22: MCV 89.4 fl (81-99) 06/01/22: MCH 31.2 pg (28.0-34.0) 06/01/22 MCHC 34.9 g/dL (30.0-36.0) 06/01/22 RDW 13.4 % (12.1-15.1) 06/01/22 Plt Count 306 10^3/cmm (130-400) 06/01/22 MPV 12.4 fL (7.4-10.4) H 06/01/22: Neut % (Auto) 94.5 % 06/01/22: Lymph % (Auto) 2.8 % 06/01/22: [place] % (Auto) 2.1 % 06/01/22: Eos % (Auto) 0.0 % 06/01/22 Baso % (Auto) 0.2 % 06/01/22 Neut # (Auto) 17.14 10^3/uL (1.8-7.7) H 06/01/22: Lymph # (Auto) 0.5 10^3/uL (0.8-4.8) L 06/01/22: [place] # (Auto) 0.4 10^3/uL (0.2-0.9) 06/01/22: Eos # (Auto) 0.0 10^3/uL (0.0-0.8) 06/01/22: Baso # (Auto) 0.0 10^3/uL (0.0-0.1) 06/01/22: Nucleated RBC % (auto) 0 % 06/01/22: Nucleated RBCs # 0.0 /100WBC 07/10/22 17:28 Sodium 138 mmol/L (136-145) 06/01/22 17:28 Potassium 3.4 mmol/L (3.5-5.1) L 06/01/22 17: Chloride 104 mmol/L (98-107) 06/01/22 17:28 Carbon Dioxide 18 mmol/L (22-29) L 06/01/22 17:28 Anion Gap 19.4 (5-19) H 06/01/22 17:28 BUN 11 mg/dL (6-20) 06/01/22 17: Creatinine 0.9 mg/dL (0.5-0.9) 06/01/22 17:28 GFR Calculation 71.7 mL/min (90-130) L 06/01/22: Glucose 104 mg/dL (65-115) 06/01/22 17: Calculated Osmolality 286 mOsm/kg (285-295) 06/01/22 17: Calcium 9.6 mg/dL (8.5-10.5) 06/01/22: Magnesium 1.7 mg/dL (1.7-2.3) 06/01/22 17: Total Bilirubin 0.6 mg/dL (0.15-1.2) 06/01/22 17: AST 15 U/L (0-32) 06/01/22 17: ALT 17 U/L (0-33) 06/01/22 17:28 Alkaline Phosphatase 97 IU/L (35-105) 06/01/22 17: C-Reactive Protein 20.1 mg/L (0.0-4.9) H 06/01/22 17:28 Total Protein 7.6 g/dL (6.6-8.7) 06/01/22 17: Albumin 4.6 g/dL (3.5-5.2) 06/01/22 17: Globulin 3.0 g/dL (1.3-4.6) 06/01/22 17: Lipase 9 U/L (13-60) L 06/01/22 17:28 Discharge Plan Discharge Condition: Stable Prescriptions: No Action bupivacaine HCl 0.5 % (5 mg/mL) solution 10 ml intravesical ONCE Qty: 10 0RF Solu-Cortef 100 mg recon soln 100 mg intravesical ONCE Qty: 1 0RF heparin (porcine) 5,000 unit/mL solution 10,000 unit intravesical ONCE Qty: 2 0RF lidocaine (PF) 10 mg/mL (1 %) solution 10 ml intravesical ONCE Qty: 10 0RF Medical Marijuana PO 0RF rosuvastatin [Crestor] 20 mg tablet 20 mg PO DAILY Qty: 90 3RF escitalopram oxalate 20 mg tablet 20 mg PO DAILY Qty: 90 3RF topiramate [Topamax] 50 mg tablet 25 mg PO DAILY Qty: 30 1RF Rx Instructions: 1 tablet at bedtime. rizatriptan 10 mg tablet See Rx Instructions PO .COMPLEX Qty: 10 0RF Rx Instructions: take 1 tab at onset of headache; if no relief may repeat 1 tab after at least 2 hrs; max = 3 tabs/24 hr PO buspirone 15 mg tablet 15 mg PO TID Qty: 90 0RF lactulose 10 gram/15 mL (15 mL) solution 20 g PO TID PRN (Reason: constipation) Qty: 600 0RF Rx Instructions: Take every 8 hours until stooling regularly then as needed. cyclobenzaprine 5 mg tablet 5 mg PO Q8H 5 Days Qty: 15 0RF pantoprazole [Protonix] 40 mg tablet,delayed release (DR/EC) 40 mg PO DAILY Qty: 30 3RF cannabidiol 100 mg/mL solution PO 0RF acetaminophen [Tylenol] 325 mg Tablet 325 - 650 mg PO Q4H PRN (Reason: Pain) 0RF ondansetron 4 mg tablet,disintegrating 4 mg PO Q8H PRN (Reason: nausea and vomiting) Qty: 15 0RF promethazine 25 mg tablet 25 mg PO Q6H PRN (Reason: nausea/headache) Qty: 20 0RF Referrals: Jazmyne Pastor, [employer] [employer] [Primary Care Provider] - Coding Level of Care Code ED Car Parker for Chg Fwd Exam Comprehensive
[2022-06-01 18:30] LABS: Basophils % 0.2 %; Lymphocytes # 0.5 10^3/uL (0.8-4.8); Lymphocytes % 2.8 %; Mean Corpuscular HGB Conc 34.9 g/dL (30.0-36.0); Mean Corpuscular Hemoglobin 31.2 pg (28.0-34.0); Mean Corpuscular Volume 89.4 fl (81-99); Mean Platelet Volume 12.4 fL (7.4-10.4); Monocytes # 0.4 10^3/uL (0.2-0.9); Monocytes % 2.1 %; Neutrophils # 17.14 10^3/uL (1.8-7.7); Neutrophils % 94.5 %; Nucleated Red Blood Cells % 0 %; Platelet Count 306 10^3/cmm (130-400); Red Blood Count 4.81 10^6/uL (4.1-5.3); Red Cell Distribution Width 13.4 % (12.1-15.1); White Blood Count 18.2 10^3/uL (4.0-10.0)
[2022-06-01 18:41] LABS: Alanine Aminotransferase 17 U/L (0-33); Albumin Level 4.6 g/dL (3.5-5.2); Alkaline Phosphatase 97 IU/L (35-105); Anion Gap 19.4 (5-19); Aspartate Amino Transferase 15 U/L (0-32); Blood Urea Nitrogen 11 mg/dL (6-20); C Reactive Protein 20.1 mg/L (0.0-4.9); Calcium 9.6 mg/dL (8.5-10.5); Carbon Dioxide 18 mmol/L (22-29); Chloride 104 mmol/L (98-107); Glomerular Filtration Rate 71.7 mL/min (90-130); Glucose 104 mg/dL (65-115); Lipase 9 U/L (13-60); Magnesium 1.7 mg/dL (1.7-2.3); Osmolality Calculated 286 mOsm/kg (285-295); Potassium 3.4 mmol/L (3.5-5.1); Sodium 138 mmol/L (136-145); Total Bilirubin 0.6 mg/dL (0.15-1.2); Total Protein 7.6 g/dL (6.6-8.7)
[2022-06-01] MEDS: ondansetron 2 mg/ML SDV 2 mL 4 MG IVP ×2 (19:05→22:43)
[2022-06-01] MEDS: metoclopramide 5 mg/mL SDV 2 mL 10 MG IVP (19:06)
[2022-06-01] MEDS: sodium chloride 0.9% 1,000 ML 999 ML IV ×2 (19:06→19:42)
[2022-06-01] MEDS: HYDROmorphone 1 mg/mL INJ 1 mL 0.5 MG IVP (19:06)
[2022-06-01] MEDS: metroNIDAZOLE IV 500 MG/100 ML PREMIX 100 MG IV (20:27)
--- NOTE | 2022-06-01 21:28 | P.HP_ITS ---
Providers/Chief Complaint Primary Care Provider: ALEJA Varghese Chief Complaint: ABD PAIN History of Present Illness Pleasant 36-year-old lady returns to ER after earlier visit this morning due to nausea vomiting and diarrhea since last night. She had previously struggled with constipation for a while, had taken stool softeners previously without success, got a prescription for lactulose, but has not yet picked it up. Last n ight had a bowel movement, subsequently with multiple episodes of nausea vomiting and diarrhea. Some epigastric abdominal pain, some left lower quadrant abdominal pain. Was assessed by CT scanning on earlier visit with finding of fluid-filled nondilated loops of small bowel with liquid stool in the colon. Initially wanted to try recovering at home, vomited additional 5 times, with also persistent diarrhea, returned back to the hospital unable to keep anything down. Here is also noted to have soft blood pressure, lowest mean 63 mmHg. Low-grade temp 99.5, leukocytosis 18.2. Hypokalemia, potassium 3.4. Lipase not elevated. Denies any recent antibiotics. Lives at home with her and children, they have not been ill. Recently there was a boil order [place] water [place] the city, she reports getting a fountain drink on Thursday, although by that time it seems we will order was been lifted. She occasionally takes naproxen, also has been taking Excedrin for headaches. She reports a smoker's cough. Review of Systems Const: Denies: fever(s), chills, body aches or malaise Eyes: Denies: change in vision, eye discomfort or eye redness ENMT: Denies: throat pain, oral sores or ear or mastoid pain Card: Denies: chest pain, edema, pre-syncope or dyspnea on exertion Resp: Denies: dyspnea, productive cough, change in phlegm color or hemoptysis GI: Reports: abdominal pain, nausea, vomiting and diarrhea; Denies: constipation, hematochezia or melena : Denies: flank pain, urinary frequency or hematuria Musc: Denies: back pain, joint swelling or joint redness Skin/Breast: Denies: rash or new lesions Neuro: Denies: headache(s), numbness in extremities, weakness in extremities, dizziness, confusion or seizure-like activity Endo: Denies: polyuria or polydipsia [place]/Lymph: Denies: easy bleeding or tender lymph nodes All/Imm: Denies: urticaria or tongue swelling Medications/Allergies Home Medications Medication Instructions Recorded Confirmed Last Taken Type acetaminophen 325 mg tablet 325 - 650 mg PO Q4H PRN 07/14/20 05/23/22 08/21/20 History (Tylenol) Medical Marijuana PO 01/14/22 05/23/22 Unknown History rosuvastatin 20 mg tablet (Crestor) 20 mg PO DAILY #90 tab 03/19/22 05/23/22 Unknown Rx pantoprazole 40 mg tablet,delayed 40 mg PO DAILY #30 tab 03/28/22 05/23/22 Unknown Rx release (Protonix) cannabidiol 100 mg/mL oral solution PO 04/08/22 05/23/22 Unknown History cyclobenzaprine 5 mg tablet 5 mg PO Q8H 5 Days #15 tab 04/28/22 05/23/22 Unknown Rx buspirone 15 mg tablet 15 mg PO TID #90 tab 05/23/22 05/23/22 Unknown Rx escitalopram oxalate 20 mg tablet 20 mg PO DAILY #90 tab 05/23/22 05/23/22 Unknown Rx lactulose 10 gram/15 mL (15 mL) 20 g (30 mL) PO TID PRN #600 ml 05/23/22 05/23/22 Unknown Rx oral solution rizatriptan 10 mg tablet See Rx Instructions PO .COMPLEX 05/23/22 05/23/22 Unknown Rx #10 tab topiramate 50 mg tablet (Topamax) 25 mg PO DAILY #30 tab 05/23/22 05/23/22 Unknown Rx promethazine 25 mg tablet 25 mg PO Q6H PRN #20 tab 05/26/22 Unknown Rx ondansetron 4 mg disintegrating 4 mg PO Q8H PRN #15 tab 06/01/22 Unknown Rx tablet Allergies Allergy/AdvReac Type Severity Reaction Status Date / Time celecoxib [From Celebrex] Allergy Intermediate ALGY-Rash Verified 05/23/22 09:59 cephalexin [From Keflex] Allergy Swelling, Verified 05/23/22 09:59 bright red face and felt like she was on fire hydrocodone Allergy Rash Verified 05/23/22 09:59 [From Panlor (hydrocodone-acetamin)] ibuprofen Allergy Rash, Verified 05/23/22 09:59 swelling, difficulty breathing latex Allergy Rash, Verified 05/23/22 09:59 bleeding levofloxacin [From Levaquin] Allergy Rash Verified 05/23/22 09:59 liraglutide [From Victoza] Allergy Dizziness, Verified 05/23/22 09:59 stomach pain metformin Allergy Stomach Verified 05/23/22 09:59 pain Penicillins Allergy Difficulty Verified 05/23/22 09:59 breathing band-aid Allergy Morgan skin Uncoded 05/23/22 09:59 PFSH Acute PFSH: Medical History Anxiety and depression Chronic interstitial cystitis Dyspareunia, female Fibromyalgia Gastroesophageal reflux Controlled with Prilosec Migraine headache Worse with systemic hormonal control Palpitations Followed by Dr. Auguste at [facility] Pelvic pain in female 08/23/2018: Patient is reporting having pain in her pelvic region similar to the pain she has when she has sex. This is unrelated to her menstrual cycles. Potential causes for pain in the pelvic area was discussed including gynecologic, urologic, gastrointestinal, musculoskeletal, and neurologic causes. Based upon description, I am suspicious for adhesions to be at least a part of her pain problems. The fibromyalgia may also be contributing to her pain. I am starting her on Elavil and attempt to treat her pain. She also wished proceed to a laparoscopic evaluation of her pain as well as to have her tubes tied at the same time. 09/23/2018: Reports overall improvement in her generalized pain with amitriptyline, but no significant improvement with the pelvic pain. 09/28/2018: Laparoscopy with lysis of adhesions and sterilization. Small area of omental adhesions found. No evidence of endometriosis seen. Smoking Stress incontinence Surgical History History of endometrial ablation (12/20/19) Hysteroscopy with NovaSure ablation. Performed [place]. Rojo [place] [facility] [place] S/P section (06/05/17) Low transverse section. Diagnosis: Cephalopelvic disproportion with normal size fetus. Performed by Dr. Edward Rojo at [facility] in [place], [place]. Patient had a low transverse incision with a 2 layer closure of the uterus. S/P cholecystectomy (~2006) Laparoscopic. Performed by Dr Kumar in [place], [place] S/P laparoscopic procedure (09/16/11) Diagnostic. Diag: Pelvic pain, Dyspareunia, Left lower quadrant pain. Performed by Dr. Edward Rojo at [facility] in [place], [place]. --- Operative report reviewed-no signs of endometriosis or adhesions identified. S/P tubal ligation (09/28/18) Laparoscopic complete salpingectomy for sterilization and lysis of adhesions. Diagnosis undesired fertility and chronic pelvic pain. Performed by Dr. Edward Rojo at [facility] in [place], [place]. Findings: Small area of omental adhesions. No evidence of endometriosis seen. Family History Father Hypertension Stroke Family/Other Colon cancer paternal aunt Grandfather Diabetes Maternal Grandmother Diabetes Paternal Stroke Paternal Social History Smoking and tobacco status: current every day smoker cigarettes Packs smoked per day: 1 Years cigarettes smoked: 12 [ Other cigarette details: 2-1 ppd. Started smoking age 15] Quit status (tobacco): has tried quititng Second hand smoke exposure: No Smoking risk assessment/counseling performed?: Yes Tobacco counseling given: provider counseling, support medications, support program and counseling >3 minutes Alcohol intake: never Desire information about substance/drug rehabilitation?: No Counseling given: Yes Type of substance drug use counseling provided: provider counseling and support program information Other substance/drug use counseling details: Medical marijuana use. Adopted: No Caregiver/support person: No Lives independently: No Household members: spouse Marital status: Current occupational status: unemployed Additional social history: poorly balanced diet Female Reproductive History: Date of last menstrual period: 12/20/19 Vitals/I&O/Wt Last Vital Signs Temp 99.5 F 06/01/22 18:09 Pulse 70 06/01/22 18:09 Resp 15 06/01/22 18:09 BP 105/65 06/01/22 18:09 Pulse Ox 98 06/01/22 18:09 06/01/22 06/01/22 06/01/22 06:59 14:59 22:59 Intake Total 1000 / 1000 Balance 1000 / 1000 Weight last 48 hrs Weight 72.575 kg Physical Exam Const: COMMON NORMALS: alert GENERAL APPEARANCE: cooperative ORIENTATION/CONSCIOUSNESS: Yes awake HENMT: COMMON NORMALS: normocephalic, EAC's normal, Normal external nose present and moist oral mucous membranes HEAD & SCALP: normocephalic NOSE: Normal external nose present EXTERNAL AUDITORY CANAL: EAC's normal Neck/C-Spine: COMMON NORMALS: no meningeal signs Chest: CHEST: Yes Symmetrical chest wall rise Resp: COMMON NORMALS: clear to auscultation bilaterally AUSCULTATION: clear to auscultation bilaterally Cardio: COMMON NORMALS: regular rate, regular rhythm and No murmurs present (Cardio) RATE: regular rate RHYTHM: regular rhythm GI: COMMON NORMALS: Normal to inspection, nondistended, normoactive bowel sounds present and Soft to palpation PALPATION: Yes Soft to palpation and Yes Tenderness to palpation present (GI) Details: LLQ and other (Epigastrium) Extremity: COMMON NORMALS: no pedal edema Neuro: COMMON NORMALS: moves all extremities SENSORIUM/ORIENTATION: Yes alert MENINGEAL SIGNS: Yes no meningeal signs Psych: COMMON NORMALS: mental status grossly normal Skin: COMMON NORMALS: no wounds RASHES: no rashes Data : 06/01/22 17:28 06/01/22 17:28 A&P Assessment and plan (1) Enteritis: Multiple episodes of nausea, vomiting, diarrhea, unable to keep down food or drink or medications. Return to the hospital with dehydration, hypotension. Hypokalemia. Does not yet appear to have ANDREA, but there was no noted urine output in ER. Received a fluid bolus. Will need to assess renal function. Continue IV hydration. Denies any recent antibiotics. [facility] recently. Does not remember whether she may have had untreated water somewhere. Had fountain drink but it was on Thursday after bowel order was lifted. Denies and children being ill at home. Stool studies requested including C. difficile, culture, ova and parasites, WBC and occult blood. Rapid COVID-19 antigen is negative. For now empirically continue Flagyl. She has reported allergy to Levaquin with rash. Discussed with her consideration of ciprofloxacin, she is agreeable to trial of ciprofloxacin while she is in the hospital. Antiemetics as needed. Continue PPI. CLD if tolerates. Status: Acute (2) Dehydration: Continue IV hydration. Follow-up renal function. Monitor blood pressures. Status: Acute (3) Hypotension: Reports normal systolic blood pressures running 120s-130s. In ER systolic blood pressure as low as 89. Received a fluid bolus. Continue continuous infusion for now. Additional boluses may be needed. Status: Acute (4) Abdominal pain: Epigastric and left lower quadrant. Secondary to gastroenteritis. Continue PPI . Additional assessment as above. Intermittently takes NSAIDs, discussed to exercise caution with naproxen, Excedrin. Status: Acute (5) Hypokalemia: Replace. Check magnesium and replace if needed. Status: Acute (6) Leukocytosis: 18.2, secondary to enteritis, nausea, vomiting. Does not appear to show signs of aspiration currently. Low-grade temp 99.5. COVID-19 respiratory negative. Additional assessment and management as above. Monitor for any changes in s ymptoms. Status: Acute Plan History of anxiety depression Chronic interstitial cystitis Fibromyalgia Migraine headaches GERD Smoking addiction: Encourage cessation. Requested home medications to be confirmed, please reconcile once they are updated. Attestations Medical Necessity Statement*: Place in observation for additional assessment management of enteritis, dehydration, hypocondition, inability to tolerate oral food or drink or medications. Coding Level of Care Code Acute C.O.D. Biller for g Fwd Exam Comprehensive Diagnoses Enteritis K52.9 Dehydration E86.0 Hypotension I95.9 Abdominal pain R10.9 Hypokalemia E87.6 Leukocytosis D72.829
[2022-06-01 21:33] LABS: SARS Covid-2 Antigen Negative (Negative)
[2022-06-01 21:45] VITALS: BP 94/42; PULSE 70; RESP 16; O2SAT 97
[2022-06-01 21:48] VITALS: BP 96/57; PULSE 61; RESP 18; TEMP 37.1; O2SAT 98
[2022-06-01] MEDS: pantoprazole 40 mg SDV IVP (22:42)
[2022-06-01] MEDS: lactated ringers 1,000 ML 100 ML IV (22:42)
[2022-06-01] MEDS: heparin 5,000 unit/mL INJ 1 mL 5000 UNIT SUBCUT (22:51)
[2022-06-01] MEDS: acetaminophen 325 mg Tablet 650 MG PO (22:51)
[2022-06-01] MEDS: ciprofloxacin 400 MG/200 ML PREMIX 200 MG IV (22:51)
[2022-06-02] VITALS: BP 97/57; PULSE 60; RESP 17; TEMP 36.9; O2SAT 96
[2022-06-02] MEDS: lidocaine 1% 5 ML in potassium chloride premix 100 ML 50 ML IV (00:29)
[2022-06-02] MEDS: escitalopram 10 mg Tablet 40 MG PO (00:43)
[2022-06-02] MEDS: amitriptyline 25 mg Tablet PO (00:44)
[2022-06-02] MEDS: topiramate 25 mg Tablet PO (00:44)
[2022-06-02] MEDS: metroNIDAZOLE IV 500 MG/100 ML PREMIX 100 MG IV ×2 (03:55→12:14)
[2022-06-02 03:59] LABS: Basophils % 0.3 %; Eosinophils % 0.2 %; Hematocrit 36.5 % (37.0-47.0); Hemoglobin 11.8 g/dL (11.5-15.3); Lymphocytes # 1.4 10^3/uL (0.8-4.8); Lymphocytes % 11.4 %; Mean Corpuscular HGB Conc 32.3 g/dL (30.0-36.0); Mean Corpuscular Hemoglobin 31.1 pg (28.0-34.0); Mean Corpuscular Volume 96.1 fl (81-99); Mean Platelet Volume 12.6 fL (7.4-10.4); Monocytes # 0.7 10^3/uL (0.2-0.9); Monocytes % 5.6 %; Neutrophils # 9.84 10^3/uL (1.8-7.7); Neutrophils % 82.2 %; Nucleated Red Blood Cells % 0 %; Platelet Count 236 10^3/cmm (130-400); Red Cell Distribution Width 13.8 % (12.1-15.1)
[2022-06-02 04:00] VITALS: BP 99/58; PULSE 57; RESP 17; TEMP 36.9; O2SAT 97
[2022-06-02 04:27] LABS: Alanine Aminotransferase 11 U/L (0-33); Albumin Level 3.3 g/dL (3.5-5.2); Alkaline Phosphatase 64 IU/L (35-105); Anion Gap 13.9 (5-19); Aspartate Amino Transferase 10 U/L (0-32); Blood Urea Nitrogen 7 mg/dL (6-20); Calcium 8.1 mg/dL (8.5-10.5); Carbon Dioxide 19 mmol/L (22-29); Chloride 110 mmol/L (98-107); Globulin 2.1 g/dL (1.3-4.6); Glomerular Filtration Rate 82.1 mL/min (90-130); Glucose 76 mg/dL (65-115); Magnesium 1.9 mg/dL (1.7-2.3); Osmolality Calculated 285 mOsm/kg (285-295); Potassium 3.9 mmol/L (3.5-5.1); Sodium 139 mmol/L (136-145); Total Bilirubin 0.3 mg/dL (0.15-1.2); Total Protein 5.4 g/dL (6.6-8.7)
[2022-06-02] MEDS: heparin 5,000 unit/mL INJ 1 mL 5000 UNIT SUBCUT (05:57)
[2022-06-02 06:28] LABS: Add Urine Microscopic? NO; Charge for UA Resulting for Rev
[2022-06-02 06:44] LABS: Bilirubin Urine Neg (Negative); Blood Urine Neg (Negative); Glucose Urine UA Norm (Normal); Ketones Urine 1+ (Negative); Leukocyte Esterase Urine Negative (Negative); Nitrate Urine Negative (Negative); Protein Urine Neg (Negative); Urine Appearance Clear (CLEAR); Urine Color Yellow (Yellow); Urobilinogen Urine Norm (Negative); pH Urine 7 (5-7)
--- NOTE | 2022-06-02 07:22 | PC.PHAR ---
pt states she takes care of her own medications-pt states the dr increased her lexapro to 40mg hs (ext shows last filled 05/23/22 30d/s for 20mg daily) and decreased her amitriptyline to 25mg hs (ext shows last filled 04/28/22 30d/s for 50mg hs) last week-pt states she a heparin flush and lidocaine syringe at home states she hasnt used in months-pt states she has no inhalers -ext med history shows a albuterol 0.083% filled for a nebulizer machine on 02/16/22 pt states she no longer has or uses-notes are made in the pharmacy comments
[2022-06-02 07:59] VITALS: BP 107/67; PULSE 65; RESP 17; TEMP 37.1; O2SAT 98
[2022-06-02] MEDS: acetaminophen 325 mg Tablet 650 MG PO (10:01)
[2022-06-02] MEDS: ondansetron 2 mg/ML SDV 2 mL 4 MG IVP (10:02)
[2022-06-02] MEDS: lactated ringers 1,000 ML 100 ML IV (10:02)
[2022-06-02] MEDS: atorvastatin 40 mg Tablet 80 MG PO (10:03)
[2022-06-02] MEDS: ciprofloxacin 400 MG/200 ML PREMIX 100 MG IV (10:03)
[2022-06-02 12:00] VITALS: BP 100/65; PULSE 62; RESP 17; TEMP 36.7; O2SAT 98
--- NOTE | 2022-06-02 13:58 | PM.DCS ---
Discharge Providers Date of Admission: 06/01/22 20:17 Date of Discharge: June 02, 2022 Attending Provider at Admission: Cody Lorenzo Attending Provider at Discharge: Ankur Hills MD Primary Care Provider: ALEJA Varghese Diagnoses at Discharge Discharge Diagnosis (1) Enteritis: Status: Acute (2) Dehydration: Status: Acute (3) Hypotension: Status: Acute (4) Abdominal pain: Status: Acute (5) Hypokalemia: Status: Acute (6) Leukocytosis: Status: Acute Reason for Visit Reason for Visit: ABD PAIN Brief History: Pleasant 36-year-old lady with past medical history of Salmonella infection in 2019, anxiety and depression who was in the ER earlier today morning returns to ER due to nausea vomiting and diarrhea since last night.? She had previously struggled with constipation for a while, had taken stool softeners previously without success, got a prescription for lactulose, but has not yet picked it up.? Last night had a bowel movement, subsequently with multiple episodes of nausea vomiting and diarrhea.? Some epigastric abdominal pain, some left lower quadrant abdominal pain.? Was assessed by CT scanning on earlier visit with finding of fluid-filled nondilated loops of small bowel with liquid stool in the colon. Initially wanted to try recovering at home, vomited additional 5 times, with also persistent diarrhea, returned back to the hospital unable to keep anything down.? Here is also noted to have soft blood pressure, lowest mean 63 mmHg. Low-grade temp 99.5, leukocytosis 18.2.? Hypokalemia, potassium 3.4.? Lipase not elevated. Denies any recent antibiotics.? Lives at home with her and children, they have not been ill.? Recently there was a boil order for water in the city, she reports getting a fountain drink on Thursday, although by that time it seems we will order was been lifted. Hospital Course Hospital Course Patient was admitted to the hospital for further evaluation and management of nausea, vomiting, diarrhea. On admission patient was found to be dehydrated along with borderline soft blood pressures. She was treated with IV hydration. Her blood pressures improved along with resolution of dehydration. It is believed patient's symptoms are most likely secondary to excessive laxative intake at home. Patient did not have any further of diarrhea while hospitalized along with resolution of vomiting as well. Because patient did not have any further bowel movement stool studies could not be done. She has been discharged hemodynamically stable condition with advised to continue taking bowel regimen with milk of magnesia and senna Colace along with as needed lactulose. She is advised to have stool studies done to rule out Salmonella carrier. She is advised to maintain her hydration with at least 2 to 3 L of liquid daily. Physical Exam Const: COMMON NORMALS: alert GENERAL APPEARANCE: cooperative ORIENTATION/CONSCIOUSNESS: Yes awake HENMT: COMMON NORMALS: normocephalic, EAC's normal, Normal external nose present and moist oral mucous membranes HEAD & SCALP: normocephalic NOSE: Normal external nose present EXTERNAL AUDITORY CANAL: EAC's normal Neck/C-Spine: COMMON NORMALS: no meningeal signs Chest: CHEST: Yes Symmetrical chest wall rise Resp: COMMON NORMALS: clear to auscultation bilaterally AUSCULTATION: clear to auscultation bilaterally Cardio: COMMON NORMALS: regular rate, regular rhythm and No murmurs present (Cardio) RATE: regular rate RHYTHM: regular rhythm GI: COMMON NORMALS: Normal to inspection, nondistended, normoactive bowel sounds present and Soft to palpation PALPATION: Yes Soft to palpation and Yes Tenderness to palpation present (GI) Extremity: COMMON NORMALS: no pedal edema Neuro: COMMON NORMALS: moves all extremities SENSORIUM/ORIENTATION: Yes alert MENINGEAL SIGNS: Yes no meningeal signs Psych: COMMON NORMALS: mental status grossly normal Skin: COMMON NORMALS: no wounds RASHES: no rashes Discharge Data Studies Completed and Pending Pending at discharge Category Date Time Status Clostridioides Difficile PCR Routine Lab 06/01/22 20:11 Uncollected Complete Blood Count w/Auto AM LABS Lab 06/03/22 04:00 Ordered Complete Blood Count w/Auto AM LABS Lab 06/04/22 04:00 Ordered Comprehensive Metabolic Panel AM LABS Lab 06/03/22 04:00 Ordered Comprehensive Metabolic Panel AM LABS Lab 06/04/22 04:00 Ordered Occult Blood Stool [Immunochemical Fecal OCB] Routine Lab 06/01/22 20:11 Uncollected Stool Culture, Bacterial [Enteric Bacterial Panel by Lab 06/01/22 20:11 Uncollected PCR] Routine WBC Stool [Lactoferrin] Routine Lab 06/01/22 20:11 Uncollected stool Ova and Parasite [Enteric Parasite Panel by PCR] Lab 06/01/22 20:11 Uncollected Routine Laboratory Results WBC 12.0 10^3/uL (4.0-10.0) H 06/02/22 02:18 RBC 3.80 10^6/uL (4.1-5.3) L 06/02/22 02:18 Hgb 11.8 g/dL (11.5-15.3) 06/02/22 02:18 Hct 36.5 % (37.0-47.0) L 06/02/22 02:18 MCV 96.1 fl (81-99) D 06/02/22 02:18 MCH 31.1 pg (28.0-34.0) 06/02/22 02:18 MCHC 32.3 g/dL (30.0-36.0) D 06/02/22 02:18 RDW 13.8 % (12.1-15.1) 06/02/22 02:18 Plt Count 236 10^3/cmm (130-400) 06/02/22 02:18 MPV 12.6 fL (7.4-10.4) H 06/02/22 02:18 Neut % (Auto) 82.2 % 06/02/22 02:18 Lymph % (Auto) 11.4 % 06/02/22 02:18 [place] % (Auto) 5.6 % 06/02/22 02:18 Eos % (Auto) 0.2 % 06/02/22 02:18 Baso % (Auto) 0.3 % 06/02/22 02:18 Neut # (Auto) 9.84 10^3/uL (1.8-7.7) H 06/02/22 02:18 Lymph # (Auto) 1.4 10^3/uL (0.8-4.8) 06/02/22 02:18 [place] # (Auto) 0.7 10^3/uL (0.2-0.9) 06/02/22 02:18 Eos # (Auto) 0.0 10^3/uL (0.0-0.8) 06/02/22 02:18 Baso # (Auto) 0.0 10^3/uL (0.0-0.1) 06/02/22 02:18 Nucleated RBC % (auto) 0 % 06/02/22 02:18 Nucleated RBCs # 0.0 /100WBC 06/02/22 02:18 Sodium 139 mmol/L (136-145) 06/02/22 02:18 Potassium 3.9 mmol/L (3.5-5.1) 06/02/22 02:18 Chloride 110 mmol/L (98-107) H 06/02/22 02:18 Carbon Dioxide 19 mmol/L (22-29) L 06/02/22 02:18 Anion Gap 13.9 (5-19) 06/02/22 02:18 BUN 7 mg/dL (6-20) 06/02/22 02:18 Creatinine 0.8 mg/dL (0.5-0.9) 06/02/22 02:18 GFR Calculation 82.1 mL/min (90-130) L 06/02/22 02:18 Glucose 76 mg/dL (65-115) 06/02/22 02:18 Calculated Osmolality 285 mOsm/kg (285-295) 06/02/22 02:18 Calcium 8.1 mg/dL (8.5-10.5) L 06/02/22 02:18 Magnesium 1.9 mg/dL (1.7-2.3) 06/02/22 02:18 Total Bilirubin 0.3 mg/dL (0.15-1.2) 06/02/22 02:18 AST 10 U/L (0-32) 06/02/22 02:18 ALT 11 U/L (0-33) 06/02/22 02:18 Alkaline Phosphatase 64 IU/L (35-105) 06/02/22 02:18 C-Reactive Protein 20.1 mg/L (0.0-4.9) H 06/01/22 17:28 Total Protein 5.4 g/dL (6.6-8.7) L D 06/02/22 02:18 Albumin 3.3 g/dL (3.5-5.2) L 06/02/22 02:18 Globulin 2.1 g/dL (1.3-4.6) 06/02/22 02:18 Lipase 9 U/L (13-60) L 06/01/22 17:28 Urine Color Yellow (Yellow) 06/02/22 06:15 Urine Appearance Clear (CLEAR) 06/02/22 06:15 Urine pH 7 (5-7) 06/02/22 06:15 Ur Specific [place] 1.010 (1.005-1.030) 06/02/22 06:15 Urine Protein Neg (Negative) 06/02/22 06:15 Urine Glucose (UA) Norm (Normal) 06/02/22 06:15 Urine Ketones 1+ (Negative) H 06/02/22 06:15 Urine Blood Neg (Negative) 06/02/22 06:15 Urine Nitrate Negative (Negative) 06/02/22 06:15 Urine Bilirubin Neg (Negative) 06/02/22 06:15 Urine Urobilinogen Norm mg/dL (Negative) 06/02/22 06:15 Ur Leukocyte Esterase Negative (Negative) 06/02/22 06:15 SARS-CoV-2 Ag (Rapid) Negative (Negative) 06/01/22 21:01 Vitals Last Vital Signs Temp 98.1 F 06/02/22 12:00 Pulse 62 06/02/22 12:00 Resp 17 06/02/22 12:00 BP 100/65 06/02/22 12:00 Pulse Ox 98 06/02/22 12:00 Discharge Plan Discharge Patient Disposition: Home Condition: Stable Prescriptions: Continued Medical Marijuana See Rx Instructions .ROUTE .COMPLEX 0RF Rx Instructions: as directed as needed lactulose 10 gram/15 mL (15 mL) solution 20 g PO TID PRN (Reason: constipation) Qty: 600 0RF Rx Instructions: Take every 8 hours until stooling regularly then as needed. ondansetron 4 mg tablet,disintegrating 4 mg PO Q8H PRN (Reason: nausea and vomiting) Qty: 15 0RF promethazine 25 mg tablet 25 mg PO Q6H PRN (Reason: nausea/headache) Qty: 20 0RF rizatriptan 10 mg tablet See Rx Instructions PO .COMPLEX PRN (Reason: Headache) 0RF Rx Instructions: take 1 tab at onset of headache; if no relief may repeat 1 tab after at least 2 hrs; max = 3 tabs/24 hr PO buspirone 15 mg tablet 15 mg PO TID PRN (Reason: Anxiety) 0RF topiramate [Topamax] 50 mg tablet 50 mg PO BEDTIME 0RF amitriptyline 25 mg tablet 25 mg PO BEDTIME 0RF escitalopram oxalate [Lexapro] 20 mg Tablet 40 mg PO BEDTIME 0RF rosuvastatin 20 mg tablet 20 mg PO QAM 0RF Protonix 40 mg tablet,delayed release (DR/EC) 40 mg PO QAM 0RF Discharge Orders: Discharge Order (Routine); Ordered 06/02/22 Ordered By: Ankur Hills Other Ambulatory Orders: Enteric Bacterial Panel by PCR (Routine) Timeframe: 1 Week Facility: [facility] - Location: Lab - Main Lab Ordered By: Ankur Hills Referrals: Jazmyne Pastor FNP-C [Primary Care Provider] - 7-10 days Discharge Diet: Regular Discharge Activity: Resume usual activity and Increase activity as tolerated Patient Instructions: Opioid Safety Activity Restrictions/Additional Instructions: Please continue taking stool softeners daily still have 1-2 soft bowel movements. You can take milk of magnesia and senna Colace twice daily along with lactulose on as-needed basis. Please follow-up with your primary care provider within next 7 to 10 days. Please make sure you send a sample for stool studies. Please maintain your hydration with 2 to 3 L of liquid daily. Discharge Attestations Time Spent in Discharge Care*: greater than 30 min Specific Discharge Activities: educating patient, discussing with telephonic case manager/social workers/dc planners, documenting/other paperwork and evaluating patient/reviewing data Status at Discharge: Cognitive status at discharge: cognitively intact, Behavioral status at discharge: cooperative, Functional status at discharge: independent ambulation, Overall status at discharge: patient is back to baseline Quality Metrics Clinical Quality Measures [ No reported AMI, CVA or VTE this stay] Coding Level of Care Code Acute Chg FW DC note Diagnoses Enteritis K52.9 Dehydration E86.0 Hypotension I95.9 Abdominal pain R10.9 Hypokalemia E87.6 Leukocytosis D72.829
--- NOTE | 2022-06-02 15:58 | PC.NURSE ---
discharge instructions given and explained.pt verb understanding of instructions.discharged via w/c to exit at 1500.spouse to drive pt home
[2022-06-02 15:59] VITALS: BP 100/65; PULSE 62; RESP 17; TEMP 36.7; O2SAT 98
== END 2022-06-02 15:00 | disposition home or self-care (01) ==
LOC: ER 21:14 → MEDSURG 21:30
PROVIDERS: Admitting Provider Internal Medicine; Emergency Provider Emergency Medicine; PCP Nurse Practitioner Family; Visit Provider Student in an Organized Health Care Education/Training Program
DX: K52.9 Noninfective gastroenteritis and colitis, unspecified (principal); E86.0 Dehydration; I95.9 Hypotension, unspecified; R10.9 Unspecified abdominal pain; E87.6 Hypokalemia; D72.829 Elevated white blood cell count, unspecified; F41.9 Anxiety disorder, unspecified; F32.9 Major depressive disorder, single episode, unspecified; M79.7 Fibromyalgia; F17.210 Nicotine dependence, cigarettes, uncomplicated; D72.89 Other specified disorders of white blood cells
CPT/HCPCS: 36415; 74177; 80053; 81001; 81003; 81025; 83605; 83690; 83735; 85025; 86140; 87426; 96361; 96365; 96366; 96367; 96372; 96374; 96375; 96376; 99285; C9113; G0378; J0744; J1170; J1644; J2405; J2765; J3010; J3475; J3480; J7030; Q9967; S0030

== ENCOUNTER 2022-06-05 14:01 | Outpatient (CLI) | payer MEDICARE, SELFPAY | END 2022-06-05 14:02 | disposition home or self-care (01) | LOC: LAB 14:05 | PROVIDERS: PCP Nurse Practitioner Family; Visit Provider Student in an Organized Health Care Education/Training Program | DX: A02.9 Salmonella infection, unspecified (principal) | CPT/HCPCS: 87506 ==

== ENCOUNTER 2022-06-24 12:50 | Outpatient (CLI) | payer MEDICARE, SELFPAY ==
--- NOTE | 2022-06-24 13:15 | MR_ITS ---
WS: [id number] MRI LUMBAR SPINE NONCONTRAST HISTORY: Lumbar pain with radiculopathy. COMPARISON: 06/27/2014. TECHNIQUE: Sagittal and axial multisequence imaging is submitted. Benign hemangioma at T4. Normal lumbar alignment with no compression fractures or marrow edema. Disc spaces and vertebral body heights are well-preserved. Conus terminates normally at L1-2 disc level. L1-L2: Normal. L2-L3: Normal. L3-L4: Normal. L4-L5: Very tiny central disc protrusion with contact on the nerve roots. The nerve roots are becomin g clumped within the periphery of the thecal sac which is slightly more noticeable as compared to the prior examination. L5-S1: Mild bilateral facet joint arthritis. No stenosis. Nerve roots are clumped within the peripher y of the thecal sac. Patient has known spondylolisthesis at L5 as seen on a prior CT. No spondylolisthesis of L5 with any significance. MR/MR lumbar spine wo con* [id number] IMPRESSION: 1. No significant central or foraminal stenosis. 2. No anterolisthesis of L5. 3. Nerve roots are becoming clumped within the periphery of the thecal sac beg inning at the L4 level suggesting early changes of arachnoiditis.
== END 2022-06-24 12:51 | disposition home or self-care (01) ==
PROVIDERS: PCP Nurse Practitioner Family; Visit Provider Nurse Practitioner Family
DX: M54.50 Low back pain, unspecified (principal); M79.606 Pain in leg, unspecified
CPT/HCPCS: 72148

== ENCOUNTER → 2022-07-03 11:19 | Outpatient (BNVA) | payer MEDICARE, SELFPAY | PROVIDERS: PCP Nurse Practitioner Family; Referring Provider Nurse Practitioner Family; Visit Provider Specialist | DX: G43.711 Chronic migraine without aura, intractable, with status migrainosus (principal); F43.10 Post-traumatic stress disorder, unspecified; M51.26 Other intervertebral disc displacement, lumbar region; R20.2 Paresthesia of skin | CPT/HCPCS: 36415; 85651; 86160; 86162; 86200; 86235; 86255; 86376; 86431; 99205 ==

== ENCOUNTER 2023-01-22 17:38 | Emergency (ER) | payer BC, MEDICARE, SELFPAY ==
[2023-01-22 18:10] VITALS: BP 165/107; PULSE 114; RESP 16; TEMP 36.4; O2SAT 98
[2023-01-22 19:30] LABS: Basophils # 0.1 10^3/uL (0.0-0.1); Basophils % 0.3 %; Eosinophils # 0.1 10^3/uL (0.0-0.8); Eosinophils % 0.7 %; Hematocrit 48.4 % (37.0-47.0); Hemoglobin 15.9 g/dL (11.5-15.3); Lymphocytes # 3.8 10^3/uL (0.8-4.8); Lymphocytes % 20.3 %; Mean Corpuscular HGB Conc 32.9 g/dL (30.0-36.0); Mean Corpuscular Hemoglobin 31.1 pg (28.0-34.0); Mean Corpuscular Volume 94.5 fl (81-99); Mean Platelet Volume 10.6 fL (7.4-10.4); Monocytes % 5.3 %; Neutrophils # 13.73 10^3/uL (1.8-7.7); Neutrophils % 73.1 %; Nucleated Red Blood Cells % 0 %; Platelet Count 349 10^3/cmm (130-400); Red Blood Count 5.12 10^6/uL (4.1-5.3); Red Cell Distribution Width 13.5 % (12.1-15.1); White Blood Count 18.8 10^3/uL (4.0-10.0)
[2023-01-22 19:34] LABS: Alanine Aminotransferase 41 U/L (0-33); Albumin Level 4.4 g/dL (3.5-5.2); Alkaline Phosphatase 81 U/L (35-105); Aspartate Amino Transferase 38 U/L (0-32); Blood Urea Nitrogen 6 mg/dL (6-20); Calcium 9.6 mg/dL (8.5-10.5); Carbon Dioxide 24 mmol/L (22-29); Chloride 96 mmol/L (98-107); Globulin 3.1 g/dL (1.3-4.6); Glomerular Filtration Rate 81.6 mL/min (90-130); Glucose 98 mg/dL (65-115); Lipase 18 U/L (13-60); Osmolality Calculated 276 mOsm/kg (285-295); Sodium 134 mmol/L (136-145); Total Bilirubin 0.5 mg/dL (0.15-1.2); Total Protein 7.5 g/dL (6.6-8.7)
[2023-01-22 19:35] LABS: Anion Gap 17.8 (5-19); Potassium 3.8 mmol/L (3.5-5.1)
[2023-01-22 20:07] VITALS: BP 116/85; PULSE 112; RESP 16; O2SAT 98
[2023-01-22 21:35] LABS: Add Urine Microscopic? NO; Charge for UA Resulting for Rev
--- NOTE | 2023-01-22 21:44 | CTR_ITS ---
PROCEDURE INFORMATION: Exam: CT Abdomen And Pelvis With Contrast Exam date and time: 01/22/2023 10:22 PM Age: 37 years old Clinical indication: Diffuse abd pain with blood in stool. TECHNIQUE: Imaging protocol: Computed tomography of the abdomen and pelvis with contrast. Radiation optimization: All CT scans at this facility use at least one of these dose optimization techniques: automated exposure control; mA and/or kV adjustment per patient size (includes targeted exams where dose is matched to clinical indication); or iterative reconstruction. Contrast material: OMNI 350; Contrast volume: 100 ml; Contrast route: INTRAVENOUS (IV); REPORTING DATA: Count of CT and Cardiac NM exams in prior 12 months: This patient has received [address] and 0 known cardiac nuclear medicine studies in the 12 months prior to the current study. COMPARISON: CT kidney stone [id number] 07/19/2020 4:49 PM RADIATION DOSE METRICS: Total DLP (mGy-cm): 479.95 FINDINGS: Lungs: The visualized lung bases are clear. Liver: Unremarkable. No enhancing mass. Gallbladder and bile ducts: Absent gallbladder. Pancreas: Unremarkable with no suspicious mass. No ductal dilation. Spleen: The spleen is not enlarged. No suspicious enhancing mass is noted. Adrenal glands: Normal. No mass. Kidneys and ureters: No solid renal mass or hydronephrosis. Stomach and bowel: Fecal filled colon. No small bowel dilation. Mild left-sided colon wall thickening, multifocal. Appendix: No evidence of appendicitis. Intraperitoneal space: No abscess or free air. Vasculature: No AAA or acute vascular lesion identified. Lymph nodes: No enlarged lymph nodes. Urinary bladder: Unremarkable as visualized. Reproductive: Unremarkable as visualized. Bones/joints: Old or congenital bilateral L5 pars defects without acute listhesis. Soft tissues: Tiny fat umbilical hernia. CT/CT abdomen pelvis w con* [id number] IMPRESSION: 1. No small bowel obstruction, abscess or free air. 2. Mild left-sided colitis possible. Follow with GI. 3. Fecal filled colon and a few other chronic findings above.
[2023-01-22 21:56] LABS: Bilirubin Urine Neg (Negative); Blood Urine Neg (Negative); Glucose Urine UA Norm (Normal); Ketones Urine Negative (Negative); Leukocyte Esterase Urine Negative (Negative); Nitrate Urine Negative (Negative); Protein Urine Neg (Negative); Urine Appearance Clear (CLEAR); Urine Color Colorless (Yellow); Urobilinogen Urine Norm (Negative); pH Urine 5 (5-7)
[2023-01-22 21:57] LABS: HCG Qualitative Urine. Negative (Negative)
--- NOTE | 2023-01-22 22:05 | W.ED.ABDPA2 ---
HPI - Abdominal Pain General: Chief Complaint: Abdominal Pain Stated Complaint: blood in stool Time Seen by Provider: 01/22/23 21:29 Source: patient Mode of arrival: ambulatory Limitations: no limitations History of Present Illness: 37-year-old female states been having severe lower abdominal cramping since yesterday states she had a large bowel movement last night as well and she had some bright red blood in her stool throughout the day today states she does still lower abdominal cramping rates her pain a 7 out of 10 she denies any lightheadedness denies any vomiting. Associated Symptoms: Reports hematochezia; Denies chills, dysuria and fever(s) Review of Systems Const: Denies: fever(s), chills, body aches or change in appetite Eyes: Denies: blurry vision or eye discomfort ENMT: Denies: throat pain or dental pain Card: Denies: chest pain Resp: Denies: dyspnea GI: Reports: abdominal pain and hematochezia : Denies: dysuria Musc: Denies: neck pain or back pain Skin/Breast: Denies: rash Neuro: Denies: headache(s) Psych: Denies: depression [place]/Lymph: Denies: easy bruising All/Imm: Denies: urticaria PFSH ED PFSH: Medical History Anxiety and depression Chronic interstitial cystitis Dyspareunia, female Fibromyalgia Gastroesophageal reflux Controlled with Prilosec Migraine headache Worse with systemic hormonal control Palpitations Followed by Dr. Auguste at [facility] [place] [facility] Pelvic pain in female 08/23/2018: Patient is reporting having pain in her pelvic region similar to the pain she has when she has sex. This is unrelated to her menstrual cycles. Potential causes for pain in the pelvic area was discussed including gynecologic, urologic, gastrointestinal, musculoskeletal, and neurologic causes. Based upon description, I am suspicious for adhesions to be at least a part of her pain problems. The fibromyalgia may also be contributing to her pain. I am starting her on Elavil and attempt to treat her pain. She also wished proceed to a laparoscopic evaluation of her pain as well as to have her tubes tied at the same time. 09/23/2018: Reports overall improvement in her generalized pain with amitriptyline, but no significant improvement with the pelvic pain. 09/28/2018: Laparoscopy with lysis of adhesions and sterilization. Small area of omental adhesions found. No evidence of endometriosis seen. Salmonella Smoking Stress incontinence Surgical History History of endometrial ablation (12/20/19) Hysteroscopy with NovaSure ablation. Performed by Dr. Rojo at [facility]. S/P section (06/05/17) Low transverse section. Diagnosis: Cephalopelvic disproportion with normal size fetus. Performed by Dr. Edward Rojo at [facility] in [place], [place]. Patient had a low transverse incision with a 2 layer closure of the uterus. S/P cholecystectomy (~2006) Laparoscopic. Performed by Dr Kumar in [place], [place] S/P laparoscopic procedure (09/16/11) Diagnostic. Diag: Pelvic pain, Dyspareunia, Left lower quadrant pain. Performed by Dr. Edward Rojo at [facility] in [place], [place]. --- Operative report reviewed-no signs of endometriosis or adhesions identified. S/P tubal ligation (09/28/18) Laparoscopic complete salpingectomy for sterilization and lysis of adhesions. Diagnosis undesired fertility and chronic pelvic pain. Performed by Dr. Edward Rojo at [facility] in [place], [place]. Findings: Small area of omental adhesions. No evidence of endometriosis seen. Family History Father Hypertension Stroke Family/Other Colon cancer paternal aunt Grandfather Diabetes Maternal Grandmother Diabetes Paternal Stroke Paternal Social History Smoking and tobacco status: never smoked Quit status (tobacco): has tried quititng Second hand smoke exposure: No Smoking risk assessment/counseling performed?: Yes Tobacco counseling given: provider counseling, support medications, support program and counseling >3 minutes Alcohol intake: never Desire information about substance/drug rehabilitation?: No Counseling given: Yes Type of substance drug use counseling provided: provider counseling and support program information Other substance/drug use counseling details: Medical marijuana use. Adopted: No Caregiver/support person: No Lives independently: No Household members: spouse Marital status: Current occupational status: unemployed Additional social history: poorly balanced diet Physical Exam Const: COMMON NORMALS: no acute distress, patient oriented x3 and healthy appearing HENMT: COMMON NORMALS: normocephalic and atraumatic HEAD & SCALP: normocephalic and atraumatic Eye: COMMON NORMALS: Equal, round and reactive pupils present and EOMs intact bilaterally PUPIL: Yes Equal, round and reactive pupils present Neck/C-Spine: COMMON NORMALS: full ROM and supple Chest: COMMONS NORMALS: normal inspection of the chest and normal palpation of entire chest wall Resp: COMMON NORMALS: normal respiratory effort, No retractions, No use of accessory muscles and clear to auscultation bilaterally AUSCULTATION: clear to auscultation bilaterally Cardio: COMMON NORMALS: regular rate, regular rhythm and No murmurs present (Cardio) RATE: regular rate RHYTHM: regular rhythm GI: COMMON NORMALS: Normal to inspection, nondistended, normoactive bowel sounds present, Soft to palpation, non-tender and no masses PALPATION: Yes Soft to palpation OTHER: No blood on exam she does have a small anal fissure Extremity: COMMON NORMALS: normal to inspection and full ROM Neuro: COMMON NORMALS: patient oriented x3, moves all extremities and no focal motor deficits Psych: COMMON NORMALS: mental status grossly normal, Normal thought process present and cooperative THOUGHT PROCESS: Normal thought process present Skin: COMMON NORMALS: no rashes or lesions noted and no wounds GENERAL SKIN EXAM: no rashes or lesions noted Course Vital Signs: Vital signs: Vital Signs Temperature 97.6 F 01/22/23 18:10 Pulse Rate 112 H 01/22/23 20:07 Respiratory Rate 16 01/22/23 20:07 Blood Pressure 116/85 01/22/23 20:07 Pulse Oximetry 98 01/22/23 20:07 Oxygen Delivery Me thod 01/22/23 20:07 MDM - Abdominal Pain Medical Decision Making Patient presents with abdominal pain blood in her stool she does have a small anal fissure likely causing some of her blood she also has a colitis her blood work here does show slight leukocytosis she has had no massive diarrhea here we will treat her with Flagyl have her follow-up with her PCP and return if worsening she understands agrees to plan. Lab Data 01/22/23 19:12 01/22/23 19:12 Labs/Radiology: Radiology Impressions Abdomen/Pelvis CT 01/22/23 21:44 IMPRESSION: 1. No small bowel obstruction, abscess or free air. 2. Mild left-sided colitis possible. Follow with GI. 3. Fecal filled colon and a few other chronic findings above. Laboratory Results WBC 18.8 10^3/uL (4.0-10.0) H 01/22/23 19:12 RBC 5.12 10^6/uL (4.1-5.3) 01/22/23 19:12 Hgb 15.9 g/dL (11.5-15.3) H 01/22/23 19:12 Hct 48.4 % (37.0-47.0) H 01/22/23 19:12 MCV 94.5 fl (81-99) 01/22/23 19:12 MCH 31.1 pg (28.0-34.0) 01/22/23 19:12 MCHC 32.9 g/dL (30.0-36.0) 01/22/23 19:12 RDW 13.5 % (12.1-15.1) 01/22/23 19:12 Plt Count 349 10^3/cmm (130-400) 01/22/23 19:12 MPV 10.6 fL (7.4-10.4) H 01/22/23 19:12 Neut % (Auto) 73.1 % 01/22/23 19:12 Lymph % (Auto) 20.3 % 01/22/23 19:12 [place] % (Auto) 5.3 % 01/22/23 19:12 Eos % (Auto) 0.7 % 01/22/23 19:12 Baso % (Auto) 0.3 % 01/22/23 19:12 Neut # (Auto) 13.73 10^3/uL (1.8-7.7) H 01/22/23 19:12 Lymph # (Auto) 3.8 10^3/uL (0.8-4.8) 01/22/23 19:12 [place] # (Auto) 1.0 10^3/uL (0.2-0.9) H 01/22/23 19:12 Eos # (Auto) 0.1 10^3/uL (0.0-0.8) 01/22/23 19:12 Baso # (Auto) 0.1 10^3/uL (0.0-0.1) 01/22/23 19:12 Nucleated RBC % (auto) 0 % 01/22/23 19:12 Nucleated RBCs # 0.0 /100WBC 01/22/23 19:12 Sodium 134 mmol/L (136-145) L 01/22/23 19:12 Potassium 3.8 mmol/L (3.5-5.1) 01/22/23 19:12 Chloride 96 mmol/L (98-107) L 01/22/23 19:12 Carbon Dioxide 24 mmol/L (22-29) 01/22/23 19:12 Anion Gap 17.8 (5-19) 01/22/23 19:12 BUN 6 mg/dL (6-20) 01/22/23 19:12 Creatinine 0.8 mg/dL (0.5-0.9) 01/22/23 19:12 GFR Calculation 81.6 mL/min (90-130) L 01/22/23 19:12 Glucose 98 mg/dL (65-115) 01/22/23 19:12 Calculated Osmolality 276 mOsm/kg (285-295) L 01/22/23 19:12 Calcium 9.6 mg/dL (8.5-10.5) 01/22/23 19:12 Total Bilirubin 0.5 mg/dL (0.15-1.2) 01/22/23 19:12 AST 38 U/L (0-32) H 01/22/23 19:12 ALT 41 U/L (0-33) H 01/22/23 19:12 Alkaline Phosphatase 81 U/L (35-105) 01/22/23 19:12 Total Protein 7.5 g/dL (6.6-8.7) 01/22/23 19:12 Albumin 4.4 g/dL (3.5-5.2) 01/22/23 19:12 Globulin 3.1 g/dL (1.3-4.6) 01/22/23 19:12 Lipase 18 U/L (13-60) 01/22/23 19:12 HCG, Qual Negative (Negative) 01/22/23 21:20 Urine Color Colorless (Yellow) 01/22/23 21:20 Urine Appearance Clear (CLEAR) 01/22/23 21:20 Urine pH 5 (5-7) 01/22/23 21:20 Ur Specific [place] 1.010 (1.005-1.030) 01/22/23 21:20 Urine Protein Neg (Negative) 01/22/23 21:20 Urine Glucose (UA) Norm (Normal) 01/22/23 21:20 Urine Ketones Negative (Negative) 01/22/23 21:20 Urine Blood Neg (Negative) 01/22/23 21:20 Urine Nitrate Negative (Negative) 01/22/23 21:20 Urine Bilirubin Neg (Negative) 01/22/23 21:20 Urine Urobilinogen Norm mg/dL (Negative) 01/22/23 21:20 Ur Leukocyte Esterase Negative (Negative) 01/22/23 21:20 Discharge Plan Discharge Patient Disposition: Home Clinical Impression: Colitis Condition: Stable Prescriptions: New ondansetron 4 mg tablet,disintegrating 4 mg PO Q6H PRN (Reason: nausea and vomiting) Qty: 14 0RF metronidazole 500 mg tablet 500 mg PO Q8H 7 Days Qty: 21 0RF No Action rizatriptan [Maxalt] 10 mg tablet See Rx Instructions PO .COMPLEX Qty: 10 0RF Rx Instructions: take 1 tab at onset of headache; if no relief may repeat 1 tab after at least 2 hrs; max = 3 tabs/24 hr PO escitalopram oxalate [Lexapro] 20 mg tablet 20 mg PO DAILY albuterol sulfate 2.5 mg /3 mL (0.083 %) solution for nebulization 2.5 mg inhalation Q6H PRN (Reason: shortness of breath or wheezing) Qty: 90 0RF Rx Instructions: please dispense mouth piece and tubing azithromycin [Zithromax Z-Lalo] 250 mg tablet See Rx Instructions PO .COMPLEX Qty: 6 0RF Rx Instructions: For 250 mg dose pack: take 500 mg today (day 1), then 250 mg for 4 days (days 2-5) PO Protonix 40 mg tablet,delayed release (DR/EC) 40 mg PO QAM Discharge Orders: Discharge ED (Routine); Ordered 01/22/23 Ordered By: Cruz Meyers Referrals: Steve Foss DO [Physician] - 1-3 days Discharge Diet: Advance as tolerated Discharge Activity: Resume usual activity Coding Level of Care Code ED Lime Puller for Chg Cindy
[2023-01-22] MEDS: morphine 4 mg/mL SDV 1 mL IVP (22:14)
[2023-01-22] MEDS: ondansetron 2 mg/ML SDV 2 mL 4 MG IVP (22:14)
[2023-01-22] MEDS: sodium chloride 0.9% 1,000 ML 999 ML IV (22:14)
[2023-01-22] MEDS: iohexol 350 mg/mL 500 mL Btl (per mL) IV (22:24)
--- NOTE | 2023-01-23 08:56 | DCPLANNER ---
Addendum entered by Enid Marquez 01/29/23 07:31: Patient had a follow up appointment scheduled with general surgery - this appointment was cancelled Original Note: biofuels plant manager had message to schedule a follow up appointment for patient with general surgery. biofuels plant manager sent patients information to the front office staff at general surgery. Patients information will be printed and reviewed. Clinic will call patient with appointment information.
--- NOTE | 2023-02-02 15:33 | DCPLANNER ---
01.31.23 - patient called due to no primary care - no answer at this time 02.01.23 - patient called due to no primary care physician - no answer at this time Patient called back stating that she sees Pb Juarez in [place].
== END 2023-01-23 00:07 | disposition home or self-care (01) ==
PROVIDERS: Emergency Provider Emergency Medicine
DX: K52.9 Noninfective gastroenteritis and colitis, unspecified (principal)
CPT/HCPCS: 36415; 74177; 80053; 81003; 81025; 83690; 85025; 96374; 96375; 99285; J2270; J2405; J7030; Q9967

== ENCOUNTER 2023-02-10 23:56 | Emergency (ER) | payer BC, MEDICARE, SELFPAY ==
[2023-02-10 23:58] VITALS: PULSE 73; RESP 16; O2SAT 97; BMI 27.4
[2023-02-11] VITALS (8 sets, daily range): BP systolic 94–135; BP diastolic 53–96; PULSE 60–73; RESP 16; TEMP 36.6; O2SAT 93–100
--- NOTE | 2023-02-11 00:12 | ECG_ITS ---
[facility] Test Date: 2023-02-11 Pat Name: Caitlin Watkins Department: Room: Gender: Female Rn Staffing: : 1985 Requested By: Bob Mejia Order Number: [id number] Brown MD: Jesús Barkley M.D. Measurements Intervals [place] Rate: 70 P: 56 VT: 141 QRS: 64 QRSD: 97 T: 20 QT: 420 QTc: 454 Interpretive Statements SINUS RHYTHM WITH SINUS ARRHYTHMIA NONSPECIFIC T-WAVE ABNORMALITY Compared to ECG 11/18/2020 16:44:40 T-wave abnormality now present Electronically Signed On 02-11-2023 16:44:19 CDT by Jesús Barkley M.D. [id number]
--- NOTE | 2023-02-11 00:12 | CTR_ITS ---
PROCEDURE INFORMATION: Exam: CT Abdomen And Pelvis With Contrast Exam date and time: 02/11/2023 1:30 AM Age: 37 years old Clinical indication: Nausea and vomiting; Abdominal pain; Prior surgery; Surgery type: Gb. Csection. Endometrial ablation. Tubal ligation. Patient HX: Epigastric pain with n/v/d. ; Additional info: Upper abdominal tenderness, nausea/vomiting and diarrhe TECHNIQUE: Imaging protocol: Computed tomography of the abdomen and pelvis with contrast. Radiation optimization: All CT scans at this facility use at least one of these dose optimization techniques: automated exposure control; mA and/or kV adjustment per patient size (includes targeted exams where dose is matched to clinical indication); or iterative reconstruction. Contrast material: OMNI 350; Contrast volume: 100 ml; Contrast route: INTRAVENOUS (IV); REPORTING DATA: Count of CT and Cardiac NM exams in prior 12 months: This patient has received 2 known CTs and 0 known cardiac nuclear medicine studies in the 12 months prior to the current study. COMPARISON: CT abdomen pelvis w con* [id number] 01/22/2023 10:22 PM RADIATION DOSE METRICS: Total DLP (mGy-cm): 470.03 FINDINGS: Lungs: The visualized lung bases are clear. Diaphragm: Tiny hiatal hernia. Liver: Liver is large and hypodense. Gallbladder and bile ducts: Absent gallbladder. Pancreas: Unremarkable with no suspicious mass. No ductal dilation. Spleen: The spleen is not enlarged. No suspicious enhancing mass is noted. Adrenal glands: Normal. No mass. Kidneys and ureters: No solid renal mass or hydronephrosis. Stomach and bowel: There is mild diffuse colon wall thickening. This mainly involves the transverse colon and early left colon. No small bowel obstruction, abscess or free air. No small bowel wall thickening noted. Appendix: No evidence of appendicitis. Intraperitoneal space: Unremarkable. No free air. No suspicious fluid collection. Vasculature: No AAA or acute vascular lesion identified. Lymph nodes: No enlarged lymph nodes. Urinary bladder: Unremarkable as visualized. Reproductive: Unremarkable as visualized. Bones/joints: No acute fracture. Old bilateral L5 pars defects without significant listhesis. Soft tissues: No acute or suspicious finding noted. CT/CT abdomen pelvis w con* [id number] IMPRESSION: 1. Mild colitis. 2. No small bowel obstruction, abscess or free air. 3. Large fatty liver and other chronic findings above.
--- NOTE | 2023-02-11 00:14 | W.ED.ABDPA2 ---
HPI - Abdominal Pain General: Chief Complaint: Nausea/Vomiting/Diarrhea Stated Complaint: n/v, abd pain Time Seen by Provider: 02/10/23 23:58 History of Present Illness: Patient is a 37-year-old female comes to the ED with abdominal pain. Patient was seen here in the ED for similar complaint back on January 22 and diagnosed with colitis and sent home on an antibiotic. Patient just finished taking antibiotics several days ago. Symptoms started today. She is having intense abdominal pain that is located in the epigastric and upper abdomen. She rates the pain currently a 10 out of 10. She describes it as cramping type pain. She has had nausea and multiple episodes of diarrhea and emesis since onset of symptoms. Denies any fevers, chills, dysuria, hematuria or vaginal bleeding. Past surgical history of cholecystectomy and tubal ligation. Associated Symptoms: Reports diarrhea, nausea and vomiting; Denies chills, constipation, dysuria, fever(s), hematochezia and hematuria Review of Systems Const: Denies: fever(s), chills or fatigue Eyes: Denies: change in vision or eye discomfort ENMT: Denies: throat pain, odynophagia, nasal discharge or nasal congestion Card: Denies: chest pain, palpitations, edema, swelling of feet/ankles, dyspnea on exertion or orthopnea Resp: Denies: dyspnea, productive cough or non-productive cough GI: Reports: abdominal pain, nausea, vomiting and diarrhea; Denies: constipation or hematochezia : Denies: flank pain, dysuria or hematuria Musc: Denies: neck pain, back pain or extremity swelling Skin/Breast: Denies: rash or new lesions Neuro: Denies: headache(s), numbness in extremities or weakness in extremities PFS ED PFSH: Medical History Anxiety and depression Chronic interstitial cystitis Dyspareunia, female Fibromyalgia Gastroesophageal reflux Controlled with Prilosec Migraine headache Worse with systemic hormonal control Palpitations Followed by Dr. Auguste at [facility] Pelvic pain in female 08/23/2018: Patient is reporting having pain in her pelvic region similar to the pain she has when she has sex. This is unrelated to her menstrual cycles. Potential causes for pain in the pelvic area was discussed including gynecologic, urologic, gastrointestinal, musculoskeletal, and neurologic causes. Based upon description, I am suspicious for adhesions to be at least a part of her pain problems. The fibromyalgia may also be contributing to her pain. I am starting her on Elavil and attempt to treat her pain. She also wished proceed to a laparoscopic evaluation of her pain as well as to have her tubes tied at the same time. 09/23/2018: Reports overall improvement in her generalized pain with amitriptyline, but no significant improvement with the pelvic pain. 09/28/2018: Laparoscopy with lysis of adhesions and sterilization. Small area of omental adhesions found. No evidence of endometriosis seen. Salmonella Smoking Stress incontinence Surgical History History of endometrial ablation (12/20/19) Hysteroscopy with NovaSure ablation. Performed by Dr. Rojo at [facility]. S/P section (06/05/17) Low transverse section. Diagnosis: Cephalopelvic disproportion with normal size fetus. Performed by Dr. Edward Rojo at [facility] in [place], [place]. Patient had a low transverse incision with a 2 layer closure of the uterus. S/P cholecystectomy (~2006) Laparoscopic. Performed by Dr Kumar in [place], [place] S/P laparoscopic procedure (09/16/11) Diagnostic. Diag: Pelvic pain, Dyspareunia, Left lower quadrant pain. Performed by Dr. Edward Rojo at [facility] in [place], [place]. --- Operative report reviewed-no signs of endometriosis or adhesions identified. S/P tubal ligation (09/28/18) Laparoscopic complete salpingectomy for sterilization and lysis of adhesions. Diagnosis undesired fertility and chronic pelvic pain. Performed by Dr. Edward Rojo at [facility] in [place], [place]. Findings: Small area of omental adhesions. No evidence of endometriosis seen. Family History Father Hypertension Stroke Family/Other Colon cancer paternal aunt Grandfather Diabetes Maternal Grandmother Diabetes Paternal Stroke Paternal Social History Smoking and tobacco status: never smoked Quit status (tobacco): has tried quititng Second hand smoke exposure: No Smoking risk assessment/counseling performed?: Yes Tobacco counseling given: provider counseling, support medications, support program and counseling >3 minutes Alcohol intake: never Desire information about substance/drug rehabilitation?: No Counseling given: Yes Type of substance drug use counseling provided: provider counseling and support program information Other substance/drug use counseling details: Medical marijuana use. Adopted: No Caregiver/support person: No Lives independently: No Household members: spouse Marital status: Current occupational status: unemployed Additional social history: poorly balanced diet Physical Exam Const: COMMON NORMALS: no acute distress, patient oriented x3 and alert GENERAL APPEARANCE: cooperative HENMT: COMMON NORMALS: normocephalic HEAD & SCALP: normocephalic MOUTH: Normal oral and palatal mucosa present THROAT: posterior oropharynx normal and uvula midline Neck/C-Spine: COMMON NORMALS: supple GENERAL: Yes normal visual inspection Resp: COMMON NORMALS: normal respiratory effort, No retractions, No use of accessory muscles and clear to auscultation bilaterally AUSCULTATION: clear to auscultation bilaterally Cardio: COMMON NORMALS: regular rate, regular rhythm, S1 normal heart sound present, S2 normal heart sound present, No gallops present (Cardio), No clicks present (Cardio), No murmurs present (Cardio) and Peripheral pulses 2+ throughout RATE: regular rate RHYTHM: regular rhythm HEART SOUNDS: S1 normal heart sound present and S2 normal heart sound present PERIPHERAL PULSES: Peripheral pulses 2+ throughout GI: COMMON NORMALS: Normal to inspection, nondistended, normoactive bowel sounds present, Soft to palpation and no masses PALPATION: Yes Soft to palpation and Yes Tenderness to palpation present (GI) Details: LUQ, RUQ and other (Epigastric tenderness) : COMMON NORMALS: Yes no CVA tenderness BLADDER/KIDNEY EXAM: Yes no CVA tenderness Back/Pelvis: COMMON NORMALS: no CVA tenderness Extremity: COMMON NORMALS: normal to inspection Neuro: COMMON NORMALS: patient oriented x3 SENSORIUM/ORIENTATION: Yes alert GAIT: Yes Normal gait present Skin: GENERAL SKIN EXAM: dry skin Course Vital Signs: Vital signs: Vital Signs Temperature 97.8 F 02/11/23 00:47 Pulse Rate 69 02/11/23 02:00 Respiratory Rate 16 02/11/23 00:30 Blood Pressure 94/53 02/11/23 02:00 Pulse Oximetry 93 02/11/23 02:00 Oxygen Delivery Me thod 02/11/23 02:00 MDM - Abdominal Pain Medical Decision Making Patient is a 37-year-old female comes to the ED with abdominal pain. Patient was seen here in the ED for similar complaint back on January 22 and diagnosed with colitis and sent home on an antibiotic. Patient just finished taking antibiotics several days ago. Symptoms started today. She is having intense abdominal pain that is located in the epigastric and upper abdomen. She rates the pain currently a 10 out of 10. She describes it as cramping type pain. She has had nausea and multiple episodes of diarrhea and emesis since onset of symptoms. Denies any fevers, chills, dysuria, hematuria or vaginal bleeding. Past surgical history of cholecystectomy and tubal ligation. Vitals are stable. Patient has some mild abdominal tenderness in the epigastric region and right and left upper quadrant of the abdomen. Rest of exam is benign. White blood cell count 16.1 and patient's white blood cell count was 18 back on January 22. the rest of CBC and CMP are unremarkable. UA is unremarkable. hCG is negative. CT abdomen pelvis showed mild colitis but no other acute finding noted. Troponin negative and EKG showed sinus rhythm with no ST segment elevation or depression seen. Since patient just got off of antibiotics I am not going to discharge her home with any antibiotics today and have her follow-up with her PCP within the next 3 to 5 days for reevaluation. Patient was discharged home with a prescription for Reglan and Bentyl. She was diagnosed with colitis and stable for discharge home. Return to ED precautions given. Patient understood agree with plan. Lab Data I reviewed the patient's lab results. 02/10/23 00:37 02/10/23 00:37 Labs/Radiology: Radiology Impressions Abdomen/Pelvis CT 02/11/23 00:12 IMPRESSION: 1. Mild colitis. 2. No small bowel obstruction, abscess or free air. 3. Large fatty liver and other chronic findings above. Laboratory Results WBC 16.1 10^3/uL (4.0-10.0) H 02/10/23 00:37 RBC 4.95 10^6/uL (4.1-5.3) 02/10/23 00:37 Hgb 15.3 g/dL (11.5-15.3) 02/10/23 00:37 Hct 45.6 % (37.0-47.0) 02/10/23 00:37 MCV 92.1 fl (81-99) 02/10/23 00:37 MCH 30.9 pg (28.0-34.0) 02/10/23 00:37 MCHC 33.6 g/dL (30.0-36.0) 02/10/23 00:37 RDW 13.2 % (12.1-15.1) 02/10/23 00:37 Plt Count 420 10^3/cmm (130-400) H 02/10/23 00:37 MPV 10.4 fL (7.4-10.4) 02/10/23 00:37 Neut % (Auto) 91.5 % 02/10/23 00:37 Lymph % (Auto) 4.9 % 02/10/23 00:37 Stewart % (Auto) 2.9 % 02/10/23 00:37 Eos % (Auto) 0.1 % 02/10/23 00:37 Baso % (Auto) 0.2 % 02/10/23 00:37 Neut # (Auto) 14.75 10^3/uL (1.8-7.7) H 02/10/23 00:37 Lymph # (Auto) 0.8 10^3/uL (0.8-4.8) 02/10/23 00:37 Stewart # (Auto) 0.5 10^3/uL (0.2-0.9) 02/10/23 00:37 Eos # (Auto) 0.0 10^3/uL (0.0-0.8) 02/10/23 00:37 Baso # (Auto) 0.0 10^3/uL (0.0-0.1) 02/10/23 00:37 Nucleated RBC % (auto) 0 % 02/10/23 00:37 Nucleated RBCs # 0.0 /100WBC 02/10/23 00:37 Sodium 141 mmol/L (136-145) 02/10/23 00:37 Potassium 3.7 mmol/L (3.5-5.1) 02/10/23 00:37 Chloride 108 mmol/L (98-107) H 02/10/23 00:37 Carbon Dioxide 20 mmol/L (22-29) L 02/10/23 00:37 Anion Gap 16.7 (5-19) 02/10/23 00:37 BUN 8 mg/dL (6-20) 02/10/23 00:37 Creatinine 0.9 mg/dL (0.5-0.9) 02/10/23 00:37 GFR Calculation 71.3 mL/min (90-130) L 02/10/23 00:37 Glucose 138 mg/dL (65-115) H 02/10/23 00:37 Calculated Osmolality 293 mOsm/kg (285-295) 02/10/23 00:37 Calcium 8.7 mg/dL (8.5-10.5) 02/10/23 00:37 Total Bilirubin 0.5 mg/dL (0.15-1.2) 02/10/23 00:37 AST 17 U/L (0-32) 02/10/23 00:37 ALT 15 U/L (0-33) 02/10/23 00:37 Alkaline Phosphatase 78 U/L (35-105) 02/10/23 00:37 Troponin T Gen 5 ng/L 6 ng/L (0-10) 02/11/23 00:37 Total Protein 7.2 g/dL (6.6-8.7) 02/10/23 00:37 Albumin 4.0 g/dL (3.5-5.2) 02/10/23 00:37 Globulin 3.2 g/dL (1.3-4.6) 02/10/23 00:37 Lipase 12 U/L (13-60) L 02/10/23 00:37 HCG, Qual Negative (Negative) 02/10/23 00:37 Urine Color Yellow (Yellow) 02/11/23 00:40 Urine Appearance Clear (CLEAR) 02/11/23 00:40 Urine pH 5 (5-7) 02/11/23 00:40 Ur Specific [place] 1.030 (1.005-1.030) 02/11/23 00:40 Urine Protein 1+ (Negative) H 02/11/23 00:40 Urine Glucose (UA) Norm (Normal) 02/11/23 00:40 Urine Ketones 2+ (Negative) H 02/11/23 00:40 Urine Blood Neg (Negative) 02/11/23 00:40 Urine Nitrate Negative (Negative) 02/11/23 00:40 Urine Bilirubin 1+ (Negative) H 02/11/23 00:40 Urine Urobilinogen Norm mg/dL (Negative) 02/11/23 00:40 Ur Leukocyte Esterase Trace (Negative) H 02/11/23 00:40 Urine RBC 0-4 /hpf (0-2) H 02/11/23 00:40 Urine WBC 0-4 /hpf (0-5) H 02/11/23 00:40 Ur Squamous Epith Cells 10-15 /hpf (0-5) H 02/11/23 00:40 Amorphous Sediment Not Reportable 02/11/23 00:40 Urine Bacteria 3+ /hpf (NONE) H 02/11/23 00:40 Urine Mucus 2+ /hpf 02/11/23 00:40 EKG Data EKG 1: EKG interpretation date: 02/11/23 Interpretation: Sinus rhythm, 70 bpm, no ST segment elevation or depression seen Discharge Plan Discharge Patient Disposition: Home Clinical Impression: Colitis Condition: Stable Prescriptions: New metoclopramide HCl 10 mg tablet 10 mg PO Q6H PRN (Reason: nausea and vomiting) Qty: 20 0RF dicyclomine 20 mg tablet 20 mg PO QID PRN (Reason: Abdominal pain and cramping) Qty: 30 0RF No Action rizatriptan [Maxalt] 10 mg tablet See Rx Instructions PO .COMPLEX Qty: 10 0RF Rx Instructions: take 1 tab at onset of headache; if no relief may repeat 1 tab after at least 2 hrs; max = 3 tabs/24 hr PO escitalopram oxalate [Lexapro] 20 mg tablet 20 mg PO DAILY albuterol sulfate 2.5 mg /3 mL (0.083 %) solution for nebulization 2.5 mg inhalation Q6H PRN (Reason: shortness of breath or wheezing) Qty: 90 0RF Rx Instructions: please dispense mouth piece and tubing azithromycin [Zithromax Z-Lalo] 250 mg tablet See Rx Instructions PO .COMPLEX Qty: 6 0RF Rx Instructions: For 250 mg dose pack: take 500 mg today (day 1), then 250 mg for 4 days (days 2-5) PO Protonix 40 mg tablet,delayed release (DR/EC) 40 mg PO QAM ondansetron 4 mg tablet,disintegrating 4 mg PO Q6H PRN (Reason: nausea and vomiting) Qty: 14 0RF Discharge Orders: Discharge ED (Routine); Ordered 02/11/23 Ordered By: Bob Mejia Discharge Diet: Regular Discharge Activity: Increase activity as tolerated Patient Instructions: Colitis (ED) Activity Restrictions/Additional Instructions: Follow-up with medical provider as directed for the next 3 to 5 days for reevaluation. Take medications as prescribed. Return to the ER or your medical provider if condition worsens. Please read and understand discharge instructions. Thank you for choosing [facility] for your healthcare needs today. Please realize this is an emergency room and that we are providing you with a medical screening exam and this may not be complete and all inclusive of all the testing and or work up that you may need to determine your ailment or severity of your illness. It is very important that you follow up as instructed or that you return to the Emergency Department should you have concerns or if your condition changes or worsens in any way. Coding Level of Care Code ED Claims Adjuster Supervisor for Kimmie White
[2023-02-11] MEDS: morphine 4 mg/mL SDV 1 mL IVP (00:23)
[2023-02-11] MEDS: metoclopramide 5 mg/mL SDV 2 mL 10 MG IVP (00:24)
[2023-02-11] MEDS: sodium chloride 0.9% 1,000 ML 999 ML IV (00:25)
[2023-02-11 00:52] LABS: Basophils % 0.2 %; Eosinophils % 0.1 %; Hematocrit 45.6 % (37.0-47.0); Hemoglobin 15.3 g/dL (11.5-15.3); Lymphocytes # 0.8 10^3/uL (0.8-4.8); Lymphocytes % 4.9 %; Mean Corpuscular HGB Conc 33.6 g/dL (30.0-36.0); Mean Corpuscular Hemoglobin 30.9 pg (28.0-34.0); Mean Corpuscular Volume 92.1 fl (81-99); Mean Platelet Volume 10.4 fL (7.4-10.4); Monocytes # 0.5 10^3/uL (0.2-0.9); Monocytes % 2.9 %; Neutrophils # 14.75 10^3/uL (1.8-7.7); Neutrophils % 91.5 %; Nucleated Red Blood Cells % 0 %; Platelet Count 420 10^3/cmm (130-400); Red Blood Count 4.95 10^6/uL (4.1-5.3); Red Cell Distribution Width 13.2 % (12.1-15.1); White Blood Count 16.1 10^3/uL (4.0-10.0)
[2023-02-11 01:10] LABS: Alanine Aminotransferase 15 U/L (0-33); Alkaline Phosphatase 78 U/L (35-105); Anion Gap 16.7 (5-19); Aspartate Amino Transferase 17 U/L (0-32); Blood Urea Nitrogen 8 mg/dL (6-20); Calcium 8.7 mg/dL (8.5-10.5); Carbon Dioxide 20 mmol/L (22-29); Chloride 108 mmol/L (98-107); Creatinine Clr Calc Pharmacy 85.1869; Globulin 3.2 g/dL (1.3-4.6); Glomerular Filtration Rate 71.3 mL/min (90-130); Glucose 138 mg/dL (65-115); Lipase 12 U/L (13-60); Osmolality Calculated 293 mOsm/kg (285-295); Potassium 3.7 mmol/L (3.5-5.1); Sodium 141 mmol/L (136-145); Total Bilirubin 0.5 mg/dL (0.15-1.2); Total Protein 7.2 g/dL (6.6-8.7)
[2023-02-11 01:11] LABS: Troponin T (5th) Once 6 ng/L (0-10)
[2023-02-11 01:22] LABS: HCG, Serum Qual Negative (Negative)
[2023-02-11] MEDS: iohexol 350 mg/mL 500 mL Btl (per mL) IV (01:39)
[2023-02-11 01:42] LABS: Urine Appearance Clear (CLEAR); Urine Color Yellow (Yellow); pH Urine 5 (5-7)
[2023-02-11 01:43] LABS: Add Urine Microscopic? YES; Bilirubin Urine 1+ (Negative); Blood Urine Neg (Negative); Glucose Urine UA Norm (Normal); Ketones Urine 2+ (Negative); Leukocyte Esterase Urine Trace (Negative); Nitrate Urine Negative (Negative); Protein Urine 1+ (Negative); Urobilinogen Urine Norm (Negative)
[2023-02-11 01:47] LABS: Bacteria Urine 3+ /hpf; RBC Urine 0-4 /hpf (0-2)
[2023-02-11 01:48] LABS: Mucus Urine 2+ /hpf; WBC Urine 0-4 /hpf (0-5)
[2023-02-11] MEDS: ondansetron 2 mg/ML SDV 2 mL 4 MG IVP (03:13)
[2023-02-11] MEDS: morphine 4 mg/mL SDV 1 mL 2 MG IVP (03:14)
[2023-02-11 10:06] LABS: H. Pylori IgG Antibody Negative (Negative)
--- NOTE | 2023-02-13 13:36 | DCPLANNER ---
finance and administration manager called patient due to no primary care physician - patient stated that she sees Pb Juarez at [facility] in [place].
== END 2023-02-11 03:36 | disposition home or self-care (01) ==
PROVIDERS: Emergency Provider Physician Assistant
DX: K52.9 Noninfective gastroenteritis and colitis, unspecified (principal); K76.0 Fatty (change of) liver, not elsewhere classified
CPT/HCPCS: 36415; 74177; 80053; 81001; 83690; 84484; 84703; 85025; 86677; 93005; 96361; 96374; 96375; 96376; 99285; J2270; J2405; J2765; J7030; Q9967

== ENCOUNTER → 2023-05-04 14:44 | Outpatient (BNVA) | payer BC, MEDICARE, SELFPAY | PROVIDERS: Visit Provider Registered Nurse Neonatal Intensive Care | DX: R05.9 Cough, unspecified (principal); Z20.822 Contact with and (suspected) exposure to COVID-19 | CPT/HCPCS: 87426 ==

== ENCOUNTER 2023-06-11 06:18 | Emergency (ER) | payer BC, MEDICARE, SELFPAY ==
[2023-06-11 06:32] VITALS: BP 127/70; PULSE 64; RESP 18; TEMP 36.4; O2SAT 98; BMI 29.2
[2023-06-11] MEDS: ondansetron 2 mg/ML SDV 2 mL 4 MG IVP (06:41)
[2023-06-11] MEDS: sodium chloride 0.9% 1,000 ML 999 ML IV ×2 (06:42→07:33)
--- NOTE | 2023-06-11 06:52 | ED_ITS ---
HPI - Abdominal Pain General: Chief Complaint: Abdominal Pain Stated Complaint: N/V Time Seen by Provider: 06/11/23 06:20 Source: patient Mode of arrival: ambulatory History of Present Illness: 37-year-old female presents to the emergency room with severe abdominal pain localized to left epigastric and left upper quadrant. She did drink alcohol last night she does not usually do that she tells me. She had both vomiting and diarrhea she denies dysuria urgency frequency no hematochezia melena hematemesis or coffee-ground emesis. No history of nephrolithiasis. She has previously had a cholecystectomy. MD elicited complaint: abdominal pain Pertinent past history: none Onset (ago): hour(s) Pain Consistency: constant Location: Diffuse Severity: moderate Quality: cramping Radiation: LUQ and epigastric Exacerbating factors: nothing Relieving factors: nothing Associated Symptoms: Reports diarrhea, nausea and vomiting; Denies anorexia, belching, bloating, change in bowel habits, change in stool character, chills, coffee ground emesis, constipation, GI cramping, dyspepsia, dysuria, excessive flatus, fever(s), heartburn, hematochezia, hematuria, hematemesis, fecal incontinence, loose stools, melena, poor appetite and syncope Related Data: Date of Last Menstrual Period: 05/31/23 Review of Systems Const: Denies: fever(s) or chills ENMT: Denies: throat pain, ear or mastoid pain, nasal discharge or nasal congestion Card: Denies: chest pain or syncope Resp: Denies: dyspnea, productive cough or non-productive cough GI: Reports: abdominal pain, nausea, vomiting and diarrhea; Denies: hematemesis, coffee ground emesis, heartburn, constipation, bloating, GI cramping, belching, excessive flatus, fecal incontinence, change in bowel habits, change in stool character, hematochezia or melena : Denies: flank pain, dysuria, urinary frequency, urinary urgency or hematuria Musc: Denies: neck pain or back pain Skin/Breast: Denies: rash or pruritus PFS ED PFSH: Medical History Anxiety and depression Chronic interstitial cystitis Dyspareunia, female Fibromyalgia Gastroesophageal reflux Controlled with Prilosec Migraine headache Worse with systemic hormonal control Palpitations Followed by Dr. Auguste at [facility] Pelvic pain in female 08/23/2018: Patient is reporting having pain in her pelvic region similar to the pain she has when she has sex. This is unrelated to her menstrual cycl es. Potential causes for pain in the pelvic area was discussed including gynecologic, urologic, gastrointestinal, musculoskeletal, and neurologic causes. Based upon description, I am suspicious for adhesions to be at least a part of her pain problems. The fibromyalgia may also be contributing to her pain. I am starting her on Elavil and attempt to treat her pain. She also wished proceed to a laparoscopic evaluation of her pain as well as to have her tubes tied at the same time. 09/23/2018: Reports overall improvement in her generalized pain with amitriptyline, but no significant improvement with the pelvic pain. 09/28/2018: Laparoscopy with lysis of adhesions and sterilization. Small area of omental adhesions found. No evidence of endometriosis seen. Salmonella Smoking Stress incontinence Surgical History History of endometrial ablation (12/20/19) Hysteroscopy with NovaSure ablation. Performed by Dr. Rojo at [facility] [place]. S/P section (06/05/17) Low transverse section. Diagnosis: Cephalopelvic disproportion with normal size fetus. Performed by Dr. Edward Rojo at [facility] in [place], [place]. Patient had a low transverse incision with a 2 layer closure of the uterus. S/P cholecystectomy (~2006) Laparoscopic. Performed by Dr Kumar in [place], [place] S/P laparoscopic procedure (09/16/11) Diagnostic. Diag: Pelvic pain, Dyspareunia, Left lower quadrant pain. Performed by Dr. Edward Rojo at [facility] in [place], [place]. --- Operative report reviewed-no signs of endometriosis or adhesions identified. S/P tubal ligation (09/28/18) Laparoscopic complete salpingectomy for sterilization and lysis of adhesions. Diagnosis undesired fertility and chronic pelvic pain. Performed by Dr. Edward Rojo at [facility] in [place], [place]. Findings: Small area of omental adhesions. No evidence of endometriosis seen. Family History Father Hypertension Stroke Family/Other Colon cancer paternal aunt Grandfather Diabetes Maternal Grandmother Diabetes Paternal Stroke Paternal Social History Smoking and tobacco status: never smoked Quit status (tobacco): has tried quititng Second hand smoke exposure: No Smoking risk assessment/counseling performed?: Yes Tobacco counseling given: provider counseling, support medications, support program and counseling >3 minutes Alcohol intake: never Substance/Drug Use: current Substance/Drug use frequency: daily Desire information about substance/drug rehabilitation?: No Counseling given: Yes Type of substance drug use counseling provided: provider counseling and support program information Other substance/drug use counseling details: Medical marijuana use. Adopted: No Caregiver/support person: No Lives independently: No Household members: spouse Marital status: Current occupational status: unemployed Additional social history: poorly balanced diet Female Reproductive History: Date of last menstrual period: 05/31/23 Physical Exam Const: GENERAL APPEARANCE: cooperative ORIENTATION/CONSCIOUSNESS: Yes awake, Yes oriented to person, Yes oriented to place and Yes oriented to time HENMT: COMMON NORMALS: normocephalic, atraumatic and hearing grossly normal bilaterally HEAD & SCALP: normocephalic and atraumatic Resp: COMMON NORMALS: normal respiratory effort, No retractions, No use of accessory muscles and clear to auscultation bilaterally AUSCULTATION: clear to auscultation bilaterally Cardio: COMMON NORMALS: regular rate, regular rhythm and No murmurs present (Cardio) RATE: regular rate RHYTHM: regular rhythm GI: COMMON NORMALS: No hepatosplenomegaly present AUSCULTATION: Yes normoactive bowel sounds PALPATION: Yes Tenderness to palpation present (GI) (diffuse), No Guarding due to palpation present (GI) and Yes No hepatosplenomegaly present Extremity: COMMON NORMALS: normal to inspection, capillary refill normal, no clubbing, cyanosis or edema, no calf tenderness and no pedal edema Neuro: SENSORIUM/ORIENTATION: Yes oriented to person, Yes oriented to place and Yes oriented to time Skin: COMMON NORMALS: no rashes or lesions noted GENERAL SKIN EXAM: no rashes or lesions noted Course Vital Signs: Vital signs: Vital Signs Temperature 97.6 F 06/11/23 06:32 Pulse Rate 64 06/11/23 06:32 Respiratory Rate 22 H 06/11/23 07:18 Blood Pressure 127/70 06/11/23 06:32 Pulse Oximetry 100 06/11/23 07:18 Oxygen Delivery Me thod Room Air 06/11/23 06:32 MDM - Abdominal Pain Medical Decision Making Labs and imaging reviewed. Patient is feeling better after medications and fluid. UA negative CT did not show anything acute. Patient's discomfort improved with medications given. We will discharge patient home clear liquid diet 24 to 48 hours abstain from alcohol. Return if is any worsening problems or pain or pain moves location. Her lipase was negative her liver enzymes were normal. CT did not identify appendix however patient has no pelvic or lower abdominal pain at this time and is all focused in the epigastric and left upper quadrant area. Return if there is any change. Medical Records I reviewed the patient's medical records. Lab Data I reviewed the patient's lab results. 06/11/23 06:40 06/11/23 06:40 Labs/Radiology: Radiology Impressions Abdomen/Pelvis CT 06/11/23 08:12 IMPRESSION: 1. No acute abdominal or pelvic abnormalities are identified. 2. No GI tract obstruction or renal obstruction. 3. The appendix is not identified. 4. Prior cholecystectomy. Laboratory Results WBC 14.3 10^3/uL (4.0-10.0) H 06/11/23 06:40 RBC 4.91 10^6/uL (4.1-5.3) 06/11/23 06:40 Hgb 15.0 g/dL (11.5-15.3) 06/11/23 06:40 Hct 44.9 % (37.0-47.0) 06/11/23 06:40 MCV 91.4 fl (81-99) 06/11/23 06:40 MCH 30.5 pg (28.0-34.0) 06/11/23 06:40 MCHC 33.4 g/dL (30.0-36.0) 06/11/23 06:40 RDW 14.1 % (12.1-15.1) 06/11/23 06:40 Plt Count 454 10^3/cmm (130-400) H 06/11/23 06:40 MPV 10.1 fL (7.4-10.4) 06/11/23 06:40 Neut % (Auto) 84.1 % 06/11/23 06:40 Lymph % (Auto) 11.7 % 06/11/23 06:40 [place] % (Auto) 3.0 % 06/11/23 06:40 Eos % (Auto) 0.3 % 06/11/23 06:40 Baso % (Auto) 0.5 % 06/11/23 06:40 Neut # (Auto) 12.02 10^3/uL (1.8-7.7) H 06/11/23 06:40 Lymph # (Auto) 1.7 10^3/uL (0.8-4.8) 06/11/23 06:40 [place] # (Auto) 0.4 10^3/uL (0.2-0.9) 06/11/23 06:40 Eos # (Auto) 0.0 10^3/uL (0.0-0.8) 06/11/23 06:40 Baso # (Auto) 0.1 10^3/uL (0.0-0.1) 06/11/23 06:40 Nucleated RBC % (auto) 0 % 06/11/23 06:40 Nucleated RBCs # 0.0 /100WBC 06/11/23 06:40 Sodium 140 mmol/L (136-145) 06/11/23 06:40 Potassium 3.8 mmol/L (3.5-5.1) 06/11/23 06:40 Chloride 105 mmol/L (98-107) 06/11/23 06:40 Carbon Dioxide 21 mmol/L (22-29) L 06/11/23 06:40 Anion Gap 17.8 (5-19) 06/11/23 06:40 BUN 6 mg/dL (6-20) 06/11/23 06:40 Creatinine 0.9 mg/dL (0.5-0.9) 06/11/23 06:40 GFR Calculation 71.3 mL/min (90-130) L 06/11/23 06:40 Glucose 156 mg/dL (65-115) H 06/11/23 06:40 Calculated Osmolality 291 mOsm/kg (285-295) 06/11/23 06:40 Calcium 8.8 mg/dL (8.5-10.5) 06/11/23 06:40 Total Bilirubin 0.4 mg/dL (0.15-1.2) 06/11/23 06:40 AST 18 U/L (0-32) 06/11/23 06:40 ALT 13 U/L (0-33) 06/11/23 06:40 Alkaline Phosphatase 92 U/L (35-105) 06/11/23 06:40 Total Protein 7.3 g/dL (6.6-8.7) 06/11/23 06:40 Albumin 4.2 g/dL (3.5-5.2) 06/11/23 06:40 Globulin 3.1 g/dL (1.3-4.6) 06/11/23 06:40 Lipase 15 U/L (13-60) 06/11/23 06:40 Urine Color Dark yellow (Yellow) 06/11/23 08:05 Urine Appearance Clear (CLEAR) 06/11/23 08:05 Urine pH 8 (5-7) H 06/11/23 08:05 Ur Specific [place] 1.015 (1.005-1.030) 06/11/23 08:05 Urine Protein Neg (Negative) 06/11/23 08:05 Urine Glucose (UA) Norm (Normal) 06/11/23 08:05 Urine Ketones 1+ (Negative) H 06/11/23 08:05 Urine Blood Neg (Negative) 06/11/23 08:05 Urine Nitrate Negative (Negative) 06/11/23 08:05 Urine Bilirubin Neg (Negative) 06/11/23 08:05 Prot Sulfosalicylic Acd Negative (Negative) 06/11/23 08:05 Urine Urobilinogen Norm mg/dL (Negative) 06/11/23 08:05 Ur Leukocyte Esterase Negative (Negative) 06/11/23 08:05 Discharge Plan Discharge Patient Disposition: Home Clinical Impression: Gastroenteritis, GERD (gastroesophageal reflux disease) Condition: Stable Prescriptions: New Protonix 40 mg tablet,delayed release (DR/EC) 40 mg PO BID 14 Days Qty: 28 0RF promethazine 25 mg tablet 25 mg PO Q6H PRN (Reason: nausea and vomiting) Qty: 20 0RF Discontinued pantoprazole [Protonix] 40 mg tablet,delayed release (DR/EC) 40 mg PO QAM No Action rizatriptan [Maxalt] 10 mg tablet See Rx Instructions PO .COMPLEX Qty: 10 0RF Rx Instructions: take 1 tab at onset of headache; if no relief may repeat 1 tab after at least 2 hrs; max = 3 tabs/24 hr PO escitalopram oxalate [Lexapro] 20 mg tablet 20 mg PO DAILY hydroxyzine HCl 25 mg tablet 25 mg PO TID PRN (Reason: itching) 5 Days Qty: 15 0RF loratadine 10 mg tablet 10 mg PO DAILY Qty: 14 0RF amitriptyline 25 mg tablet 25 mg PO DAILY cyclobenzaprine 5 mg tablet 5 mg PO ONCE PRN ketoconazole 2 % cream 1 applic topical DAILY 10 Days Qty: 60 0RF azithromycin 250 mg tablet See Rx Instructions PO .COMPLEX Qty: 6 0RF Rx Instructions: For 250 mg dose pack: take 500 mg today (day 1), then 250 mg for 4 days (days 2-5) PO prednisone 20 mg tablet 20 mg PO BID 5 Days Qty: 10 0RF albuterol sulfate [Ventolin HFA] 90 mcg/actuation HFA aerosol inhaler 2 puff inhalation Q6H PRN (Reason: shortness of breath or wheezing) Qty: 8.5 0RF dicyclomine 20 mg tablet 20 mg PO QID PRN (Reason: Abdominal pain and cramping) Qty: 30 0RF ondansetron 4 mg tablet,disintegrating 4 mg PO Q6H PRN (Reason: nausea and vomiting) Qty: 14 0RF Discharge Orders: Discharge ED (Routine); Ordered 06/11/23 Ordered By: Vipin Tinoco Referrals: Pb Jacobs MD [Primary Care Provider] - Discharge Diet: As Directed Patient Instructions: Diet for Stomach Ulcers and Gastritis (ED), Opioid Safety, Pain Management Coding Level of Care Code ED Assistant [employer] Manager for [employer]
[2023-06-11 06:53] LABS: Basophils # 0.1 10^3/uL (0.0-0.1); Basophils % 0.5 %; Eosinophils % 0.3 %; Hematocrit 44.9 % (37.0-47.0); Lymphocytes # 1.7 10^3/uL (0.8-4.8); Lymphocytes % 11.7 %; Mean Corpuscular HGB Conc 33.4 g/dL (30.0-36.0); Mean Corpuscular Hemoglobin 30.5 pg (28.0-34.0); Mean Corpuscular Volume 91.4 fl (81-99); Mean Platelet Volume 10.1 fL (7.4-10.4); Monocytes # 0.4 10^3/uL (0.2-0.9); Neutrophils # 12.02 10^3/uL (1.8-7.7); Neutrophils % 84.1 %; Nucleated Red Blood Cells % 0 %; Platelet Count 454 10^3/cmm (130-400); Red Blood Count 4.91 10^6/uL (4.1-5.3); Red Cell Distribution Width 14.1 % (12.1-15.1); White Blood Count 14.3 10^3/uL (4.0-10.0)
[2023-06-11 07:17] LABS: Alanine Aminotransferase 13 U/L (0-33); Albumin Level 4.2 g/dL (3.5-5.2); Alkaline Phosphatase 92 U/L (35-105); Anion Gap 17.8 (5-19); Aspartate Amino Transferase 18 U/L (0-32); Blood Urea Nitrogen 6 mg/dL (6-20); Calcium 8.8 mg/dL (8.5-10.5); Carbon Dioxide 21 mmol/L (22-29); Chloride 105 mmol/L (98-107); Creatinine Clr Calc Pharmacy 87.6859; Globulin 3.1 g/dL (1.3-4.6); Glomerular Filtration Rate 71.3 mL/min (90-130); Glucose 156 mg/dL (65-115); Lipase 15 U/L (13-60); Osmolality Calculated 291 mOsm/kg (285-295); Potassium 3.8 mmol/L (3.5-5.1); Sodium 140 mmol/L (136-145); Total Bilirubin 0.4 mg/dL (0.15-1.2); Total Protein 7.3 g/dL (6.6-8.7)
[2023-06-11 07:18] VITALS: RESP 22; O2SAT 100
[2023-06-11] MEDS: morphine 4 mg/mL SDV 1 mL IVP (07:18)
[2023-06-11] MEDS: pantoprazole 40 mg SDV 80 MG IVP (07:22)
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
[2023-06-11 08:23] LABS: Add Urine Microscopic? NO; Charge for UA Resulting for Rev
[2023-06-11] MEDS: aluminum-mag hydrox-simethicon 30 ML, sucralfate oral liq 1 GM PO (08:28)
[2023-06-11 09:00] LABS: Glucose Urine UA Norm (Normal); Ketones Urine 1+ (Negative); Protein Urine Neg (Negative); Specific Gravity, Urine 1.015 (1.005-1.030); Urine Appearance Clear (CLEAR); Urine Color Dark Yellow (Yellow); pH Urine 8 (5-7)
[2023-06-11 09:01] LABS: Bilirubin Urine Neg (Negative); Blood Urine Neg (Negative); Leukocyte Esterase Urine Negative (Negative); Nitrate Urine Negative (Negative); Sulfosalicylic Acid Urine Negative (Negative); Urobilinogen Urine Norm (Negative)
== END 2023-06-11 11:10 | disposition home or self-care (01) ==
PROVIDERS: Emergency Provider Family Medicine; PCP Anesthesiology
DX: K52.9 Noninfective gastroenteritis and colitis, unspecified (principal); K21.9 Gastro-esophageal reflux disease without esophagitis; Z90.49 Acquired absence of other specified parts of digestive tract
CPT/HCPCS: 74176; 80053; 81003; 83690; 85025; 96361; 96374; 96375; 99284; C9113; J2270; J2405; J7030

== ENCOUNTER → 2023-06-24 18:02 | Outpatient (BNVA) | payer MEDICARE, SELFPAY | PROVIDERS: PCP Anesthesiology; Visit Provider Nurse Practitioner Family | DX: S99.922A Unspecified injury of left foot, initial encounter (principal); W20.8XXA Other cause of strike by thrown, projected or falling object, initial encounter | CPT/HCPCS: 73630 ==

== ENCOUNTER 2023-12-16 17:44 | Emergency (ER) | payer MEDICARE, SELFPAY ==
[2023-12-16] VITALS (11 sets, daily range): BP systolic 93–146; BP diastolic 57–98; PULSE 89–114; RESP 16–21; TEMP 37.1; O2SAT 95–100; BMI 32.5
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
[2023-12-16] MEDS: orphenadrine 30 mg/mL Inj 2 mL 60 MG IM (18:19)
[2023-12-16] MEDS: morphine 4 mg/mL SDV 1 mL IM ×2 (18:19→19:44)
--- NOTE | 2023-12-16 18:24 | ED_ITS ---
HPI - Back Pain/Injury General: Chief Complaint: Back Pain/Injury Stated Complaint: back pains Time Seen by Provider: 12/16/23 17:53 History of Present Illness: Patient presents to the ER with complaints of left-sided lumbar back pain with radiculopathy down to the knee. Patient stated about 2 weeks ago she took a outside empty it and felt a catch in her back and immediately started to have an sharp left-sided stabbing pain. Patient says she has had this off and on multiple times and usually resolves on its own. Patient is try to go to the chiropractor with no relief. Today patient went to the urgent care and got a shot of Decadron and Depo-Medrol which helped for approximately 1 hour and then when the pain came back it was worse. Patient called the urgent care back and they requested she come to the ER for imaging. Patient is not having any bowel or bladder issues. The pain is staying on her left side of her back and down her left leg. It does not cross midline to the right does not go below the knee. Movement makes it worse. Review of Systems General: Reports: 10 or more systems reviewed and unremarkable except in HPI and below PFS ED PFSH: Medical History Salmonella Stress incontinence Chronic interstitial cystitis Smoking Migraine headache Worse with systemic hormonal control Fibromyalgia Dyspareunia, female Pelvic pain in female 08/23/2018: Patient is reporting having pain in her pelvic region similar to the pain she has when she has sex. This is unrelated to her menstrual cycles. Potential causes for pain in the pelvic area was discussed including gynecologic, urologic, gastrointestinal, musculoskeletal, and neurologic causes. Based upon description, I am suspicious for adhesions to be at least a part of her pain problems. The fibromyalgia may also be contributing to her pain. I am starting her on Elavil and attempt to treat her pain. She also wished proceed to a laparoscopic evaluation of her pain as well as to have her tubes tied at the same time. 09/23/2018: Reports overall improvement in her generalized pain with amitriptyline, but no significant improvement with the pelvic pain. 09/28/2018: Laparoscopy with lysis of adhesions and sterilization. Small area of omental adhesions found. No evidence of endometriosis seen. Gastroesophageal reflux Controlled with Prilosec Anxiety and depression Palpitations Followed by Dr[facility] Auguste at [facility] Surgical History History of endometrial ablation (12/20/19) Hysteroscopy with NovaSure ablation. Performed by Dr. Rojo at [facility] [place]. S/P cholecystectomy (~2006) Laparoscopic. Performed by Dr Kumar in [place], [place] S/P laparoscopic procedure (09/16/11) Diagnostic. Diag: Pelvic pain, Dyspareunia, Left lower quadrant pain. Performed by Dr. Edward Rojo at [facility] in [place], [place]. --- Operative report reviewed-no signs of endometriosis or adhesions identified. S/P section (06/05/17) Low transverse section. Diagnosis: Cephalopelvic disproportion with normal size fetus. Performed by Dr. Edward Rojo at [facility] in [place], [place]. Patient had a low transverse incision with a 2 layer closure of the uterus. S/P tubal ligation (09/28/18) Laparoscopic complete salpingectomy for sterilization and lysis of adhesions. Diagnosis undesired fertility and chronic pelvic pain. Performed by Dr. Edward Rojo at [facility] in [place], [place]. Findings: Small area of omental adhesions. No evidence of endometriosis seen. Family History Father Hypertension Stroke Family/Other Colon cancer paternal aunt Grandfather Diabetes Maternal Grandmother Diabetes Paternal Stroke Paternal Social History Smoking and tobacco/nicotine status: never used tobacco/nicotine Quit status (tobacco/nicotine): has tried quititng Second hand smoke exposure: No Alcohol intake: never Substance/Drug Use: current Substance/Drug use frequency: daily Additional social history: poorly balanced diet Adopted: No Caregiver/support person: No Lives independently: No Household members: spouse Marital status: Current occupational status: unemployed Physical Exam Const: COMMON NORMALS: no acute distress, average body habitus, patient oriented x3, no limitations, healthy appearing, alert and well nourished Neck/C-Spine: COMMON NORMALS: no JVD Chest: COMMONS NORMALS: normal inspection of the chest and normal palpation of entire chest wall Resp: COMMON NORMALS: normal respiratory effort, No retractions, No use of accessory muscles and clear to auscultation bilaterally AUSCULTATION: clear to auscultation bilaterally Cardio: COMMON NORMALS: no JVD, regular rate, regular rhythm, S1 normal heart sound present, S2 normal heart sound present, No gallops present (Cardio), No clicks present (Cardio), No murmurs present (Cardio) and No rub (Cardio) RATE: regular rate RHYTHM: regular rhythm HEART SOUNDS: S1 normal heart sound present and S2 normal heart sound present GI: COMMON NORMALS: Normal to inspection, nondistended, normoactive bowel sounds present, Soft to palpation, non-tender, No hepatosplenomegaly present and no masses PALPATION: Yes Soft to palpation and Yes No hepatosplenomegaly present Back/Pelvis: OTHER: Tender to palpate left paraspinal region. No obvious deformity crepitus or tenderness over spinal processes. Neuro: COMMON NORMALS: patient oriented x3 SENSORIUM/ORIENTATION: Yes alert Course Vital Signs: Vital signs: Vital Signs Temperature 98.7 F 12/16/23 17:49 Pulse Rate 101 H 12/16/23 20:01 Respiratory Rate 18 12/16/23 19:46 Blood Pressure 96/57 12/16/23 20:34 Pulse Oximetry 96 12/16/23 20:34 Oxygen Delivery Me thod Room Air 12/16/23 20:34 MDM - Back Pain/Injury Medical Decision Making Patient had x-rays done of her lumbar spine which showed no acute findings. Patient was given total of 8 mg of morphine and 60 mg of Norflex IM which improved her pain. Patient did receive the steroid shot from urgent care today. Patient be discharged on [place] to take on an as-needed basis for the next couple days. Differential Diagnosis Likely lumbar radiculopathy and strain of lumbar region; Unlikely sciatica, renal colic, pyelonephritis, thoracic back pain, AAA or discitis Medical Records I reviewed the patient's medical records. Labs I reviewed the patient's lab results. Radiology Impressions Lumbar Spine X-Ray 12/16/23 18:10 IMPRESSION: No acute findings. All radiology interpretation(s) finalized by discharge Discharge Plan Discharge Patient Disposition: Home Clinical Impression: Acute left lumbar radiculopathy Condition: Stable Prescriptions: New oxycodone-acetaminophen [Percocet] 5-325 mg tablet 1 tab PO Q8H PRN (Reason: pain) Qty: 10 0RF No Action rizatriptan [Maxalt] 10 mg tablet See Rx Instructions PO .COMPLEX Qty: 10 0RF Rx Instructions: take 1 tab at onset of headache; if no relief may repeat 1 tab after at least 2 hrs; max = 3 tabs/24 hr PO pantoprazole 40 mg tablet,delayed release (DR/EC) 40 mg PO DAILY propranolol 20 mg tablet 10 mg PO ONCE lubiprostone [Amitiza] 8 mcg capsule 8 mcg PO BID cyclobenzaprine 5 mg tablet 5 mg PO TID PRN (Reason: muscle spasm) Qty: 20 0RF amitriptyline 25 mg tablet 25 mg PO DAILY cyclobenzaprine 5 mg tablet 5 mg PO ONCE PRN Discharge Orders: Discharge ED (Routine); Ordered 12/16/23 Ordered By: Bruno Ware Referrals: Pb Jacobs MD [Primary Care Provider] - 1 week Patient Instructions: Lumbar Radiculopathy (ED), Opioid Safety, Pain Management Activity Restrictions/Additional Instructions: The x-rays performed in ER did not show any acute causes of your low back pain. You received pain medicine and muscle relaxer as a form of a injection in the ER. You will receive a pain prescription to get filled at the pharmacy to take over the next several days as needed. In the ER earlier today you received a short and long-acting steroid shot. Please follow-up with your family practice physician within the next 7 days for further evaluation and treatment as needed. Coding Level of Care Code ED [employer] for Kimmie White
== END 2023-12-16 21:09 | disposition home or self-care (01) ==
PROVIDERS: Emergency Provider Emergency Medicine; PCP Anesthesiology
DX: M54.16 Radiculopathy, lumbar region (principal)
CPT/HCPCS: 72100; 96372; 99284; J2270; J2360

== ENCOUNTER 2024-03-18 12:00 | Emergency (ER) | payer MEDICARE, SELFPAY ==
[2024-03-18 12:34] VITALS: BP 149/107; PULSE 95; RESP 17; O2SAT 100
--- NOTE | 2024-03-18 12:45 | CT_ITS ---
WS: [id number] CT ANGIOGRAM CEREBRAL AND CAROTID ARTERIES HISTORY: severe neck/WATTS after rollercoster ride TECHNIQUE: CT angiogram is performed of the carotid and cerebral arteries. During arterial injection imaging is obtained from the skull vertex to the aortic arch in 1.25 mm imaging. Coronal and sagittal reformats are submitted. Additional multi planar reformats of the carotid and cerebral arteries are submitted, MIP imaging also reviewed. NASCET criteria utilized. All CT scans at [employer] [facility] us e at least one of these dose optimization techniques: automated exposure control; mA and/or kV adjust ment per patient size (includes targeted exams where dose is matched to clinical indication); or iter ative reconstruction. CONTRAST: Omnipaque 350; 100 mL IV. DLP: 1138.83 mGy.cm COMPARISON: 12/27/2018 No acute intracranial hemorrhage or edema. No midline shift or mass effect. No atrophy or volume loss . Carotid Angiogram: Right carotid: Common carotid artery: Proximal cervical carotid arteries obscured by incoming contrast. The remainin g carotid arteries normal. No obstruction or dissection. No thrombus. Internal carotid artery: Normal. External carotid artery: Patent. Left carotid: Common carotid artery: Proximal cervical carotid arteries obscured by the injected contrast. Otherwis e negative. Internal carotid artery: Normal. External carotid artery: Patent. Right vertebral artery: Unremarkable. Left vertebral artery: Unremarkable. Arises normally from the subclavian artery. Subclavian arteries: No stenosis or significant abnormality. Upper thorax: Normal. Thyroid gland: Normal. Osseous structures: Unremarkable. CEREBRAL ANGIOGRAM: Intracranial vertebral arteries: Dominant LEFT vertebral artery. No dissection or obstruction. Basilar artery: No significant stenosis or occlusion. No aneurysm. Intracranial Internal carotid arteries: Demonstrates no significant stenosis or plaque. Middle cerebral arteries: Normal. Anterior cerebral arteries and ACOM: Normal. Posterior cerebral arteries and PCOM's: Normal. Dural venous sinuses are normally enhancing. Mastoid air cells: Normal. Paranasal sinuses: Normal. Calvarium: Normal. IMPRESSION: 1. Normal carotid arteries. 2. Unremarkable [place]. 3. No carotid dissection or thrombus.
--- NOTE | 2024-03-18 12:47 | ED_ITS ---
HPI - Headache 2 General: Chief Complaint: Neuro Symptoms/Deficit Stated Complaint: head pains Time Seen by Provider: 03/18/24 12:05 Source: patient Mode of arrival: ambulatory Limitations: no limitations History of Present Illness: Patient is a 38-year-old female presents to ED today with complaint of headache. Patient states she has a longstanding history of chronic migraines. She states her pain today is different. She tells me approximately 3 weeks or so ago she was on a [employer] swing ride when she began feeling immediate pain in her right neck and head. She states since the incident she has had constant intermittent ice pick like sensations in her head and neck that do not feel like her typical migraine headaches. No neurologic deficits. She contacted her neurologist through [facility] in [place] who recommended she come to the ED for CTA imaging. MD elicited complaint: headache Pertinent past history: migraines Onset (ago): day(s) Onset description: suddenly [place]while on [place] rollercoster[place] [facility] [place] Location: right, temporal and neck Severity: severe Quality & Timing: sharp Exacerbating factors: none Relieving factors: nothing Associated symptoms: Deny fever(s), lightheadedness, nausea, pre-syncope, syncope or vomiting Treatments prior to arrival: migraine medication Review of Systems 2 Const: Denies: fever(s) Eyes: Denies: change in vision, blurry vision, floaters or seeing flashes Card: Denies: palpitations, lightheadedness, syncope or pre-syncope GI: Denies: nausea or vomiting Musc: Reports: neck pain; Denies: back pain, extremity pain, extremity swelling, joint pain or joint swelling Neuro: Reports: headache(s); Denies: numbness in extremities, weakness in extremities, sensory changes, dizziness or vertigo PFSH ED 2 PFSH: Medical History Salmonella Stress incontinence Chronic interstitial cystitis Smoking Migraine headache Worse with systemic hormonal control Fibromyalgia Dyspareunia, female Pelvic pain in female 08/23/2018: Patient is reporting having pain in her pelvic region similar to the pain she has when she has sex. This is unrelated to her menstrual cycles. Potential causes for pain in the pelvic area was discussed including gynecologic, urologic, gastrointestinal, musculoskeletal, and neurologic causes. Based upon description, I am suspicious for adhesions to be at least a part of her pain problems. The fibromyalgia may also be contributing to her pain. I am starting her on Elavil and attempt to treat her pain. She also wished proceed to a laparoscopic evaluation of her pain as well as to have her tubes tied at the same time. 09/23/2018: Reports overall improvement in her generalized pain with amitriptyline, but no significant improvement with the pelvic pain. 09/28/2018: Laparoscopy with lysis of adhesions and sterilization. Small area of omental adhesions found. No evidence of endometriosis seen. Gastroesophageal reflux Controlled with Prilosec Anxiety and depression Palpitations Followed by Dr. Auguste at [facility] Surgical History History of endometrial ablation (12/20/19) Hysteroscopy with NovaSure ablation. Performed by Dr. Rojo at [facility] [place]. S/P cholecystectomy (~2006) Laparoscopic. Performed by Dr Kumar in [place], [place] S/P laparoscopic procedure (09/16/11) Diagnostic. Diag: Pelvic pain, Dyspareunia, Left lower quadrant pain. Performed by Dr. Edward Rojo at [facility] in [place], [place]. --- Operative report reviewed-no signs of endometriosis or adhesions identified. S/P section (06/05/17) Low transverse section. Diagnosis: Cephalopelvic disproportion with normal size fetus. Performed by Dr. Edward Rojo at [facility] in [place], [place]. Patient had a low transverse incision with a 2 layer closure of the uterus. S/P tubal ligation (09/28/18) Laparoscopic complete salpingectomy for sterilization and lysis of adhesions. Diagnosis undesired fertility and chronic pelvic pain. Performed by Dr. Edward Rojo at [facility] in [place], [place]. Findings: Small area of omental adhesions. No evidence of endometriosis seen. Family History Father Hypertension Stroke Family/Other Colon cancer paternal aunt Grandfather Diabetes Maternal Grandmother Diabetes Paternal Stroke Paternal Social History Smoking and tobacco/nicotine status: never used tobacco/nicotine Quit status (tobacco/nicotine): has tried quititng Second hand smoke exposure: No Alcohol intake: never Substance/Drug Use: current Substance/Drug use frequency: daily Additional social history: poorly balanced diet Adopted: No Caregiver/support person: No Lives independently: No Household members: spouse Marital status: Current occupational status: unemployed Physical Exam 2 Const: COMMON NORMALS: no acute distress, average body habitus, patient oriented x3, no limitations, healthy appearing, alert and well nourished G ENERAL APPEARANCE: cooperative ORIENTATION/CONSCIOUSNESS: Yes awake, Yes oriented to person, Yes oriented to place and Yes oriented to time HENMT: COMMON NORMALS: normocephalic and atraumatic HEAD & SCALP: normal to inspection, normocephalic and atraumatic FACE & SINUS: normal facial exam and face symmetric Eye: GENERAL EYE: appearance normal, both eyes and all related structures, normal light reflex and other (no Shannan's syndrome) DIRECT OPHTHALMOSCOPY: Y es normal light reflex Neck/C-Spine: COMMON NORMALS: no meningeal signs, no JVD and No carotid bruits GENERAL: Yes normal visual inspection Cardio: COMMON NORMALS: no JVD Neuro: BRIANDA COMA SCALE: document GCS findings [place] coma scale eye opening: Spontaneous Brianda coma scale verbal response: Orientated [place] coma scale motor response: Obey commands Brianda coma scale total score: 15 COMMON NORMALS: patient oriented x3, CN's II-XII intact bilaterally, moves all extremities, no focal motor deficits, no sensory deficits noted and gait normal SENSORIUM/ORIENTATION: Yes alert, Yes oriented to person, Yes oriented to place and Yes oriented to time MENINGEAL SIGNS: Yes no meningeal signs S PEECH: speech normal Course 2 Vital Signs: Vital signs: Vital Signs Pulse Rate 89 03/18/24 14:44 Respiratory Rate 16 03/18/24 14:44 Blood Pressure 146/102 03/18/24 14:44 Pulse Oximetry 100 03/18/24 14:44 Oxygen Delivery Me thod Room Air 03/18/24 14:44 MDM - Headache Medical Decision Making Patient is a 38-year-old female with a longstanding history of chronic migraine headaches here with complaints of a headache that is different than her baseline and started acutely during barn swing ride at [facility]. She had previously spoken to her neurologist who recommended ED evaluation for CTA imaging as there was concern for dissection due to the provided history. This was obtained and negative. Patient was originally given IV migraine cocktail meds which did not make a significant improvement in her discomfort. She was later provided with IV Reglan/DHE which did help. Patient feels comfortable going home at this time. She will follow-up with her neurologist. Differential Diagnosis Likely migraine, tension headache, subarachnoid hemorrhage and headache Medical Records I reviewed the patient's medical records. Lab Data I reviewed the patient's lab results. 03/18/24 12:58 03/18/24 12:58 Laboratory Results WBC 9.25 10^3/uL (3.29-11.43) 03/18/24 12:58 RBC 5.20 10^6/uL (3.85-5.65) 03/18/24 12:58 Hgb 15.80 g/dL (11.27-16.99) 03/18/24 12:58 Hct 47.1 % (36-47) H 03/18/24 12:58 MCV 90.6 fl (85-98) 03/18/24 12:58 MCH 30.4 pg (27-33) 03/18/24 12:58 MCHC 33.5 g/dL (30-55) 03/18/24 12:58 RDW 13.4 % (12.1-15.1) 03/18/24 12:58 Plt Count 428 10^3/cmm (157-399) H 03/18/24 12:58 MPV 10.2 fL (7.4-10.4) 03/18/24 12:58 Neut % (Auto) 59.3 % 03/18/24 12:58 Lymph % (Auto) 30.5 % 03/18/24 12:58 [place] % (Auto) 5.6 % 03/18/24 12:58 Eos % (Auto) 3.4 % 03/18/24 12:58 Baso % (Auto) 1.0 % 03/18/24 12:58 Neut # (Auto) 5.49 10^3/uL (1.8-7.7) 03/18/24 12:58 Lymph # (Auto) 2.8 10^3/uL (0.8-4.8) 03/18/24 12:58 [place] # (Auto) 0.5 10^3/uL (0.2-0.9) 03/18/24 12:58 Eos # (Auto) 0.3 10^3/uL (0.0-0.8) 03/18/24 12:58 Baso # (Auto) 0.1 10^3/uL (0.0-0.1) 03/18/24 12:58 Nucleated RBC % (auto) 0 % 03/18/24 12:58 Nucleated RBCs # 0.0 /100WBC 03/18/24 12:58 Sodium 138 mmol/L (136-145) 03/18/24 12:58 Potassium 4.0 mmol/L (3.5-5.1) 03/18/24 12:58 Chloride 102 mmol/L (98-107) 03/18/24 12:58 Carbon Dioxide 28 mmol/L (22-29) 03/18/24 12:58 Anion Gap 12.0 (5-19) 03/18/24 12:58 BUN 10 mg/dL (6-20) 03/18/24 12:58 Creatinine 0.8 mg/dL (0.5-0.9) 03/18/24 12:58 GFR Calculation 81.2 mL/min (90-130) L 03/18/24 12:58 Glucose 68 mg/dL (65-115) 03/18/24 12:58 Calculated Osmolality 283 mOsm/kg (285-295) L 03/18/24 12:58 Calcium 9.4 mg/dL (8.5-10.5) 03/18/24 12:58 Total Bilirubin 0.2 mg/dL (0.15-1.2) 03/18/24 12:58 AST 22 U/L (0-32) 03/18/24 12:58 ALT 22 U/L (0-33) 03/18/24 12:58 Alkaline Phosphatase 122 U/L (35-105) H 03/18/24 12:58 Total Protein 8.2 g/dL (6.6-8.7) 03/18/24 12:58 Albumin 4.6 g/dL (3.5-5.2) 03/18/24 12:58 Globulin 3.6 g/dL (1.3-4.6) 03/18/24 12:58 HCG, Qual Negative (Negative) 04/26/24 12:58 All radiology interpretation(s) finalized by discharge Discharge Plan Discharge Patient Disposition: Home Clinical Impression: Headache Qualifiers: Headache type: primary stabbing headache Qualified Code(s): G44.85 - Primary stabbing headache Condition: Stable Prescriptions: No Action pantoprazole 40 mg tablet,delayed release (DR/EC) 40 mg PO BID propranolol 20 mg tablet 10 mg PO DAILY cyclobenzaprine 10 mg tablet 10 mg PO TID PRN (Reason: MUSCLE SPASMS) amitriptyline 50 mg tablet 50 mg PO BEDTIME lubiprostone 24 mcg capsule 24 mcg PO BID Medical Marijuana See Rx Instructions .ROUTE .COMPLEX Rx Instructions: USES NEEDED. Discharge Orders: Discharge ED (Routine); Ordered 03/18/24 Ordered By: Keesha Baldwin Referrals: Pb Jacobs MD [Primary Care Provider] - Coding Level of Care Code ED Disease And Insect Control Boss for Kimmie White
[2024-03-18 13:04] LABS: Basophils # 0.1 10^3/uL (0.0-0.1); Eosinophils # 0.3 10^3/uL (0.0-0.8); Eosinophils % 3.4 %; Hematocrit 47.1 % (36-47); Lymphocytes # 2.8 10^3/uL (0.8-4.8); Lymphocytes % 30.5 %; Mean Corpuscular HGB Conc 33.5 g/dL (30-55); Mean Corpuscular Hemoglobin 30.4 pg (27-33); Mean Corpuscular Volume 90.6 fl (85-98); Mean Platelet Volume 10.2 fL (7.4-10.4); Monocytes # 0.5 10^3/uL (0.2-0.9); Monocytes % 5.6 %; Neutrophils # 5.49 10^3/uL (1.8-7.7); Neutrophils % 59.3 %; Nucleated Red Blood Cells % 0 %; Platelet Count 428 10^3/cmm (157-399); Red Cell Distribution Width 13.4 % (12.1-15.1); White Blood Count 9.25 10^3/uL (3.29-11.43)
[2024-03-18 13:20] LABS: HCG, Serum Qual Negative (Negative)
[2024-03-18] MEDS: sodium chloride 0.9% 1,000 ML 999 ML IV (13:20)
[2024-03-18] MEDS: ketorolac 60 mg/2 mL INJ 30 MG IVP (13:21)
[2024-03-18] MEDS: diphenhydrAMINE 50 mg/mL SDV 1mL IVP (13:21)
[2024-03-18] MEDS: dexamethasone 10 mg/mL INJ 8 MG IVP (13:22)
[2024-03-18] MEDS: ondansetron 2 mg/ML SDV 2 mL 4 MG IVP (13:22)
[2024-03-18 13:26] LABS: Alanine Aminotransferase 22 U/L (0-33); Albumin Level 4.6 g/dL (3.5-5.2); Alkaline Phosphatase 122 U/L (35-105); Aspartate Amino Transferase 22 U/L (0-32); Blood Urea Nitrogen 10 mg/dL (6-20); Calcium 9.4 mg/dL (8.5-10.5); Carbon Dioxide 28 mmol/L (22-29); Chloride 102 mmol/L (98-107); Creatinine Clr Calc Pharmacy 103.2764; Globulin 3.6 g/dL (1.3-4.6); Glomerular Filtration Rate 81.2 mL/min (90-130); Glucose 68 mg/dL (65-115); Osmolality Calculated 283 mOsm/kg (285-295); Sodium 138 mmol/L (136-145); Total Bilirubin 0.2 mg/dL (0.15-1.2); Total Protein 8.2 g/dL (6.6-8.7)
[2024-03-18] MEDS: iohexol 350 mg/mL 500 mL Btl (per mL) IV (13:41)
[2024-03-18] MEDS: dihydroergotamine 1 mg/mL Inj IVP (14:32)
[2024-03-18] MEDS: metoclopramide 5 mg/mL SDV 2 mL 10 MG IVP (14:33)
[2024-03-18 14:44] VITALS: BP 146/102; PULSE 89; RESP 16; O2SAT 100
[2024-03-18 15:13] VITALS: BP 146/102; PULSE 89; RESP 16; TEMP 37; O2SAT 100
== END 2024-03-18 15:17 | disposition home or self-care (01) ==
PROVIDERS: Emergency Provider Physician Assistant; PCP Anesthesiology
DX: G44.85 Primary stabbing headache (principal)
CPT/HCPCS: 70496; 70498; 80053; 84703; 85025; 96374; 96375; 99285; J1100; J1110; J1200; J1885; J2405; J2765; J7030; Q9967

== ENCOUNTER → 2024-04-05 08:05 | Outpatient (BNVA) | payer MEDICARE, MEDICAID, SELFPAY | PROVIDERS: PCP Anesthesiology; Visit Provider Podiatrist Foot & Ankle Surgery | DX: B07.9 Viral wart, unspecified (principal); Q82.8 Other specified congenital malformations of skin | CPT/HCPCS: 11721; 17110; 99203 ==

== ENCOUNTER → 2024-05-09 11:13 | Outpatient (BNVA) | payer MEDICARE, MEDICAID, SELFPAY | PROVIDERS: PCP Registered Nurse; Visit Provider Podiatrist Foot & Ankle Surgery | DX: B07.9 Viral wart, unspecified (principal) | CPT/HCPCS: 99213 ==

== ENCOUNTER 2025-04-12 08:24 | Outpatient (RCR) | payer MEDICARE, MEDICAID, SELFPAY | END 2025-04-22 23:59 | disposition home or self-care (01) | LOC: SPT 08:24 | PROVIDERS: Visit Provider Registered Nurse | DX: M13.0 Polyarthritis, unspecified (principal) | CPT/HCPCS: 97161 ==

== ENCOUNTER 2025-04-23 05:00 | Outpatient (RCR) | payer MEDICARE, SELFPAY | END 2025-05-22 23:59 | disposition home or self-care (01) | LOC: SPT 05:00 | PROVIDERS: Visit Provider Registered Nurse | DX: M13.0 Polyarthritis, unspecified (principal); M54.50 Low back pain, unspecified; M25.552 Pain in left hip | CPT/HCPCS: 97110; 97113; 97164 ==

== ENCOUNTER 2025-05-23 05:00 | Outpatient (RCR) | payer MEDICARE, SELFPAY | END 2025-06-22 23:59 | disposition home or self-care (01) | LOC: SPT 05:00 | PROVIDERS: Visit Provider Registered Nurse | DX: M13.0 Polyarthritis, unspecified (principal) | CPT/HCPCS: 97113 ==

== ENCOUNTER 2025-07-06 06:00 | Outpatient (RCR) | payer MEDICARE, SELFPAY | END 2025-07-23 23:59 | disposition home or self-care (01) | LOC: SPT 06:00 | PROVIDERS: Visit Provider Registered Nurse | DX: M13.0 Polyarthritis, unspecified (principal) | CPT/HCPCS: 97110; 97113; 97164 ==

== ENCOUNTER 2025-07-24 06:30 | Outpatient (RCR) | payer MEDICARE, SELFPAY | END 2025-08-22 23:59 | disposition home or self-care (01) | LOC: SPT 06:30 | PROVIDERS: Visit Provider Registered Nurse | DX: M13.0 Polyarthritis, unspecified (principal) | CPT/HCPCS: 97110; 97164 ==

== ENCOUNTER 2025-08-23 06:30 | Outpatient (RCR) | payer MEDICARE, SELFPAY | END 2025-09-12 10:50 | disposition home or self-care (01) | LOC: SPT 06:30 | PROVIDERS: Visit Provider Registered Nurse | DX: M13.0 Polyarthritis, unspecified (principal) | CPT/HCPCS: 97110 ==

== ENCOUNTER 2025-10-12 11:22 | Outpatient (CLI) | payer MEDICARE, SELFPAY ==
--- NOTE | 2025-10-12 11:27 | XR_ITS ---
WS: [id number] XR hip LT 2-3V wo/w pel* [id number] REASON FOR EXAM: MATTHEW-DANLOS SYNDROME FINDINGS: No fracture or focal bone lesion. Moderate narrowing of the posterior inferior joint space. Anterior superior joint space is intact. There is mild subchondral sclerosis and osteophytosis of the patella. There is mild osteophytosis of the femoral head. XR/XR hip LT 2-3V wo/w pel* [id number] IMPRESSION: Mild osteoarthritis.
== END 2025-10-12 11:23 | disposition home or self-care (01) ==
LOC: RAD 11:23
PROVIDERS: PCP Registered Nurse; Visit Provider Registered Nurse
DX: Q79.60 Ehlers-Danlos syndrome, unspecified (principal); M25.852 Other specified joint disorders, left hip; M25.752 Osteophyte, left hip
CPT/HCPCS: 73502